=== PATIENT | male | born 1960 | race Caucasian/White ===

== ENCOUNTER 2023-09-01 17:13 | Inpatient (IN) | payer MEDICARE, OTHER, SELFPAY ==
--- NOTE | ~2023-09-01 | XR_ITS ---
EXAM: XR abdomen/kub 1V DATE: 09/01/2023 21:40 HISTORY: possible kidney stone . COMPARISON: None available. FINDINGS: Streaky and subsegmental bibasilar opacities and the suggestion of right pleural fluid. Di lated air-filled transverse colon. Otherwise there is a paucity of bowel gas. Cholecystectomy clips. 14 mm calcification with smaller adjacent calcifications projecting over the left renal pelvis. Small cluster of calcifications measuring up to 7 mm over the left lower pole. Punctate right midpole calc ifications. Degenerative changes in the spine and bilateral hips. Pelvic phleboliths. IMPRESSION: Bibasilar atelectasis/consolidation in the lungs, possible small right pleural effusion. Air-filled dilated transverse colon, may represent ileus, obstruction, or artifact from magnification . Likely bilateral nephrolithiasis. Possible 14 mm left renal pelvis stone. Consider CT of the abdome n and pelvis for further evaluation. Reviewed, dictated and finalized at location K. IMPRESSION: Bibasilar atelectasis/consolidation in the lungs, possible small ri ght pleural effusion. Air-filled dilated transverse colon, may represent ileus, obstruction, or artifact from magnification. Likely bilateral nephrolithiasis. Possible 14 mm left renal pelvis stone. Consider CT of the abdomen and pelvis for further evaluation.
--- NOTE | ~2023-09-01 | XR_ITS ---
XR retrograde pyelo w/stent BI DATE: 09/02/2023 10:45 INDICATION: Left stent placement TECHNIQUE: 44.9 seconds fluoroscopy time 48.17 mGy 3 spot C-arm images COMPARISON: 05/02/2024 CT abdomen pelvis FINDINGS: Right renal collecting system appears unremarkable. There is mild left hydronephrosis with blunted calyces. Left internal urinary stent is placed with proximal pigtail in an upper pole calyx of the left kidney . IMPRESSION: Left internal urinary stent placement Reviewed, dictated and finalized at Location A. Reviewed, dictated and finalized at location A.
--- NOTE | ~2023-09-01 | CT_ITS ---
EXAMINATION: CT abdomen pelvis wo con DATE: 09/01/2023 23:32 INDICATION: Abdominal pain and distention TECHNIQUE: Computed tomography (CT) of the abdomen and pelvis was performed without intravenous contr ast. Automated exposure control and iterative reconstruction technique were employed. Exam dose: 182 0.20 mGy-cm total exam DLP. COMPARISON: 09/01/2023 KUB FINDINGS: There are multiple left perihilar and subcarinal calcified nodes and calcified left lower l obe pulmonary granuloma in addition to calcified hepatic and hepatic granulomas, consistent with old granulomatous disease. Small pleural effusions. There is bilateral lower lobe mild dependent atelectasis. There is minimal i nfiltrate in the lingula and lower lobes. No pericardial effusion. Coronary artery calcifications. Status post cholecystectomy. No bile duct or pancreatic duct dilatation. No hepatic, pancreatic, splenic, adrenal or renal space-occupying mass lesion is evident on this limi lakia noncontrast examination with suboptimal soft tissue detail apparently due to body habitus. There are 2 approximately 3-4 mm nonobstructing right renal calculi. There are multiple contiguous calculi of the lower pole of the left kidney measuring up to 11 x 14 mm overall dimension. 9.6 x 14 mm calculus of the left ureteropelvic junction with attenuation of 500 Hounsfield units. Mild left hydronephrosis. The urinary bladder is unremarkable. Prostate enlargement and calcification. There is atherosclerotic calcification of the abdominal aorta. No abdominal aortic aneurysm. No intra peritoneal or retroperitoneal mass lesion or adenopathy or ascites. No bowel obstruction, bowel wall thickening, pneumatosis or intraperitoneal free air. IMPRESSION: 9.6 x 14 mm left ureteral pelvic junction calculus with mild left hydroureteronephrosis Bilateral nephrolithiasis Status post cholecystectomy Small pleural effusions, minimal infiltrate in the lingula and lower lobes, bilateral lower lobe mild dependent atelectasis Reviewed, dictated and finalized at Location A. Reviewed, dictated and finalized at location A. IMPRESSION: 9.6 x 14 mm left ureteral pelvic junction calculus with mild left hydroureteronephrosis Bilateral nephrolithiasis Status post cholecystectomy Small pleural effusions, minimal infiltrate in the lingula and lower lobes, cecelia ateral lower lobe mild dependent atelectasis
--- NOTE | ~2023-09-01 | XR_ITS ---
XR chest 1V portable DATE: 09/01/2023 22:52 INDICATION: Cough TECHNIQUE: Portable AP chest on September 01, 2023 at 2248 hours COMPARISON: None FINDINGS: There is pulmonary vascular congestion and redistribution. There are Vasyl B lines. There is prominence of the minor fissure. There are diffuse interstitial infiltrates. Heart size appears within normal range. No pleural effusion or pneumothorax is evident. Degenerative spurring of the thoracic spine. IMPRESSION: Pulmonary vascular congestion, pulmonary edema Reviewed, dictated and finalized at location A.
--- NOTE | 2023-09-01 17:16 | PM.IMHP ---
H&P: HPI History of Present Illness Date/Time: 09/01/23 17:15 Chief Complaint: Acute kidney injury, ureteral stone, urinary tract infection. Narrative: This is a very pleasant 63-year-old male with hypertension, hyperlipidemia, type 2 diabetes mellitus, and gastroesophageal reflux disease who is being directly admitted to the medical floor from an outside facility for further evaluation and treatment of acute kidney injury, a partially obstructing ureteral stone, and suspected urinary tract infection. 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 He was reportedly febrile on arrival to their facility however I was unable to find that documented. Labs were significant for WBC count of 17.1, hemoglobin 14.4, platelet 204, sodium 136, potassium 3.9, BUN 19, creatinine 1.30, glucose 175, lactic acid 2.5. CT of the abdomen and pelvis showed a 13 mm partially obstructing stone in the left ureteropelvic junction with moderate left perinephric fat stranding in addition to bilateral nonobstructing nephrolithiasis (overnight virtual radiologist read mentioned heterogeneity within the fundus of the stomach for which a gastric mass or foreign body cannot be excluded though this was not mentioned on the over read). He was started on IV fluids, received a dose of Zosyn, and was admitted to the floor where his antibiotics were changed to ceftriaxone. Due to a miscommunication, there was no urologist to see him yesterday or on-call today and transfer was initiated to [facility]. Creatinine was elevated 2.0 today. With further questioning the patient mentions some dribbling when trying to urinate but he denies concerns for urine retention. He also complains of constipation and reports not having a bowel movement since August 26 which is very unusual for him as he typically goes once a day. He was given a Dulcolax suppository and Fleet enema at the outside facility with no results as of yet. Review of Systems Review of Systems: Twelve systems were reviewed. No cold or flu symptoms though he has developed a dry cough over the last 24 hours. He denies dysphagia and concerns for aspiration. Weight has been stable. He has not noticed any blood in the stool. No prior history of kidney stones. No history of congestive heart failure or cardiac disease. Denies orthopnea and edema. He believes his chronic medical conditions are well controlled on home medications. Except as documented, all other systems were reviewed and are negative. [facility] Past Medical History Medical History (Updated 09/01/23 @ 22:35 by Katerin Forde PA-C) Gastroesophageal reflux disease Hyperlipidemia Hypertension Obstructive sleep apnea Type 2 diabetes mellitus Surgical History Surgical History (Updated 09/01/23 @ 22:29 by Katerin Forde PA-C) History of appendectomy History of cholecystectomy History of right knee joint replacement Family History Family History (Updated 09/01/23 @ 22:29 by Katerin Forde PA-C) Other Cancer Heart disease Hypertension Social History Social History (Updated 09/01/23 @ 22:33 by Katerin Forde PA-C) Social History: Surrogate medical decision maker: Mahnaz Pardo, spouse. Code status: Full code. Smoking status: Never smoker Second hand tobacco smoke exposure: No Alcohol intake: never Substance use: never Do You Feel Safe in your Home?: Yes Lack of Transportation: No Lack of Food: Never True Current Housing: Decline to Answer Concerned About Future Housing: Decline to Answer Difficulty Paying Gas/Electric Bills: Decline to Answer Difficulty Paying for Meds: Decline to Answer Currently Unemployed: Decline to Answer Education: Decline to Answer Difficulty w/ Childcare or Family Care: Decline to Answer Dorcas
--- NOTE | 2023-09-01 17:52 | P.CONUR_ITS ---
Assessment and Plan Assessment and plan (1) Ureteral stone: Code(s): N20.1 - Calculus of ureter Status: Acute Assessment and Plan: 13mm left ureteral stone will perform cysto with left ureteral stent placement tomorrow in anticipation of ESWL NPO after midnight (2) Urinary tract infection: Code(s): N39.0 - Urinary tract infection, site not specified Status: Acute Assessment and Plan: await urine Cx from [place] cont Empiric abx (3) Acute kidney injury: Code(s): N17.9 - Acute kidney failure, unspecified Status: Acute Urology Consult Note HPI Date Seen: 09/01/23 Requesting Physician: Ernie Alexander MD Primary Care Provider: UNKNOWN,DOCTOR Consult Narrative Narrative: Eduar Pardo is a 63 year old male with hypertension, hyperlipidemia, type 2 diabetes mellitus, and gastroesophageal reflux disease who is being directly admitted to the medical floor from an outside facility for further evaluation and treatment of acute kidney injury, a partially obstructing ureteral stone, and urinary tract infection. He was admitted to [facility] through their ED yesterday in the licensed tax consultant hours. CT scan reveals 13mm obstructing left ureteral stone. Pt has mild leukocystosis, mils PRINCESS, and p yuria on admission which has improved with IV hydration and IV abx. Pt has been transferred for placement of left ureteral stent in anticipation of ESWL when infection clears. Review of Systems Constitutional: Constitutional: Reports no additional constitutional complaints Gastrointestinal: Gastrointestinal: Reports constipation Genitourinary: Genitourinary: Reports flank pain Psychiatric: Psychiatric: Reports no additional psychiatric complaints [facility] Past Medical History Medical History (Updated 09/01/23 @ 17:25 by Katerin Forde PA-C) Gastroesophageal reflux disease Hyperlipidemia Hypertension Type 2 diabetes mellitus Meds Home Medications and Allergies Allergies Allergy/AdvReac Type Severity Reaction Status Date / Time cephalexin [From Keflex] Allergy Hives Verified 09/01/23 18:03 Exam Const: General: uncomfortable, obese and overweight Eyes: General: appearance normal, both eyes and all related structures Chest: Chest palpation & inspection: normal inspection of the chest : General: Yes CVA tenderness Skin: General skin exam: normal color Psych: Appearance: grossly normal Mental Status: mental status grossly normal Results Labs 09/01/23 17:35
--- NOTE | 2023-09-01 17:53 | ADMGEN ---
This patient, Eduar Pardo, was admitted to Medical Room 343-01. Patient/family oriented to hospital policies and general routines including ID bracelet, bed and alarms, visiting hours, pain management, procedures, bathroom and other care routines, personal items, smoking policy, room service/diet, and visiting hours. Information on how to activate the Rapid Response Team has been discussed. Patient/Family are encouraged to report perceived risks to care and to ask questions if they do not understand what they are told or what they should do.
[2023-09-01 17:54] LABS: Anion Gap 6 mmol/L (4-12); Blood Urea Nitrogen 27 mg/dL (9-20); Carbon Dioxide 25 mmol/L (22-30); Chloride 104 mmol/L (98-107); Estimated Glomerular Filt Rate 47; Glucose 148 mg/dL (65-110); Potassium 4.3 mmol/L (3.4-5.0); Sodium 135 mmol/L (137-145)
[2023-09-01 18:19] VITALS: BP 121/60; PULSE 87; RESP 19; TEMP 36.8; O2SAT 95
[2023-09-01 18:49] VITALS: PULSE 87; RESP 19; O2SAT 95
[2023-09-01] MEDS: ACETAMINOPHEN 325 MG TABLET 650 MG PO (20:03)
[2023-09-01] MEDS: SODIUM CHLORIDE 0.9% IV 1,000 ML 100 ML IV CONT (21:25)
[2023-09-01 21:26] VITALS: BP 139/70; PULSE 95; RESP 20; TEMP 37.1; O2SAT 97
[2023-09-01 21:27] VITALS: BMI 55.3
[2023-09-01] MEDS: HYDROmorphone HCL INJ (*CRX) 1 MG/ML SYR IV PUSH (21:28)
[2023-09-01 21:37] LABS: Glucose Point of Care 173 mg/dl (65-105)
[2023-09-01 22:33] VITALS: PULSE 93; O2SAT 96
[2023-09-02] VITALS (10 sets, daily range): BP systolic 112–159; BP diastolic 57–84; PULSE 79–93; RESP 15–21; TEMP 36.1–37.2; O2SAT 93–100
[2023-09-02 06:14] LABS: Hematocrit 36.2 % (42.0-52.0); Immature Platelet Fraction Pct 7.8 % (0.9-11.2); Mean Corpuscular HGB Conc 33.1 g/dl (32-36); Mean Corpuscular Volume 99.5 fl (80-100); Mean Platelet Volume 11.1 fl (7.4-10.4); Platelet Count Result 137 k/mm3 (150-375); Red Blood Count 3.64 M/mm3 (4.6-6.20); Red Cell Distribution Width 13.2 % (11.5-14.5)
[2023-09-02 06:24] LABS: Anion Gap 4 mmol/L (4-12); Blood Urea Nitrogen 23 mg/dL (9-20); Calcium 8.8 mg/dL (8.4-10.2); Carbon Dioxide 25 mmol/L (22-30); Chloride 103 mmol/L (98-107); Estimated CRCL calculation 67 ml/min; Estimated Glomerular Filt Rate 41; Glucose 154 mg/dL (65-110); Magnesium 2.1 mg/dL (1.6-2.3); Potassium 4.4 mmol/L (3.4-5.0); Sodium 132 mmol/L (137-145)
[2023-09-02 06:32] LABS: NT Pro B Type Natriuretic Pept 1200 pg/mL (19.9-100)
--- NOTE | 2023-09-02 09:35 | PC.NURSE ---
Patient off of unit to Surgery
--- NOTE | 2023-09-02 09:57 | WPDANESEPPF ---
Anes - Initial Pre Proc Eval Procedure: Operation Date: 09/02/23 10:00 Proposed Procedures p Cysto, RPG, Stone Ext, Stent Placement(Left) - Bert Nieves MD Date/Time: 09/02/23 09:57 Surgeon: Ernie Alexander MD Pre Op Diagnosis: Acute Kidney Injury/Ureteral Stone Patient Data Age: 63 Gender: M Height: 1.83 m Weight: 185 kg Last Vital Signs Temp 98.9 F 09/02/23 04:12 Pulse 93 09/02/23 04:12 Resp 18 09/02/23 04:12 BP 159/74 H 09/02/23 04:12 Pulse Ox 95 09/02/23 04:12 O2 Del Method CPAP 09/02/23 03:07 Allergies Allergy/AdvReac Type Severity Reaction Status Date / Time cephalexin [From Keflex] Allergy Hives Verified 09/01/23 18:03 Home Medications Medication Instructions Recorded Confirmed Type Adult One Daily Multivitamin 1 tab-cap PO DAILY 09/01/23 09/01/23 History Celebrex 200 mg PO DAILY 09/01/23 09/01/23 History citalopram 10 mg PO DAILY 09/01/23 09/01/23 History lisinopril 20 1 tablet PO DAILY 09/01/23 09/01/23 History mg-hydrochlorothiazide 25 mg tablet lutein 20 mg PO DAILY 09/01/23 09/01/23 History magnesium 500 mg PO DAILY 09/01/23 09/01/23 History metformin 1,000 mg tablet 500 mg PO BID 09/01/23 09/01/23 History omeprazole 20 mg capsule,delayed 20 mg PO DAILY 09/01/23 09/01/23 History release rosuvastatin 10 mg tablet 10 mg PO DAILY 09/01/23 09/01/23 History semaglutide 1 mg/dose (4 mg/3 mL) 1 mg subcut WEEKLY 09/01/23 09/01/23 History subcutaneous pen injector (Ozempic) Laboratory Tests 09/01/23 09/01/23 09/02/23 17:35 21:29 05:53 WBC 10.0 K/mm3 (4.5-10.0) RBC 3.64 L M/mm3 (4.6-6.20) Hgb 12.0 L g/dL (14.0-18.0) Hct 36.2 L % (42.0-52.0) MCV 99.5 fl (80-100) MCH 33.0 pg (26-34) MCHC 33.1 g/dl (32-36) RDW 13.2 % (11.5-14.5) Plt Count 137 L k/mm3 (150-375) MPV 11.1 H fl (7.4-10.4) % Immature Plt Fraction 7.8 % (0.9-11.2) Sodium 135 L mmol/L 132 L mmol/L (137-145) (137-145) Potassium 4.3 mmol/L 4.4 mmol/L (3.4-5.0) (3.4-5.0) Chloride 104 mmol/L 103 mmol/L (98-107) (98-107) Carbon Dioxide 25 mmol/L 25 mmol/L (22-30) (22-30) Anion Gap 6 mmol/L 4 mmol/L (4-12) (4-12) BUN 27 H mg/dL 23 H mg/dL (9-20) (9-20) Creatinine 1.50 H mg/dL 1.70 H mg/dL (0.7-1.3) (0.7-1.3) Estim Creat Clear Calc Not Reportable 67 ml/min Estimated GFR 47 L 41 L (59 - ) (59 - ) Glucose 148 H mg/dL 154 H mg/dL (65-110) (65-110) POC Capillary Glucose 173 H mg/dl (65-105) Calcium 9.0 mg/dL 8.8 mg/dL (8.4-10.2) (8.4-10.2) Magnesium 2.1 mg/dL (1.6-2.3) NT-Pro-B Natriuret Pep 1200 H pg/mL (19.9-100) Patient hx anesthesia problems: none Family hx anesthesia problems: none Results Review: All pre-operative results and documents have been reviewed as part of the pre-operative evaluation. [facility] Past Medical History Medical History Gastroesophageal reflux disease Hyperlipidemia Hypertension Obstructive sleep apnea Type 2 diabetes mellitus Surgical History Surgical History History of appendectomy History of cholecystectomy History of right knee joint replacement Family History Family History Other Cancer Heart disease Hypertension Social History Social History Social History: Surrogate medical decision maker: Mahnaz Pardo, spouse. Code status: Full code. Smoking status: Never smoker Second hand tobacco smoke exposure: No Alcohol intake: never Substance use: never Do You Feel Safe in your Home?: Yes Lack of Transportation: No
[2023-09-02] MEDS: LIDOCAINE HCL 2% GEL UROJET 10 ML PKG MUCOUS MEM (10:27)
--- NOTE | 2023-09-02 10:43 | PM.OP ---
Procedure Note - Brief Procedure Note - Brief Date of procedure: 09/02/23 Acute Kidney Injury/Ureteral Stone Procedure performed: Cystoscopy with bilateral retrograde pyelography, left ureteral stent placment Surgeon: Bert Nieves MD Anesthesia: GETAngelo Description of procedure: Pt was taken back to the OR and placed under general anesthesia. Pt was positioned in dorsal lithotomy on the cysto table. Pt's genitalia wa prepped and draped in sterile fashion. A 22f cystoscope was placed. The urethra, prostate, and bladder were unremarkable. Using a 5f angiographic cath was placed into the left uo and a retrograde pyelogram was performed. The left ureter was normal up to the left UPJ where a 1cm filling defect c/w a stone was noted with mild hydronephrosis. A wire was passed up the cath into the left renal pelvis passed the stone. Over the wire a 6f variable lengthed stent was placed with a nice curl in the renal pelvis and bladder. Next the 5f angiographic cath was placed into the right uo and a retrograde pyelogram was perfomed. The right ureter and renal pelvis was normal. The bladder was drained and the scope removed. 10cc of lidocaine jelly was instilled into the urethra. Pt tolerated with well and taken to PACU in stable condition.
[2023-09-02] MEDS: LACTATED RINGERS 1,000 ML 30 ML IV CONT (10:54)
[2023-09-02 11:03] LABS: Glucose Point of Care 132 mg/dl (65-105)
[2023-09-02] MEDS: ceFAZolin 1 GM/NS 50 ML 1 GM/50 ML BAG IVPB ×2 (12:36→20:30)
--- NOTE | 2023-09-02 13:28 | P.PNIM_ITS ---
Progress Note: A&P Assessment and Plan (1) Ureteral stone: Code(s): N20.1 - Calculus of ureter Status: Acute Assessment and Plan: * CT showed 9.6 x 14 mm left ureteral pelvic junction calculus with mild left hydroureteronephrosis. Bilateral nephrolithiasis * urology consulted - Cystoscopy with bilateral retrograde pyelography, left ureteral stent placement done today (2) Acute kidney injury: Code(s): N17.9 - Acute kidney failure, unspecified Status: Acute Assessment and Plan: * Creatinine 1.7 this a.m. * EGFR 41 * medications will be renally dose and nephrotoxic agents will be avoided * lisinopril and hydrochlorothiazide are on hold (3) Urinary tract infection: Code(s): N39.0 - Urinary tract infection, site not specified Status: Acute Assessment and Plan: * ceftriaxone pending urine culture which was obtained at the [facility] (4) Hypertension: Code(s): I10 - Essential (primary) hypertension Status: Chronic Assessment and Plan: * Currently holding lisinopril * Continue to monitor * Resume when appropriate (5) Type 2 diabetes mellitus: Code(s): E11.9 - Type 2 diabetes mellitus without complications Status: Chronic Assessment and Plan: * Accu-Checks * Sliding scale insulin * Hypoglycemia protocol (6) Hyperlipidemia: Code(s): E78.5 - Hyperlipidemia, unspecified Status: Chronic Assessment and Plan: * Holding Crestor due to PRINCESS (7) Gastroesophageal reflux disease: Code(s): K21.9 - Gastro-esophageal reflux disease without esophagitis Status: Chronic Assessment and Plan: * Continue pantoprazole (8) Obstructive sleep apnea: Code(s): G47.33 - Obstructive sleep apnea (adult) (pediatric) Status: Chronic Assessment and Plan: * CPAP ordered (9) Acute dyspnea: Code(s): R06.00 - Dyspnea, unspecified Status: Acute Assessment and Plan: * patient reporting new onset SOB with exertion * CXR showed Vasyl B lines and pulmonary edema * BNP 1200 * will start Lasix with close monitoring of kidney function * ECHO ordered * consider cardiology consult pending results Subjective Date/time seen: 09/02/23 13:28 Interval history: Patient seen this morning prior to procedure, sitting up in chair in no acute distress. His pain is controlled at the time. He denies chest pain or SOB. He reports a small BM this morning, but mostly passing of gas. Urology to take him for cystoscopy and stent placement later in the am. Review of Systems Review of Systems: All systems reviewed & are unremarkable except as noted in HPI and below Exam Narrative: General: Obese male sitting in chair, no acute distress. HEENT: PERRLA, EOMI. Oral mucosa moist. Neck: Supple. Respiratory: Lung sounds clear to auscultation. Cardiovascular: RRR with S1-S2. Gastrointestinal: Abdomen is obese and distended with hypoactive bowel sounds. Non-tender to palpation. Skin: Warm and dry. Face is flushed. Extremities: No cyanosis, clubbing, or significant edema. Radial and pedal pulses intact. Neurological: Alert and oriented x3. Cranial nerves 2-12 are grossly intact. No focal deficits. Psychiatric: Pleasant and cooperative with normal mood and affect. Objective Data Vital Signs Vital Signs: Vital Signs - 24 hr 09/01/23 18:19 09/01/23
--- NOTE | 2023-09-02 13:28 | PM.IMPN ---
Progress Note: A&P Assessment and Plan (1) Ureteral stone: Code(s): N20.1 - Calculus of ureter Status: Acute Assessment and Plan: CT showed 9.6 x 14 mm left ureteral pelvic junction calculus with mild left hydroureteronephrosis. Bilateral nephrolithiasis urology consulted - Cystoscopy with bilateral retrograde pyelography, left ureteral stent placement done today (2) Acute kidney injury: Code(s): N17.9 - Acute kidney failure, unspecified Status: Acute Assessment and Plan: Creatinine 1.7 this a.m. EGFR 41 medications will be renally dose and nephrotoxic agents will be avoided lisinopril and hydrochlorothiazide are on hold (3) Urinary tract infection: Code(s): N39.0 - Urinary tract infection, site not specified Status: Acute Assessment and Plan: ceftriaxone pending urine culture which was obtained at the [facility] (4) Hypertension: Code(s): I10 - Essential (primary) hypertension Status: Chronic Assessment and Plan: Currently holding lisinopril Continue to monitor Resume when appropriate (5) Type 2 diabetes mellitus: Code(s): E11.9 - Type 2 diabetes mellitus without complications Status: Chronic Assessment and Plan: Accu-Checks Sliding scale insulin Hypoglycemia protocol (6) Hyperlipidemia: Code(s): E78.5 - Hyperlipidemia, unspecified Status: Chronic Assessment and Plan: Holding Crestor due to PRINCESS (7) Gastroesophageal reflux disease: Code(s): K21.9 - Gastro-esophageal reflux disease without esophagitis Status: Chronic Assessment and Plan: Continue pantoprazole (8) Obstructive sleep apnea: Code(s): G47.33 - Obstructive sleep apnea (adult) (pediatric) Status: Chronic Assessment and Plan: CPAP ordered (9) Acute dyspnea: Code(s): R06.00 - Dyspnea, unspecified Status: Acute Assessment and Plan: patient reporting new onset SOB with exertion CXR showed Vasyl B lines and pulmonary edema BNP 1200 will start Lasix with close monitoring of kidney function ECHO ordered consider cardiology consult pending results Subjective Date/time seen: 09/02/23 13:28 Interval history: Patient seen this morning prior to procedure, sitting up in chair in no acute distress. His pain is controlled at the time. He denies chest pain or SOB. He reports a small BM this morning, but mostly passing of gas. Urology to take him for cystoscopy and stent placement later in the am. Review of Systems Review of Systems: All systems reviewed & are unremarkable except as noted in HPI and below Exam Narrative: General: Obese male sitting in chair, no acute distress. HEENT: PERRLA, EOMI. Oral mucosa moist. Neck: Supple. Respiratory: Lung sounds clear to auscultation. Cardiovascular: RRR with S1-S2. Gastrointestinal: Abdomen is obese and distended with hypoactive bowel sounds. Non-tender to palpation. Skin: Warm and dry. Face is flushed. Extremities: No cyanosis, clubbing, or significant edema. Radial and pedal pulses intact. Neurological: Alert and oriented x3. Cranial nerves 2-12 are grossly intact. No focal deficits. Psychiatric: Pleasant and cooperative with normal mood and affect. Objective Data Vital Signs Vital Signs: Vital Signs - 24 hr 09/01/23 18:19 09/01/23 18:49 09/01/23 21:26 Temperature 98.3 F 98.7 F Pulse Rate 87 87 95 Respiratory Rate 19 19 20 Blood Pressure 121/60 139/70 Pulse Oximetry 95 95 97 Oxygen Delivery Room Air Oxygen Flow Rate 09/01/23 22:33 09/01/23 20:00 09/02/23 03:07 Temperature Pulse Rate 93 Respiratory Rate Blood Pressure Pulse Oximetry 96 Oxygen Delivery CPAP Room Air CPAP Oxygen Flow Rate 09/02/23 04:12 09/02/23 09:35 09/02/23 10:54 Temperature 98.9 F 97.1 F L Pulse Rate 93 91 Respiratory Rate 18 16 Blood Pressure 159/74 H
[2023-09-02] MEDS: ACETAMINOPHEN 325 MG TABLET 650 MG PO (13:53)
[2023-09-02] MEDS: FUROSEMIDE INJ 40 MG/4 ML VIAL IV PUSH (16:31)
[2023-09-02] MEDS: DOCUSATE SODIUM 100 MG CAPSULE PO (16:31)
--- NOTE | 2023-09-03 | ECHO_ITS ---
Patient Info Name: Eduar Pardo Age: 63 years : 1960 Gender: Male Ht: 72 in Wt: 407 lbs BSA: 3.17 m2 HR: 81 bpm BP: 137 / 74 mmHg Heart Rhythm: Sinus Rhythm Technical Quality: Poor Exam Date: 09/03/2023 10:55 AM Exam Location: Echo Lab Patient Status: Inpatient Admit Date: 09/02/2023 Staff Ordering Physician: Sho Mota APRN Electrician Apprentice: Jace Rosas RDCS Attending Provider: Steven Alexander MD Exam Type: CA echo doppler color flow Study Info Indications J81.0 - Acute pulmonary edema Complete two-dimensional, color flow and Doppler transthoracic echocardiogram is performed with contrast to opacify the left ventricle and to improve the deliniation of the left ventricle endocardial borders. Contrast/Agitated Saline Contrast/Ag. Saline: Definity Amount: 2.00 ml IV Access Condition: patent with no signs of infiltration Reason for Poor Study: patient body habitus Summary 1. Technically difficult and challenging echocardiogram even with contrast infusion. 2. Normal appearing left ventricular size and systolic function. 3. Grade 1 diastolic noncompliance. 4. Left atrial enlarged. 5. No valvular dysfunction identified. 6. Poor quality imaging presumably related to obesity. Left Ventricle Left ventricular chamber dimension is normal. Left ventricular systolic function is normal, estimated at 55-60%. The left ventricular diastolic function is grade I diastolic dysfunction. Right Ventricle Right ventricular chamber dimension is normal. Left Atria Left atrial chamber dimension is mildly enlarged. Right Atria Right atrial chamber dimension is not well visualized. Aortic Valve The aortic valve is trileaflet. There is mild aortic valve sclerosis. Pulmonic Valve The pulmonic valve is not well visualized. Mitral Valve The mitral valve has normal leaflets. Tricuspid Valve The tricuspid valve leaflets are not well visualized. Pericardium/Pleural The pericardium appears not well visualized. Aorta The aortic root size at the sinus of Valsalva is normal. Left Ventricular Outflow Tract Name Value Normal LVOT 2D LVOT Diameter 2.1 cm LVOT Doppler LVOT Peak Gradient 5 mmHg LVOT Mean Gradient 3 mmHg LVOT VTI 21 cm LVOT VTI/AV VTI Ratio 0.8 LVOT Stroke Volume 74 ml LVOT CO 5.8 l/min LVOT CI 1.8 l/min/m2 Pulmonic Valve Name Value Normal RVOT Doppler RVOT Peak Gradient 3 mmHg PV Doppler PV Peak Gradient 3 mmHg Mitral Valve Name Value Normal ------
[2023-09-03 00:39] VITALS: BP 121/57; PULSE 76; RESP 18; TEMP 36.5; O2SAT 94
[2023-09-03 04:30] VITALS: BP 137/74; PULSE 78; RESP 18; TEMP 36.3; O2SAT 98
[2023-09-03 06:12] LABS: Basophils Percent Auto 0.5 % (0.2-1.2); Eosinophils Absolute Auto 0.2 K/mm3 (0-0.3); Eosinophils Percent Auto 1.9 % (0-4.4); Hematocrit 34.5 % (42.0-52.0); Hemoglobin 11.3 g/dL (14.0-18.0); Immature Granulocyte Absolute 0.03 K/mm3 (0.00-0.031); Immature Granulocyte Percent A 0.4 % (0-0.5); Lymphocytes Absolute Auto 1.23 K/mm3 (0.9-3.2); Lymphocytes Percent Auto 15.7 % (18.3-44.2); Mean Corpuscular HGB Conc 32.8 g/dl (32-36); Mean Corpuscular Hemoglobin 32.5 pg (26-34); Mean Corpuscular Volume 99.1 fl (80-100); Mean Platelet Volume 11.2 fl (7.4-10.4); Monocytes Absolute Auto 1.1 K/mm3 (0.1-0.6); Monocytes Percent Auto 13.6 % (2.6-8.5); Neutrophils Absolute Auto 5.3 K/mm3 (1.3-6.7); Neutrophils Percent Auto 67.9 % (45.5-73.1); Platelet Count Result 163 k/mm3 (150-375); Red Blood Count 3.48 M/mm3 (4.6-6.20); Red Cell Distribution Width 13.1 % (11.5-14.5); White Blood Count 7.9 K/mm3 (4.5-10.0)
--- NOTE | 2023-09-03 07:31 | WPDUROPN2 ---
Progress Note: A&P Assessment and Plan (1) Ureteral stone: Code(s): N20.1 - Calculus of ureter Status: Acute (2) Urinary tract infection: Code(s): N39.0 - Urinary tract infection, site not specified Status: Acute Assessment and Plan: Home with stent anytime from our standpoint I'll arrange left ureteroscopy with laser ablation as outpatient. Subjective Subjective Date/Time Seen: 09/03/23 07:31 Interval history: Tolerating stent Review of Systems Cardiovascular: Cardiovascular: Denies chest pain, Denies lightheadedness, Denies palpitations and Denies dyspnea Respiratory: Respiratory: Denies dyspnea Gastrointestinal: Gastrointestinal: Denies diarrhea, Denies nausea and Denies vomiting Genitourinary: Genitourinary: Denies hematuria and Denies dysuria Endocrine: Endocrine: Denies palpitations Exam Const: General: no acute distress Resp: Effort & Inspection: normal respiratory effort GI: Inspection: non-distended GI Palp: No abdominal tenderness and No Guarding due to palpation present (GI) Auscultation: normal bowel sounds Objective Data Vital Signs Vital Signs: Vital Signs - 24 hr 09/02/23 09:35 09/02/23 10:54 09/02/23 11:05 Temperature 97.1 F L Pulse Rate 91 86 Respiratory Rate 16 20 Blood Pressure 133/84 135/78 Pulse Oximetry 100 100 Oxygen Delivery Room Air Simple Face Mask Simple Face Mask Oxygen Flow Rate 8 8 09/02/23 11:20 09/02/23 11:35 09/02/23 11:50 Temperature 97.0 F L Pulse Rate 85 84 83 Respiratory Rate 20 20 15 Blood Pressure 134/76 138/79 129/75 Pulse Oximetry 100 94 96 Oxygen Delivery Room Air Room Air Room Air Oxygen Flow Rate 09/02/23 12:21 09/02/23 13:14 09/02/23 18:13 Temperature 97.5 F L 98.5 F 97.8 F Pulse Rate 86 84 84 Respiratory Rate 21 H 20 20 Blood Pressure 141/77 H 112/57 L 121/62 Pulse Oximetry 96 93 97 Oxygen Delivery Oxygen Flow Rate 09/02/23 19:59 09/03/23 00:39 09/02/23 20:00 Temperature 98.1 F 97.7 F Pulse Rate 79 76 Respiratory Rate 18 18 Blood Pressure 126/70 121/57 L Pulse Oximetry 95 94 Oxygen Delivery Room Air Oxygen Flow Rate 09/03/23 04:30 Temperature 97.4 F L Pulse Rate 78 Respiratory Rate 18 Blood Pressure 137/74 Pulse Oximetry 98 Oxygen Delivery Oxygen Flow Rate Intake/Output Intake/Output: Intake & Output 08/31/23 09/01/23 09/02/23 09/03/23 23:59 23:59 23:59 23:59 Intake Total 50 2630 250 Balance 50 2630 250 Meds/Results Medications: Active Medications Generic Name Dose Route Start Last Admin Trade Name Freq PRN Reason Stop Dose Admin Acetaminophen 650 mg 09/01/23 17:13 09/02/23 13:53 Acetaminophen 325 Mg Tablet PO 650 mg Q4H PRN Administration Mild Pain (1-3) or Fever Hydrocodone Bitart/Acetaminophen 1 tab 09/02/23 10:54 Hydrocodone/Acetaminophen (*Crx) 5-325 Mg Tablet PO Q4H PRN Pain Rated 4-6 Citalopram Hydrobromide 10 mg 09/02/23 09:00 Citalopram Hydrobromide 10 Mg Tablet PO QAM [facility] Docusate Sodium 100 mg 09/02/23 17:00 09/02/23 16:31 Docusate Sodium 100 Mg Capsule PO 100 mg BID JOHN Administration Furosemide 40 mg 09/03/23 09:00 Furosemide Inj 40 Mg/4 Ml Vial IV PUSH DAILY [facility] Ceftriaxone Sodium 1 gm in 50 mls @ 100 mls/hr 09/02/23 21:00 09/02/23 20:30 Rocephin 1 Gm/Ns 50 Ml IVPB 100 mls/hr DAILY@2100 JOHN Administration Magnesium Oxide 400 mg 09/02/23 09:00 Magnesium Oxide 400 Mg Tablet PO DAILY JOHN Morphine Sulfate 2 mg 09/02/23 10:54 Morphine Sulfate (*Crx) 2 Mg/Ml Inj IV PUSH Q2H PRN Pain Rated 7-10 Naloxone HCl 0.1 mg 09/02/23 10:54 Naloxone Hcl 0.4 Mg/Ml Vial IV PUSH Q2M PRN Opiate Reversal Ondansetron HCl 4 mg 09/02/23 10:54 Ondansetron Inj 4 Mg/2 Ml Vial IV PUSH Q12H PRN Nausea And Vomiting Pantoprazole Sodium 40 mg 09/02/23 09:00 09/02/23 09:40 Pantoprazole 40 Mg Tab
[2023-09-03 08:18] LABS: Anion Gap 4 mmol/L (4-12); Blood Urea Nitrogen 16 mg/dL (9-20); Carbon Dioxide 29 mmol/L (22-30); Chloride 103 mmol/L (98-107); Estimated CRCL calculation 108 ml/min; Estimated Glomerular Filt Rate > 60; Glucose 132 mg/dL (65-110); Potassium 3.8 mmol/L (3.4-5.0); Sodium 136 mmol/L (137-145)
[2023-09-03 08:39] VITALS: BP 159/73; PULSE 73; RESP 18; TEMP 36; O2SAT 95
[2023-09-03] MEDS: PANTOPRAZOLE 40 MG TABLET PO (08:49)
[2023-09-03] MEDS: polyethylene glycoL 3350 17 GM POWD.PACK PO (08:49)
[2023-09-03] MEDS: DOCUSATE SODIUM 100 MG CAPSULE PO ×2 (08:49→16:57)
[2023-09-03] MEDS: FUROSEMIDE INJ 40 MG/4 ML VIAL IV PUSH (08:49)
--- NOTE | 2023-09-03 09:45 | WPDANESPN ---
Anes - Prog Note Post-Op Date/Time: 09/03/23 09:45 Cardiovascular status: normal Respiratory status: normal Airway patency: baseline Mental status: baseline Post-Op hydration status: normal Vital Signs: Last Vital Signs Temp 36.0 C L 09/03/23 08:39 Pulse 73 09/03/23 08:39 Resp 18 09/03/23 08:39 BP 159/73 H 09/03/23 08:39 Pulse Ox 95 09/03/23 08:39 O2 Del Method Room Air 09/02/23 20:00 O2 Flow Rate 8 09/02/23 11:05 Pain Score (VAS): 06/16 I/O: Intake & Output 09/02/23 09/03/23 09/03/23 23:59 07:59 15:59 Intake Total 990 250 240 Balance 990 250 240 Laboratory Tests 09/03/23 05:47 09/03/23 05:47 09/02/23 09/03/23 11:00 05:47 WBC 7.9 RBC 3.48 L Hgb 11.3 L Hct 34.5 L MCV 99.1 MCH 32.5 MCHC 32.8 RDW 13.1 Plt Count 163 MPV 11.2 H Immature Gran % (Auto) 0.4 Neut % (Auto) 67.9 Lymph % (Auto) 15.7 L [place] % (Auto) 13.6 H Eos % (Auto) 1.9 Baso % (Auto) 0.5 Lymph # (Auto) 1.23 [place] # (Auto) 1.1 H Eos # (Auto) 0.2 Baso # (Auto) 0.0 Abs Immat Gran (auto) 0.03 Absolute Neuts (auto) 5.3 Absolute Nucleated RBC 0.000 Nucleated RBC % 0.0 Sodium 136 L Potassium 3.8 Chloride 103 Carbon Dioxide 29 Anion Gap 4 BUN 16 Creatinine 1.00 Estim Creat Clear Calc 108 Estimated GFR > 60 Glucose 132 H POC Capillary Glucose 132 H Calcium 9.0 Post-procedural complaints: none Patient Feedback: Patient satisfied with anesthetic care. Other Findings: patient reports he received excellent anesthesia care.
[2023-09-03 12:58] LABS: Appearance Urine Clear (Clear); Bacteria Urine None Seen /hpf; Bilirubin Urine Negative (Negative); Blood Urine 2+ (Negative); Color Urine Yellow (Yellow); Glucose Urine UA Negative (Negative); Ketones Urine Negative (Negative); Leukocyte Esterase Ur 3+ LEU/UL (Negative); Nitrate Urine Negative (Negative); Non Pathogenic Casts 0-2; Protein Urine 1+ mg/dL (Negative); RBC Urine 51-100 /hpf (0-2); Squamous Epithelial Cell Urine None Seen /hpf (Few); Urobilinogen Urine 0.2 mg/dL (<2.0); WBC Urine 21-50 /hpf (0-3); pH Urine 7.5 (5.0-9.0)
[2023-09-03 13:10] LABS: Add Urine Microscopic? YES
[2023-09-03] MEDS: PERFLUTREN LIPID MICROSPHERES 1.5 ML VIAL DILUTED TO 10 ML TOTAL VOLUME IV PUSH (13:27)
--- NOTE | 2023-09-03 13:29 | IVDEFINITY ---
Prior to administration of IV Definity the patient was educated on the risks and benefits of the imaging enhancing agent including potential adverse side effects. The patient verbalized understanding. Allergies were verified. No exclusion criteria were identified and at least one of the following inclusion criteria were met: 1) physician request, 2) patient technically difficult to image (per the [place] [employer]ocardi[employer] guidelines of two or more segments not discernable within the apical view), or 3) questionable left ventricular function. ?
[2023-09-03] MEDS: MAGNESIUM CITRATE 300 ML BTL PO (15:01)
--- NOTE | 2023-09-03 15:12 | PM.DS ---
DS: Admitting Diagnosis Discharge Date 09/03/23 Admitting Diagnosis Acute kidney injury, ureteral stone, urinary tract infection. DS: Discharge Diagnosis Discharge Diagnosis (1) Ureteral stone: Code(s): N20.1 - Calculus of ureter Status: Acute Assessment and Plan: CT showed 9.6 x 14 mm left ureteral pelvic junction calculus with mild left hydroureteronephrosis. Bilateral nephrolithiasis urology consulted - Cystoscopy with bilateral retrograde pyelography, left ureteral stent placement on 09/02/23 urology to follow up outpatient for stent removal (2) Acute kidney injury: Code(s): N17.9 - Acute kidney failure, unspecified Status: Resolved Assessment and Plan: Creatinine 1.0 this a.m. EGFR >60 (3) Urinary tract infection: Code(s): N39.0 - Urinary tract infection, site not specified Status: Acute Assessment and Plan: urine culture from [facility] sample was not culturable per report repeat UA done here today did not show signs of infection, okay to d/c without further antibiotics at this time negative for nitrates, bacterial growth (4) Hypertension: Code(s): I10 - Essential (primary) hypertension Status: Chronic Assessment and Plan: Resume lisinopril (5) Type 2 diabetes mellitus: Code(s): E11.9 - Type 2 diabetes mellitus without complications Status: Chronic (6) Hyperlipidemia: Code(s): E78.5 - Hyperlipidemia, unspecified Status: Chronic Assessment and Plan: resume Crestor (7) Gastroesophageal reflux disease: Code(s): K21.9 - Gastro-esophageal reflux disease without esophagitis Status: Chronic Assessment and Plan: Continue pantoprazole (8) Obstructive sleep apnea: Code(s): G47.33 - Obstructive sleep apnea (adult) (pediatric) Status: Chronic Assessment and Plan: CPAP ordered (9) Acute dyspnea: Code(s): R06.00 - Dyspnea, unspecified Status: Acute Assessment and Plan: patient reporting new onset SOB with exertion CXR showed Vasyl B lines and pulmonary edema BNP 1200 s/p 1 dose Lasix ECHO ordered consider cardiology follow up outpatient pending results DS: Summary Hospital Course Hospital Course: Patient is 63-year-old male with PMH of hypertension, hyperlipidemia, type 2 diabetes mellitus, and GERD admitted from [facility] further evaluation and treatment of acute kidney injury, a partially obstructing ureteral stone, and suspected urinary tract infection. Labs were significant for WBC count of 17.1, hemoglobin 14.4, platelet 204, sodium 136, potassium 3.9, BUN 19, creatinine 1.30, glucose 175, lactic acid 2.5. CT of the abdomen and pelvis showed a 13 mm partially obstructing stone in the left ureteropelvic junction with moderate left perinephric fat stranding in addition to bilateral nonobstructing nephrolithiasis (overnight virtual radiologist read mentioned heterogeneity within the fundus of the stomach for which a gastric mass or foreign body cannot be excluded though this was not mentioned on the over read). Patient was concerned about this finding, but could have been stool as the patient is also acutely constipated and had not had a BM in several days. Repeat CT imaging here found no similar findings. Urology performed a cysto with stent placed on 09/01. Patient kidney function now WNL and he is cleared for d/c. Repeat UA done here today did not show signs of infection so will not d/c on AB therapy. ECHO done given incidental CT findings as well as previous SOB. He may follow up outpatient pending results if needed. Status at Discharge Functional status at discharge: independent ambulation Overall status at discharge: patient is back to baseline Time Spent with Patient Time attestation: Total time spent providing and/or coordinating discharge services: Exam Narrative: General: Obese florence
[2023-09-03 15:13] VITALS: BP 125/65; PULSE 72; RESP 16; TEMP 36.7; O2SAT 95
--- NOTE | 2023-10-10 11:35 | WPDHPUPDATE1 ---
History and Physical Update Update Date/Time: 10/10/23 11:35 History and Physical has been reviewed, including an updated exam of the patient. There are NO changes in the patient's condition. Risks, benefits, and alternatives have been discussed and questions answered. Patient agrees to proceed with procedure. This update applies to procedure done on 09/02/2023.
--- NOTE | 2023-10-10 11:37 | P.OP_ITS ---
Procedure Note - Detailed Date of Procedure 10/10/23 Pre-op Diagnosis Acute Kidney Injury/Left Ureteral Stone Post-op Diagnosis Same Procedure Performed Cystoscopy, left RPG, left ureteral stent placement Surgeon Bert Nieves MD Anesthesia General Description of Procedure Pt was taken back to the OR and placed under general anesthesia. Pt was positioned in dorsal lithotomy on the cysto table. Pt's genitalia wa prepped and draped in sterile fashion. A 22f cystoscope was placed. The urethra, prostate, and bladder were unremarkable. Using a 5f angiographic cath was placed into the left uo and a retrograde pyelogram was performed. The left ureter was normal up to the left UPJ where a 1cm filling defect c/w a stone was noted with mild hydronephrosis. A wire was passed up the cath into the left renal pelvis passed the stone. Over the wire a 6f variable lengthe stent was placed with a nice curl in the renal pelvis and bladder. Next the 5f angiographic cath was placed into the right uo and a retrograde pyelogram was perfomed. The right ureter and renal pelvis was normal. The bladder was drai angela and the scope removed. 10cc of lidocaine jelly was instilled into the urethra. Pt tolerated with well and taken to PACU in stable condition.
== END 2023-09-03 17:45 | disposition home or self-care (01) | DRG 660 ==
PROVIDERS: Physician Assistant; Urology; Admitting Provider Internal Medicine; Visit Provider Nurse Practitioner
PROC: 0T778DZ Dilation of Left Ureter with Intraluminal Device, Via Natural or Artificial Opening Endoscopic (ICD-10-PCS; CPT 52352; principal; 2023-09-02 10:00)
DX: N20.1 Calculus of ureter (principal); N17.9 Acute kidney failure, unspecified; N39.0 Urinary tract infection, site not specified; I10 Essential (primary) hypertension; E11.9 Type 2 diabetes mellitus without complications; E78.5 Hyperlipidemia, unspecified; K21.9 Gastro-esophageal reflux disease without esophagitis; Z96.651 Presence of right artificial knee joint; G47.33 Obstructive sleep apnea (adult) (pediatric); R06.00 Dyspnea, unspecified; K59.00 Constipation, unspecified
CPT/HCPCS: 36415; 71045; 74018; 74176; 74420; 80048; 81001; 82948; 83735; 83880; 85025; 85027; 85055; 93306; 96361; 96365; 96375; A9270; C1758; C2617; G0378; G0379; J0330; J0690; J0696; J1170; J1940; J2405; J2704; J3010; J7030; J7120; Q9957; Q9966

== ENCOUNTER 2023-09-11 10:31 | Outpatient (CLI) | payer MEDICARE, OTHER, SELFPAY ==
--- NOTE | 2023-09-11 10:59 | ECG_ITS ---
SEE SCANNED COPY FOR CONFIRMED REPORT. MTDD
== END 2023-09-11 10:32 | disposition home or self-care (01) ==
LOC: ANHSURGERY 10:38
PROVIDERS: PCP Family Medicine; Visit Provider Urology
DX: Z01.818 Encounter for other preprocedural examination (principal); I10 Essential (primary) hypertension
CPT/HCPCS: 93005

== ENCOUNTER 2023-09-13 00:36 | Day surgery (SDC) | payer MEDICARE, OTHER, SELFPAY ==
[2023-09-06 14:57] VITALS: BMI 50.8
--- NOTE | 2023-09-06 15:31 | PC.NURSE ---
Report to the Outpatient Waiting Room, entrance under the green pavilion located off [facility], at time __6:15AM on date ___09/13/23____. Planned Procedure Time: __8:15AM . Time changes happen often and if your time is changed the preop area will call you the afternoon before. - You and your visitor will be asked to self-screen and do not enter if you have any COVID symptoms. - A mask is optional within the hospital at this time. Patients may have clear liquids (water, carbonated beverages, clear teas, apple juice) until 3 hours prior to surgery with a maximum of 20 ounces. - No food from midnight until time of surgery. Take the following medications with a SIP of water the morning of surgery: CITALOPRAM DO NOT STOP ANY OF YOUR OTHER PRESCRIPTION MEDICATIONS PRIOR TO SURGERY ?EXCEPT THE FOLLOWING Medications to discontinue per physician HOLD CELEBREX & ALL VITAMINS/SUPPLEMENTS 7 DAYS PRE-OP PER DR GOMEZ Date to take last dose____09/05/23 Please no make-up, nail hungarian, hairspray, perfume, deodorant, or body powder the day of surgery. No jewelry (including any body piercings) or valuables the day of surgery, leave them at home. Please take a shower or bath the night before, or the morning of, surgery with an antibacterial soap. Wear comfortable, loose fitting clothing. - Jewelry must be removed prior to entering the operating room. Rings and piercings that are not removed may be cut off. - The hospital will not accept responsibility for valuables. - Please leave all valuables, including medications, at home the day of surgery. If you are going home after surgery, a licensed cdl b driver must drive you home. - NO public transportation without another adult if you receive anesthesia. - We recommend that an adult stay with you for 24 hours following discharge. - We also recommend that you do not drive, make important decision, drink alcoholic beverages, or take any drugs that were not prescribed by your health care provider for at least 24 hours after your discharge time. Follow any additional instructions given to you from your surgeon. If you or anyone in your household have experienced Covid symptoms in the past week, please notify your surgeon or the nurse liaison at the phone number below for possible testing. Telephone instructions given to ___PATIENT & WIFE and asked if any additional questions and then verbalized understanding. Patient advised to call surgeon office or pre surgery nurse liaison [phone] if any additional questions.
--- NOTE | 2023-09-07 07:14 | PM.HPGS ---
History of Present Illness History of Present Illness Consent: Risks, benefits, and alternatives have been discussed and questions answered. Patient agrees to proceed with procedure. Chief complaint: Lg Left Renal Stone Narrative: Eduar Pardo is a 63 year old male recently admitted with painful obstructing large left proximal ureteral stone. Dr. Bert Nieves placed a left ureteral stent for this 9 x 14 mm stone. After discussion of options we have opted for management with cystoscopy, left ureteroscopy with laser lithotripsy and stone extraction. Patient's body habitus likely precludes effective management with ESWL. He is aware risk of this including, but limited to, need for additional procedures, hematuria, stent irritation Review of Systems Cardiovascular: Cardiovascular: Denies chest pain, Denies lightheadedness, Denies palpitations and Denies dyspnea Respiratory: Respiratory: Denies dyspnea Gastrointestinal: Gastrointestinal: Denies diarrhea, Denies nausea and Denies vomiting Genitourinary: Genitourinary: Denies hematuria and Denies dysuria Endocrine: Endocrine: Denies palpitations [facility] Past Medical History Medical History (Updated 09/07/23 @ 07:15 by Riky Costa MD) Gastroesophageal reflux disease Hyperlipidemia Hypertension Obstructive sleep apnea Type 2 diabetes mellitus Surgical History Surgical History History of appendectomy History of cholecystectomy History of right knee joint replacement Family History Family History Other Cancer Heart disease Hypertension Social History Social History Social History: Surrogate medical decision maker: Mahnaz Pardo, spouse. Code status: Full code. Smoking status: Never smoker Second hand tobacco smoke exposure: No Alcohol intake: never Substance use: never Do You Feel Safe in your Home?: Yes Lack of Transportation: No Lack of Food: Never True Current Housing: Decline to Answer Concerned About Future Housing: Decline to Answer Difficulty Paying Gas/Electric Bills: Decline to Answer Difficulty Paying for Meds: Decline to Answer Currently Unemployed: Decline to Answer Education: Decline to Answer Difficulty w/ Childcare or Family Care: Decline to Answer Living arrangements: with family Additional living arrangements comments: Occupation/Education: occupation Additional occupation/education comments: [employer]. Spiritual care concerns: No Meds Home Medications and Allergies Home Medications Medication Instructions Recorded Confirmed Type lisinopril 20 1 tablet PO QAM 09/01/23 09/06/23 History mg-hydrochlorothiazide 25 mg tablet metformin 1,000 mg tablet 500 mg PO BID 09/01/23 09/06/23 History omeprazole 20 mg capsule,delayed 20 mg PO DAILY 09/01/23 09/06/23 History release rosuvastatin 10 mg tablet 10 mg PO DAILY 09/01/23 09/06/23 History semaglutide 1 mg/dose (4 mg/3 mL) 1 mg subcut WEEKLY 09/01/23 09/06/23 History subcutaneous pen injector (Ozempic) celecoxib 200 mg capsule (Celebrex) 200 mg PO DAILY 09/06/23 09/06/23 History citalopram 20 mg tablet 10 mg PO QAM 09/06/23 09/06/23 History magnesium oxide 400 mg PO DAILY 09/06/23 09/06/23 History multivitamin 1 tablet PO DAILY 09/06/23 09/06/23 History sulfamethoxazole 800 1 tablet PO BID 09/06/23 09/06/23 History mg-trimethoprim 160 mg tablet vit C-vit [id number] capsule 1 cap PO DAILY 09/06/23 09/06/23 History Allergies Allergy/AdvReac Type Severity Reaction Status Date / Time cephalexin [From Keflex] Allergy Hives Verified 09/06/23 14:49 Exam Const: General: no acute distress Resp: Effort & Inspection: normal respiratory effort GI: Inspection: non-distended GI Palp: No abdominal tenderness and No Guarding due to palpation pr
[2023-09-13] VITALS (7 sets, daily range): BP systolic 141–179; BP diastolic 59–100; PULSE 81–93; RESP 12–16; TEMP 36.3–36.7; O2SAT 97–100
--- NOTE | ~2023-09-13 | XR_ITS ---
EXAMINATION: XR retrograde pyelo w/stent LT DATE: 09/13/2023 08:16 INDICATION: Left ureteral stone. TECHNIQUE: 37 intraoperative fluoroscopic views of the abdomen and pelvis were obtained. I was not pr esent. Fluoroscopy exposure time was 44 seconds. COMPARISON: CT abdomen and pelvis 09/01/2023 FINDINGS: There are two stones in the left kidney measuring up to 13 mm that were removed. The final images demonstrate a left internal ureteral stent in expected position. IMPRESSION: 1. Left kidney stones extracted. 2. Left internal ureteral stent in expected position. Reviewed, dictated and finalized at location A.
--- NOTE | 2023-09-13 06:16 | WPDHPUPDATE1 ---
History and Physical Update Update Date/Time: 09/13/23 06:16 History and Physical has been reviewed, including an updated exam of the patient. There are NO changes in the patient's condition. Risks, benefits, and alternatives have been discussed and questions answered. Patient agrees to proceed with procedure.
--- NOTE | 2023-09-13 06:35 | WPDANESEPPF ---
Anes - Initial Pre Proc Eval Procedure: Operation Date: 09/13/23 07:30 Proposed Procedures p Cystoscopy, Left Ureteroscopy with Holmium Laser Lithotripsy, Left Stone Extraction, Possible Left Retrograde Pyelography, Left Stent Placement - Riky Costa MD Date/Time: 09/13/23 06:35 Surgeon: Riky Costa MD Pre Op Diagnosis: Lg Left Renal Stone Patient Data Age: 63 Gender: M Height: 1.83 m Weight: 170 kg Allergies Allergy/AdvReac Type Severity Reaction Status Date / Time cephalexin [From Keflex] Allergy Hives Verified 09/06/23 14:49 Home Medications Medication Instructions Recorded Confirmed Type lisinopril 20 1 tablet PO QAM 09/01/23 09/06/23 History mg-hydrochlorothiazide 25 mg tablet metformin 1,000 mg tablet 500 mg PO BID 09/01/23 09/06/23 History omeprazole 20 mg capsule,delayed 20 mg PO DAILY 09/01/23 09/06/23 History release rosuvastatin 10 mg tablet 10 mg PO DAILY 09/01/23 09/06/23 History semaglutide 1 mg/dose (4 mg/3 mL) 1 mg subcut WEEKLY 09/01/23 09/06/23 History subcutaneous pen injector (Ozempic) celecoxib 200 mg capsule (Celebrex) 200 mg PO DAILY 09/06/23 09/06/23 History citalopram 20 mg tablet 10 mg PO QAM 09/06/23 09/06/23 History magnesium oxide 400 mg PO DAILY 09/06/23 09/06/23 History multivitamin 1 tablet PO DAILY 09/06/23 09/06/23 History sulfamethoxazole 800 1 tablet PO BID 09/06/23 09/06/23 History mg-trimethoprim 160 mg tablet vit C-vit [id number] capsule 1 cap PO DAILY 09/06/23 09/06/23 History Patient hx anesthesia problems: none Family hx anesthesia problems: none Results Review: All pre-operative results and documents have been reviewed as part of the pre-operative evaluation. [facility] Past Medical History Medical History Gastroesophageal reflux disease Hyperlipidemia Hypertension Obstructive sleep apnea Type 2 diabetes mellitus Surgical History Surgical History History of appendectomy History of cholecystectomy History of right knee joint replacement Family History Family History Other Cancer Heart disease Hypertension Social History Social History Social History: Surrogate medical decision maker: Mahnaz Pardo, spouse. Code status: Full code. Smoking status: Never smoker Second hand tobacco smoke exposure: No Alcohol intake: never Substance use: never Do You Feel Safe in your Home?: Yes Lack of Transportation: No Lack of Food: Never True Current Housing: Decline to Answer Concerned About Future Housing: Decline to Answer Difficulty Paying Gas/Electric Bills: Decline to Answer Difficulty Paying for Meds: Decline to Answer Currently Unemployed: Decline to Answer Education: Decline to Answer Difficulty w/ Childcare or Family Care: Decline to Answer Living arrangements: with family Additional living arrangements comments: Occupation/Education: occupation Additional occupation/education comments: [employer]. Spiritual care concerns: No Anes - Eval Final PreProcedure Day of Procedure 09/13/23 06:35 Patient weight: morbidly obese Heart: regular rate and rhythm Lungs: clear to auscultation Airway: Mallampati scale class III Neurological: alert and oriented Last oral intake: >/= 8 hours ASA classification: III Emergent: no Anesthetic plan: proceed Anesthesia type and monitoring: general LMA and standard monitoring Results Review: All pre-operative results and documents have been reviewed as part of the pre-operative evaluation. Informed Consent: The patient's anesthetic plan and its attendant risks and benefits were discussed with the patient/family/POA. Questions were solicited and answers provided to the satisfaction of the patient/family/POA.
[2023-09-13 06:49] LABS: Glucose Point of Care 128 mg/dl (65-105)
[2023-09-13] MEDS: LACTATED RINGERS 1,000 ML 30 ML IV CONT (07:00)
[2023-09-13] MEDS: levoFLOXacin 500 MG/D5W 100 ML 500 MG/100 ML BAG 100 MG IVPB (07:27)
[2023-09-13] MEDS: LIDOCAINE HCL 2% GEL UROJET 10 ML PKG MUCOUS MEM (07:52)
--- NOTE | 2023-09-13 08:11 | W.PM.PROC2 ---
Procedure Note - Detailed Date of Procedure 09/13/23 Pre-op Diagnosis Lg Left Renal Stones Post-op Diagnosis Same Procedure Performed Cystoscopy, left ureteral stent removal, left retrograde pyelogram, left ureteroscopy with laser lithotripsy and stone extraction, left ureteral stent replacement Surgeon Riky Costa MD Anesthesia General Description of Procedure patient is brought to the operative suite was prepped and draped in routine sterile fashion while in dorsal lithotomy position after the uneventful induction of a general LMA anesthetic. Cystoscopy 1st undertaken with a 21 F rigid cystoscope. He has moderate lateral lobe hyperplasia of the prostate. Tip of the indwelling stent is grasped and brought to the external urethral meatus. A 0.035 in glidewire was advanced in the left renal pelvis and the distal ureter was dilated with an 8 F 10 F dilator. The safety wires placed followed by a 11 F/ 13 F ureteral access sheath. Ureteroscopy undertaken with a 7.5 F flexible ureteral scope. Retrograde pyelogram was obtained to ensure inspection of all calices. He has a large stone in the renal pelvis and what turns out to be 3 or 4 contiguous moderate size stone in the left lower pole. The lower calyceal stones are 1st fractured with a 200 micron Yunior laser fiber. This is a soft stone in fragmentation is very effective in completely. All fragments were less than 3 mm at the termination. Couple fragments are removed with a stone basket for analysis. The large stone and left renal pelvises likewise soft and fractured quite nicely. 4.8 F variable length stent is replaced at the termination. The patient tolerated the procedure well was taken recovery good condition. Complications No immediate complications Condition Stable Disposition PACU
[2023-09-13 08:21] LABS: Glucose Point of Care 128 mg/dl (65-105)
--- NOTE | 2023-09-13 09:59 | SUR.PHASEII ---
Patient stable. IV removed. Patient requesting to stay a bit longer d/t urinary urgency and having an hour drive home. Instructed patient and his to notify this RN when they felt ready for discharge.
== END 2023-09-13 10:24 | disposition home or self-care (01) ==
PROVIDERS: PCP Family Medicine; Visit Provider Urology
PROC: (CPT 52352; principal; 2023-09-13 07:30)
DX: N20.0 Calculus of kidney (principal); N40.0 Benign prostatic hyperplasia without lower urinary tract symptoms; I10 Essential (primary) hypertension; E78.5 Hyperlipidemia, unspecified; K21.9 Gastro-esophageal reflux disease without esophagitis; G47.33 Obstructive sleep apnea (adult) (pediatric); E11.9 Type 2 diabetes mellitus without complications; E66.01 Morbid (severe) obesity due to excess calories; Z68.43 Body mass index [BMI] 50.0-59.9, adult; Z79.84 Long term (current) use of oral hypoglycemic drugs; Z79.85 Long-term (current) use of injectable non-insulin antidiabetic drugs; Z79.1 Long term (current) use of non-steroidal anti-inflammatories (NSAID); Z98.890 Other specified postprocedural states; Z90.49 Acquired absence of other specified parts of digestive tract; Z80.9 Family history of malignant neoplasm, unspecified; Z82.49 Family history of ischemic heart disease and other diseases of the circulatory system
CPT/HCPCS: 52356; 74420; 82365; 82948; 88300; C1769; C1894; C2617; J1956; J2250; J3010; J7120; Q9966

== ENCOUNTER 2023-09-27 11:17 | Outpatient (CLI) | payer MEDICARE, OTHER, SELFPAY ==
--- NOTE | ~2023-09-27 | XR_ITS ---
Supine and upright views of the abdomen Clinical history: Left ureteral stone COMPARISON: 09/01/2023 Findings: Bowel gas pattern is nonspecific. No evidence for obstruction or free air. Left ureteral st ent in place. Probable calcified pelvic phleboliths present. Questionable small stone in the proximal to mid left ureter. Probable small additional bilateral renal stones. Osseous structures are intact. Impression: Left ureteral stent in place, with questionable small stone the proximal to mid left ureter. Possible small additional bilateral renal stones. Reviewed, dictated and finalized at location M. Impression: Left ureteral stent in place, with questionable small stone the proximal to mid left ureter. Possible small additional bilateral renal stones.
== END 2023-09-27 11:18 | disposition home or self-care (01) ==
PROVIDERS: PCP Family Medicine; Visit Provider Urology
DX: N20.1 Calculus of ureter (principal)
CPT/HCPCS: 74018

== ENCOUNTER 2024-08-07 11:31 | Outpatient (CLI) | payer MEDICARE, SELFPAY ==
--- NOTE | ~2024-08-07 | XR_ITS ---
XR abdomen/kub 1V 08/07/2024 12:03 Indication: History of kidney stones Procedure: KUB Comparison: 09/27/2023 Findings: There are multiple right renal stones. There is right internal ureteral stent in expected p osition. There are pelvic phleboliths. Bowel gas pattern nonobstructive. There are cholecystectomy cl ips. Impression: 1: Right nephrolithiasis. Right internal ureteral stent in expected position. Reviewed, dictated and finalized at location A. Impression: 1: Right nephrolithiasis. Right internal ureteral stent in expected position.
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
--- OUTSIDE RECORDS SUMMARY | 2024-08-07 12:22 | XMS_ITS | Referral Summary ---
Author Organization [facility] Address [address] [place] [address] Care Team Providers Care Land Surveyor Name Role Phone Elving-Alecia White MD Primary Care Provider Allergies Active Allergy Reactions Criticality Noted Date Comments Cephalexin Rash Medium Medications celecoxib (CeleBREX) 200 mg capsule 02/10/2021 Active citalopram (CeleXA) 10 mg tablet Take 1 tablet (10 mg total) by mouth daily Active metFORMIN (GLUCOPHAGE) 1,000 mg tablet 02/10/2021 Act gianni lisinopril-hydr oCHLOROthiazide (ZESTORETIC) 20-25 mg per tablet 02/10/2021 Active rosuvastatin (CRESTOR) 10 mg tablet 12/21/2016 Active omeprazole (PriLOSEC) 20 mg capsule 02/10/2021 Active multivitamin capsule Take 1 capsule by mouth daily Active LUTEIN ORAL Take by mouth Active ZEAXANTHIN, BULK, MISC Active magnesium oxide (MAG-OX) 400 mg (241.3 mg elemental magnesium) tabletIndicatio ns:hypomagnesem ia Take 1 tablet (400 mg total) by mouth daily Active Ozempic 1 mg/dose (4 mg/3 mL) pen injector injection INJECT 1MG ONCE A WEEK UNDER SKIN Active Active Problems Problem Noted Date Diagnosed Date Nevus of iris of right eye 02/23/2021 Social History Tobacco Use Types Packs/Day Years Used Date Smoking Tobacco: Never Smokeless Tobacco: Never Sex and Gender Information Value Date Recorded Sex Assigned at Not on file Legal Sex Male 9:32 AM JAILOR Gender Identity Not on file Sexual Orientation Not on file Last Filed Vital Signs Vital Sign Reading Time Taken Comments Blood Pressure 108/80 07/19/2012 11:58 AM CDT Pulse 92 07/19/2012 11:58 AM CDT Temperature - - Respiratory Rate - - Oxygen Saturation - - Inhaled Oxygen Concentration - - Weight 167.8 kg (370 lb) 06/17/2012 3:30 PM JAILOR Height 182.9 cm (6') 07/19/2012 11:58 AM CDT Body Mass Index 50.18 06/17/2012 3:30 PM JAILOR Plan of Treatment Not on file Insurance [facility] [id number] MEDICARE [facility] [id number] Care Teams Land Surveyor Relationship Specialty Start Date End Date Alecia Leslie MD [address] [place] [id number] PCP - General Family Medicine 02/23/21
--- OUTSIDE RECORDS SUMMARY | 2024-08-07 12:22 | XMS_ITS ---
Care Plan - [facility] Created on: August 07, 2024 KHLOE COREA Liliam : 1960 Sex: Male Author Organization [facility] Address [address] [place] [address] Phone Care Team Providers Care Regional Property Manager Name Role Phone ROLO AQUINO MD Primary Care Provider [phone]
--- OUTSIDE RECORDS SUMMARY | 2024-08-07 12:22 | XMS_ITS | Clinical Summary ---
Author Organization [facility] Address [address] [place] [address] Phone Care Team Providers Care Technical Services Specialist Name Role Phone ROLO AQUINO MD Primary Care Provider [phone] Reason for Visit and Chief Complaint CHART UPDATE Problems Includes: Problems addressed during this encounter and other active Problems All Visits Onset Date Resolved Date Provider Condition S tatus Nephrolithiasis 10/18/2023 ROLO Greenwood Active Last Documented On 4 11:01PM ; [facility] Joint Pain in the Left Knee 09/02/2021 SAL Omer Active Last Documented On 2 8:40AM ; [facility] Osteoarthritis Localized Primary Knee Left 09/02/2021 SAL Omer Active Last Documented On 2 8:40AM ; [facility] Diabetes Mellitus Type 2 - U ncomplicated, Controlled 08/14/2017 ROLO AQUINO MD Active Last Documented On 1 10:11PM ; [facility] Hyperlipidemia 01/07/2016 ROLO AQUINO MD Active Last Documented On 6 9:41AM ; [facility] Anxiety Disorder Nos 06/17/2015 ROLO MCGRAW MD Active Last Documented On 6 10:07AM ; [facility] Hyperglycemia 12/07/2014 ROLO AQUINO MD Active Last Documented On 5 9:44AM ; [facility] 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 ROLO CROWE MD Active Last Documented On 0 2:28PM ; [facility] Note: 11-14 Arthritis 12/01/2013 ROLO AQUINO MD Act gianni Last Documented On 2 10:15AM ; [facility] Gerd 12/01/2013 ROLO AQUINO MD Act gianni Last Documented On 0 2:28PM ; [facility] Essential Hypertension Benign 12/01/2013 ROLO AQUINO MD Active Last Documented On 12/01/2013 2:04PM ; [facility] Note: -------GOES BY FERNANDA Plan of Treatment Pending Tests Order Diagnosis Results Due Ordering P rovider Lab A1C HGB (GLYCO HEMOGLOBIN) 04/15/24 ROLO AQUINO MD Last Documented On 4 11:06PM ; [facility] Lab LIPID PANEL 04/15/24 ROLO CROWE MD Last Documented On 4 11:06PM ; [facility] Lab CMP 04/15/24 ROLO PARISH MD Last Documented On 4 11:06PM ; [facility] Assessments Includes: Assessments from this encounter No Assessments Recorded Medical Equipment - Implanted Devices Includes: Current Devices No Medical Equipment Recorded Medications Includes: Medications discussed during this encounter and other current Medications Current Medications (continue as prescribed) Citalopram Hydrobromide 20 M G Oral Tablet 10/10/2023 Provider: ROLO Greenwood Diagnosis: Dysthymic disord er TAKE 1 TABLET BY MOUTH EVERY DAY Last Documented On 4 10:21AM By ROLO AQUINO MD ; [facility] Rosuvastatin Calcium 10 MG Oral Tablet 10/10/2023 Provider: ROLO Greenwood Diagnosis: Hyperlipidemia, unspecified TAKE 1 TABLET BY MOUTH EVERY DAY Last Documented On 4 10:21AM By ROLO AQUINO MD ; [facility] Ozempic (1 MG/DOSE) 4 MG/3ML Subcutaneous Solution Pen-injector 10/10/2023 Provider: ROLO AQUINO MD Diagnosis: Type 2 diabetes mellitus without complications 1mg once a week SC Last Documented On 4 10:21AM By ROLO AQUINO MD ; [facility] Lisinopril-hydroCHLOROthiazi de 20-25 MG Oral Tablet 10/10/2023 Provider: ROLO Greenwood Diagnosis: TAKE 1 TABLET BY MOUTH EVERY DAY Last Documented On 4 10:21AM By ROLO AQUINO MD ; [facility] Diclofenac Sodium 1% External Gel 10/10/2023 Provide r: ROLO AQUINO MD Diagnosis: Pain in left kne e apply 4 grams to left knee qid prn pain Last Documented On 4 10:21AM By ROLO AQUINO MD ; [facility] Omeprazole 20 MG Oral Capsul e Delayed Release 02/26/2023 Provider: ROLO Greenwood Diagnosis: TAKE 1 CAPSULE BY MOUTH EVERY DAY Last Documented On 3 8:55AM By ROLO AQUINO MD ; [facility] guaiFENesin-Codeine 100-10 M G/5ML Oral Solution 02/23/2023 Provider: ROLO Greenwood Diagnosis: Cough, unspecifi ed Take 1 to 2 teaspoons every 4 hours prn cough Last Documented On 3 11:02AM By ROLO AQUINO MD ; [facility] metFORMIN HCl 1000 MG Oral Tablet 10/25/2022 Provider: ROLO Greenwood Diagnosis: Type 2 diabetes mellitus without complications TAKE 1 TABLET BY MOUTH TWICE A DAY Last Documented On 10/25/2022 5:32PM By Diane BRANTLEY ; [facility] Celecoxib 200 MG Oral Capsule 08/25/2022 Provider: ROLO Greenwood Diagnosis: Bilateral primar y osteoarthritis of knee TAKE 1 CAPSULE BY MOUTH EUNICE Y MAY TAKE SECOND CAPSULE DAILY NEEDED Last Documented On 3 8:59AM By ROLO AQUINO MD ; [facility] Eye Vitamins Oral Capsule 08/14/2017 Provider: Diagnosis: Last Documented On 08/14/2017 8:17AM By IVONE BRANTLEY ; [facility] Magnesium Oxide 500 MG Tablet 05/11/2015 Provide r: Diagnosis: Last Documented On 05/11/2015 11:21AM By MIL BRANTLEY ; [facility] Multivitamins OR CAPS 12/01/2013 Provider: Diagnosis: Last Documented On 4 1:46PM By MAICO BRANTLEY ; [facility] Medications Administered Includes: Administered Medications from this encounter No Administered Medications Recorded Results Includes: Results discussed during this encounter No Results Recorded For Specified Dates History of Present Illness Includes: History of Present Illness from this encounter No History of Present Illness Recorded Social History No Social History Recorded - Smoking Status Unknown Medical History Includes: Medical History addressed during this encounter No Medical History Recorded Family History Includes: Family History addressed during this encounter No Family History Recorded Review of Systems Includes: Review of Systems from this encounter No Review of Systems Recorded Mental Status Includes: Mental Status from this encounter No Mental Status Recorded Functional Status Includes: Functional Status from this encounter No Functional Status Recorded Physical Exam Includes: Physical Exam from this encounter No Physical Exam Recorded Immunizations Includes: Immunizations addressed during this encounter Vaccine Dose # Date Site Reaction(s) Status Source Influenza (Quadrivalent)36 mo.& older PF 0.5ml (SD) 5 03/02/2023 Left Deltoid Complete (Reported) Patient Last Documented On 4 2:48PM ; [facility] PCV 20 1 2023 Right Deltoid Complete (Repor lakia) Patient Last Documented On 4 2:48PM ; [facility] Allergies Includes: Active Allergies Substance Type Reaction Onset Date Resolved Date Statu s Keflex Allergy Skin Rashes / Er uption of skin, Hives / Urticaria 12/01/2013 Active Last Documented On 4 9:46AM ; [facility] Encounters Encounter Provider Location Date Check-In Time Check-Out Time Diagnosis CHART UPDATE ROLO AQUINO MD 01/01/2024 2:47PM 11:59PM Insurance Includes: Active Insurance Policies Plan Name Member ID Group # Subscriber Relationship Effect gianni Dates 1 - [employer] [id number] KHLOE COREA Self Clinical Notes Includes: Clinical Notes from this encounter No Clinical Notes Recorded
--- OUTSIDE RECORDS SUMMARY | 2024-08-07 12:22 | XMS_ITS ---
Author Organization [facility] Address [address] [place] [address] Phone Care Team Providers Care Post Doctoral Fellow Name Role Phone ROLO AQUINO MD Primary Care Provider [phone] Reason for Referral Date Encounter Description Provider Reason for Referral 08/14/18 6 MONTH CHECK ROLO AQUINO MD Reque st Consultation By Specialist 08/14/17 6 MONTH CHECK ROLO AQUINO MD Reque st Consultation By Specialist 06/29/14 6 MONTH CHECK ROLO AQUINO MD Reque st Consultation By Specialist Problems Includes: Active, inactive, and resolved Problems All Visits Onset Date Resolved Date Provider Condition S tatus Nephrolithiasis 10/18/2023 ROLO Greenwood Active Last Documented On 4 11:01PM ; [facility] Joint Pain in the Left Knee 09/02/2021 SAL Omer Active Last Documented On 2 8:40AM ; [facility] Osteoarthritis Localized Primary Knee Left 09/02/2021 SAL Omer Active Last Documented On 2 8:40AM ; [facility] Diabetes Mellitus Type 2 - U ncomplicated, Controlled 08/14/2017 ROLO AQUINO MD Active Last Documented On 1 10:11PM ; [facility] Hyperlipidemia 01/07/2016 ROLO AQUINO MD Active Last Documented On 6 9:41AM ; [facility] Anxiety Disorder Nos 06/17/2015 ROLO MCGRAW MD Active Last Documented On 6 10:07AM ; [facility] Hyperglycemia 12/07/2014 ROLO AQUINO MD Active Last Documented On 5 9:44AM ; [facility] 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 ROLO CROWE MD Active Last Documented On 0 2:28PM ; [facility] Note: 11-14 Arthritis 12/01/2013 ROLO AQUINO MD Act gianni Last Documented On 2 10:15AM ; [facility] Gerd 12/01/2013 ROLO AQUINO MD Act gianni Last Documented On 0 2:28PM ; [facility] Essential Hypertension Benign 12/01/2013 ROLO AQUINO MD Active Last Documented On 12/01/2013 2:04PM ; [facility] Note: -------GOES BY FERNANDA Plan of Treatment Findings Encounter Date He was provided with a left knee steroid injection today. He tolerated the injection without difficulty. He would need to wait three months before repeat steroid injection in the left knee. Follow-up with me as needed FOLLOW UP with SAL Omer 08/13/2023 Last Documented On 4 10:04AM ; [facility] He was provided with the lef t knee steroid injection to date. He tolerated the injection without difficulty. He would be required to wait at least three months before repeat steroid injection. Follow-up with me as needed FOLLOW UP with SAL Omer 05/11/2023 Last Documented On 4 9:10AM ; [facility] I did provide him today with a left knee steroid injection. He tolerated that without difficulty. He would need to wait at least three months before repeat injection. Follow-up with me on as a basis FOLLOW UP with SAL Omer 02/08/2023 Last Documented On 3 9:13AM ; [facility] I provided him with a left k nee steroid injection today. He would need to wait at least three months before repeat injection. He can follow up with me on an as needed basis but he needs to continue to work on weight loss. Eventually he will need knee replacement, but he needs to get his BMI lower than what it currently is today FOLLOW UP with SAL Omer 11/08/2022 Last Documented On 3 2:10PM ; [facility] He was encouraged to continu e his weight loss to move toward the BMI of 40. He was given a left knee steroid injection today which he tolerated well. Follow up in 3 months for repeat steroid injection as needed FOLLOW UP with SAL Omer 08/07/2022 Last Documented On 3 9:24AM ; [facility] I once again discussed with Khloe the importance of staying active and working on a weight loss program. We have discussed in the past and did once again today different diet options. For now, he would like to proceed with a repeat cortical steroid injection to try and get some relief for the holidays. I will see him back in a little over three months to see how well he is doing with his weight loss journey as well as how well he did with the injection I have mentioned to him seeing a bariatric surgeon as well. This is something he is going to think about. He is diatbetic and understands that the cortisone can increase his sugar levels over the next few days FOLLOW UP with MICHELLE SCHNEIDER DO 03/27/2022 Last Documented On 2 9:40AM ; [facility] Ordered home exercises FOLLOW UP with MICHELLE DONATO DO 03/27/2022 Last Documented On 2 9:40AM ; [facility] I discussed once again with Khloe that until he decreases his BMI, I will not offer him any surgical intervention. The risks are too high at his currently BMI. My recommendation is for a repeat left knee cortical steroid injection. While he is receiving benefit from this injection I want him to work on execises and weight loss. He voices understanding. I will see him back in approximately three months to see how well he is doing FOLLOW UP with MICHELLE SCHNEIDER DO 12/19/2021 Last Documented On 2 12:35PM ; [facility] Ordered home exercises FOLLOW UP with MICHELLE DONATO DO 12/19/2021 Last Documented On 2 12:35PM ; [facility] Ordered follow-up for re-exa mination three months ORTHO ESTABLISHED PATIENT with MICHELLE SCHNEIDER DO 09/12/2021 Last Documented On 2 10:20AM ; [facility] Ordered home exercises ORTHO ESTABLISHED PATIENT with MICHELLE SCHNEIDER DO 09/12/2021 Last Documented On 2 10:20AM ; [facility] He is a diabetic with an A1c of 6.8. He has a BMI of 54. We discussed risks of infection, failure of the implant as well as the need for repeat admission due to his underlying risk factors. I have recommended that he get on a weight loss program in order to start moving his BMI closer to our suggested value of 40 of below. He states that this is the same BMI he had when he previously had his right knee replaced with Dr. Howell. He wants to move forward with this. Discussed with him that I cannot tell him that Dr. Schneider will in fact replace his knee at his current BMI. I think he needs to make some movement towards getting his BMI lower and start trending in the right direction. We talked about some of the postoperative protocols that we utilize for total knees. He states that he did not have to use anticoagulants after his right knee replacement and he did not use the compression stockings. I once again did discuss with him that this is our protocol and that this will be something to be expected in order to mitigate our risk for blood clots. 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 He wants to meet with Dr. Schneider to discuss the left knee replacement so we have arranged an appointment for him ORTHO ESTABLISHED PATIENT with SAL Omer 09/02/2021 Last Documented On 2 8:49AM ; [facility] Ordered Transition in care, clinical summary provided 6 MONTH CHECK with ROLO AQUINO MD 08/14/2018 Last Documented On 9 9:00AM ; [facility] pt agrees with the following plan of care; Continue to follow a low carb meal plan, 3 meals and bedtime snack Test BG one to two per week, record and bring to visit Walk 30 minutes as much as possible as the knees will allow Examine feet daily Follow up in 6 months. Clinical summary provide DIABETIC FOLLOW UP APPOINTMENT with ROLO AQUINO MD 03/05/2018 Last Documented On 8 12:41AM ; [facility] Ordered Clinical summary pro vided to patient . Plan discussed and patient/parent/caregiver states understanding PROBLEM VISIT with ALLI LASSITER PA-C 01/29/2018 Last Documented On 8 2:10PM ; [facility] Ordered follow-up visit as n eeded with an office visit. Try the cyclobenazprine at bedtime for muscles. Local heat to ribs, local ice to knee x 20min, few times a day. Knee brace. Get xray any time. Try the Duexis for pain. Call sooner if condition worsens or go to ER if condition/pain becomes severe PROBLEM VISIT with ALLI LASSITER PA-C 01/29/2018 Last Documented On 8 2:10PM ; [facility] Pt agrees with the following plan of care: Continue with the low carb meal plan, 3 meals and bedtime snack. Continue to test BG one time per day, vary times, reocord and bring to visit. Continue to stay active. No diabetes medication needed at this time. Examine feet daily. Follow up in 3 months. Clinical summary provided DIABETIC FOLLOW UP APPOINTMENT with ROLO AQUINO MD 11/06/2017 Last Documented On 8 10:17PM ; [facility] Ordered Clinical summary pro vided to patient . Plan discussed and patient/parent/caregiver states understanding PROBLEM VISIT with ALLI LASSITER PA-C 10/30/2017 Last Documented On 8 3:44PM ; [facility] pt agrees with the following plan of care: Follow a low carb platemethod meal plan, 3 meals and bedtime snack Pt to test BG one time per day, alternate breakfast and bedtime Pt to get on stationary bike 3 times per day, Pt to record food intake. Examine feet daily. Follow up in one month Clinical summary provided INITIAL APPOINTMENT FOR DIABETIC PATIENT with ROLO AQUINO MD 10/03/2017 Last Documented On 8 2:16PM ; [facility] Ordered Transition in care, clinical summary provided 6 MONTH CHECK with ROLO AQUINO MD 08/14/2017 Last Documented On 8 9:11AM ; [facility] Ordered follow-up visit in 1 month --can keep appointment with Dr. Frank for 6 month check PROBLEM VISIT with BONITA JONES [facility]- DEVELOPER SUPPORT ENGINEER- 05/25/2015 Last Documented On 6 12:24PM ; [facility] Ordered return to the clinic if condition worsens or new symptoms arise PROBLEM VISIT with BONITA JONES PMHNP-BC DEVELOPER SUPPORT ENGINEER-BC 05/25/2015 Last Documented On 6 12:24PM ; [facility] Ordered patient will call fo r appointment as needed PROBLEM VISIT with BONITA JONES PMHNP-BC DEVELOPER SUPPORT ENGINEER-BC 05/11/2015 Last Documented On 6 12:19PM ; [facility] Ordered return to the clinic if condition worsens or new symptoms arise PROBLEM VISIT with BONITA JONES HNP-BC DEVELOPER SUPPORT ENGINEER-BC 05/11/2015 Last Documented On 6 12:19PM ; [facility] Ordered Transition in care, clinical summary provided 6 MONTH CHECK with ROLO AQUINO MD 06/29/2014 Last Documented On 5 9:34AM ; [facility] Ordered Clinical summary pro vided to patient . Plan discussed and patient/parent/caregiver states understanding PROBLEM VISIT with ALLI LASSITER PA-C 05/27/2014 Last Documented On 5 2:34PM ; [facility] Ordered follow-up visit as n eeded with an office visit. Urine all clear but will send for a culture. If cx neg and still having symptoms can start Vesicare. Keep stools loose--use stool softener. Retrain bladder--hold urine for a few hours and focus on completely emptying it. Call if symptoms worsen/persist beyond 1-2 weeks--can refer to urology if needed PROBLEM VISIT with ALLI LASSITER PA-C 05/27/2014 Last Documented On 5 2:34PM ; [facility] Ordered patient will call fo r appointment as needed PROBLEM VISIT with BONITA JONES HNP-BC DEVELOPER SUPPORT ENGINEER-BC 05/21/2014 Last Documented On 5 1:43PM ; [facility] Ordered return to the clinic if condition worsens or new symptoms arise PROBLEM VISIT with OBNITA JONES PMHNP-BC DEVELOPER SUPPORT ENGINEER-BC 05/21/2014 Last Documented On 5 1:43PM ; [facility] We discussed skin cancers an d specifically basal cell and it's treatment options. In this situation, freezing with nitrous oxide can be tried prior to doing a wedge resection. He was agreeable to this. PROCEDURE: With the patient supine, the appropriate sized tip was chosen and the lesion covered with K-Y jelly. The lesion was frozen twice and a good freeze obtained. The patient tolerated this well and we discussed the care of the incision and he will follow up with me in 2 weeks to re-check the incision CONSULTATION with JENN ADAM DO 03/24/2013 Last Documented On 3 9:19AM ; [facility] Pending Tests Order Diagnosis Results Due Ordering P rovider Lab A1C HGB (GLYCO HEMOGLOBIN) 04/15/24 ROLO AQUINO MD Last Documented On 4 11:06PM ; [facility] Lab LIPID PANEL 04/15/24 ROLO CROWE MD Last Documented On 4 11:06PM ; [facility] Lab CMP 04/15/24 ROLO PARISH MD Last Documented On 4 11:06PM ; [facility] Referrals To Diagnosis [facility] [address] [id number] - CARDIAC DYSRHYTHMIA NOS Note: see sleep study Last Documented On 4 4:20PM ; [facility] Dermatology ROUTINE MEDICAL EXAM Note: FARA CLEMENT ROUTIN E SKIN CHECKS Last Documented On 6 4:07PM ; [facility] Dermatology LUCY SCHILLING MD Dermatitis, uns pecified Last Documented On 8 12:39PM ; [facility] Orthopedic MARTINA HOWELL DO Pain in right knee Last Documented On 9 2:59PM ; [facility] Director Traffic And Planning CAROLINE MENDIETA MD [facility] for screening for malignant neoplasm of colon Note: Positive Cologuard Yaron t Last Documented On 0 10:52PM ; [facility] Urologist AGGIE RUSS MD Elevated pr ostate specific antigen [PSA] Note: Referral to Dr. Wilian Russ, Urologist in [place]. Last Documented On 2 5:20PM ; [facility] Orthopedic Pain in left kne e Note: Referral to Dr. Schneider - Orthopedic for left knee issues. Last Documented On 2 11:25AM ; [facility] Instructions to patient Intervention and counseling on cessation of tobacco use Last Documented On 4 9:46AM ; [facility] Intervention and counseling on cessation of tobacco use Last Documented On 4 8:59AM ; [facility] Intervention and counseling on cessation of tobacco use Last Documented On 3 9:03AM ; [facility] No reduced physical activity -release to full activities Last Documented On 2 9:14AM ; [facility] Intervention and counseling on cessation of tobacco use Last Documented On 2 8:49AM ; [facility] No reduced physical activity -release to full activities Last Documented On 2 12:26PM ; [facility] Intervention and counseling on cessation of tobacco use Last Documented On 2 9:54AM ; [facility] No reduced physical activity -release to full activities Last Documented On 2 10:18AM ; [facility] Lose weight Last Documented On 0 8:50PM ; [facility] Lose weight Last Documented On 9 8:36PM ; [facility] Maintain a healthy diet Last Documented On 8 8:21AM ; [facility] Maintain a healthy diet Last Documented On 8 8:24AM ; [facility] Maintain a healthy diet Last Documented On 8 8:37AM ; [facility] Lose weight Last Documented On 7 10:09AM ; [facility] Instructions for patient Last Documented On 6 10:59AM ; [facility] Instructions for patient Last Documented On 6 11:41AM ; [facility] Instructions for patient Last Documented On 5 1:28PM ; [facility] Education and Decision Aids were provided during visit for: Patient education about orth opedic activities Last Documented On 2 9:14AM ; [facility] Patient education about orth opedic activities Last Documented On 2 12:26PM ; [facility] Patient education about orth opedic activities Last Documented On 2 10:18AM ; [facility] Patient education about a pr oper diet Last Documented On 8 8:21AM ; [facility] Patient education about regu lar dental care Last Documented On 8 8:21AM ; [facility] Patient education about diab etes and discussed ABCs of diabetic therapy and goals Last Documented On 8 8:21AM ; [facility] Patient education about a ho me blood glucose monitor with instructions to bring monitor to each visit Last Documented On 8 8:21AM ; [facility] Dietary counseling pertainin g to diabetes mellitus Last Documented On 8 8:21AM ; [facility] Patient education about diab etic foot care Last Documented On 8 8:21AM ; [facility] The patient's goal is to yaron t the blood sugars and bring in the results to each visit Last Documented On 8 8:21AM ; [facility] Review of care plan, pt xochitl hicks very well, no change in plan Last Documented On 8 8:21AM ; [facility] Patient education about a pr oper diet Last Documented On 8 8:24AM ; [facility] Patient education about regu lar dental care Last Documented On 8 8:24AM ; [facility] Patient education about diab etes and discussed ABCs of diabetic therapy and goals Last Documented On 8 8:24AM ; [facility] Patient education about a ho me blood glucose monitor with instructions to bring monitor to each visit Last Documented On 8 8:24AM ; [facility] Dietary counseling pertainin g to diabetes mellitus Last Documented On 8 8:24AM ; [facility] Patient education about diab etic foot care Last Documented On 8 8:24AM ; [facility] The patient's goal is to yaron t the blood sugars and bring in the results to each visit Last Documented On 8 8:24AM ; [facility] Counseling/education [Use fo r free text] Last Documented On 8 8:24AM ; [facility] Patient education about a pr oper diet Last Documented On 8 8:37AM ; [facility] Patient education about regu lar dental care Last Documented On 8 8:37AM ; [facility] Patient education about diab etes and discussed ABCs of diabetic therapy and goals Last Documented On 8 8:37AM ; [facility] Patient education about a ho me blood glucose monitor with instructions to bring monitor to each visit Last Documented On 8 8:37AM ; [facility] Dietary counseling pertainin g to diabetes mellitus Last Documented On 8 8:37AM ; [facility] Patient education about diab etic foot care Last Documented On 8 8:37AM ; [facility] The patient's goal is to yaron t the blood sugars and bring in the results to each visit Last Documented On 8 8:37AM ; [facility] Overview of T2DM disease pro cess and the outline of overall care. Pt states he is the heaviest he has ever been. He was advised to have knees replace a few years ago, but opted out, now he states he is too heavy to have this done Last Documented On 8 9:13AM ; [facility] Assessments Includes: Assessments for all patient encounters Findings Encounter Date Anxiety disorder NOS CHECK UP with ROLO CROWE MD 10/10/2023 Last Documented On 4 11:06PM ; [facility] Benign essential hypertension CHECK UP with NEFTALI AQUINO MD 10/10/2023 Last Documented On 4 11:06PM ; [facility] Hyperglycemia CHECK UP with ROLO AQUINO MD 10/10/2023 Last Documented On 4 11:06PM ; [facility] Hyperlipidemia CHECK UP with ROLO AQUINO MD 10/10/2023 Last Documented On 4 11:06PM ; [facility] Localized primary osteoarthr itis of left knee CHECK UP with ROLO AQUINO MD 10/10/2023 Last Documented On 4 11:06PM ; [facility] Nephrolithiasis CHECK UP with ROLO AQUINO MD 10/10/2023 Last Documented On 4 11:06PM ; [facility] Nonorganic sleep apnea CHECK UP with ROLO ARCE MD 10/10/2023 Last Documented On 4 11:06PM ; [facility] Type 2 diabetes mellitus - uncomplicated, controlled CHECK UP with ROLO AQUINO MD 10/10/2023 Last Documented On 4 11:06PM ; [facility] Localized primary osteoarthr itis of left knee FOLLOW UP with SAL Omer 08/13/2023 Last Documented On 4 10:04AM ; [facility] Localized primary osteoarthr itis of left knee FOLLOW UP with SAL Omer 05/11/2023 Last Documented On 4 9:10AM ; [facility] Anxiety disorder NOS CHECK UP with ROLO CROWE MD 02/26/2023 Last Documented On 3 8:48AM ; [facility] Benign essential hypertension CHECK UP with NEFTALI AQUINO MD 02/26/2023 Last Documented On 3 8:48AM ; [facility] Hyperlipidemia CHECK UP with ROLO AQUINO MD 02/26/2023 Last Documented On 3 8:48AM ; [facility] Nonorganic sleep apnea CHECK UP with ROLO ARCE MD 02/26/2023 Last Documented On 3 8:48AM ; [facility] Type 2 diabetes mellitus - uncomplicated, controlled CHECK UP with ROLO AQUINO MD 02/26/2023 Last Documented On 3 8:48AM ; [facility] Allergic rhinitis SICK VISIT with ROLO PARISH MD 02/23/2023 Last Documented On 3 12:04PM ; [facility] Bronchitis SICK VISIT with ROLO VASQUEZ MD 02/23/2023 Last Documented On 3 12:04PM ; [facility] Localized primary osteoarthr itis of left knee FOLLOW UP with SAL Omer 02/08/2023 Last Documented On 3 9:13AM ; [facility] Localized primary osteoarthr itis of left knee FOLLOW UP with SAL Omer 11/08/2022 Last Documented On 3 2:10PM ; [facility] Benign essential hypertension CHECK UP with NEFTALI AQUINO MD 08/25/2022 Last Documented On 3 9:22AM ; [facility] GERD CHECK UP with ROLO AQUINO MD 08/25/2022 Last Documented On 3 9:22AM ; [facility] Hyperglycemia CHECK UP with ROLO AQUINO MD 08/25/2022 Last Documented On 3 9:22AM ; [facility] Hyperlipidemia CHECK UP with ROLO AQUINO MD 08/25/2022 Last Documented On 3 9:22AM ; [facility] Localized primary osteoarthr itis of left knee CHECK UP with ROLO AQUINO MD 08/25/2022 Last Documented On 3 9:22AM ; [facility] Type 2 diabetes mellitus - uncomplicated, controlled CHECK UP with ROLO AQUINO MD 08/25/2022 Last Documented On 3 9:22AM ; [facility] Localized primary osteoarthr itis of left knee FOLLOW UP with SAL Omer 08/07/2022 Last Documented On 3 9:24AM ; [facility] Benign essential hypertension CHECK UP with NEFTALI AQUINO MD 05/03/2022 Last Documented On 2 11:28PM ; [facility] GERD CHECK UP with ROLO AQUINO MD 05/03/2022 Last Documented On 2 11:28PM ; [facility] Hyperlipidemia CHECK UP with ROLO AQUINO MD 05/03/2022 Last Documented On 2 11:28PM ; [facility] Type 2 diabetes mellitus - uncomplicated, controlled CHECK UP with ROLO AQUINO MD 05/03/2022 Last Documented On 2 11:28PM ; [facility] Osteoarthritis of knee -left FOLLOW UP with MITCH SCHNEIDER DO 03/27/2022 Last Documented On 2 9:40AM ; [facility] Osteoarthritis of left knee FOLLOW UP with MICHELLE SCHNEIDER DO 03/27/2022 Last Documented On 2 9:40AM ; [facility] Benign essential hypertension CHECK UP with NEFTALI AQUINO MD 02/27/2022 Last Documented On 2 10:15PM ; [facility] Hyperlipidemia CHECK UP with ROLO AQUINO MD 02/27/2022 Last Documented On 2 10:15PM ; [facility] Localized primary osteoarthr itis of left knee CHECK UP with ROLO AQUINO MD 02/27/2022 Last Documented On 2 10:15PM ; [facility] Obesity CHECK UP with ROLO AQUINO MD 02/27/2022 Last Documented On 2 10:15PM ; [facility] Osteoarthritis of knee -left FOLLOW UP with MITCH SCHNEIDER DO 12/19/2021 Last Documented On 2 12:35PM ; [facility] Osteoarthritis of left knee FOLLOW UP with MICHELLE SCHNEIDER DO 12/19/2021 Last Documented On 2 12:35PM ; [facility] Osteoarthritis of knee -left ORTHO ESTAB LISHED PATIENT with MICHELLE SCHNEIDER DO 09/12/2021 Last Documented On 2 10:20AM ; [facility] Assessment of left knee joint pain ORTHO ESTABLISHED PATIENT with SAL Omer 09/02/2021 Last Documented On 2 8:49AM ; [facility] Localized primary osteoarthr itis of left knee ORTHO ESTABLISHED PATIENT with SAL Omer 09/02/2021 Last Documented On 2 8:49AM ; [facility] Osteoarthritis of knee -left ORTHO ESTAB LISHED PATIENT with SAL Omer 09/02/2021 Last Documented On 2 8:49AM ; [facility] Anxiety disorder NOS CHECK UP with ROLO CROWE MD 08/26/2021 Last Documented On 2 2:55PM ; [facility] Arthritis CHECK UP with ROLO AQUINO MD 08/26/2021 Last Documented On 2 2:55PM ; [facility] Benign essential hypertension CHECK UP with NEFTALI AQUINO MD 08/26/2021 Last Documented On 2 2:55PM ; [facility] Hyperlipidemia CHECK UP with ROLO AQUINO MD 08/26/2021 Last Documented On 2 2:55PM ; [facility] LEFT KNEE PAIN CHECK UP with ROLO AQUINO MD 08/26/2021 Last Documented On 2 2:55PM ; [facility] Morbid obesity CHECK UP with ROLO AQUINO MD 08/26/2021 Last Documented On 2 2:55PM ; [facility] Obesity CHECK UP with ROLO AQUINO MD 08/26/2021 Last Documented On 2 2:55PM ; [facility] Type 2 diabetes mellitus - uncomplicated, controlled CHECK UP with ROLO AQUINO MD 08/26/2021 Last Documented On 2 2:55PM ; [facility] Backache PROBLEM VISIT with ROLO CROWE MD 08/03/2021 Last Documented On 2 12:16PM ; [facility] LEFT KNEE PAIN PROBLEM VISIT with ROLO CROWE MD 08/03/2021 Last Documented On 2 12:16PM ; [facility] Right buttock pain PROBLEM VISIT with ROLO TREJO MD 08/03/2021 Last Documented On 2 12:16PM ; [facility] Strain of the right buttock PROBLEM VISIT with Negra AQUINO MD 08/03/2021 Last Documented On 2 12:16PM ; [facility] Anxiety disorder NOS CHECK UP with ROLO CROWE MD 02/25/2021 Last Documented On 1 11:36PM ; [facility] Arthritis CHECK UP with ROLO AQUINO MD 02/25/2021 Last Documented On 1 11:36PM ; [facility] Benign essential hypertension CHECK UP with NEFTALI AQUINO MD 02/25/2021 Last Documented On 1 11:36PM ; [facility] Hyperlipidemia CHECK UP with ROLO AQUINO MD 02/25/2021 Last Documented On 1 11:36PM ; [facility] Nonorganic sleep apnea CHECK UP with ROLO ARCE MD 02/25/2021 Last Documented On 1 11:36PM ; [facility] Type 2 diabetes mellitus - uncomplicated, controlled CHECK UP with ROLO AQUINO MD 02/25/2021 Last Documented On 1 11:36PM ; [facility] Calcaneal spur PROBLEM VISIT with ROLO CROWE MD 12/14/2020 Last Documented On 1 11:52AM ; [facility] Pain in foot PROBLEM VISIT with ROLO CROWE MD 12/14/2020 Last Documented On 1 11:52AM ; [facility] Pain in foot and toes PROBLEM VISIT with ROLO AQUINO MD 12/14/2020 Last Documented On 11:52AM ; [facility] Pain in right foot PROBLEM VISIT with ROLO TREJO MD 12/14/2020 Last Documented On 1 11:52AM ; [facility] Anxiety disorder NOS CHECK UP with ROLO CROWE MD 11/09/2020 Last Documented On 1 10:15PM ; [facility] Benign essential hypertension CHECK UP with NEFTALI AQUINO MD 11/09/2020 Last Documented On 1 10:15PM ; [facility] Hyperlipidemia CHECK UP with ROLO AQUINO MD 11/09/2020 Last Documented On 1 10:15PM ; [facility] Type 2 diabetes mellitus - uncomplicated, controlled CHECK UP with ROLO AQUINO MD 11/09/2020 Last Documented On 1 10:15PM ; [facility] [R97.20 - Elevated prostate specific antigen [PSA]] prostate-specific antigen in serum was elevated CHECK UP with ROLO AQUINO MD 08/10/2020 Last Documented On 1 8:18PM ; [facility] Benign essential hypertension CHECK UP with NEFTALI AQUINO MD 08/10/2020 Last Documented On 1 8:18PM ; [facility] GERD CHECK UP with ROLO AQUINO MD 08/10/2020 Last Documented On 1 8:18PM ; [facility] Hyperlipidemia CHECK UP with ROLO AQUINO MD 08/10/2020 Last Documented On 1 8:18PM ; [facility] Type 2 diabetes mellitus - uncomplicated, controlled CHECK UP with ROLO AQUINO MD 08/10/2020 Last Documented On 1 8:18PM ; [facility] Anxiety disorder NOS 6 MONTH CHECK with ROLO VILLALTA MD 10/27/2019 Last Documented On 0 8:52PM ; [facility] Benign essential hypertension 6 MONTH CHECK with ROLO AQUINO MD 10/27/2019 Last Documented On 0 8:52PM ; [facility] GERD 6 MONTH CHECK with ROLO CROWE MD 10/27/2019 Last Documented On 0 8:52PM ; [facility] Hyperlipidemia 6 MONTH CHECK with ROLO CROWE MD 10/27/2019 Last Documented On 0 8:52PM ; [facility] Nonorganic sleep apnea 6 MONTH CHECK with ROLO AQUINO MD 10/27/2019 Last Documented On 0 8:52PM ; [facility] Seborrheic keratosis 6 MONTH CHECK with ROLO VILLALTA MD 10/27/2019 Last Documented On 0 8:52PM ; [facility] Type 2 diabetes mellitus - uncomplicated, controlled 6 MONTH CHECK with ROLO AQUINO MD 10/27/2019 Last Documented On 0 8:52PM ; [facility] Benign essential hypertension 6 MONTH CHECK with ROLO AQUINO MD 02/13/2019 Last Documented On 9 9:23AM ; [facility] Hyperglycemia 6 MONTH CHECK with ROLO CROWE MD 02/13/2019 Last Documented On 9 9:23AM ; [facility] Hyperlipidemia 6 MONTH CHECK with ROLO CROWE MD 02/13/2019 Last Documented On 9 9:23AM ; [facility] Benign essential hypertension PREOP EXAM with ERNESTO AQUINO MD 11/18/2018 Last Documented On 9 8:39PM ; [facility] Osteoarthritis of both knees PREOP EXAM with MARCELLUS AQUINO MD 11/18/2018 Last Documented On 9 8:39PM ; [facility] Type 2 diabetes mellitus - uncomplicated, controlled PREOP EXAM with ROLO AQUINO MD 11/18/2018 Last Documented On 9 8:39PM ; [facility] Arthralgia of the right knee/patella/tibia/fibula 6 MONTH CHECK with ROLO AQUINO MD 08/14/2018 Last Documented On 9 9:00AM ; [facility] Benign essential hypertension 6 MONTH CHECK with ROLO AQUINO MD 08/14/2018 Last Documented On 9 9:00AM ; [facility] Hyperlipidemia 6 MONTH CHECK with ROLO CROWE MD 08/14/2018 Last Documented On 9 9:00AM ; [facility] Type 2 diabetes mellitus - uncomplicated, controlled 6 MONTH CHECK with ROLO AQUINO MD 08/14/2018 Last Documented On 9 9:00AM ; [facility] Hyperlipidemia DIABETIC FOLLOW UP APPOINTMENT w lily AQUINO MD 03/05/2018 Last Documented On 8 12:41AM ; [facility] Type 2 diabetes mellitus DIABETIC FOLLOW UP APPOINTMENT with ROLO AQUINO MD 03/05/2018 Last Documented On 8 12:41AM ; [facility] Type 2 diabetes mellitus - uncomplicated, controlled DIABETIC FOLLOW UP APPOINTMENT with ROLO AQUINO MD 03/05/2018 Last Documented On 8 12:41AM ; [facility] Benign essential hypertension 6 MONTH CHECK with ROLO AQUINO MD 02/12/2018 Last Documented On 8 9:06AM ; [facility] Hyperlipidemia 6 MONTH CHECK with ROLO CROWE MD 02/12/2018 Last Documented On 8 9:06AM ; [facility] Type 2 diabetes mellitus - uncomplicated, controlled 6 MONTH CHECK with ROLO AQUINO MD 02/12/2018 Last Documented On 8 9:06AM ; [facility] Closed fracture of the left patella PROB MYLES VISIT with ALLI LASSITER PA-C 01/29/2018 Last Documented On 8 2:10PM ; [facility] Muscle spasm PROBLEM VISIT with ALLI YORK PA-C 01/29/2018 Last Documented On 8 2:10PM ; [facility] Sprained left knee PROBLEM VISIT with ALLI KOHELER PA-C 01/29/2018 Last Documented On 8 2:10PM ; [facility] Benign essential hypertension DIABETIC F OLLOW UP APPOINTMENT with ROLO AQUINO MD 11/06/2017 Last Documented On 8 10:17PM ; [facility] Hyperlipidemia DIABETIC FOLLOW UP APPOINTMENT w lily AQUINO MD 11/06/2017 Last Documented On 8 10:17PM ; [facility] Type 2 diabetes mellitus - uncomplicated, controlled DIABETIC FOLLOW UP APPOINTMENT with ROLO AQUINO MD 11/06/2017 Last Documented On 8 10:17PM ; [facility] Arthralgia of the left knee/patella/tibia/fibula PROBLEM VISIT with ALLI LASSITER PA-C 10/30/2017 Last Documented On 8 3:44PM ; [facility] Bursitis of knee PROBLEM VISIT with ALLI VASQUEZ PA-C 10/30/2017 Last Documented On 8 3:44PM ; [facility] Type 2 diabetes mellitus INITIAL APPOINT MENT FOR DIABETIC PATIENT with ROLO AQUINO MD 10/03/2017 Last Documented On 8 2:16PM ; [facility] Type 2 diabetes mellitus - uncomplicated, controlled INITIAL APPOINTMENT FOR DIABETIC PATIENT with ROLO AQUINO MD 10/03/2017 Last Documented On 8 2:16PM ; [facility] Benign essential hypertension 6 MONTH CHECK with ROLO AQUINO MD 08/14/2017 Last Documented On 8 9:11AM ; [facility] Hyperglycemia 6 MONTH CHECK with ROLO CROWE MD 08/14/2017 Last Documented On 8 9:11AM ; [facility] Hyperlipidemia 6 MONTH CHECK with ROLO CROWE MD 08/14/2017 Last Documented On 8 9:11AM ; [facility] Type 2 diabetes mellitus - uncomplicated, controlled 6 MONTH CHECK with ROLO AQUINO MD 08/14/2017 Last Documented On 8 9:11AM ; [facility] Anxiety disorder NOS 6 MONTH CHECK with ROLO VILLALTA MD 02/14/2017 Last Documented On 7 9:00AM ; [facility] Benign essential hypertension 6 MONTH CHECK with ROLO AQUINO MD 02/14/2017 Last Documented On 7 9:00AM ; [facility] Hyperglycemia 6 MONTH CHECK with ROLO CROWE MD 02/14/2017 Last Documented On 7 9:00AM ; [facility] Hyperlipidemia 6 MONTH CHECK with ROLO CROWE MD 02/14/2017 Last Documented On 7 9:00AM ; [facility] Benign essential hypertension 3 MONTH CHECK with ROLO AQUINO MD 10/10/2016 Last Documented On 7 9:40AM ; [facility] Hyperglycemia 3 MONTH CHECK with ROLO CROWE MD 10/10/2016 Last Documented On 7 9:40AM ; [facility] Hyperlipidemia 3 MONTH CHECK with ROLO CROWE MD 10/10/2016 Last Documented On 7 9:40AM ; [facility] Strain of the right buttock gluteus yomaira PROBLEM VISIT with ROLO AQUINO MD 08/22/2016 Last Documented On 7 5:59PM ; [facility] Benign essential hypertension 6 MONTH CHECK with ROLO AQUINO MD 07/12/2016 Last Documented On 7 11:55PM ; [facility] Hyperglycemia 6 MONTH CHECK with ROLO CROWE MD 07/12/2016 Last Documented On 7 11:55PM ; [facility] Hyperlipidemia 6 MONTH CHECK with ROLO CROWE MD 07/12/2016 Last Documented On 7 11:55PM ; [facility] Anxiety disorder NOS 4 MONTH CHECK UP with REGI AQUINO MD 01/07/2016 Last Documented On 6 9:52AM ; [facility] Benign essential hypertension 4 MONTH CHECK UP w lily AQUINO MD 01/07/2016 Last Documented On 6 9:52AM ; [facility] Hyperlipidemia 4 MONTH CHECK UP with ROLO TREJO MD 01/07/2016 Last Documented On 6 9:52AM ; [facility] Anxiety disorder NOS 1 MONTH CHECK with ROLO VILLALTA MD 08/20/2015 Last Documented On 6 10:17AM ; [facility] Benign essential hypertension 1 MONTH CHECK with ROLO AQUINO MD 08/20/2015 Last Documented On 6 10:17AM ; [facility] Anxiety disorder NOS 4 MONTH CHECK UP with REGI AQUINO MD 07/13/2015 Last Documented On 6 5:52PM ; [facility] Anxiety disorder NOS 6 MONTH CHECK with ROLO VILLALTA MD 06/17/2015 Last Documented On 6 1:13PM ; [facility] Generalized anxiety disorder PROBLEM VISIT with MANUELITO MALONYE [facility] 05/29/2015 Last Documented On 6 1:51PM ; [facility] Depression with anxiety PROBLEM VISIT wi BONITA [facility]ONES [facility] 05/25/2015 Last Documented On 6 12:24PM ; [facility] Acute sinusitis PROBLEM VISIT with BONITA [facility] 05/11/2015 Last Documented On 6 12:19PM ; [facility] Benign essential hypertension 1 MONTH CHECK with ROLO AQUINO MD 03/16/2015 Last Documented On 5 2:39PM ; [facility] Benign essential hypertension PROBLEM VISIT with ROLO AQUINO MD 02/16/2015 Last Documented On 5 2:01PM ; [facility] Arthritis 6 MONTH CHECK with ROLO CROWE MD 12/07/2014 Last Documented On 5 10:03AM ; [facility] Benign essential hypertension 6 MONTH CHECK with ROLO AQUINO MD 12/07/2014 Last Documented On 5 10:03AM ; [facility] Hyperglycemia 6 MONTH CHECK with ROLO CROWE MD 12/07/2014 Last Documented On 5 10:03AM ; [facility] Nonorganic sleep apnea 6 MONTH CHECK with ROLO AQUINO MD 12/07/2014 Last Documented On 5 10:03AM ; [facility] Arthritis 6 MONTH CHECK with ROLO CROWE MD 06/29/2014 Last Documented On 5 9:34AM ; [facility] Benign essential hypertension 6 MONTH CHECK with ROLO AQUINO MD 06/29/2014 Last Documented On 5 9:34AM ; [facility] Normal routine history and physical 6 MO NTH CHECK with ROLO AQUINO MD 06/29/2014 Last Documented On 5 9:34AM ; [facility] Sleep apnea 6 MONTH CHECK with ROLO CROWE MD 06/29/2014 Last Documented On 5 9:34AM ; [facility] URINARY FREQUENCY PROBLEM VISIT with ALLI BENZ PA-C 05/27/2014 Last Documented On 5 2:34PM ; [facility] Lumbago PROBLEM VISIT with BONITA LAWRENEC PMHNP-BC DEVELOPER SUPPORT ENGINEER-BC 05/21/2014 Last Documented On 5 1:43PM ; [facility] Benign essential hypertension NEW PATIENT VISIT with ROLO AQUINO MD 12/01/2013 Last Documented On 9 5:20PM ; [facility] Colon screening NEW PATIENT VISIT with ROLO IRIZARRY MD 12/01/2013 Last Documented On 9 5:20PM ; [facility] Fatigue NEW PATIENT VISIT with ROLO IRIZARRY MD 12/01/2013 Last Documented On 9 5:20PM ; [facility] Open wound NEW PATIENT VISIT with ROLO IRIZARRY MD 12/01/2013 Last Documented On 9 5:20PM ; [facility] Basal cell cancer of the hel ix of the ear lobe CONSULTATION with JENN ADAM DO 03/24/2013 Last Documented On 3 9:19AM ; [facility] Instructions Includes: Instructions for all patient encounters Instructions to patient Intervention and counseling on cessation of tobacco use Last Documented On 4 9:46AM ; [facility] Intervention and counseling on cessation of tobacco use Last Documented On 4 8:59AM ; [facility] Intervention and counseling on cessation of tobacco use Last Documented On 3 9:03AM ; [facility] No reduced physical activity -release to full activities Last Documented On 2 9:14AM ; [facility] Intervention and counseling on cessation of tobacco use Last Documented On 2 8:49AM ; [facility] No reduced physical activity -release to full activities Last Documented On 2 12:26PM ; [facility] Intervention and counseling on cessation of tobacco use Last Documented On 2 9:54AM ; [facility] No reduced physical activity -release to full activities Last Documented On 2 10:18AM ; [facility] Lose weight Last Documented On 0 8:50PM ; [facility] Lose weight Last Documented On 9 8:36PM ; [facility] Maintain a healthy diet Last Documented On 8 8:21AM ; [facility] Maintain a healthy diet Last Documented On 8 8:24AM ; [facility] Maintain a healthy diet Last Documented On 8 8:37AM ; [facility] Lose weight Last Documented On 7 10:09AM ; [facility] Instructions for patient Last Documented On 6 10:59AM ; [facility] Instructions for patient Last Documented On 6 11:41AM ; [facility] Instructions for patient Last Documented On 5 1:28PM ; [facility] Education and Decision Aids were provided during visit for: Patient education about orth opedic activities Last Documented On 2 9:14AM ; [facility] Patient education about orth opedic activities Last Documented On 2 12:26PM ; [facility] Patient education about orth opedic activities Last Documented On 2 10:18AM ; [facility] Patient education about a pr oper diet Last Documented On 8 8:21AM ; [facility] Patient education about regu lar dental care Last Documented On 8 8:21AM ; [facility] Patient education about diab etes and discussed ABCs of diabetic therapy and goals Last Documented On 8 8:21AM ; [facility] Patient education about a ho me blood glucose monitor with instructions to bring monitor to each visit Last Documented On 8 8:21AM ; [facility] Dietary counseling pertainin g to diabetes mellitus Last Documented On 8 8:21AM ; [facility] Patient education about diab etic foot care Last Documented On 8 8:21AM ; [facility] The patient's goal is to yaron t the blood sugars and bring in the results to each visit Last Documented On 8 8:21AM ; [facility] Review of care plan, pt xochitl hicks very well, no change in plan Last Documented On 8 8:21AM ; [facility] Patient education about a pr oper diet Last Documented On 8 8:24AM ; [facility] Patient education about regu lar dental care Last Documented On 8 8:24AM ; [facility] Patient education about diab etes and discussed ABCs of diabetic therapy and goals Last Documented On 8 8:24AM ; [facility] Patient education about a ho me blood glucose monitor with instructions to bring monitor to each visit Last Documented On 8 8:24AM ; [facility] Dietary counseling pertainin g to diabetes mellitus Last Documented On 8 8:24AM ; [facility] Patient education about diab etic foot care Last Documented On 8 8:24AM ; [facility] The patient's goal is to yaron t the blood sugars and bring in the results to each visit Last Documented On 8 8:24AM ; [facility] Counseling/education [Use fo r free text] Last Documented On 8 8:24AM ; [facility] Patient education about a pr oper diet Last Documented On 8 8:37AM ; [facility] Patient education about regu lar dental care Last Documented On 8 8:37AM ; [facility] Patient education about diab etes and discussed ABCs of diabetic therapy and goals Last Documented On 8 8:37AM ; [facility] Patient education about a ho [place] blood glucose monitor with instructions to bring monitor to each visit Last Documented On 8 8:37AM ; [facility] Dietary counseling pertainin g to diabetes mellitus Last Documented On 8 8:37AM ; [facility] Patient education about diab etic foot care Last Documented On 8 8:37AM ; [facility] The patient's goal is to yaron t the blood sugars and bring in the results to each visit Last Documented On 8 8:37AM ; [facility] Overview of T2DM disease pro cess and the outline of overall care. Pt states he is the heaviest he has ever been. He was advised to have knees replace a few years ago, but opted out, now he states he is too heavy to have this done Last Documented On 8 9:13AM ; [facility] Medical Equipment - Implanted Devices Includes: Current and historical Devices No Medical Equipment Recorded Medications Includes: Current and historical Medications Current Medications (continue as prescribed) Citalopram Hydrobromide 20 M G Oral Tablet 10/10/2023 Provider: ROLO Greenwood Diagnosis: Dysthymic disord er TAKE 1 TABLET BY MOUTH EVERY DAY Last Documented On 4 10:21AM By ROLO AQUINO MD ; [facility] Rosuvastatin Calcium 10 MG Oral Tablet 10/10/2023 Provider: ROLO Greenwood Diagnosis: Hyperlipidemia, unspecified TAKE 1 TABLET BY MOUTH EVERY DAY Last Documented On 4 10:21AM By ROLO AQUINO MD ; [facility] Ozempic (1 MG/DOSE) 4 MG/3ML Subcutaneous Solution Pen-injector 10/10/2023 Provider: ROLO AQUINO MD Diagnosis: Type 2 diabetes mellitus without complications 1mg once a week SC Last Documented On 4 10:21AM By ROLO AQUINO MD ; [facility] Lisinopril-hydroCHLOROthiazi de 20-25 MG Oral Tablet 10/10/2023 Provider: ROLO Greenwood Diagnosis: TAKE 1 TABLET BY MOUTH EVERY DAY Last Documented On 4 10:21AM By ROLO AQUINO MD ; [facility] Diclofenac Sodium 1% External Gel 10/10/2023 Provide r: ROLO AQUINO MD Diagnosis: Pain in left kne e apply 4 grams to left knee qid prn pain Last Documented On 4 10:21AM By ROLO AQUINO MD ; [facility] Omeprazole 20 MG Oral Capsul e Delayed Release 02/26/2023 Provider: ROLO Greenwood Diagnosis: TAKE 1 CAPSULE BY MOUTH EVERY DAY Last Documented On 3 8:55AM By ROLO AQUINO MD ; [facility] guaiFENesin-Codeine 100-10 M G/5ML Oral Solution 02/23/2023 Provider: ROLO Greenwood Diagnosis: Cough, unspecifi ed Take 1 to 2 teaspoons every 4 hours prn cough Last Documented On 3 11:02AM By ROLO AQUINO MD ; [facility] metFORMIN HCl 1000 MG Oral Tablet 10/25/2022 Provider: ROLO Greenwood Diagnosis: Type 2 diabetes mellitus without complications TAKE 1 TABLET BY MOUTH TWICE A DAY Last Documented On 10/25/2022 5:32PM By Diane BRANTLEY ; [facility] Celecoxib 200 MG Oral Capsule 08/25/2022 Provider: ROLO Greenwood Diagnosis: Bilateral primar y osteoarthritis of knee TAKE 1 CAPSULE BY MOUTH EUNICE Y MAY TAKE SECOND CAPSULE DAILY NEEDED Last Documented On 3 8:59AM By ROLO AQUINO MD ; [facility] Eye Vitamins Oral Capsule 08/14/2017 Provider: Diagnosis: Last Documented On 08/14/2017 8:17AM By IVONE BRANTLEY ; [facility] Magnesium Oxide 500 MG Tablet 05/11/2015 Provide r: Diagnosis: Last Documented On 05/11/2015 11:21AM By MIL BRANTLEY ; [facility] Multivitamins OR CAPS 12/01/2013 Provider: Diagnosis: Last Documented On 4 1:46PM By MAICO BRANTLEY ; [facility] Past Medications on file Ozempic (1 MG/DOSE) 4 MG/3ML Subcutaneous Solution Pen-injector 02/26/2023 - 10/10/2023 Provider: ROLO AQUINO MD Diagnosis: Type 2 diabetes mellitus without complications 1mg once a week SC Last Documented On 4 10:08AM By ROLO AQUINO MD ; [facility] Zithromax Z-Norman 250 MG Oral Tablet 02/23/2023 - 09/09/2023 Provider: ROLO AQUINO MD Diagnosis: Cough, unspecifi ed DIRECTED Last Documented On 10/10/2023 9:30AM By Diane BRANTLEY ; [facility] Ozempic (1 MG/DOSE) 4 MG/3ML Subcutaneous Solution Pen-injector 08/25/2022 - 02/26/2023 Provider: ROLO AQUINO MD Diagnosis: Type 2 diabetes mellitus without complications 1mg once a week SC Last Documented On 3 8:41AM By ROLO AQUINO MD ; [facility] Lisinopril-hydroCHLOROthiazi de 20-25 MG Oral Tablet 08/25/2022 - 10/10/2023 Provider: ROLO AQUINO MD Diagnosis: TAKE 1 TABLET BY MOUTH EVERY DAY Last Documented On 4 10:08AM By ROLO AQUINO MD ; [facility] Rosuvastatin Calcium 10 MG Oral Tablet 08/25/2022 - 10/10/2023 Provider: ROLO AQUINO MD Diagnosis: Hyperlipidemia, unspecified TAKE 1 TABLET BY MOUTH EVERY DAY Last Documented On 4 10:08AM By ROLO AQUINO MD ; [facility] metFORMIN HCl 1000 MG Oral Tablet 08/07/2022 - 023 Provider: Diagnosis: Last Documented On 11/08/2022 12:57PM By CORRIE RINCON LPN ; [facility] Omeprazole 20 MG Oral Capsul e Delayed Release 05/03/2022 - 02/26/2023 Provider: ROLO VASQUEZ MD Diagnosis: TAKE 1 CAPSULE BY MOUTH EVERY DAY Last Documented On 3 8:41AM By ROLO AQUINO MD ; [facility] Ozempic (1 MG/DOSE) 4 MG/3ML Subcutaneous Solution Pen-injector 05/03/2022 - 08/25/2022 Provider: ROLO AQUINO MD Diagnosis: Type 2 diabetes mellitus without complications 1mg once a week SC dose increase Last Documented On 3 8:52AM By ROLO AQUINO MD ; [facility] metFORMIN HCl 1000 MG Oral Tablet 2022 - 08/07/2022 Provider: ROLO AQUINO MD Diagnosis: Type 2 diabetes mellitus without complications TAKE 1 TABLET BY MOUTH TWICE A DAY Last Documented On 08/07/2022 9:05AM By CORRIE RINCON LPN ; [facility] Ozempic (0.25 or 0.5 MG/DOSE) 2 MG/1.5ML Subcutaneous Solution Pen-injector 02/27/2022 - 07/07/2022 Provider: ROLO AQUINO MD Diagnosis: Type 2 diabetes mellitus without complications as directed inject 0.5mg once a week SQ Last Documented On 08/25/2022 8:15AM By Diane BRANTLEY ; [facility] Lisinopril-hydroCHLOROthiazi de 20-25 MG Oral Tablet 02/20/2022 - 08/25/2022 Provider: ROLO AQUINO MD Diagnosis: TAKE 1 TABLET BY MOUTH EVERY DAY Last Documented On 3 8:52AM By ROLO AQUINO MD ; [facility] metFORMIN HCl 1000 MG Oral Tablet 10/25/2021 - 2022 Provider: ROLO AQUINO MD Diagnosis: Type 2 diabetes mellitus without complications TAKE 1 TABLET BY MOUTH TWICE A DAY Last Documented On 2022 5:51PM By Diane BRANTLEY ; [facility] Rosuvastatin Calcium 10 MG Oral Tablet 08/26/2021 - 08/25/2022 Provider: ROLO AQUINO MD Diagnosis: Sleep apnea, unspecified TAKE 1 TABLET BY MOUTH EVERY DAY Last Documented On 3 8:52AM By ROLO AQUINO MD ; [facility] Lisinopril-hydroCHLOROthiazi de 20-25 MG Oral Tablet 08/26/2021 - 02/20/2022 Provider: ROLO AQUINO MD Diagnosis: TAKE 1 TABLET BY MOUTH EVERY DAY Last Documented On 02/20/2022 3:53PM By Diane BRANTLEY ; [facility] Omeprazole 20 MG Oral Capsul e Delayed Release 08/01/2021 - 05/03/2022 Provider: ROLO VASQUEZ MD Diagnosis: TAKE 1 CAPSULE BY MOUTH EVERY DAY Last Documented On 2 9:35AM By ROLO AQUINO MD ; [facility] metFORMIN HCl 1000 MG Oral Tablet 05/03/2021 - 10/25/2021 Provider: ROLO AQUINO MD Diagnosis: Type 2 diabetes mellitus without complications 1 twice a day Last Documented On 10/25/2021 9:03AM By Diane Hand RMA ; [facility] Lisinopril-hydroCHLOROthiazi de 20-25 MG Oral Tablet 02/10/2021 - 08/26/2021 Provider: ROLO AQUINO MD Diagnosis: TAKE 1 TABLET BY MOUTH EVERY DAY Last Documented On 08/26/2021 9:39AM By Diane Hand RMA ; [facility] metFORMIN HCl 1000 MG Oral Tablet 11/09/2020 - 05/03/2021 Provider: ROLO AQUINO MD Diagnosis: Type 2 diabetes mellitus without complications 1 twice a day Last Documented On 05/03/2021 8:45AM By Diane [employer] RMA ; [facility] Rosuvastatin Calcium 10 MG Oral Tablet 09/02/2020 - 08/26/2021 Provider: ROLO AQUINO MD Diagnosis: Sleep apnea, unspecified TAKE 1 TABLET BY MOUTH EVERY DAY Last Documented On 08/26/2021 9:39AM By Diane Hand RMA ; [facility] Citalopram Hydrobromide 20 MG Oral Tablet 09/02/2020 - 10/10/2023 Provider: ROLO AQUINO MD Diagnosis: Dysthymic disord er TAKE 1 TABLET BY MOUTH EVERY DAY Last Documented On 4 10:08AM By ROLO AQUINO MD ; [facility] Celecoxib 200 MG Oral Capsule 09/02/2020 - 08/25/2022 Provider: ROLO AQUINO MD Diagnosis: Sleep apnea, unspecified TAKE 1 CAPSULE BY MOUTH EUNICE Y MAY TAKE SECOND CAPSULE DAILY NEEDED Last Documented On 3 8:52AM By ROLO AQUINO MD ; [facility] Lisinopril-hydroCHLOROthiazi de 20-25 MG Oral Tablet 09/02/2020 - 02/10/2021 Provider: ROLO AQUINO MD Diagnosis: TAKE 1 TABLET BY MOUTH EVERY DAY Last Documented On 02/10/2021 9:32AM By Diane Hand A ; [facility] metFORMIN HCl 1000 MG Oral Tablet 08/10/2020 - 11/09/2020 Provider: ROLO AQUINO MD Diagnosis: Type 2 diabetes mellitus without complications 1 twice a day Last Documented On 2:41PM By ROLO AQUINO MD ; [facility] Omeprazole 20 MG Oral Tablet Delayed Release 06/10/2020 - 08/01/2021 Provider: ROLO VASQUEZ MD Diagnosis: One tablet daily Last Documented On 08/01/2021 7:56AM By Diane [place] Angelo ; [facility] Lisinopril-hydroCHLOROthiazi de 20-25 MG Oral Tablet 03/18/2020 - 09/02/2020 Provider: ROLO AQUINO MD Diagnosis: TAKE 1 TABLET BY MOUTH EVERY DAY Last Documented On 09/02/2020 9:43AM By Diane Hand Angelo ; [facility] Omeprazole 20 MG Oral Tablet Delayed Release 01/20/2020 - 06/10/2020 Provider: ROLO VASQUEZ MD Diagnosis: One tablet daily Last Documented On 06/10/2020 8:54AM By Diane BRANTLEY ; [facility] Omeprazole 20 MG Oral Tablet Delayed Release 12/31/2019 - 10/27/2019 Provider: ROLO VASQUEZ MD Diagnosis: One tablet daily Last Documented On 01/20/2020 11:55AM By IVONE BRANTLEY ; [facility] Citalopram Hydrobromide 20 MG Oral Tablet 10/28/2019 - 09/02/2020 Provider: ROLO AQUINO MD Diagnosis: Dysthymic disord er ONE TABLET DAILY Last Documented On 09/02/2020 10:02AM By IVONE BRANTLEY ; [facility] Lisinopril-hydroCHLOROthiazi de 20-25 MG Oral Tablet 10/27/2019 - 03/18/2020 Provider: ROLO AQUINO MD Diagnosis: ONE TABLET DAILY Last Documented On 03/18/2020 4:32PM By Estrellita Jackson LPN ; [facility] CeleBREX 200 MG Oral Capsule 10/27/2019 - 09/02/2020 Provider: ROLO AQUINO MD Diagnosis: Sleep apnea, unspecified ONE TAB DAILY AND THEN A SEC OND TABLET A DAY NEEDED Last Documented On 09/02/2020 9:46AM By Diane BRANTLEY ; [facility] Crestor 10 MG Oral Tablet 10/27/2019 - 09/02/2020 Provider: ROLO AQUINO MD Diagnosis: Sleep apnea, unspecified TAKE ONE TABLET BY MOUTH EVERY DAY Last Documented On 09/02/2020 9:42AM By Diane BRANTLEY ; [facility] Lisinopril-hydroCHLOROthiazi de 20-25 MG Oral Tablet 02/13/2019 - 10/27/2019 Provider: ROLO AQUINO MD Diagnosis: ONE TABLET DAILY TO REPLACE QUINIPRIL Last Documented On 10/27/2019 2:12PM By IVONE BRANTLEY ; [facility] Citalopram Hydrobromide 20 MG Oral Tablet 02/13/2019 - 10/27/2019 Provider: ROLO AQUINO MD Diagnosis: Dysthymic disord er ONE TABLET DAILY Last Documented On 10/28/2019 4:38PM By IVONE BRANTLEY ; [facility] Omeprazole 20 MG Oral Tablet Delayed Release 02/13/2019 - 12/31/2019 Provider: ROLO VASQUEZ MD Diagnosis: One tablet daily Last Documented On 12/31/2019 4:24PM By Gladys BRANTLEY ; [facility] Lisinopril-hydroCHLOROthiazi de 20-25MG Oral Tablet 10/07/2018 - 02/13/2019 Provider: ROLO AQUINO MD Diagnosis: ONE TABLET DAILY TO REPLACE QUINIPRIL Last Documented On 02/13/2019 9:15AM By ROBIN BRANTLEY ; [facility] CeleBREX 200MG Oral Capsule, conventional 08/14/2018 - 10/27/2019 Provider: ROLO VASQUEZ MD Diagnosis: ONE TAB DAILY AND THEN A SEC OND TABLET A DAY NEEDED Last Documented On 2:59PM By ROLO AQUINO MD ; [facility] Crestor 10MG Oral Tablet 08/14/2018 - 10/27/2019 Provi tiffanie: ROLO AQUINO MD Diagnosis: TAKE ONE TABLET BY MOUTH EVERY DAY Last Documented On 0 2:59PM By ROLO AQUINO MD ; [facility] Lisinopril-Hydrochlorothiazi de 20-25MG Oral Tablet 02/12/2018 - 10/07/2018 Provider: ROLO AQUINO MD Diagnosis: ONE TABLET DAILY Last Documented On 9 11:44AM By ROLO AQUINO MD ; [facility] Citalopram Hydrobromide 20MG Oral Tablet 02/12/2018 - 02/13/2019 Provider: ROLO AQUINO MD Diagnosis: Dysthymic disord er ONE TABLET DAILY Last Documented On 02/13/2019 9:15AM By ROBIN BRANTLEY ; [facility] Omeprazole 20MG Oral Tablet Delayed Release 02/12/2018 - 02/13/2019 Provider: ROLO VASQUEZ MD Diagnosis: One tablet daily Last Documented On 02/13/2019 9:15AM By ROBIN BRANTLEY ; [facility] Duexis 800-26.6MG Oral Tablet 02/06/2018 - 08/14/2018 Provider: ALLI LASSITER PA-C Diagnosis: Sprain of other specified parts of left knee, init encntr One tablet twice a day Last Documented On 08/14/2018 8:18AM By IVONE BRANTLEY ; [facility] Duexis 800-26.6MG Oral Tablet 01/29/2018 - 02/06/2018 Provider: ALLI LASSITER PA-C Diagnosis: Sprain of other specified parts of left knee, init encntr One tablet twice a day Last Documented On 02/06/2018 9:05AM By ROBIN BRANTLEY ; [facility] Lisinopril-Hydrochlorothiazi de 20-25MG Oral Tablet 01/18/2018 - 02/12/2018 Provider: ROLO AQUINO MD Diagnosis: ONE TABLET DAILY TO REPLACE QUINIPRIL Last Documented On 02/12/2018 8:41AM By RADHA STILL CMA ; [facility] OneTouch Ultra Blue In Vitro Strip 11/06/2017 - 10/27/2019 Provider: NASH MELGAR APN Diagnosis: Type 2 diabetes mellitus without complications test blood glucose one time per day, vary times. Last Documented On 10/27/2019 2:13PM By IVONE BRANTLEY ; [facility] Medrol 4MG Oral Tablet Therapy Pack 10/30/2017 - 08/10/2020 Provider: ALLI LASSITER PA-C Diagnosis: Pain in left kne e as directed. Last Documented On 08/10/2020 2:43PM By Diane BRANTLEY ; [facility] Omeprazole 20MG Oral Tablet Delayed Release 10/30/2017 - 02/12/2018 Provider: ROLO VASQUEZ MD Diagnosis: One tablet daily Last Documented On 02/12/2018 8:41AM By RADHA STILL CMA ; [facility] OneTouch Ultra Blue In Vitro Strip 10/03/2017 - 10/27/2019 Provider: NASH MELGAR APN Diagnosis: Type 2 diabetes mellitus with hyperglycemia Test BG one time per day, al ternate morning and bedtime. Last Documented On 10/27/2019 2:14PM By IVONE BRANTLEY ; [facility] OneTouch Ultra 2 w/Device Kit (multiple component) 10/03/2017 - 10/27/2019 Provider: NASH MELGAR APN Diagnosis: Type 2 diabetes mellitus with hyperglycemia as directed Last Documented On 10/27/2019 2:13PM By VIONE BRANTLEY ; [facility] Omeprazole 20MG Oral Tablet Delayed Release 08/14/2017 - 10/30/2017 Provider: ROLO VASQUEZ MD Diagnosis: ONE TABLET DAILY Last Documented On 10/30/2017 2:09PM By ROBIN BRANTLEY ; [facility] Omeprazole 20MG Oral Tablet Delayed Release 08/14/2017 - 08/14/2017 Provider: ROLO VASQUEZ MD Diagnosis: One tablet daily Last Documented On 08/14/2017 3:20PM By RADHA STILL CMA ; [facility] CeleBREX 200MG Oral Capsule 08/14/2017 - 08/14/2018 Pr ovider: ROLO AQUINO MD Diagnosis: ONE TAB DAILY AND THEN A SEC OND TABLET A DAY NEEDED Last Documented On 08/14/2018 8:44AM By RADHA STILL CMA ; [facility] Crestor 10MG Oral Tablet 06/04/2017 - 08/14/2018 Provi tiffanie: ROLO AQUINO MD Diagnosis: TAKE ONE TABLET BY MOUTH EVERY DAY Last Documented On 08/14/2018 8:44AM By RADHA STILL CMA ; [facility] Citalopram Hydrobromide 20MG Oral Tablet 02/14/2017 - 02/12/2018 Provider: ROLO AQUINO MD Diagnosis: Dysthymic disord er ONE TABLET DAILY Last Documented On 02/12/2018 8:41AM By RADHA STILL CMA ; [facility] Lisinopril-Hydrochlorothiazi de 20-25MG Oral Tablet 02/14/2017 - 01/18/2018 Provider: ROLO AQUINO MD Diagnosis: ONE TABLET DAILY TO REPLACE QUINIPRIL Last Documented On 01/18/2018 4:00PM By IVONE BRANTLEY ; [facility] Crestor 10MG Oral Tablet 10/10/2016 - 06/04/2017 Provider: ROLO AQUINO MD Diagnosis: Hyperlipidemia, unspecified 1 daily Last Documented On 06/04/2017 2:42PM By RADHA STILL CMA ; [facility] Omeprazole 20MG Oral Tablet Delayed Release 10/10/2016 - 08/14/2017 Provider: ROLO VASQUEZ MD Diagnosis: One tablet daily Last Documented On 08/14/2017 8:42AM By RADHA STILL CMA ; [facility] CeleBREX 200MG Oral Capsule 10/10/2016 - 08/14/2017 Pr ovider: ROLO AQUINO MD Diagnosis: ONE TAB DAILY AND THEN A SEC OND TABLET A DAY NEEDED Last Documented On 08/14/2017 8:42AM By RADHA STILL CMA ; [facility] Lisinopril-Hydrochlorothiazi de 20-25MG Oral Tablet 10/04/2016 - 02/14/2017 Provider: ROLO AQUINO MD Diagnosis: ONE TABLET DAILY TO REPLACE QUINIPRIL Last Documented On 02/14/2017 8:40AM By RADHA STILL CMA ; [facility] Citalopram Hydrobromide 20MG Oral Tablet 10/04/2016 - 02/14/2017 Provider: ROLO AQUINO MD Diagnosis: Dysthymic disord er ONE TABLET DAILY Last Documented On 02/14/2017 8:40AM By RADHA STILL CMA ; [facility] Crestor 10MG Oral Tablet 07/12/2016 - 10/10/2016 Provider: ROLO AQUINO MD Diagnosis: Hyperlipidemia, unspecified 1 daily Last Documented On 7 9:36AM By ROLO AQUINO MD ; [facility] Citalopram Hydrobromide 20 MG Tablet 01/07/2016 - 10/04/2016 Provider: ROLO AQUINO MD Diagnosis: Dysthymic disord er One tablet daily Last Documented On 10/04/2016 2:41PM By RADHA STILL CMA ; [facility] Citalopram Hydrobromide 20 MG Tablet 08/20/2015 - 01/07/2016 Provider: ROLO AQUINO MD Diagnosis: Dysthymic disord er One tablet daily Last Documented On 6 9:42AM By ROLO AQUINO MD ; [facility] Lisinopril-Hydrochlorothiazi de 20-25 MG Tablet 07/13/2015 - 10/04/2016 Provider: ROLO AQUINO MD Diagnosis: One tablet daily Last Documented On 10/04/2016 2:42PM By RADHA STILL CMA ; [facility] CeleBREX 200 MG Capsule, conventional 07/13/2015 - 10/10/2016 Provider: ROLO VASQUEZ MD Diagnosis: ONE TAB DAILY AND THEN A SEC OND TABLET A DAY NEEDED Last Documented On 7 9:35AM By ROLO AQUINO MD ; [facility] Omeprazole 20 MG Tablet, enteric coated 07/13/2015 - 10/10/2016 Provider: ROLO VASQUEZ MD Diagnosis: One tablet daily Last Documented On 7 9:35AM By ROLO AQUINO MD ; [facility] Citalopram Hydrobromide 20 MG Tablet 07/13/2015 - 08/20/2015 Provider: ROLO AQUINO MD Diagnosis: Dysthymic disord er One tablet daily Last Documented On 6 10:15AM By ROLO AQUINO MD ; [facility] Citalopram Hydrobromide 20 MG Tablet 06/17/2015 - 07/13/2015 Provider: ROLO AQUINO MD Diagnosis: Dysthymic disord er One tablet daily Last Documented On 6 1:48PM By ROLO AQUINO MD ; [facility] KlonoPIN 1 MG Tablet 05/29/2015 - 08/20/2015 Provider: MANUELITO Angelo [facility]- Diagnosis: Generalized anxi ety disorder twice daily as needed for anxiety Last Documented On 08/20/2015 10:06AM By Jenise BRANTLEY ; [facility] Citalopram Hydrobromide 20 MG Tablet 05/25/2015 - 06/17/2015 Provider: BONITA JONES [facility]- DEVELOPER SUPPORT ENGINEER- Diagnosis: Dysthymic disord er One tablet daily Last Documented On 6 10:08AM By ROLO AQUINO MD ; [facility] ZyrTEC Allergy 10 MG Tablet 05/25/2015 - 06/17/2015 Pr ovider: Diagnosis: Last Documented On 06/17/2015 9:27AM By IVONE BRANTLEY ; [facility] Lisinopril-Hydrochlorothiazi de 20-25 MG Tablet 05/11/2015 - 07/13/2015 Provider: BONITA JONES [facility]- Diagnosis: One tablet daily Last Documented On 6 1:50PM By ROLO AQUINO MD ; [facility] Doxycycline Monohydrate 100 MG Capsule, conventional 05/11/2015 - 05/25/2015 Provider: BONITA JONES [facility]- Diagnosis: Acute sinusitis, unspecified 1 CAPSULE TWO TIMES A DAY Last Documented On 05/25/2015 10:54AM By MIL RAZA Angelo ; [facility] Nasonex 50 MCG/ACT Suspension 05/11/2015 - 02/14/2017 Provider: BONITA JONES [facility]- Diagnosis: Acute sinusitis, unspecified 2 sprays each nostril once daily Last Documented On 02/14/2017 8:10AM By Ninfa BRANTLEY ; [facility] Lisinopril-Hydrochlorothiazi de 20-25 MG Tablet 04/14/2015 - 05/11/2015 Provider: ROLO AQUINO MD Diagnosis: One tablet daily to replace quinipril Last Documented On 6 11:43AM By BONITA JONES [facility] ; [facility] Quinapril-Hydrochlorothiazid e 20-25 MG Tablet 04/13/2015 - 05/11/2015 Provider: ROLO AQUINO MD Diagnosis: Essential (primary) hypertension One tablet daily addition of hctz Last Documented On 05/11/2015 11:21AM By MIL BRANTLEY ; [facility] Quinapril-Hydrochlorothiazid e 20-25 MG Tablet 03/16/2015 - 04/13/2015 Provider: ROLO AQUINO MD Diagnosis: Essential (primary) hypertension One tablet daily addition of hctz Last Documented On 04/13/2015 11:27AM By Jenise BRANTLEY ; [facility] AmLODIPine Besylate 5 MG Tablet 03/09/2015 - 03/16/2015 Provider: ROLO AQUINO MD Diagnosis: Essential (prima ry) hypertension One tablet daily Last Documented On 03/16/2015 2:17PM By IVONE BRANTLEY ; [facility] AmLODIPine Besylate 10 MG Tablet 03/09/2015 - 05/11/2015 Provider: ROLO VASQUEZ MD Diagnosis: One tablet daily DOSE INCREASE Last Documented On 05/11/2015 11:19AM By MIL BRANTLEY ; [facility] AmLODIPine Besylate 5 MG Tablet 02/16/2015 - 03/09/2015 Provider: ROLO AQUINO MD Diagnosis: Essential (prima ry) hypertension One tablet daily Last Documented On 5 11:10AM By ALLI LASSITER PA-C ; [facility] Quinapril HCl 20 MG Tablet 01/13/2015 - 05/11/2015 Pro vider: ROLO AQUINO MD Diagnosis: One tablet twice a day Last Documented On 05/11/2015 11:22AM By MIL BRANTLEY ; [facility] Quinapril HCl 20 MG Tablet 07/27/2014 - 01/13/2015 Pro vider: ROLO AQUINO MD Diagnosis: One tablet daily Last Documented On 5 9:46PM By ROLO AQUINO MD ; [facility] Omeprazole 20 MG OR TBEC 06/29/2014 - 07/13/2015 Provi tiffanie: ROLO AQUINO MD Diagnosis: Last Documented On 6 1:49PM By ROLO AQUINO MD ; [facility] Quinapril HCl 20 MG OR TABS 06/29/2014 - 07/27/2014 Pr ovider: ROLO AQUINO MD Diagnosis: Last Documented On 07/27/2014 3:33PM By Jenise BRANTLEY ; [facility] CeleBREX 200 MG OR CAPS 06/29/2014 - 07/13/2015 Provid er: ROLO AQUINO MD Diagnosis: ONE TAB DAILY AND THEN A SEC OND TABLET A DAY NEEDED Last Documented On 07/13/2015 1:49PM By Jenise BRANTLEY ; [facility] VESIcare 5 MG OR TABS 05/27/2014 - 05/11/2015 Provider : ALLI LASSITER PA-C Diagnosis: URINARY FREQUENC Y Last Documented On 05/11/2015 11:21AM By MIL BRANTLEY ; [facility] Parafon Forte DSC 500 MG OR TABS 05/21/2014 - 05/11/2015 Provider: [facility] DEVELOPER SUPPORT ENGINEER-BC Diagnosis: Lumbago 1/2 to 1 tab every 8 hours a s needed for muscle spasms Last Documented On 05/11/2015 11:20AM By MIL BRANTLEY ; [facility] Medrol 4 MG OR TABS 05/21/2014 - 05/11/2015 Provider: BONITA JONES [facility]-BC DEVELOPER SUPPORT ENGINEER-BC Diagnosis: Lumbago Take 6 tabs day 1, 5 tabs da y 2, 4 tabs day 3, 3 tabs day 4, 2 tabs day 5, 1 tab day 6 Last Documented On 05/11/2015 11:21AM By MIL BRANTLEY ; [facility] Omeprazole 20 MG OR TBEC 03/24/2013 - 06/29/2014 Provi tiffanie: [facility] CAPUTO Diagnosis: Last Documented On 5 9:24AM By ROLO AQUINO MD ; [facility] CeleBREX 200 MG OR CAPS 03/24/2013 - 06/29/2014 Provid er: LIN[facility]N CAPUTO Diagnosis: Last Documented On 5 9:20AM By ROLO AQUINO MD ; [facility] Quinapril HCl 20 MG OR TABS 03/24/2013 - 06/29/2014 Pr ovider: [facility] CAPUTO Diagnosis: Last Documented On 5 9:24AM By ROLO AQUINO MD ; [facility] Medications Administered Includes: Administered Medications in patient's chart No Administered Medications Recorded Vital Signs Includes: Vital Signs from 08/08/2023 through 08/07/2024 Vital Name 10/10/2023 09:26A 08/13/2023 09: 47A Blood Pressure Sitting R 116/76 BP Cuff Size Regular Pulse Rate-Sitting (bpm) 76 Respiration Rate (breaths/min) 19 Height (in) 71.5 71.5 Weight (lb) 373 Body Mass Index 51.3 Body Surface Area 2.8 Oxygen Saturation (%) 96 Last Documented: On 10/10/2023 9:31AM ; [facility] On 08/13/2023 9:46AM ; [facility] Results Includes: Results from 08/08/2023 through 08/07/2024 A1C HGB (GLYCO HEMOGLOBIN) [facility] Laboratory Ordered by ROLO Ricketts MD on 10/03/2023 [address] [place], [address] Collected: 10/03/2023 Report ed: 10/03/2023 11:27 tel: Last Documented On 4 9:50AM ; [facility] Reviewed by ROLO VASQUEZ MD on 10/07/2023; All test results are final unless otherwise noted. Review Note Provider Name Date Will Discuss results with Patient next visit. ERNESTO AQUINO MD 10/07/2023 A1C HGB (GLYCO HEMOGLOBIN) See Note None Last Documented On 4 11:41AM ; [facility] Note: Glycohemoglobin (HEMOGLOBIN A1C)Re sponsible Observer: (HRG) Hgb A1c 5.8 %_A1c (4.0 - 6.0) None Last Documented On 4 11:41AM ; [facility] Note: Responsible Observer: (HRG) MBG 120 mg/dL (65 - 99) H (High) Last Documented On 4 11:41AM ; [facility] Note: *MBG (mean blood glucose) is a leti culated estimate of the mean blood glucose itis also refered to as estimated Average Glucose (eAG).*Responsible Observer: (HRG) LIPID PANEL [facility] La boratory Ordered by ROLO Ricketts MD on 10/03/2023 [address] [facility], [place], [address] Collected: 10/03/2023 Report ed: 10/03/2023 11:27 tel: Last Documented On 4 9:50AM ; [facility] Reviewed by ROLO VASQUEZ MD on 10/07/2023; All test results are final unless otherwise noted. Review Note Provider Name Date Will Discuss results with Patient next visit. ERNESTO AQUINO MD 10/07/2023 CHOL/HDLC 3.6 (0.0 - 4.8) None Last Documented On 4 11:41AM ; [facility] Note: Responsible Observer: (HRG) CHOLESTEROL 144 mg/dL (0 - 200) None Last Documented On 4 11:41AM ; [facility] Note: Responsible Observer: (HRG) HDL 40 mg/dL (29 - 67) None Last Documented On 4 11:41AM ; [facility] Note: Responsible Observer: (HRG) LDL 69 mg/dL (0 - 130) None Last Documented On 4 11:41AM ; [facility] Note: Coronary Artery Risk Panel Refere nce Values Based on the recommendations of the Heart, Lung and Blood [place] (in mg/dL) Risk Levels = High Borderline Desirable Cholesterol >240 200 - 240 <200 LDL >160 130 - 159 <130 Cholesterol/HDL Ratio Male <= 4.88 Female <= 4.23Responsible Observer: (HRG) LIPID PANEL See Note None Last Documented On 4 11:41AM ; [facility] Note: LIPID PANELResponsible Observer: ( HRG) TRIGLYCERIDE 175 mg/dL (1 - 150) H (High) Last Documented On 4 11:41AM ; [facility] Note: Responsible Observer: (HRG) CMP [facility] [place] Ordered by ROLO Ricketts MD on 10/03/2023 [address] [facility], [place], [address] Collected: 10/03/2023 Report ed: 10/03/2023 11:27 tel: Last Documented On 4 9:50AM ; [facility] Reviewed by ROLO VASQUEZ MD on 10/07/2023; All test results are final unless otherwise noted. Review Note Provider Name Date Will Discuss results with Patient next visit. CR DAVID AQUINO MD 10/07/2023 A/G RATIO 1.1 (1.1 - 2.2) None Last Documented On 4 11:41AM ; [facility] Note: eGFR INTERPRETATION AGE AVG GFR 2 0-29 116 ml/min/1.73 m2 30-39 107 ml/min/1.73 m2 40-49 99 ml/min/1.73 m2 50-59 93 ml/min/1.73 m2 60-69 85 ml/min/1.73 m2 70+ 75 ml/min/1.73 m2 Chronic Kidney Disease-Less than 60 ml/min Kidney Failure-Less than 15 ml/min eGFR not calculated on patients <18 due to calculation differences. Please see the website below for the pediatric GFR calculator. https://www.kidney.org/professionals/kdoqi/gfr_calculatorped Responsible Observer: (HRG) AGE 63 YEARS None Last Documented On 4 11:41AM ; [facility] Note: Responsible Observer: (HRG) ALBUMIN 3.7 g/dL (3.4 - 4.8) None Last Documented On 4 11:41AM ; [facility] Note: Responsible Observer: (HRG) ALK PHOS 44 IU/L (40 - 150) None Last Documented On 4 11:41AM ; [facility] Note: Responsible Observer: (HRG) ALT (SGPT) 27 IU/L (0 - 55) None Last Documented On 4 11:41AM ; [facility] Note: Responsible Observer: (HRG) ANION GAP 17.2 mmol/L (8.0 - 16.0) H (High) Last Documented On 4 11:41AM ; [facility] Note: Responsible Observer: (HRG) AST (SGOT) 24 IU/L (5 - 34) None Last Documented On 4 11:41AM ; [facility] Note: Responsible Observer: (HRG) BILIRUBIN TOT 0.5 mg/dL (0.2 - 1.0) None Last Documented On 4 11:41AM ; [facility] Note: Responsible Observer: (HRG) BUN 16 mg/dL (9 - 20) None Last Documented On 4 11:41AM ; [facility] Note: Responsible Observer: (HRG) CALCIUM 9.3 mg/dL (8.9 - 10.0) None Last Documented On 4 11:41AM ; [facility] Note: Responsible Observer: (HRG) CHLORIDE 104 mmol/L (98 - 107) None Last Documented On 4 11:41AM ; [facility] Note: Responsible Observer: (HRG) CMP See Note None Last Documented On 4 11:41AM ; [facility] Note: COMPREHENSIVE METABOLIC PANELRespo nsible Observer: (HRG) CREATININE 0.8 mg/dL (0.8 - 1.5) None Last Documented On 4 11:41AM ; [facility] Note: Responsible Observer: (HRG) eGFR 98 mL/min None Last Documented On 4 11:41AM ; [facility] Note: Responsible Observer: (HRG) GLOBULIN 3.3 g/dl (2.0 - 4.2) None Last Documented On 4 11:41AM ; [facility] Note: Responsible Observer: (HRG) GLUCOSE 156 mg/dL (70 - 105) H (High) Last Documented On 4 11:41AM ; [facility] Note: Responsible Observer: (HRG) POTASSIUM 4.2 mmol/L (3.6 - 5.0) None Last Documented On 4 11:41AM ; [facility] Note: Responsible Observer: (HRG) SODIUM 139 mmol/L (137 - 145) None Last Documented On 4 11:41AM ; [facility] Note: Responsible Observer: (HRG) TCO2 22.0 mmol/L (22.0 - 30.0) None Last Documented On 4 11:41AM ; [facility] Note: Responsible Observer: (HRG) TOTAL PROTEIN 7.0 g/dL (6.4 - 8.3) None Last Documented On 4 11:41AM ; [facility] Note: Responsible Observer: (HRG) PSA SCREEN [facility] [place] Ordered by ROLO Ricketts MD on 10/03/2023 [address] [place], [address] Collected: 10/03/2023 Report ed: 10/03/2023 11:34 tel: Last Documented On 4 9:50AM ; [facility] Reviewed by ROLO VASQUEZ MD on 10/07/2023; All test results are final unless otherwise noted. Review Note Provider Name Date Will Discuss results with Patient next visit. ERNESTO AQUINO MD 10/07/2023 PSA 3.9 ng/ml (0.0 - 4.0) None Last Documented On 10/03/2023 11:41AM ; [facility] Note: PSA NORMAL RANGE: < / = 4.0 ng/mLResponsible Observer: (MLB) Reported Physicians [facility] [place] Ordered by ROLO Ricketts MD on 10/03/2023 [address] [place], [address] Collected: 10/03/2023 Report ed: 10/03/2023 11:34 tel: Last Documented On 4 9:50AM ; [facility] Reviewed by ROLO VASQUEZ MD on 10/07/2023; All test results are final unless otherwise noted. Review Note Provider Name Date Will Discuss results with Patient next visit. ERNESTO AQUINO MD 10/07/2023 Reported Physicians See Note None Last Documented On 10/03/2023 11:41AM ; [facility] Note: Reported Physicians:Ordering: Napoleon Frankttending: REGI FRANKYConsulting: ROLO FRANK CBC WITH DIFF [facility] [place] Ordered by ROLO Ricketts MD on 08/31/2023 [address] [facility], [place], [address] Collected: 09/01/2023 Report ed: 09/01/2023 06:01 tel: Last Documented On 4 11:16PM ; [facility] Reviewed by ROLO VASQUEZ MD on 10/07/2023; All test results are final unless otherwise noted. ALC 0.8 None Last Documented On 4 8:41PM ; [facility] Note: Responsible Observer: (NELI) ANC 10.2 None Last Documented On 4 8:41PM ; [facility] Note: Responsible Observer: (NELI) BASO# 0.07 th/uL (0.00 - 0.20) None Last Documented On 4 8:41PM ; [facility] Note: Responsible Observer: (NELI) BASO% 0.6 % (0.0 - 2.0) None Last Documented On 4 8:41PM ; [facility] Note: Responsible Observer: (NELI) CBC WITH DIFF See Note None Last Documented On 4 8:41PM ; [facility] Note: CBC (COMPLETE BLOOD COUNT)Responsi ble Observer: (NELI) DIFF (Y/N) NO None Last Documented On 4 8:41PM ; [facility] Note: Responsible Observer: (NELI) EOS# 0.07 th/uL (0.00 - 0.45) None Last Documented On 4 8:41PM ; [facility] Note: Responsible Observer: (NELI) EOS% 0.6 % (0.0 - 9.0) None Last Documented On 4 8:41PM ; [facility] Note: Responsible Observer: (NELI) HCT 34.6 % (40.0 - 54.0) L (Low) Last Documented On 4 8:41PM ; [facility] Note: Responsible Observer: (NELI) HGB 11.7 g/dL (13.5 - 17.5) L (Low) Last Documented On 4 8:41PM ; [facility] Note: Responsible Observer: (NELI) IG# 0.05 th/ul (0.00 - 0.10) None Last Documented On 4 8:41PM ; [facility] Note: Responsible Observer: (NELI) IG% 0.4 % (0.0 - 0.5) None Last Documented On 4 8:41PM ; [facility] Note: Responsible Observer: (NELI) LYMPH# 0.78 th/uL (1.00 - 4.80) L (Low) Last Documented On 4 8:41PM ; [facility] Note: Responsible Observer: (NELI) LYMPH% 6.4 % (14.0 - 45.0) L (Low) Last Documented On 4 8:41PM ; [facility] Note: Responsible Observer: (NELI) MCH 32.7 pg (25.0 - 35.0) None Last Documented On 4 8:41PM ; [facility] Note: Responsible Observer: (NELI) MCHC 33.8 g/dL (31.0 - 36.0) None Last Documented On 4 8:41PM ; [facility] Note: Responsible Observer: (NELI) MCV 96.6 fl (80.0 - 100) None Last Documented On 4 8:41PM ; [facility] Note: Responsible Observer: (NELI) MONO# 0.96 th/uL (0.00 - 0.80) H (High) Last Documented On 4 8:41PM ; [facility] Note: Responsible Observer: (NELI) MONO% 7.9 % (1.0 - 10.0) None Last Documented On 4 8:41PM ; [facility] Note: Responsible Observer: (NELI) MPV 10.6 fl (6.0 - 11.0) None Last Documented On 4 8:41PM ; [facility] Note: Responsible Observer: (NELI) NEUT# 10.21 th/uL None Last Documented On 4 8:41PM ; [facility] Note: Responsible Observer: (NELI) NEUT% 84.1 % (45.0 - 76.0) H (High) Last Documented On 4 8:41PM ; [facility] Note: Responsible Observer: (NELI) NRBC% 0.0 % (0.0 - 0.0) None Last Documented On 4 8:41PM ; [facility] Note: Responsible Observer: (NELI) PLT 145 th/uL (150 - 400) L (Low) Last Documented On 4 8:41PM ; [facility] Note: Responsible Observer: (NELI) RBC 3.58 mil/uL (4.50 - 5.90) L (Low) Last Documented On 4 8:41PM ; [facility] Note: Responsible Observer: (NELI) RDW 13.2 % (11.0 - 16.0) None Last Documented On 4 8:41PM ; [facility] Note: Responsible Observer: (NELI) WBC 12.1 th/uL (4.5 - 11.0) H (High) Last Documented On 4 8:41PM ; [facility] Note: Responsible Observer: (NELI) [facility] [place] Ordered by ROLO Ricketts MD on 08/31/[address] [place] [address], [phone] Collected: 09/01/2023 Report ed: 09/01/2023 06:08 tel: Last Documented On 4 11:16PM ; [facility] Reviewed by ROLO VASQUEZ MD on 10/07/2023; All test results are final unless otherwise noted. AGE 63 YEARS None Last Documented On 4 8:41PM ; [facility] Note: Responsible Observer: (NELI) ANION GAP 15.1 mmol/L (8.0 - 16.0) None Last Documented On 4 8:41PM ; [facility] Note: eGFR INTERPRETATION AGE AVG GFR 2 0-29 116 ml/min/1.73 m2 30-39 107 ml/min/1.73 m2 40-49 99 ml/min/1.73 m2 50-59 93 ml/min/1.73 m2 60-69 85 ml/min/1.73 m2 70+ 75 ml/min/1.73 m2 Chronic Kidney Disease-Less than 60 ml/min Kidney Failure-Less than 15 ml/min eGFR not calculated on patients <18 due to calculation differences. Please see the website below for the pediatric GFR calculator. https://www.kidney.org/professionals/kdoqi/gfr_calculatorped Responsible Observer: (NELI) BMP See Note None Last Documented On 4 8:41PM ; [facility] Note: BASIC METABOLIC PANELResponsible O bserver: (NELI) BUN 29 mg/dL (9 - 20) H (High) Last Documented On 4 8:41PM ; [facility] Note: Responsible Observer: (NELI) CALCIUM 8.2 mg/dL (8.9 - 10.0) L (Low) Last Documented On 4 8:41PM ; [facility] Note: Responsible Observer: (NELI) CHLORIDE 101 mmol/L (98 - 107) None Last Documented On 4 8:41PM ; [facility] Note: Responsible Observer: (NELI) CREATININE 2.0 mg/dL (0.8 - 1.5) H (High) Last Documented On 4 8:41PM ; [facility] Note: Responsible Observer: (NELI) eGFR. 36 mL/min None Last Documented On 4 8:41PM ; [facility] Note: Responsible Observer: (NELI) GLUCOSE 169 mg/dL (70 - 105) H (High) Last Documented On 4 8:41PM ; [facility] Note: Responsible Observer: (NELI) POTASSIUM 4.1 mmol/L (3.6 - 5.0) None Last Documented On 4 8:41PM ; [facility] Note: Responsible Observer: (NELI) SODIUM 135 mmol/L (137 - 145) L (Low) Last Documented On 4 8:41PM ; [facility] Note: Responsible Observer: (NELI) TCO2 23.0 mmol/L (22.0 - 30.0) None Last Documented On 4 8:41PM ; [facility] Note:

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
--- OUTSIDE RECORDS SUMMARY | 2024-08-07 12:22 | XMS_ITS | Clinical Summary ---
Author Organization [facility] Address [address] [place] [address] Care Team Providers Care Resolution Expert Name Role Phone Elving-Alecia White MD Primary [...] Nevus of iris of right eye 02/23/2021 Surgical History Surgery Date Site/Laterality Comments OTHER SURGICAL HISTORY 05/07/1994 - 05/06/1995 hemorrhoidectomy & fissure surgery OTHER SURGICAL HISTORY Eye surgery 1977 OTHER SURGICAL HISTORY Hemorrhoid surgery 1991 OTHER SURGICAL HISTORY Gallbladder surgery 2011 EYE SURGERY 05/07/1977 - 05/06/1978 Right right orbit fracture Medical History Medical History Date Comments Arthritis Arthritis Gastroesophageal reflux disease GERD Hypertension Hypertension Diabetes mellitus (HCC) Family History Medical History Relation Name Comments Arthritis Mother Arthritis; Cancer Mother Cancer; Cancer Other 1 Grandfather Cancer; Diabetes Other 1 Grandfather Diabetes mellit us; Hypertension Other 2 Family H/O Hypertension; Macular degeneration Paternal Grandmother Relation Name Status Comments Mother Alive Other 1 Grandfather Alive Other 2 Family H/O Alive Other 3 Grandfather Alive Paternal Grandmother Social History Tobacco Use Types Packs/Day Years Used Date Smoking Tobacco: Never Smokeless Tobacco: Never Sex and Gender Information Value Date Recorded Sex Assigned at Not on file Legal Sex Male 9:32 AM ALUMINIZER Gender Identity Not on file Sexual Orientation Not on file Obstetrics History Last Filed Vital Signs Vital Sign Reading Time Taken Comments Blood Pressure 108/80 07/19/2012 11:58 AM CDT Pulse 92 07/19/2012 11:58 AM CDT Temperature - - Respiratory Rate - - Oxygen Saturation - - Inhaled Oxygen Concentration - - Weight 167.8 kg (370 lb) 06/17/2012 3:30 PM ALUMINIZER Height 182.9 cm (6') 07/19/2012 11:58 AM CDT Body Mass Index 50.18 06/17/2012 3:30 PM ALUMINIZER Plan of Treatment Health Maintenance Due Date Last Done Comments Colon Cancer Screening-Colonoscopy 1958 Depression Screening 1958 Fall Risk Assessment 1958 Hepatitis C Screening 1958 Prostate Cancer Screening-PSA 1958 Hepatitis B Screening 1976 Pneumococcal vaccine 65+ (1 of 1 - PCV) 2008 Well Visit 65+ 2023 DTaP/Tdap/Td Vaccine (2 - Td or Tdap) 12/02/2023 12/01/2013 Covid-19 Vaccine (5 - 2023-2 5 season) 2024 01/24/2022, 02/11/2021, 06/29/2020, Additional history exists Influenza Vaccine (Season Ended) 2025 01/24/2022, 01/24/2022, 02/11/2021, Additional history exists Zoster Vaccine Completed 11/05/2018, 08/06/2018 Insurance [facility] [id number] MEDICARE [facility] [id number] Member Subscriber [facility] / [facility] Name:Eduar Pardo Member ID:[id number] Relation to Subscriber:Self Name:Eduar Pardo Subscriber ID:[id number] Payer ID:[id number] Type:[employer] HMO/PPO Address: [address] [place] [address] Care Teams Resolution Expert Relationship Specialty Start Date End Date Alecia Leslie MD [address] [place] [address] PCP - General Family Medicine 02/23/21
--- OUTSIDE RECORDS SUMMARY | 2024-08-07 12:22 | XMS_ITS | Continuity of Care Document ---
Author Organization [facility] Address [address] [place] [address] [address] [place] [address] Phone Care Team Providers Care Rehabilitation Physician Name Role Phone Mario Khan MD, MD Unavailable Unavailab le Allergies, Adverse Reactions, Alerts Substance Reaction Status Criticality No Known allergies Medications Medication Instructions Dosage Effective Dates (start - stop) Status Comments Celebrex 200 mg capsule take 1 capsule by oral route 2 times every day as needed 200 MG - Active omeprazole 20 mg capsule,delayed release take 1 capsule by oral route every day before a meal 20 MG - Active quinapril 20 mg tablet take 1 tablet by oral route every day 20 MG - Active GENTAMICIN SULFATE (unknown strength) instill 1 drop by ophthalmic route every 4 hours into affected eye(s) Not Available - Active Procedures Procedure Date Office/outpatient Visit, [facility] Remove Foreign Body From Eye Advance Directives [...] Providers Copied on Encounter Office/outpa tient Visit, [facility], [address], [place], [place], [id number], [place] tel:[phone] SEC Khadijah Irizarry irritation (chief complaint) [facility] CON[facility]ETION[facility] ERS OF EYELID NEC [address], [address], [place], [address], [place]. tel:[phone] Family History Family Member Type Diagnosis Age At Onset Problem (finding) Family history of degenerative disorder of macula Mother Problem (finding) glaucoma Payers Payer name Insurance type Covered alliance party ID Jeffery espinoza(s) [employer] CI [id number] Social History Type Description Quantity Date Captured Comments Alcohol Use Details No Caffeine Use Details Tobacco Use Status No Information Smoking Status Never smoker Non-Smoking Tobacco Use Details : No Details Available : No Details Available Sex Male Chief Complaint And Reason For Visit From encounter dated '09/18/2013 09:15'. irritation (chief complaint) Reason For Referral Reason For Referral No Information History Of Present Illness Encounter Date Complaint History Of Prese nt Illness No Information Functional Status Date Functional Assessmen t No Information Instructions Date Instruction Additional Infor jenniferion - RTC as needed Related to See [...]
--- OUTSIDE RECORDS SUMMARY | 2024-08-07 12:22 | XMS_ITS | Clinical Summary ---
Author Organization [facility] Address [address] [facility], [place] [address] Phone Care Team Providers Care Specialized Language Instructor Name Role Phone Wood Griffith MD Unavailable Alecia Cornell MD Primary Care Provider [phone] Natali Leyva APRN, PHLEBOTOMY SUPERVISOR Unavailable Allergies Active Allergy Reactions Criticality Noted Date Comments Cephalexin Hives 07/12/2016 Medications citalopram (CELEXA) 20 MG Tablet 6 Active rosuvastatin (CRESTOR) 10 MG Tablet 7 Active metFORMIN (GLUCOPHAGE) 1000 MG Tablet 500 mg. bid 1 Active Magnesium Oxide 500 MG Tablet [facility] Magnesium Oxide 500 MG Oral Tablet QTY: 0 tablet Days: 0 Refills: 0 Written: 05/11/15 Patient Instructions: 6 Active Multiple Vitamin (Multivitamins ) Capsule Multivitamins Oral Capsule QTY: 0 capsule Days: 0 Refills: 0 Written: 12/01/13 Patient Instructions: 4 Active Multiple Vitamins-Bradner als (Eye Vitamins) Capsule Eye Vitamins Oral Capsule QTY: 0 capsule Days: 0 Refills: 0 Written: 08/14/17 Patient Instructions: 8 Active Omeprazole Magnesium 20 MG Tablet Delayed Response Omeprazole 20 MG Oral Tablet Delayed Release QTY: 90 capsule Days: 90 Refills: 3 Written: 01/20/20 Patient Instructions: One tablet daily 0 Active lisinopril-hyd roCHLOROthiazi de (PRINZIDE, ZESTORETIC) 20-25 MG Tablet 1 Active celecoxib (CeleBREX) 200 MG Capsule CeleBREX 200 MG Oral Capsule QTY: 180 Days: 90 Refills: 3 Written: 10/27/19 Patient Instructions: ONE TAB DAILY AND THEN A SECOND TABLET A DAY NEEDED 0 Active omeprazole (PriLOSEC) 20 MG CAPSULE DELAYED RELEASE TAKE 1 CAPSULE BY MOUTH EVERY DAY 1 Active Semaglutide,0. 25 or 0.5MG/DOS, (Ozempic, 0.25 or 0.5 MG/DOSE,) 2 MG/1.5ML Solution Pen-injector by Subcutaneous route. Active meclizine (ANTIVERT) 12.5 MG Tablet Take 1 Tablet by mouth every 8 hours as needed for Dizziness. 15 Tablet 1 3 Active Active Problems Problem Noted Date Diagnosed Date WARREN (obstructive sleep apnea) 07/12/2016 SOB (shortness of breath) 07/12/2016 Morbid obesity due to excess calories 07/12/2016 Essential (primary) hypertension 07/12/2016 Gastroesophageal reflux disease without esophagi tis 07/12/2016 Immunizations Immunization Administration Dates Next Due Covid-19, Mrna, Lnp-s, Pf, 3 0 Mcg/0.3 Ml Dose (appssavvy) 06/29/2020,06/08/2020 Influenza Vaccine greater than 3 yrs 02/06/2018 Influenza Vaccine, Quadrivalent, PF 02/13/2017,1 ,02/12/2015 Influenza, Recombinant, Quadrivalent,injectable, Pf 02/13/2020,02/12/2018 Influenza, Seasonal, Injectable, Undefined 02/06 Influenza, recombinant, trivalent, PF 02/04/2019 Zoster Vaccine Recombinant 11/05/2018,08/06/2018 Social History Tobacco Use Types Packs/Day Years Used Date Smoking Tobacco: Never Smokeless Tobacco: Never Tobacco Cessation:Counseling Given: Not Answered Alcohol Use Standard Drinks/Week Comments No 0 (1 standard drink = 0.6 oz pur e alcohol) Sexually Active Control Partners Comments Not Currently Sex and Gender Information Value Date Recorded Sex Assigned at Not on file Legal Sex Male 11:17 PM CDT Gender Identity Not on file Sexual Orientation Not on file Last Filed Vital Signs Vital Sign Reading Time Taken Comments Blood Pressure 138/72 09/26/2023 9:01 AM CDT Pulse 84 09/26/2023 9:01 AM CDT Temperature 36.9 C (98.5 F) 09/26/2023 9:01 AM CDT Respiratory Rate 16 09/26/2023 9:01 AM CDT Oxygen Saturation 96% 09/26/2023 9:01 AM CDT Inhaled Oxygen Concentration - - Weight 168.3 kg (371 lb) 09/26/2023 9:01 AM CDT Height 182.9 cm (6') 09/26/2023 9:01 AM CDT Body Mass Index 50.32 09/26/2023 9:01 AM CDT Plan of Treatment Upcoming Encounters Date Type Department Care Team (Late st Contact Info) Description 09/24/2024 9:00 AM CDT Office Visit [facility] - [address] [facility] [address] [place] [address] Natali Leyva, LOCOMOTIVE OILER, PHLEBOTOMY SUPERVISOR [address] [facility] [address] [place] [address] Health Maintenance Due Date Last Done Comments Hepatitis C Virus (HCV) Screening 1960 TdaP Immunization 1960 Colonoscopy 2003 Colorectal Cancer Screening 2003 Cologuard 2008 Immunochemical Fecal Occult Blood 2008 Influenza Immunization (#1) 01/06/202402/05, 01/24/2022, 02/11/2021, Additional history exists SARS-COV-2 Immunization ( season) 2024 03/02/2023, 01/24/2022, 09/06/2021, Additional history exists Zoster Immunization Completed 11/05/2018, 9 PSA Discussion Completed 09/06/2020 Pneumococcal Immunization (50+ years) Completed 2023 Pneumococcal Immunization Combined Discontinued 2023 Respiratory Syncytial Virus (RSV) Immunization (Adult) Completed 2023 Hepatitis B Immunization Aged Out No longer eligible based on patient's age to complete this topic Meningococcal Immunization (ACWY) Aged Out No longer eligible based on patient's age to complete this topic Rotavirus Immunization Aged Out No lo nger eligible based on patient's age to complete this topic Procedures Procedure Name Priority Date/Time Associated Diagnosis Comments PSA FREE & TOTAL Routine 09/06/2020 10:0 4 AM CDT Elevated PSA from Last 3 Months or Most Recently Relevant to Health Maintenance Results * PSA FREE & TOTAL (09/06/2020 10:04 AM CDT) Prostatic Specific Antigen, Free 2.10 ng/mL [address] 09/06/2020 10:56 PM CDT [facility] PSA, TOTAL (PROSTATIC SPECIFIC ANTIGEN) 3.36 <4.00 ng/mL [address] 09/06/2020 10:56 PM CDT [facility] PSA, % FREE 62.5 % [address] 09/06/2020 10:56 PM CDT [facility] Comment: PSA NG/ML FREE PSA % EST PROB CANCER % 2.6- 4.0 0-27 24 4.1-10.0 0-10 56 11-15 28 16-20 20 21-25 16 >25 8 THESE ESTIMATES VARY WITH AGE, ETHNICITY, FAMILY HISTORY AND JONO RESULTS. THE DIAGNOSTIC USEFULNESS OF % FREE PSA HAS NOT BEEN ESTABLISHED IN PATIENTS WITH TOTAL PSA BELOW 2.6 NG/ML. IN MEN WITH A PSA LEVEL ABOVE 10 NG/ML, PROSTATE CANCER RISK IS DETERMINED BY TOTAL PSA ALONE. Blood Venipuncture / Unknown 09/06/2020 10:04 AM CDT 09/06/2020 10:22 AM CDT us Roscoe Gudino MD CHEMISTRY ORDERABLES Final Result [facility] [address] [place] [address], [place] from Last 3 Months or Most Recently Relevant to Health Maintenance Insurance [facility] OAP MEDICARE Member Subscriber Plan / Payer (Ef fective 2023-Present) Name:Eduar Pardo Member ID:[id number] Relation to Subscriber:Self Name:Eduar Pardo Subscriber ID:[id number] Payer ID:[id number] Group ID:Not on file Type:Not on file Address: [facility] [address] [facility] [email or web address] [facility] [place] [address] Care Teams Specialized Language Instructor Relationship Specialty Start Date End Date Alecia Cornell MD [address] [place] [address] PCP - General 07/06/16 Wood Griffith MD [address] [facility] [address] [place] [address] Consulting Physician Pulmonary Disease 07/06/16 Natali Leyva APRN, PHLEBOTOMY SUPERVISOR #[address] [facility] [address] [place] [address] Nurse Practitioner Advanced Practice Nurse 03/29/22
== END 2024-08-07 11:32 | disposition home or self-care (01) ==
PROVIDERS: PCP Family Medicine; Visit Provider Urology
DX: N20.0 Calculus of kidney (principal)
CPT/HCPCS: 74018

== ENCOUNTER 2024-08-12 17:42 | Outpatient (CLI) | payer MEDICARE, SELFPAY ==
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
--- OUTSIDE RECORDS SUMMARY | 2024-08-12 17:46 | XMS_ITS ---
Care Plan - [facility] Created on: August 12, 2024 KHLOE COREA Liliam : 1960 Sex: Male Author Organization [facility] Address [address] [place] [address] Phone Care Team Providers Care Chief Port Director Name Role Phone ROLO AQUINO MD Primary Care Provider [phone]
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
--- OUTSIDE RECORDS SUMMARY | 2024-08-12 17:46 | XMS_ITS ---
Author Organization [facility] Address [address] [place] [address] Phone Care Team Providers Care Industrial Analyst Name Role Phone ROLO AQUINO MD Primary Care Provider [phone] Reason for Referral Date Encounter Description Provider [...] Active Last Documented On 4 11:01PM ; [facility] Joint Pain in the Left Knee 09/02/2021 SAL Omer Active Last Documented On 2 8:40AM ; [facility] Osteoarthritis Localized Primary Knee Left 09/02/2021 SAL Omer Active Last Documented On 2 8:40AM ; [facility] Diabetes Mellitus Type 2 - U ncomplicated, Controlled 08/14/2017 ROLO AQUINO MD Active Last Documented On 1 10:11PM ; [facility] Hyperlipidemia 01/07/2016 ROLO AQUINO MD Active Last Documented On 6 9:41AM ; [facility] Anxiety Disorder Nos 06/17/2015 ROLO MCGRAW MD Active Last Documented On 6 10:07AM ; [facility] Hyperglycemia 12/07/2014 ROLO AQUINO MD Active Last Documented On 5 9:44AM ; [facility] 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 ROLO CROWE MD Active Last Documented On 0 2:28PM ; [facility] Note: 11-14 Arthritis 12/01/2013 ROLO AQUINO MD Act gianni Last Documented On 2 10:15AM ; [facility] Gerd 12/01/2013 ROLO AQUINO MD Act gianni Last Documented On 0 2:28PM ; [facility] Essential Hypertension Benign 12/01/2013 ROLO AQUINO [...] 08/13/2023 Last Documented On 4 10:04AM ; [facility] He was provided with the lef t knee steroid injection to date. He tolerated the injection without difficulty. He would be required to wait at least three months before repeat steroid injection. Follow-up with me as needed FOLLOW UP with SAL Omer 05/11/2023 Last Documented On 4 9:10AM ; [facility] I did provide him today with a left knee steroid injection. He tolerated that without difficulty. He would need to wait at least three months before repeat injection. Follow-up with me on as a basis FOLLOW UP with SAL Omer 02/08/2023 Last Documented On 3 9:13AM ; [facility] I provided him with a left [...] 11/08/2022 Last Documented On 3 2:10PM ; [facility] He was encouraged to continu e his weight loss to move toward the BMI of 40. He was given a left knee steroid injection today which he tolerated well. Follow up in 3 months for repeat steroid injection as needed FOLLOW UP with SAL Omer 08/07/2022 Last Documented On 3 9:24AM ; [facility] I once again discussed [...] 03/27/2022 Last Documented On 2 9:40AM ; [facility] Ordered home exercises FOLLOW UP with MICHELLE DONATO DO 03/27/2022 Last Documented On 2 9:40AM ; [facility] I discussed once again with Khloe [...] 12/19/2021 Last Documented On 2 12:35PM ; [facility] Ordered home exercises FOLLOW UP with MICHELLE DNOATO DO 12/19/2021 Last Documented On 2 12:35PM ; [facility] Ordered follow-up for re-exa mination three months ORTHO ESTABLISHED PATIENT with MICHELLE SCHNEIDER DO 09/12/2021 Last Documented On 2 10:20AM ; [facility] Ordered home exercises ORTHO ESTABLISHED PATIENT with MICHELLE SCHNEIDER DO 09/12/2021 Last Documented On 2 10:20AM ; [facility] He is a diabetic [...] for him ORTHO ESTABLISHED PATIENT with SAL mOer 09/02/2021 Last Documented On 2 8:49AM ; [facility] Ordered Transition in care, clinical summary provided 6 MONTH CHECK with ROLO AQUINO MD 08/14/2018 Last Documented On 9 9:00AM ; [facility] pt agrees with the [...] 03/05/2018 Last Documented On 8 12:41AM ; [facility] Ordered Clinical summary pro vided to patient . Plan discussed and patient/parent/caregiver states understanding PROBLEM VISIT with ALLI LASSITER PA-C 01/29/2018 Last Documented On 8 2:10PM ; [facility] Ordered follow-up visit as [...] 01/29/2018 Last Documented On 8 2:10PM ; [facility] Pt agrees with the [...] 11/06/2017 Last Documented On 8 10:17PM ; [facility] Ordered Clinical summary pro vided to patient . Plan discussed and patient/parent/caregiver states understanding PROBLEM VISIT with ALLI LASSITER PA-C 10/30/2017 Last Documented On 8 3:44PM ; [facility] pt agrees with the following plan of [...] 10/03/2017 Last Documented On 8 2:16PM ; [facility] Ordered Transition in care, clinical summary provided 6 MONTH CHECK with ROLO AQUINO MD 08/14/2017 Last Documented On 8 9:11AM ; [facility] Ordered follow-up visit in 1 month --can keep appointment with Dr. Frank for 6 month check PROBLEM VISIT with BONITA JONES [facility]- MOTOR VEHICLE EXAMINER- 05/25/2015 Last Documented On 6 12:24PM ; [facility] Ordered return to the clinic if condition worsens or new symptoms arise PROBLEM VISIT with BONITA JONES PMHNP-BC MOTOR VEHICLE EXAMINER-BC 05/25/2015 Last Documented On 6 12:24PM ; [facility] Ordered patient will call fo r appointment as needed PROBLEM VISIT with BONITA JONES PMHNP-BC MOTOR VEHICLE EXAMINER-BC 05/11/2015 Last Documented On 6 12:19PM ; [facility] Ordered return to the clinic if condition worsens or new symptoms arise PROBLEM VISIT with BONITA JONES HNP-BC MOTOR VEHICLE EXAMINER-BC 05/11/2015 Last Documented On 6 12:19PM ; [facility] Ordered Transition in care, clinical summary provided 6 MONTH CHECK with ROLO AQUINO MD 06/29/2014 Last Documented On 5 9:34AM ; [facility] Ordered Clinical summary pro vided to patient . Plan discussed and patient/parent/caregiver states understanding PROBLEM VISIT with ALLI LASSITER PA-C 05/27/2014 Last Documented On 5 2:34PM ; [facility] Ordered follow-up visit as [...] 05/27/2014 Last Documented On 5 2:34PM ; [facility] Ordered patient will call fo r appointment as needed PROBLEM VISIT with BONITA JONES HNP-BC MOTOR VEHICLE EXAMINER-BC 05/21/2014 Last Documented On 5 1:43PM ; [facility] Ordered return to the clinic if condition worsens or new symptoms arise PROBLEM VISIT with BONITA JONES PMHNP-BC MOTOR VEHICLE EXAMINER-BC 05/21/2014 Last Documented On 5 1:43PM ; [facility] We discussed skin cancers [...] 03/24/2013 Last Documented On 3 9:19AM ; [facility] Pending Tests Order Diagnosis Results Due Ordering P rovider Lab A1C HGB (GLYCO HEMOGLOBIN) 04/15/24 ROLO AQUINO MD Last Documented On 4 11:06PM ; [facility] Lab LIPID PANEL 04/15/24 ROLO CROWE MD Last Documented On 4 11:06PM ; [facility] Lab CMP 04/15/24 ROLO PARISH MD Last Documented On 4 11:06PM ; [facility] Referrals To Diagnosis Engineer Remote [employer] [facility] [address] [id number] - CARDIAC DYSRHYTHMIA NOS Note: see sleep study Last Documented On 4 4:20PM ; [facility] Dermatology ROUTINE MEDICAL EXAM Note: FARA CLEMENT ROUTIN E SKIN CHECKS Last Documented On 6 4:07PM ; [facility] Dermatology LUCY SCHILLING MD Dermatitis, uns pecified Last Documented On 8 12:39PM ; [facility] Orthopedic MARTINA HOWELL DO Pain in right knee Last Documented On 9 2:59PM ; [facility] Library Media Specialist CAROLINE MENDIETA MD [facility] for screening for malignant neoplasm of colon Note: Positive Cologuard Yaron t Last Documented On 0 10:52PM ; [facility] Urologist AGGIE RUSS MD Elevated pr ostate specific antigen [PSA] Note: Referral to Dr. Wilian Russ, Urologist in [place]. Last Documented On 2 5:20PM ; [facility] Orthopedic Pain in left kne e Note: Referral to Dr. Schneider - Orthopedic for left knee issues. Last Documented On 2 11:25AM ; [facility] Instructions to patient Intervention and counseling on cessation of tobacco use Last Documented On 4 9:46AM ; [facility] Intervention and counseling on cessation of tobacco use Last Documented On 4 8:59AM ; [facility] Intervention and counseling on cessation of tobacco use Last Documented On 3 9:03AM ; [facility] No reduced physical activity -release to full activities Last Documented On 2 9:14AM ; [facility] Intervention and counseling on cessation of tobacco use Last Documented On 2 8:49AM ; [facility] No reduced physical activity -release to full activities Last Documented On 2 12:26PM ; [facility] Intervention and counseling on cessation of tobacco use Last Documented On 2 9:54AM ; [facility] No reduced physical activity -release to full activities Last Documented On 2 10:18AM ; [facility] Lose weight Last Documented On 0 8:50PM ; [facility] Lose weight Last Documented On 9 8:36PM ; [facility] Maintain a healthy diet Last Documented On 8 8:21AM ; [facility] Maintain a healthy diet Last Documented On 8 8:24AM ; [facility] Maintain a healthy diet Last Documented On 8 8:37AM ; [facility] Lose weight Last Documented On 7 10:09AM ; [facility] Instructions for patient Last Documented On 6 10:59AM ; [facility] Instructions for patient Last Documented On 6 11:41AM ; [facility] Instructions for patient Last Documented On 5 1:28PM ; [facility] Education and Decision Aids were provided during visit for: Patient education about orth opedic activities Last Documented On 2 9:14AM ; [facility] Patient education about orth opedic activities Last Documented On 2 12:26PM ; [facility] Patient education about orth opedic activities Last Documented On 2 10:18AM ; [facility] Patient education about a pr oper diet Last Documented On 8 8:21AM ; [facility] Patient education about regu lar dental care Last Documented On 8 8:21AM ; [facility] Patient education about diab etes and discussed ABCs of diabetic therapy and goals Last Documented On 8 8:21AM ; [facility] Patient education about a ho me blood glucose monitor with instructions to bring monitor to each visit Last Documented On 8 8:21AM ; [facility] Dietary counseling pertainin g to diabetes mellitus Last Documented On 8 8:21AM ; [facility] Patient education about diab etic foot care Last Documented On 8 8:21AM ; [facility] The patient's goal is to yaron t the blood sugars and bring in the results to each visit Last Documented On 8 8:21AM ; [facility] Review of care plan, pt xochitl hicks very well, no change in plan Last Documented On 8 8:21AM ; [facility] Patient education about a pr oper diet Last Documented On 8 8:24AM ; [facility] Patient education about regu lar dental care Last Documented On 8 8:24AM ; [facility] Patient education about diab etes and discussed ABCs of diabetic therapy and goals Last Documented On 8 8:24AM ; [facility] Patient education about a ho me blood glucose monitor with instructions to bring monitor to each visit Last Documented On 8 8:24AM ; [facility] Dietary counseling pertainin g to diabetes mellitus Last Documented On 8 8:24AM ; [facility] Patient education about diab etic foot care Last Documented On 8 8:24AM ; [facility] The patient's goal is to yaron t the blood sugars and bring in the results to each visit Last Documented On 8 8:24AM ; [facility] Counseling/education [Use fo r free text] Last Documented On 8 8:24AM ; [facility] Patient education about a pr oper diet Last Documented On 8 8:37AM ; [facility] Patient education about regu lar dental care Last Documented On 8 8:37AM ; [facility] Patient education about diab etes and discussed ABCs of diabetic therapy and goals Last Documented On 8 8:37AM ; [facility] Patient education about a ho me blood glucose monitor with instructions to bring monitor to each visit Last Documented On 8 8:37AM ; [facility] Dietary counseling pertainin g to diabetes mellitus Last Documented On 8 8:37AM ; [facility] Patient education about diab etic foot care Last Documented On 8 8:37AM ; [facility] The patient's goal is to yaron t the blood sugars and bring in the results to each visit Last Documented On 8 8:37AM ; [facility] Overview of T2DM disease pro cess and the outline of overall care. Pt states he is the heaviest he has ever been. He was advised to have knees replace a few years ago, but opted out, now he states he is too heavy to have this done Last Documented On 8 9:13AM ; [facility] Assessments Includes: Assessments for all patient encounters Findings Encounter Date Anxiety disorder NOS CHECK UP with ROLO CROWE MD 10/10/2023 Last Documented On 4 11:06PM ; [facility] Benign essential hypertension CHECK UP with NEFTALI AQUINO MD 10/10/2023 Last Documented On 4 11:06PM ; [facility] Hyperglycemia CHECK UP with ROLO AQUINO MD 10/10/2023 Last Documented On 4 11:06PM ; [facility] Hyperlipidemia CHECK UP with ROLO AQUINO MD 10/10/2023 Last Documented On 4 11:06PM ; [facility] Localized primary osteoarthr itis of left knee CHECK UP with ROLO AQUINO MD 10/10/2023 Last Documented On 4 11:06PM ; [facility] Nephrolithiasis CHECK UP with ROLO AQUINO MD 10/10/2023 Last Documented On 4 11:06PM ; [facility] Nonorganic sleep apnea CHECK UP with ROLO ARCE MD 10/10/2023 Last Documented On 4 11:06PM ; [facility] Type 2 diabetes mellitus - uncomplicated, controlled CHECK UP with ROLO AQUINO MD 10/10/2023 Last Documented On 4 11:06PM ; [facility] Localized primary osteoarthr itis of left knee FOLLOW UP with SAL Omer 08/13/2023 Last Documented On 4 10:04AM ; [facility] Localized primary osteoarthr itis of left knee FOLLOW UP with SAL Omer 05/11/2023 Last Documented On 4 9:10AM ; [facility] Anxiety disorder NOS CHECK UP with ROLO CROWE MD 02/26/2023 Last Documented On 3 8:48AM ; [facility] Benign essential hypertension CHECK UP with NEFTALI AQUINO MD 02/26/2023 Last Documented On 3 8:48AM ; [facility] Hyperlipidemia CHECK UP with ROLO AQUINO MD 02/26/2023 Last Documented On 3 8:48AM ; [facility] Nonorganic sleep apnea CHECK UP with ROLO ARCE MD 02/26/2023 Last Documented On 3 8:48AM ; [facility] Type 2 diabetes mellitus - uncomplicated, controlled CHECK UP with ROLO AQUINO MD 02/26/2023 Last Documented On 3 8:48AM ; [facility] Allergic rhinitis SICK VISIT with ROLO PARISH MD 02/23/2023 Last Documented On 3 12:04PM ; [facility] Bronchitis SICK VISIT with ROLO VASQUEZ MD 02/23/2023 Last Documented On 3 12:04PM ; [facility] Localized primary osteoarthr itis of left knee FOLLOW UP with SAL Omer 02/08/2023 Last Documented On 3 9:13AM ; [facility] Localized primary osteoarthr itis of left knee FOLLOW UP with SAL Omer 11/08/2022 Last Documented On 3 2:10PM ; [facility] Benign essential hypertension CHECK UP with NEFTALI AQUINO MD 08/25/2022 Last Documented On 3 9:22AM ; [facility] GERD CHECK UP with ROLO AQUINO MD 08/25/2022 Last Documented On 3 9:22AM ; [facility] Hyperglycemia CHECK UP with ROLO AQUINO MD 08/25/2022 Last Documented On 3 9:22AM ; [facility] Hyperlipidemia CHECK UP with ROLO AQUINO MD 08/25/2022 Last Documented On 3 9:22AM ; [facility] Localized primary osteoarthr itis of left knee CHECK UP with ROLO AQUINO MD 08/25/2022 Last Documented On 3 9:22AM ; [facility] Type 2 diabetes mellitus - uncomplicated, controlled CHECK UP with ROLO AQUINO MD 08/25/2022 Last Documented On 3 9:22AM ; [facility] Localized primary osteoarthr itis of left knee FOLLOW UP with SAL Omer 08/07/2022 Last Documented On 3 9:24AM ; [facility] Benign essential hypertension CHECK UP with NEFTALI AQUINO MD 05/03/2022 Last Documented On 2 11:28PM ; [facility] GERD CHECK UP with ROLO AQUINO MD 05/03/2022 Last Documented On 2 11:28PM ; [facility] Hyperlipidemia CHECK UP with ROLO AQUINO MD 05/03/2022 Last Documented On 2 11:28PM ; [facility] Type 2 diabetes mellitus - uncomplicated, controlled CHECK UP with ROLO AQUINO MD 05/03/2022 Last Documented On 2 11:28PM ; [facility] Osteoarthritis of knee -left FOLLOW UP with MITCH SCHNEIDER DO 03/27/2022 Last Documented On 2 9:40AM ; [facility] Osteoarthritis of left knee FOLLOW UP with MICHELLE SCHNEIDER DO 03/27/2022 Last Documented On 2 9:40AM ; [facility] Benign essential hypertension CHECK UP with NEFTALI AQUINO MD 02/27/2022 Last Documented On 2 10:15PM ; [facility] Hyperlipidemia CHECK UP with ROLO AQUINO MD 02/27/2022 Last Documented On 2 10:15PM ; [facility] Localized primary osteoarthr itis of left knee CHECK UP with ROLO AQUINO MD 02/27/2022 Last Documented On 2 10:15PM ; [facility] Obesity CHECK UP with ROLO AQUINO MD 02/27/2022 Last Documented On 2 10:15PM ; [facility] Osteoarthritis of knee -left FOLLOW UP with MITCH SCHNEIDER DO 12/19/2021 Last Documented On 2 12:35PM ; [facility] Osteoarthritis of left knee FOLLOW UP with MICHELLE SCHNEIDER DO 12/19/2021 Last Documented On 2 12:35PM ; [facility] Osteoarthritis of knee -left ORTHO ESTAB LISHED PATIENT with MICHELLE SCHNEIDER DO 09/12/2021 Last Documented On 2 10:20AM ; [facility] Assessment of left knee joint pain ORTHO ESTABLISHED PATIENT with SAL Omer 09/02/2021 Last Documented On 2 8:49AM ; [facility] Localized primary osteoarthr itis of left knee ORTHO ESTABLISHED PATIENT with SAL Omer 09/02/2021 Last Documented On 2 8:49AM ; [facility] Osteoarthritis of knee -left ORTHO ESTAB LISHED PATIENT with SAL Omer 09/02/2021 Last Documented On 2 8:49AM ; [facility] Anxiety disorder NOS CHECK UP with ROLO CROWE MD 08/26/2021 Last Documented On 2 2:55PM ; [facility] Arthritis CHECK UP with ROLO AQUINO MD 08/26/2021 Last Documented On 2 2:55PM ; [facility] Benign essential hypertension CHECK UP with NEFTALI AQUINO MD 08/26/2021 Last Documented On 2 2:55PM ; [facility] Hyperlipidemia CHECK UP with ROLO AQUINO MD 08/26/2021 Last Documented On 2 2:55PM ; [facility] LEFT KNEE PAIN CHECK UP with ROLO AQUINO MD 08/26/2021 Last Documented On 2 2:55PM ; [facility] Morbid obesity CHECK UP with ROLO AQUINO MD 08/26/2021 Last Documented On 2 2:55PM ; [facility] Obesity CHECK UP with ROLO AQUINO MD 08/26/2021 Last Documented On 2 2:55PM ; [facility] Type 2 diabetes mellitus - uncomplicated, controlled CHECK UP with ROLO AQUINO MD 08/26/2021 Last Documented On 2 2:55PM ; [facility] Backache PROBLEM VISIT with ROLO CROWE MD 08/03/2021 Last Documented On 2 12:16PM ; [facility] LEFT KNEE PAIN PROBLEM VISIT with ROLO CROWE MD 08/03/2021 Last Documented On 2 12:16PM ; [facility] Right buttock pain PROBLEM VISIT with ROLO TREJO MD 08/03/2021 Last Documented On 2 12:16PM ; [facility] Strain of the right buttock PROBLEM VISIT with Negra AQUINO MD 08/03/2021 Last Documented On 2 12:16PM ; [facility] Anxiety disorder NOS CHECK UP with ROLO CROWE MD 02/25/2021 Last Documented On 1 11:36PM ; [facility] Arthritis CHECK UP with ROLO AQUINO MD 02/25/2021 Last Documented On 1 11:36PM ; [facility] Benign essential hypertension CHECK UP with NEFTALI AQUINO MD 02/25/2021 Last Documented On 1 11:36PM ; [facility] Hyperlipidemia CHECK UP with ROLO AQUINO MD 02/25/2021 Last Documented On 1 11:36PM ; [facility] Nonorganic sleep apnea CHECK UP with ROLO ARCE MD 02/25/2021 Last Documented On 1 11:36PM ; [facility] Type 2 diabetes mellitus - uncomplicated, controlled CHECK UP with ROLO AQUINO MD 02/25/2021 Last Documented On 1 11:36PM ; [facility] Calcaneal spur PROBLEM VISIT with ROLO CROWE MD 12/14/2020 Last Documented On 1 11:52AM ; [facility] Pain in foot PROBLEM VISIT with ROLO CROWE MD 12/14/2020 Last Documented On 1 11:52AM ; [facility] Pain in foot and toes PROBLEM VISIT with ROLO AQUINO MD 12/14/2020 Last Documented On 11:52AM ; [facility] Pain in right foot PROBLEM VISIT with ROLO TREJO MD 12/14/2020 Last Documented On 1 11:52AM ; [facility] Anxiety disorder NOS CHECK UP with ROLO CROWE MD 11/09/2020 Last Documented On 1 10:15PM ; [facility] Benign essential hypertension CHECK UP with NEFTALI AQUINO MD 11/09/2020 Last Documented On 1 10:15PM ; [facility] Hyperlipidemia CHECK UP with ROLO AQUINO MD 11/09/2020 Last Documented On 1 10:15PM ; [facility] Type 2 diabetes mellitus - uncomplicated, controlled CHECK UP with ROLO AQUINO MD 11/09/2020 Last Documented On 1 10:15PM ; [facility] [R97.20 - Elevated prostate specific antigen [PSA]] prostate-specific antigen in serum was elevated CHECK UP with ROLO AQUINO MD 08/10/2020 Last Documented On 1 8:18PM ; [facility] Benign essential hypertension CHECK UP with NEFTALI AQUINO MD 08/10/2020 Last Documented On 1 8:18PM ; [facility] GERD CHECK UP with ROLO AQUINO MD 08/10/2020 Last Documented On 1 8:18PM ; [facility] Hyperlipidemia CHECK UP with ROLO AQUINO MD 08/10/2020 Last Documented On 1 8:18PM ; [facility] Type 2 diabetes mellitus - uncomplicated, controlled CHECK UP with ROLO AQUINO MD 08/10/2020 Last Documented On 1 8:18PM ; [facility] Anxiety disorder NOS 6 MONTH CHECK with ROLO VILLALTA MD 10/27/2019 Last Documented On 0 8:52PM ; [facility] Benign essential hypertension 6 MONTH CHECK with ROLO AQUINO MD 10/27/2019 Last Documented On 0 8:52PM ; [facility] GERD 6 MONTH CHECK with ROLO CROWE MD 10/27/2019 Last Documented On 0 8:52PM ; [facility] Hyperlipidemia 6 MONTH CHECK with ROLO CROWE MD 10/27/2019 Last Documented On 0 8:52PM ; [facility] Nonorganic sleep apnea 6 MONTH CHECK with ROLO AQUINO MD 10/27/2019 Last Documented On 0 8:52PM ; [facility] Seborrheic keratosis 6 MONTH CHECK with ROLO VILLALTA MD 10/27/2019 Last Documented On 0 8:52PM ; [facility] Type 2 diabetes mellitus - uncomplicated, controlled 6 MONTH CHECK with ROLO AQUINO MD 10/27/2019 Last Documented On 0 8:52PM ; [facility] Benign essential hypertension 6 MONTH CHECK with ROLO AQUINO MD 02/13/2019 Last Documented On 9 9:23AM ; [facility] Hyperglycemia 6 MONTH CHECK with ROLO CROWE MD 02/13/2019 Last Documented On 9 9:23AM ; [facility] Hyperlipidemia 6 MONTH CHECK with ROLO CROWE MD 02/13/2019 Last Documented On 9 9:23AM ; [facility] Benign essential hypertension PREOP EXAM with ERNESTO AQUINO MD 11/18/2018 Last Documented On 9 8:39PM ; [facility] Osteoarthritis of both knees PREOP EXAM with MARCELLUS AQUINO MD 11/18/2018 Last Documented On 9 8:39PM ; [facility] Type 2 diabetes mellitus - uncomplicated, controlled PREOP EXAM with ROLO AQUINO MD 11/18/2018 Last Documented On 9 8:39PM ; [facility] Arthralgia of the right knee/patella/tibia/fibula 6 MONTH CHECK with ROLO AQUINO MD 08/14/2018 Last Documented On 9 9:00AM ; [facility] Benign essential hypertension 6 MONTH CHECK with ROLO AQUINO MD 08/14/2018 Last Documented On 9 9:00AM ; [facility] Hyperlipidemia 6 MONTH CHECK with ROLO CROWE MD 08/14/2018 Last Documented On 9 9:00AM ; [facility] Type 2 diabetes mellitus - uncomplicated, controlled 6 MONTH CHECK with ROLO AQUINO MD 08/14/2018 Last Documented On 9 9:00AM ; [facility] Hyperlipidemia DIABETIC FOLLOW UP APPOINTMENT w lily AQUINO MD 03/05/2018 Last Documented On 8 12:41AM ; [facility] Type 2 diabetes mellitus DIABETIC FOLLOW UP APPOINTMENT with ROLO AQUINO MD 03/05/2018 Last Documented On 8 12:41AM ; [facility] Type 2 diabetes mellitus - uncomplicated, controlled DIABETIC FOLLOW UP APPOINTMENT with ROLO AQUINO MD 03/05/2018 Last Documented On 8 12:41AM ; [facility] Benign essential hypertension 6 MONTH CHECK with ROLO AQUINO MD 02/12/2018 Last Documented On 8 9:06AM ; [facility] Hyperlipidemia 6 MONTH CHECK with ROLO CROWE MD 02/12/2018 Last Documented On 8 9:06AM ; [facility] Type 2 diabetes mellitus - uncomplicated, controlled 6 MONTH CHECK with ROLO AQUINO MD 02/12/2018 Last Documented On 8 9:06AM ; [facility] Closed fracture of the left patella PROB MYLES VISIT with ALLI LASSITER PA-C 01/29/2018 Last Documented On 8 2:10PM ; [facility] Muscle spasm PROBLEM VISIT with ALLI YORK PA-C 01/29/2018 Last Documented On 8 2:10PM ; [facility] Sprained left knee PROBLEM VISIT with ALLI KOEHLER PA-C 01/29/2018 Last Documented On 8 2:10PM ; [facility] Benign essential hypertension DIABETIC F OLLOW UP APPOINTMENT with ROLO AQUINO MD 11/06/2017 Last Documented On 8 10:17PM ; [facility] Hyperlipidemia DIABETIC FOLLOW UP APPOINTMENT w lily AQUINO MD 11/06/2017 Last Documented On 8 10:17PM ; [facility] Type 2 diabetes mellitus - uncomplicated, controlled DIABETIC FOLLOW UP APPOINTMENT with ROLO AQUINO MD 11/06/2017 Last Documented On 8 10:17PM ; [facility] Arthralgia of the left knee/patella/tibia/fibula PROBLEM VISIT with ALLI LASSITER PA-C 10/30/2017 Last Documented On 8 3:44PM ; [facility] Bursitis of knee PROBLEM VISIT with ALLI VASQUEZ PA-C 10/30/2017 Last Documented On 8 3:44PM ; [facility] Type 2 diabetes mellitus INITIAL APPOINT MENT FOR DIABETIC PATIENT with ROLO AQUINO MD 10/03/2017 Last Documented On 8 2:16PM ; [facility] Type 2 diabetes mellitus - uncomplicated, controlled INITIAL APPOINTMENT FOR DIABETIC PATIENT with ROLO AQUINO MD 10/03/2017 Last Documented On 8 2:16PM ; [facility] Benign essential hypertension 6 MONTH CHECK with ROLO AQUINO MD 08/14/2017 Last Documented On 8 9:11AM ; [facility] Hyperglycemia 6 MONTH CHECK with ROLO CROWE MD 08/14/2017 Last Documented On 8 9:11AM ; [facility] Hyperlipidemia 6 MONTH CHECK with ROLO CROWE MD 08/14/2017 Last Documented On 8 9:11AM ; [facility] Type 2 diabetes mellitus - uncomplicated, controlled 6 MONTH CHECK with ROLO AQUINO MD 08/14/2017 Last Documented On 8 9:11AM ; [facility] Anxiety disorder NOS 6 MONTH CHECK with ROLO VILLALTA MD 02/14/2017 Last Documented On 7 9:00AM ; [facility] Benign essential hypertension 6 MONTH CHECK with ROLO AQUINO MD 02/14/2017 Last Documented On 7 9:00AM ; [facility] Hyperglycemia 6 MONTH CHECK with ROLO CROWE MD 02/14/2017 Last Documented On 7 9:00AM ; [facility] Hyperlipidemia 6 MONTH CHECK with ROLO CROWE MD 02/14/2017 Last Documented On 7 9:00AM ; [facility] Benign essential hypertension 3 MONTH CHECK with ROLO AQUINO MD 10/10/2016 Last Documented On 7 9:40AM ; [facility] Hyperglycemia 3 MONTH CHECK with ROLO CROWE MD 10/10/2016 Last Documented On 7 9:40AM ; [facility] Hyperlipidemia 3 MONTH CHECK with ROLO CROWE MD 10/10/2016 Last Documented On 7 9:40AM ; [facility] Strain of the right buttock gluteus yomaira PROBLEM VISIT with ROLO AQUINO MD 08/22/2016 Last Documented On 7 5:59PM ; [facility] Benign essential hypertension 6 MONTH CHECK with ROLO AQUINO MD 07/12/2016 Last Documented On 7 11:55PM ; [facility] Hyperglycemia 6 MONTH CHECK with ROLO CROWE MD 07/12/2016 Last Documented On 7 11:55PM ; [facility] Hyperlipidemia 6 MONTH CHECK with ROLO CROWE MD 07/12/2016 Last Documented On 7 11:55PM ; [facility] Anxiety disorder NOS 4 MONTH CHECK UP with REGI AQUINO MD 01/07/2016 Last Documented On 6 9:52AM ; [facility] Benign essential hypertension 4 MONTH CHECK UP w lily AQUINO MD 01/07/2016 Last Documented On 6 9:52AM ; [facility] Hyperlipidemia 4 MONTH CHECK UP with ORLO TREJO MD 01/07/2016 Last Documented On 6 9:52AM ; [facility] Anxiety disorder NOS 1 MONTH CHECK with ROLO VILLALTA MD 08/20/2015 Last Documented On 6 10:17AM ; [facility] Benign essential hypertension 1 MONTH CHECK with ROLO AQUINO MD 08/20/2015 Last Documented On 6 10:17AM ; [facility] Anxiety disorder NOS 4 MONTH CHECK UP with REGI AQUINO MD 07/13/2015 Last Documented On 6 5:52PM ; [facility] Anxiety disorder NOS 6 MONTH CHECK with ROLO VILLALTA MD 06/17/2015 Last Documented On 6 1:13PM ; [facility] Generalized anxiety disorder PROBLEM VISIT with MANUELITO MALONEY [facility] 05/29/2015 Last Documented On 6 1:51PM ; [facility] Depression with anxiety PROBLEM VISIT wi [facility] 05/25/2015 Last Documented On 6 12:24PM ; [facility] Acute sinusitis PROBLEM VISIT with BONITA [facility] 05/11/2015 Last Documented On 6 12:19PM ; [facility] Benign essential hypertension 1 MONTH CHECK with ROLO AQUINO MD 03/16/2015 Last Documented On 5 2:39PM ; [facility] Benign essential hypertension PROBLEM VISIT with ROLO AQUINO MD 02/16/2015 Last Documented On 5 2:01PM ; [facility] Arthritis 6 MONTH CHECK with ROLO CROWE MD 12/07/2014 Last Documented On 5 10:03AM ; [facility] Benign essential hypertension 6 MONTH CHECK with ROLO AQUINO MD 12/07/2014 Last Documented On 5 10:03AM ; [facility] Hyperglycemia 6 MONTH CHECK with ROLO CROWE MD 12/07/2014 Last Documented On 5 10:03AM ; [facility] Nonorganic sleep apnea 6 MONTH CHECK with ROLO AQUINO MD 12/07/2014 Last Documented On 5 10:03AM ; [facility] Arthritis 6 MONTH CHECK with ROLO CROWE MD 06/29/2014 Last Documented On 5 9:34AM ; [facility] Benign essential hypertension 6 MONTH CHECK with ROLO AQUINO MD 06/29/2014 Last Documented On 5 9:34AM ; [facility] Normal routine history and physical 6 MO NTH CHECK with ROLO AQUINO MD 06/29/2014 Last Documented On 5 9:34AM ; [facility] Sleep apnea 6 MONTH CHECK with ROLO CROWE MD 06/29/2014 Last Documented On 5 9:34AM ; [facility] URINARY FREQUENCY PROBLEM VISIT with ALLI BENZ PA-C 05/27/2014 Last Documented On 5 2:34PM ; [facility] Lumbago PROBLEM VISIT with BONITA LAWRENCE PMHNP-[facility] [employer]-[facility] 05/21/2014 Last Documented On 5 1:43PM ; [facility] Benign essential hypertension NEW PATIENT VISIT with ROLO AQUINO MD 12/01/2013 Last Documented On 9 5:20PM ; [facility] Colon screening NEW PATIENT VISIT with ROLO IRIAZRRY MD 12/01/2013 Last Documented On 9 5:20PM ; [facility] Fatigue NEW PATIENT VISIT with ROLO IRIZARRY MD 12/01/2013 Last Documented On 9 5:20PM ; [facility] Open wound NEW PATIENT VISIT with ROLO IRIZARRY MD 12/01/2013 Last Documented On 9 5:20PM ; [facility] Basal cell cancer of the hel ix of the ear lobe CONSULTATION with JENN ADAM DO 03/24/2013 Last Documented On 3 9:19AM ; [facility] Instructions Includes: Instructions for all patient encounters Instructions to patient Intervention and counseling on cessation of tobacco use Last Documented On 4 9:46AM ; [facility] Intervention and counseling on cessation of tobacco use Last Documented On 4 8:59AM ; [facility] Intervention and counseling on cessation of tobacco use Last Documented On 3 9:03AM ; [facility] No reduced physical activity -release to full activities Last Documented On 2 9:14AM ; [facility] Intervention and counseling on cessation of tobacco use Last Documented On 2 8:49AM ; [facility] No reduced physical activity -release to full activities Last Documented On 2 12:26PM ; [facility] Intervention and counseling on cessation of tobacco use Last Documented On 2 9:54AM ; [facility] No reduced physical activity -release to full activities Last Documented On 2 10:18AM ; [facility] Lose weight Last Documented On 0 8:50PM ; [facility] Lose weight Last Documented On 9 8:36PM ; [facility] Maintain a healthy diet Last Documented On 8 8:21AM ; [facility] Maintain a healthy diet Last Documented On 8 8:24AM ; [facility] Maintain a healthy diet Last Documented On 8 8:37AM ; [facility] Lose weight Last Documented On 7 10:09AM ; [facility] Instructions for patient Last Documented On 6 10:59AM ; [facility] Instructions for patient Last Documented On 6 11:41AM ; [facility] Instructions for patient Last Documented On 5 1:28PM ; [facility] Education and Decision Aids were provided during visit for: Patient education about orth opedic activities Last Documented On 2 9:14AM ; [facility] Patient education about orth opedic activities Last Documented On 2 12:26PM ; [facility] Patient education about orth opedic activities Last Documented On 2 10:18AM ; [facility] Patient education about a pr oper diet Last Documented On 8 8:21AM ; [facility] Patient education about regu lar dental care Last Documented On 8 8:21AM ; [facility] Patient education about diab etes and discussed ABCs of diabetic therapy and goals Last Documented On 8 8:21AM ; [facility] Patient education about a ho me blood glucose monitor with instructions to bring monitor to each visit Last Documented On 8 8:21AM ; [facility] Dietary counseling pertainin g to diabetes mellitus Last Documented On 8 8:21AM ; [facility] Patient education about diab etic foot care Last Documented On 8 8:21AM ; [facility] The patient's goal is to yaron t the blood sugars and bring in the results to each visit Last Documented On 8 8:21AM ; [facility] Review of care plan, pt xochitl hicks very well, no change in plan Last Documented On 8 8:21AM ; [facility] Patient education about a pr oper diet Last Documented On 8 8:24AM ; [facility] Patient education about regu lar dental care Last Documented On 8 8:24AM ; [facility] Patient education about diab etes and discussed ABCs of diabetic therapy and goals Last Documented On 8 8:24AM ; [facility] Patient education about a ho me blood glucose monitor with instructions to bring monitor to each visit Last Documented On 8 8:24AM ; [facility] Dietary counseling pertainin g to diabetes mellitus Last Documented On 8 8:24AM ; [facility] Patient education about diab etic foot care Last Documented On 8 8:24AM ; [facility] The patient's goal is to yaron t the blood sugars and bring in the results to each visit Last Documented On 8 8:24AM ; [facility] Counseling/education [Use fo r free text] Last Documented On 8 8:24AM ; [facility] Patient education about a pr oper diet Last Documented On 8 8:37AM ; [facility] Patient education about regu lar dental care Last Documented On 8 8:37AM ; [facility] Patient education about diab etes and discussed ABCs of diabetic therapy and goals Last Documented On 8 8:37AM ; [facility] Patient education about a ho id blood glucose monitor with instructions to bring monitor to each visit Last Documented On 8 8:37AM ; [facility] Dietary counseling pertainin g to diabetes mellitus Last Documented On 8 8:37AM ; [facility] Patient education about diab etic foot care Last Documented On 8 8:37AM ; [facility] The patient's goal is to yaron t the blood sugars and bring in the results to each visit Last Documented On 8 8:37AM ; [facility] Overview of T2DM disease pro cess and the outline of overall care. Pt states he is the heaviest he has ever been. He was advised to have knees replace a few years ago, but opted out, now he states he is too heavy to have this done Last Documented On 8 9:13AM ; [facility] Medical Equipment - Implanted Devices Includes: Current and historical Devices No Medical Equipment Recorded Medications Includes: Current and historical Medications Current Medications (continue as prescribed) Citalopram Hydrobromide 20 M G Oral Tablet 10/10/2023 Provider: ROLO Greenwood Diagnosis: Dysthymic disord er TAKE 1 TABLET BY MOUTH EVERY DAY Last Documented On 4 10:21AM By ROLO AQUINO MD ; [facility] Rosuvastatin Calcium 10 MG Oral Tablet 10/10/2023 Provider: ROLO Greenwood Diagnosis: Hyperlipidemia, unspecified TAKE 1 TABLET BY MOUTH EVERY DAY Last Documented On 4 10:21AM By ROLO AQUINO MD ; [facility] Ozempic (1 MG/DOSE) 4 MG/3ML Subcutaneous Solution Pen-injector 10/10/2023 Provider: ROLO AQUINO MD Diagnosis: Type 2 diabetes mellitus without complications 1mg once a week SC Last Documented On 4 10:21AM By ROLO AQUINO MD ; [facility] Lisinopril-hydroCHLOROthiazi de 20-25 MG Oral Tablet 10/10/2023 Provider: ROLO Greenwood Diagnosis: TAKE 1 TABLET BY MOUTH EVERY DAY Last Documented On 4 10:21AM By ROLO AQUINO MD ; [facility] Diclofenac Sodium 1% External Gel 10/10/2023 Provide r: ROLO AQUINO MD Diagnosis: Pain in left kne e apply 4 grams to left knee qid prn pain Last Documented On 4 10:21AM By ROLO AQUINO MD ; [facility] Omeprazole 20 MG Oral Capsul e Delayed Release 02/26/2023 Provider: ROLO Greenwood Diagnosis: TAKE 1 CAPSULE BY MOUTH EVERY DAY Last Documented On 3 8:55AM By ROLO AQUINO MD ; [facility] guaiFENesin-Codeine 100-10 M G/5ML Oral Solution 02/23/2023 Provider: ROLO Greenwood Diagnosis: Cough, unspecifi ed Take 1 to 2 teaspoons every 4 hours prn cough Last Documented On 3 11:02AM By ROLO AQUINO MD ; [facility] metFORMIN HCl 1000 MG Oral Tablet 10/25/2022 Provider: ROLO Greenwood Diagnosis: Type 2 diabetes mellitus without complications TAKE 1 TABLET BY MOUTH TWICE A DAY Last Documented On 10/25/2022 5:32PM By Diaen BRANTLEY ; [facility] Celecoxib 200 MG Oral Capsule 08/25/2022 Provider: ROLO Greenwood Diagnosis: Bilateral primar y osteoarthritis of knee TAKE 1 CAPSULE BY MOUTH EUNICE Y MAY TAKE SECOND CAPSULE DAILY NEEDED Last Documented On 3 8:59AM By ROLO AQUINO MD ; [facility] Eye Vitamins Oral Capsule 08/14/2017 Provider: Diagnosis: Last Documented On 08/14/2017 8:17AM By IVONE BRANTLEY ; [facility] Magnesium Oxide 500 MG Tablet 05/11/2015 Provide r: Diagnosis: Last Documented On 05/11/2015 11:21AM By MIL BRANTLEY ; [facility] Multivitamins OR CAPS 12/01/2013 Provider: Diagnosis: Last Documented On 4 1:46PM By MAICO BRANTLEY ; [facility] Past Medications on file Ozempic (1 MG/DOSE) 4 MG/3ML Subcutaneous Solution Pen-injector 02/26/2023 - 10/10/2023 Provider: ROLO AQUINO MD Diagnosis: Type 2 diabetes mellitus without complications 1mg once a week SC Last Documented On 4 10:08AM By ROLO AQUINO MD ; [facility] Zithromax Z-Norman 250 MG Oral Tablet 02/23/2023 - 09/09/2023 Provider: ROLO AQUINO MD Diagnosis: Cough, unspecifi ed DIRECTED Last Documented On 10/10/2023 9:30AM By Diane BRANTLEY ; [facility] Ozempic (1 MG/DOSE) 4 MG/3ML Subcutaneous Solution Pen-injector 08/25/2022 - 02/26/2023 Provider: ROLO AQUINO MD Diagnosis: Type 2 diabetes mellitus without complications 1mg once a week SC Last Documented On 3 8:41AM By ROLO AQUINO MD ; [facility] Lisinopril-hydroCHLOROthiazi de 20-25 MG Oral Tablet 08/25/2022 - 10/10/2023 Provider: ROLO AQUINO MD Diagnosis: TAKE 1 TABLET BY MOUTH EVERY DAY Last Documented On 4 10:08AM By ROLO AQUINO MD ; [facility] Rosuvastatin Calcium 10 MG Oral Tablet 08/25/2022 - 10/10/2023 Provider: ROLO AQUINO MD Diagnosis: Hyperlipidemia, unspecified TAKE 1 TABLET BY MOUTH EVERY DAY Last Documented On 4 10:08AM By ROLO AQUINO MD ; [facility] metFORMIN HCl 1000 MG Oral Tablet 08/07/2022 - 023 Provider: Diagnosis: Last Documented On 11/08/2022 12:57PM By CORRIE RINCON LPN ; [facility] Omeprazole 20 MG Oral Capsul e Delayed Release 05/03/2022 - 02/26/2023 Provider: ROLO VASQUEZ MD Diagnosis: TAKE 1 CAPSULE BY MOUTH EVERY DAY Last Documented On 3 8:41AM By ROLO AQUINO MD ; [facility] Ozempic (1 MG/DOSE) 4 MG/3ML Subcutaneous Solution Pen-injector 05/03/2022 - 08/25/2022 Provider: ROLO AQUINO MD Diagnosis: Type 2 diabetes mellitus without complications 1mg once a week SC dose increase Last Documented On 3 8:52AM By ROLO AQUINO MD ; [facility] metFORMIN HCl 1000 MG Oral Tablet 2022 - 08/07/2022 Provider: ROLO AQUINO MD Diagnosis: Type 2 diabetes mellitus without complications TAKE 1 TABLET BY MOUTH TWICE A DAY Last Documented On 08/07/2022 9:05AM By CORRIE RINCON LPN ; [facility] Ozempic (0.25 or 0.5 MG/DOSE) 2 MG/1.5ML Subcutaneous Solution Pen-injector 02/27/2022 - 07/07/2022 Provider: ROLO AQUINO MD Diagnosis: Type 2 diabetes mellitus without complications as directed inject 0.5mg once a week SQ Last Documented On 08/25/2022 8:15AM By Diane BRANTLEY ; [facility] Lisinopril-hydroCHLOROthiazi de 20-25 MG Oral Tablet 02/20/2022 - 08/25/2022 Provider: ROLO AQUINO MD Diagnosis: TAKE 1 TABLET BY MOUTH EVERY DAY Last Documented On 3 8:52AM By ROLO AQUINO MD ; [facility] metFORMIN HCl 1000 MG Oral Tablet 10/25/2021 - 2022 Provider: ROLO AQUINO MD Diagnosis: Type 2 diabetes mellitus without complications TAKE 1 TABLET BY MOUTH TWICE A DAY Last Documented On 2022 5:51PM By Diane BRANTLEY ; [facility] Rosuvastatin Calcium 10 MG Oral Tablet 08/26/2021 - 08/25/2022 Provider: ROLO AQUINO MD Diagnosis: Sleep apnea, unspecified TAKE 1 TABLET BY MOUTH EVERY DAY Last Documented On 3 8:52AM By ROLO AQUINO MD ; [facility] Lisinopril-hydroCHLOROthiazi de 20-25 MG Oral Tablet 08/26/2021 - 02/20/2022 Provider: ROLO AQUINO MD Diagnosis: TAKE 1 TABLET BY MOUTH EVERY DAY Last Documented On 02/20/2022 3:53PM By Diane BRANTLEY ; [facility] Omeprazole 20 MG Oral Capsul e Delayed Release 08/01/2021 - 05/03/2022 Provider: ROLO VASQUEZ MD Diagnosis: TAKE 1 CAPSULE BY MOUTH EVERY DAY Last Documented On 2 9:35AM By ROLO AQUINO MD ; [facility] metFORMIN HCl 1000 MG Oral Tablet 05/03/2021 - 10/25/2021 Provider: ROLO AQUINO MD Diagnosis: Type 2 diabetes mellitus without complications 1 twice a day Last Documented On 10/25/2021 9:03AM By Diane Hand RMA ; [facility] Lisinopril-hydroCHLOROthiazi de 20-25 MG Oral Tablet 02/10/2021 - 08/26/2021 Provider: ROLO AQUINO MD Diagnosis: TAKE 1 TABLET BY MOUTH EVERY DAY Last Documented On 08/26/2021 9:39AM By Diane Hand RMA ; [facility] metFORMIN HCl 1000 MG Oral Tablet 11/09/2020 - 05/03/2021 Provider: ROLO AQUINO MD Diagnosis: Type 2 diabetes mellitus without complications 1 twice a day Last Documented On 05/03/2021 8:45AM By Diane Favor RMA ; [facility] Rosuvastatin Calcium 10 MG Oral Tablet 09/02/2020 - 08/26/2021 Provider: ROLO AQUINO MD Diagnosis: Sleep apnea, unspecified TAKE 1 TABLET BY MOUTH EVERY DAY Last Documented On 08/26/2021 9:39AM By Diane Hand RMA ; [facility] Citalopram Hydrobromide 20 MG Oral Tablet 09/02/2020 - 10/10/2023 Provider: ROLO AQUINO MD Diagnosis: Dysthymic disord er TAKE 1 TABLET BY MOUTH EVERY DAY Last Documented On 4 10:08AM By ROLO AQUINO MD ; [facility] Celecoxib 200 MG Oral Capsule 09/02/2020 - 08/25/2022 Provider: ROLO AQUINO MD Diagnosis: Sleep apnea, unspecified TAKE 1 CAPSULE BY MOUTH EUNICE Y MAY TAKE SECOND CAPSULE DAILY NEEDED Last Documented On 3 8:52AM By ROLO AQUINO MD ; [facility] Lisinopril-hydroCHLOROthiazi de 20-25 MG Oral Tablet 09/02/2020 - 02/10/2021 Provider: ROLO AQUINO MD Diagnosis: TAKE 1 TABLET BY MOUTH EVERY DAY Last Documented On 02/10/2021 9:32AM By Diane Hand A ; [facility] metFORMIN HCl 1000 MG Oral Tablet 08/10/2020 - 11/09/2020 Provider: ROLO AQUNIO MD Diagnosis: Type 2 diabetes mellitus without complications 1 twice a day Last Documented On 2:41PM By ROLO AQUINO MD ; [facility] Omeprazole 20 MG Oral Tablet Delayed Release 06/10/2020 - 08/01/2021 Provider: ROLO VASQUEZ MD Diagnosis: One tablet daily Last Documented On 08/01/2021 7:56AM By Diane West Angelo ; [facility] Lisinopril-hydroCHLOROthiazi de 20-25 MG Oral Tablet 03/18/2020 - 09/02/2020 Provider: ROLO AQUINO MD Diagnosis: TAKE 1 TABLET BY MOUTH EVERY DAY Last Documented On 09/02/2020 9:43AM By Diane Hand Angelo ; [facility] Omeprazole 20 MG Oral Tablet Delayed Release 01/20/2020 - 06/10/2020 Provider: ROLO VASQUEZ MD Diagnosis: One tablet daily Last Documented On 06/10/2020 8:54AM By Diane BRANTLEY ; [facility] Omeprazole 20 MG Oral Tablet Delayed Release 12/31/2019 - 10/27/2019 Provider: ROLO VASQUEZ MD Diagnosis: One tablet daily Last Documented On 01/20/2020 11:55AM By IVONE BRANTLEY ; [facility] Citalopram Hydrobromide 20 MG Oral Tablet 10/28/2019 - 09/02/2020 Provider: ROLO AQUINO MD Diagnosis: Dysthymic disord er ONE TABLET DAILY Last Documented On 09/02/2020 10:02AM By IVONE BRANTLEY ; [facility] Lisinopril-hydroCHLOROthiazi de 20-25 MG Oral Tablet 10/27/2019 - 03/18/2020 Provider: ROLO AQUINO MD Diagnosis: ONE TABLET DAILY Last Documented On 03/18/2020 4:32PM By Estrellita Jackson LPN ; [facility] CeleBREX 200 MG Oral Capsule 10/27/2019 - 09/02/2020 Provider: ROLO AQUINO MD Diagnosis: Sleep apnea, unspecified ONE TAB DAILY AND THEN A SEC OND TABLET A DAY NEEDED Last Documented On 09/02/2020 9:46AM By Diane BRANTLEY ; [facility] Crestor 10 MG Oral Tablet 10/27/2019 - 09/02/2020 Provider: ROLO AQUINO MD Diagnosis: Sleep apnea, unspecified TAKE ONE TABLET BY MOUTH EVERY DAY Last Documented On 09/02/2020 9:42AM By Diane BRANTLEY ; [facility] Lisinopril-hydroCHLOROthiazi de 20-25 MG Oral Tablet 02/13/2019 - 10/27/2019 Provider: ROLO AQUINO MD Diagnosis: ONE TABLET DAILY TO REPLACE QUINIPRIL Last Documented On 10/27/2019 2:12PM By IVONE BRANTLEY ; [facility] Citalopram Hydrobromide 20 MG Oral Tablet 02/13/2019 - 10/27/2019 Provider: ROLO AQUINO MD Diagnosis: Dysthymic disord er ONE TABLET DAILY Last Documented On 10/28/2019 4:38PM By IVONE BRANTLEY ; [facility] Omeprazole 20 MG Oral Tablet Delayed Release 02/13/2019 - 12/31/2019 Provider: ROLO VASQUEZ MD Diagnosis: One tablet daily Last Documented On 12/31/2019 4:24PM By Gladys BRANTLEY ; [facility] Lisinopril-hydroCHLOROthiazi de 20-25MG Oral Tablet 10/07/2018 - 02/13/2019 Provider: ROLO AQUINO MD Diagnosis: ONE TABLET DAILY TO REPLACE QUINIPRIL Last Documented On 02/13/2019 9:15AM By ROBIN BRANTLEY ; [facility] CeleBREX 200MG Oral Capsule, conventional 08/14/2018 - 10/27/2019 Provider: ROLO VASQUEZ MD Diagnosis: ONE TAB DAILY AND THEN A SEC OND TABLET A DAY NEEDED Last Documented On 2:59PM By ROLO AQUINO MD ; [facility] Crestor 10MG Oral Tablet 08/14/2018 - 10/27/2019 Provi tiffanie: ROLO AQUINO MD Diagnosis: TAKE ONE TABLET BY MOUTH EVERY DAY Last Documented On 0 2:59PM By ROLO AQUINO MD ; [facility] Lisinopril-Hydrochlorothiazi de 20-25MG Oral Tablet 02/12/2018 - 10/07/2018 Provider: ROLO AQUINO MD Diagnosis: ONE TABLET DAILY Last Documented On 9 11:44AM By ROLO AQUINO MD ; [facility] Citalopram Hydrobromide 20MG Oral Tablet 02/12/2018 - 02/13/2019 Provider: ROLO AQUINO MD Diagnosis: Dysthymic disord er ONE TABLET DAILY Last Documented On 02/13/2019 9:15AM By ROBIN BRANTLEY ; [facility] Omeprazole 20MG Oral Tablet Delayed Release 02/12/2018 - 02/13/2019 Provider: ROLO VASQUEZ MD Diagnosis: One tablet daily Last Documented On 02/13/2019 9:15AM By ROBIN BRANTLEY ; [facility] Duexis 800-26.6MG Oral Tablet 02/06/2018 - 08/14/2018 Provider: ALLI LASSITER PA-C Diagnosis: Sprain of other specified parts of left knee, init encntr One tablet twice a day Last Documented On 08/14/2018 8:18AM By IVONE BRANTLEY ; [facility] Duexis 800-26.6MG Oral Tablet 01/29/2018 - 02/06/2018 Provider: ALLI LASSITER PA-C Diagnosis: Sprain of other specified parts of left knee, init encntr One tablet twice a day Last Documented On 02/06/2018 9:05AM By ROBIN BRANTLEY ; [facility] Lisinopril-Hydrochlorothiazi de 20-25MG Oral Tablet 01/18/2018 - 02/12/2018 Provider: ROLO AQUINO MD Diagnosis: ONE TABLET DAILY TO REPLACE QUINIPRIL Last Documented On 02/12/2018 8:41AM By RADHA STILL CMA ; [facility] OneTouch Ultra Blue In Vitro Strip 11/06/2017 - 10/27/2019 Provider: NASH MELGAR APN Diagnosis: Type 2 diabetes mellitus without complications test blood glucose one time per day, vary times. Last Documented On 10/27/2019 2:13PM By IVONE BRANTLEY ; [facility] Medrol 4MG Oral Tablet Therapy Pack 10/30/2017 - 08/10/2020 Provider: ALLI LASSITER PA-C Diagnosis: Pain in left kne e as directed. Last Documented On 08/10/2020 2:43PM By Diane BRANTLEY ; [facility] Omeprazole 20MG Oral Tablet Delayed Release 10/30/2017 - 02/12/2018 Provider: ROLO VASQUEZ MD Diagnosis: One tablet daily Last Documented On 02/12/2018 8:41AM By RADHA STILL CMA ; [facility] OneTouch Ultra Blue In Vitro Strip 10/03/2017 - 10/27/2019 Provider: NASH MELGAR APN Diagnosis: Type 2 diabetes mellitus with hyperglycemia Test BG one time per day, al ternate morning and bedtime. Last Documented On 10/27/2019 2:14PM By IVONE BRANTLEY ; [facility] OneTouch Ultra 2 w/Device Kit (multiple component) 10/03/2017 - 10/27/2019 Provider: NASH MELGAR APN Diagnosis: Type 2 diabetes mellitus with hyperglycemia as directed Last Documented On 10/27/2019 2:13PM By IVONE BRANTLEY ; [facility] Omeprazole 20MG Oral Tablet Delayed Release 08/14/2017 - 10/30/2017 Provider: ROLO VASQUEZ MD Diagnosis: ONE TABLET DAILY Last Documented On 10/30/2017 2:09PM By ROBIN BRANTLEY ; [facility] Omeprazole 20MG Oral Tablet Delayed Release 08/14/2017 - 08/14/2017 Provider: ROLO VASQUEZ MD Diagnosis: One tablet daily Last Documented On 08/14/2017 3:20PM By RADHA STILL CMA ; [facility] CeleBREX 200MG Oral Capsule 08/14/2017 - [...] 08/14/2018 8:44AM By RADHA STILL CMA ; [facility] Citalopram Hydrobromide 20MG Oral Tablet 02/14/2017 - 02/12/2018 Provider: ROLO AQUINO MD Diagnosis: Dysthymic disord er ONE TABLET DAILY Last Documented On 02/12/2018 8:41AM By RADHA STILL CMA ; [facility] Lisinopril-Hydrochlorothiazi de 20-25MG Oral Tablet 02/14/2017 - 01/18/2018 Provider: ROLO AQUINO MD Diagnosis: ONE TABLET DAILY TO REPLACE QUINIPRIL Last Documented On 01/18/2018 4:00PM By IVONE BRANTLEY ; [facility] Crestor 10MG Oral Tablet 10/10/2016 - 06/04/2017 Provider: ROLO AQUINO MD Diagnosis: Hyperlipidemia, unspecified 1 daily Last Documented On 06/04/2017 2:42PM By RADHA STILL CMA ; [facility] Omeprazole 20MG Oral Tablet Delayed Release 10/10/2016 - 08/14/2017 Provider: ROLO VASQUEZ MD Diagnosis: One tablet daily Last Documented On 08/14/2017 8:42AM By RADHA STILL CMA ; [facility] CeleBREX 200MG Oral Capsule 10/10/2016 - 08/14/2017 Pr ovider: ROLO AQUINO MD Diagnosis: ONE TAB DAILY AND THEN A SEC OND TABLET A DAY NEEDED Last Documented On 08/14/2017 8:42AM By RADHA STILL CMA ; [facility] Lisinopril-Hydrochlorothiazi de 20-25MG Oral Tablet 10/04/2016 - 02/14/2017 Provider: ROLO AQUINO MD Diagnosis: ONE TABLET DAILY TO REPLACE QUINIPRIL Last Documented On 02/14/2017 8:40AM By RADHA STILL CMA ; [facility] Citalopram Hydrobromide 20MG Oral Tablet 10/04/2016 - 02/14/2017 Provider: ROLO AQUINO MD Diagnosis: Dysthymic disord er ONE TABLET DAILY Last Documented On 02/14/2017 8:40AM By RADHA STILL CMA ; [facility] Crestor 10MG Oral Tablet 07/12/2016 - 10/10/2016 Provider: ROLO AQUINO MD Diagnosis: Hyperlipidemia, unspecified 1 daily Last Documented On 7 9:36AM By ROLO AQUINO MD ; [facility] Citalopram Hydrobromide 20 MG Tablet 01/07/2016 - 10/04/2016 Provider: ROLO AQUINO MD Diagnosis: Dysthymic disord er One tablet daily Last Documented On 10/04/2016 2:41PM By RADHA STILL CMA ; [facility] Citalopram Hydrobromide 20 MG Tablet 08/20/2015 - 01/07/2016 Provider: ROLO AQUINO MD Diagnosis: Dysthymic disord er One tablet daily Last Documented On 6 9:42AM By ROLO AQUINO MD ; [facility] Lisinopril-Hydrochlorothiazi de 20-25 MG Tablet 07/13/2015 - 10/04/2016 Provider: ROLO AQUINO MD Diagnosis: One tablet daily Last Documented On 10/04/2016 2:42PM By RADHA STILL CMA ; [facility] CeleBREX 200 MG Capsule, conventional 07/13/2015 - 10/10/2016 Provider: ROLO VASQUEZ MD Diagnosis: ONE TAB DAILY AND THEN A SEC OND TABLET A DAY NEEDED Last Documented On 7 9:35AM By ROLO AQUINO MD ; [facility] Omeprazole 20 MG Tablet, enteric coated 07/13/2015 - 10/10/2016 Provider: ROLO VASQUEZ MD Diagnosis: One tablet daily Last Documented On 7 9:35AM By ROLO AQUINO MD ; [facility] Citalopram Hydrobromide 20 MG Tablet 07/13/2015 - 08/20/2015 Provider: ROLO AQUINO MD Diagnosis: Dysthymic disord er One tablet daily Last Documented On 6 10:15AM By ROLO AQUINO MD ; [facility] Citalopram Hydrobromide 20 MG Tablet 06/17/2015 - 07/13/2015 Provider: ROLO AQUINO MD Diagnosis: Dysthymic disord er One tablet daily Last Documented On 6 1:48PM By ROLO AQUINO MD ; [facility] KlonoPIN 1 MG Tablet 05/29/2015 - 08/20/2015 Provider: MANUELITO Angelo [facility]- Diagnosis: Generalized anxi ety disorder twice daily as needed for anxiety Last Documented On 08/20/2015 10:06AM By Jenise BRANTLEY ; [facility] Citalopram Hydrobromide 20 MG Tablet 05/25/2015 - 06/17/2015 Provider: BONITA JONES [facility]- [employer]AM[employer]ER- Diagnosis: Dysthymic disord er One tablet daily Last Documented On 6 10:08AM By ROLO AQUINO MD ; [facility] ZyrTEC Allergy 10 MG Tablet 05/25/2015 - 06/17/2015 Pr ovider: Diagnosis: Last Documented On 06/17/2015 9:27AM By IVONE BRANTLEY ; [facility] Lisinopril-Hydrochlorothiazi de 20-25 MG Tablet 05/11/2015 - 07/13/2015 Provider: BONITA JONES [facility]- Diagnosis: One tablet daily Last Documented On 6 1:50PM By ROLO AQUINO MD ; [facility] Doxycycline Monohydrate 100 MG Capsule, conventional 05/11/2015 - 05/25/2015 Provider: BONITA JONES [facility]- Diagnosis: Acute sinusitis, unspecified 1 CAPSULE TWO TIMES A DAY Last Documented On 05/25/2015 10:54AM By MIL RAZA Angelo ; [facility] Nasonex 50 MCG/ACT Suspension 05/11/2015 - 02/14/2017 Provider: BONITA JONES [facility]- Diagnosis: Acute sinusitis, unspecified 2 sprays each nostril once daily Last Documented On 02/14/2017 8:10AM By Ninfa BRANTLEY ; [facility] Lisinopril-Hydrochlorothiazi de 20-25 MG Tablet 04/14/2015 - 05/11/2015 Provider: ROLO AQUINO MD Diagnosis: One tablet daily to replace quinipril Last Documented On 6 11:43AM By BONITA JONES [facility] ; [facility] Quinapril-Hydrochlorothiazid e 20-25 MG Tablet 04/13/2015 - 05/11/2015 Provider: ROLO AQUINO MD Diagnosis: Essential (primary) hypertension One tablet daily addition of hctz Last Documented On 05/11/2015 11:21AM By MIL BRANTLEY ; [facility] Quinapril-Hydrochlorothiazid e 20-25 MG Tablet 03/16/2015 - 04/13/2015 Provider: ROLO AQUINO MD Diagnosis: Essential (primary) hypertension One tablet daily addition of hctz Last Documented On 04/13/2015 11:27AM By Jenise BRANTLEY ; [facility] AmLODIPine Besylate 5 MG Tablet 03/09/2015 - 03/16/2015 Provider: ROLO AQUINO MD Diagnosis: Essential (prima ry) hypertension One tablet daily Last Documented On 03/16/2015 2:17PM By IVONE BRANTLEY ; [facility] AmLODIPine Besylate 10 MG Tablet 03/09/2015 - 05/11/2015 Provider: ROLO VASQUEZ MD Diagnosis: One tablet daily DOSE INCREASE Last Documented On 05/11/2015 11:19AM By MIL BRANTLEY ; [facility] AmLODIPine Besylate 5 MG Tablet 02/16/2015 - 03/09/2015 Provider: ROLO AQUINO MD Diagnosis: Essential (prima ry) hypertension One tablet daily Last Documented On 5 11:10AM By ALLI LASSITER PA-C ; [facility] Quinapril HCl 20 MG Tablet 01/13/2015 - 05/11/2015 Pro vider: ROLO AQUINO MD Diagnosis: One tablet twice a day Last Documented On 05/11/2015 11:22AM By MIL BRANTLEY ; [facility] Quinapril HCl 20 MG Tablet 07/27/2014 - 01/13/2015 Pro vider: ROLO AQUINO MD Diagnosis: One tablet daily Last Documented On 5 9:46PM By ROLO AQUINO MD ; [facility] Omeprazole 20 MG OR TBEC 06/29/2014 - 07/13/2015 Provi tiffanie: ROLO AQUINO MD Diagnosis: Last Documented On 6 1:49PM By ROLO AQUINO MD ; [facility] Quinapril HCl 20 MG OR TABS 06/29/2014 - 07/27/2014 Pr ovider: ROLO AQUINO MD Diagnosis: Last Documented On 07/27/2014 3:33PM By Jenise BRANTLEY ; [facility] CeleBREX 200 MG OR CAPS 06/29/2014 - 07/13/2015 Provid er: ROLO AQUINO MD Diagnosis: ONE TAB DAILY AND THEN A SEC OND TABLET A DAY NEEDED Last Documented On 07/13/2015 1:49PM By Jenise BRANTLEY ; [facility] VESIcare 5 MG OR TABS 05/27/2014 - 05/11/2015 Provider : ALLI LASSITER PA-C Diagnosis: URINARY FREQUENC Y Last Documented On 05/11/2015 11:21AM By MIL BRANTLEY ; [facility] Parafon Forte DSC 500 MG OR TABS 05/21/2014 - 05/11/2015 [facility]AM[employer]ER-BC Diagnosis: Lumbago 1/2 to 1 tab every 8 hours a s needed for muscle spasms Last Documented On 05/11/2015 11:20AM By MIL BRANTLEY ; [facility] Medrol 4 MG OR TABS 05/21/2014 - 05/11/2015 Provider: BONITA JONES [facility]-BC [employer]AM[employer]ER-BC Diagnosis: Lumbago Take 6 tabs day 1, 5 tabs da y 2, 4 tabs day 3, 3 tabs day 4, 2 tabs day 5, 1 tab day 6 Last Documented On 05/11/2015 11:21AM By MIL BRANTLEY ; [facility] Omeprazole 20 MG OR TBEC 03/24/2013 - 06/29/2014 Provi tiffanie: [facility] CAP[facility]O Diagnosis: Last Documented On 5 9:24AM By ROLO AQUINO MD ; [facility] CeleBREX 200 MG OR CAPS 03/24/2013 - 06/29/2014 Provid er: LINCOLN CAPUTO Diagnosis: Last Documented On 5 9:20AM By ROLO AQUINO MD ; [facility] Quinapril HCl 20 MG OR TABS 03/24/2013 - 06/29/2014 Pr ovider: [facility] CAPUTO Diagnosis: Last Documented On 5 9:24AM By ROLO AQUINO MD ; [facility] Medications Administered Includes: Administered Medications in patient's chart No Administered Medications Recorded Vital Signs Includes: Vital Signs from 08/13/2023 through 08/12/2024 Vital Name 10/10/2023 09:26A 08/13/2023 09: 47A Blood Pressure Sitting R 116/76 BP Cuff Size Regular Pulse Rate-Sitting (bpm) 76 Respiration Rate (breaths/min) 19 Height (in) 71.5 71.5 Weight (lb) 373 Body Mass Index 51.3 Body Surface Area 2.8 Oxygen Saturation (%) 96 Last Documented: On 10/10/2023 9:31AM ; [facility] On 08/13/2023 9:46AM ; [facility] Results Includes: Results from 08/13/2023 through 08/12/2024 A1C HGB (GLYCO HEMOGLOBIN) [facility] Laboratory Ordered by ROLO Ricketts MD on 10/03/2023 [address] [place], [address] Collected: 10/03/2023 Report ed: 10/03/2023 11:27 tel: Last Documented On 4 9:50AM ; [facility] Reviewed by ROLO VASQUEZ MD on 10/07/2023; All test results are final unless otherwise noted. Review Note Provider Name Date Will Discuss results with Patient next visit. ERNESTO AQUINO MD 10/07/2023 A1C HGB (GLYCO HEMOGLOBIN) See Note None Last Documented On 4 11:41AM ; [facility] Note: Glycohemoglobin (HEMOGLOBIN A1C)Re sponsible Observer: (HRG) Hgb A1c 5.8 %_A1c (4.0 - 6.0) None Last Documented On 4 11:41AM ; [facility] Note: Responsible Observer: (HRG) MBG 120 mg/dL (65 - 99) H (High) Last Documented On 4 11:41AM ; [facility] Note: *MBG (mean blood glucose) is a leti culated estimate of the mean blood glucose itis also refered to as estimated Average Glucose (eAG).*Responsible Observer: (HRG) LIPID PANEL [facility] La boratory Ordered by ROLO Ricketts MD on 10/03/2023 [address] [facility], [place], [address] Collected: 10/03/2023 Report ed: 10/03/2023 11:27 tel: Last Documented On 4 9:50AM ; [facility] Reviewed by ROLO VASQUEZ MD on 10/07/2023; All test results are final unless otherwise noted. Review Note Provider Name Date Will Discuss results with Patient next visit. ERNESTO AQUINO MD 10/07/2023 CHOL/HDLC 3.6 (0.0 - 4.8) None Last Documented On 4 11:41AM ; [facility] Note: Responsible Observer: (HRG) CHOLESTEROL 144 mg/dL (0 - 200) None Last Documented On 4 11:41AM ; [facility] Note: Responsible Observer: (HRG) HDL 40 mg/dL (29 - 67) None Last Documented On 4 11:41AM ; [facility] Note: Responsible Observer: (HRG) LDL 69 mg/dL (0 - 130) None Last Documented On 4 11:41AM ; [facility] Note: Coronary Artery Risk Panel Refere nce Values Based on the recommendations of the Heart, Lung and Blood [place] (in mg/dL) Risk Levels = High Borderline Desirable Cholesterol >240 200 - 240 <200 LDL >160 130 - 159 <130 Cholesterol/HDL Ratio Male <= 4.88 Female <= 4.23Responsible Observer: (HRG) LIPID PANEL See Note None Last Documented On 4 11:41AM ; [facility] Note: LIPID PANELResponsible Observer: ( HRG) TRIGLYCERIDE 175 mg/dL (1 - 150) H (High) Last Documented On 4 11:41AM ; [facility] Note: Responsible Observer: (HRG) CMP [facility] La boratory Ordered by ROLO Ricketts MD on 10/03/2023 [address] [facility] [place], [address] Collected: 10/03/2023 Report ed: 10/03/2023 11:27 tel: Last Documented On 4 9:50AM ; [facility] Reviewed by ROLO VASQUEZ MD on 10/07/2023; All test results are final unless otherwise noted. Review Note Provider Name Date Will Discuss results with Patient next visit. CR DAVID AQUINO MD 10/07/2023 A/G RATIO 1.1 (1.1 - 2.2) None Last Documented On 4 11:41AM ; [facility] Note: eGFR INTERPRETATION AGE AVG GFR [...] None Last Documented On 4 11:41AM ; [facility] Note: Responsible Observer: (HRG) ALBUMIN 3.7 g/dL (3.4 - 4.8) None Last Documented On 4 11:41AM ; [facility] Note: Responsible Observer: (HRG) ALK PHOS 44 IU/L (40 - 150) None Last Documented On 4 11:41AM ; [facility] Note: Responsible Observer: (HRG) ALT (SGPT) 27 IU/L (0 - 55) None Last Documented On 4 11:41AM ; [facility] Note: Responsible Observer: (HRG) ANION GAP 17.2 mmol/L (8.0 - 16.0) H (High) Last Documented On 4 11:41AM ; [facility] Note: Responsible Observer: (HRG) AST (SGOT) 24 IU/L (5 - 34) None Last Documented On 4 11:41AM ; [facility] Note: Responsible Observer: (HRG) BILIRUBIN TOT 0.5 mg/dL (0.2 - 1.0) None Last Documented On 4 11:41AM ; [facility] Note: Responsible Observer: (HRG) BUN 16 mg/dL (9 - 20) None Last Documented On 4 11:41AM ; [facility] Note: Responsible Observer: (HRG) CALCIUM 9.3 mg/dL (8.9 - 10.0) None Last Documented On 4 11:41AM ; [facility] Note: Responsible Observer: (HRG) CHLORIDE 104 mmol/L (98 - 107) None Last Documented On 4 11:41AM ; [facility] Note: Responsible Observer: (HRG) CMP See Note None Last Documented On 4 11:41AM ; [facility] Note: COMPREHENSIVE METABOLIC PANELRespo nsible Observer: (HRG) CREATININE 0.8 mg/dL (0.8 - 1.5) None Last Documented On 4 11:41AM ; [facility] HOSPITAL Note: Responsible Observer: (HRG) eGFR 98 mL/min None Last Documented On 4 11:41AM ; [facility] Note: Responsible Observer: (HRG) GLOBULIN 3.3 g/dl (2.0 - 4.2) None Last Documented On 4 11:41AM ; [facility] Note: Responsible Observer: (HRG) GLUCOSE 156 mg/dL (70 - 105) H (High) Last Documented On 4 11:41AM ; [facility] Note: Responsible Observer: (HRG) POTASSIUM 4.2 mmol/L (3.6 - 5.0) None Last Documented On 4 11:41AM ; [facility] Note: Responsible Observer: (HRG) SODIUM 139 mmol/L (137 - 145) None Last Documented On 4 11:41AM ; [facility] Note: Responsible Observer: (HRG) TCO2 22.0 mmol/L (22.0 - 30.0) None Last Documented On 4 11:41AM ; [facility] Note: Responsible Observer: (HRG) TOTAL PROTEIN 7.0 g/dL (6.4 - 8.3) None Last Documented On 4 11:41AM ; [facility] Note: Responsible Observer: (HRG) PSA SCREEN [facility] [place] Ordered by ROLO Ricketts MD on 10/03/2023 [address] [place], [address] Collected: 10/03/2023 Report ed: 10/03/2023 11:34 tel: Last Documented On 4 9:50AM ; [facility] Reviewed by ROLO VASQUEZ MD on 10/07/2023; All test results are final unless otherwise noted. Review Note Provider Name Date Will Discuss results with Patient next visit. ERNESTO AQUINO MD 10/07/2023 PSA 3.9 ng/ml (0.0 - 4.0) None Last Documented On 10/03/2023 11:41AM ; [facility] Note: PSA NORMAL RANGE: < / = 4.0 ng/mLResponsible Observer: (MLB) Reported Physicians [facility] [place] Ordered by ROLO Ricketts MD on 10/03/2023 [address] [place], [address] Collected: 10/03/2023 Report ed: 10/03/2023 11:34 tel: Last Documented On 4 9:50AM ; [facility] Reviewed by ROLO VASQUEZ MD on 10/07/2023; All test results are final unless otherwise noted. Review Note Provider Name Date Will Discuss results with Patient next visit. ERNESTO QAUINO MD 10/07/2023 Reported Physicians See Note None Last Documented On 10/03/2023 11:41AM ; [facility] Note: Reported Physicians:Ordering: Napoleon Frankttending: REGI FRANKYConsulting: ROLO FRANK CBC WITH DIFF [facility] [place] Ordered by ROLO Ricketts MD on 08/31/2023 [address] [facility], [place], [address] Collected: 09/01/2023 Report ed: 09/01/2023 06:01 tel: Last Documented On 4 11:16PM ; [facility] Reviewed by ROLO VASQUEZ MD on 10/07/2023; All test results are final unless otherwise noted. ALC 0.8 None Last Documented On 4 8:41PM ; [facility] Note: Responsible Observer: (NELI) ANC 10.2 None Last Documented On 4 8:41PM ; [facility] Note: Responsible Observer: (NELI) BASO# 0.07 th/uL (0.00 - 0.20) None Last Documented On 4 8:41PM ; [facility] Note: Responsible Observer: (NELI) BASO% 0.6 % (0.0 - 2.0) None Last Documented On 4 8:41PM ; [facility] Note: Responsible Observer: (NELI) CBC WITH DIFF See Note None Last Documented On 4 8:41PM ; [facility] Note: CBC (COMPLETE BLOOD COUNT)Responsi ble Observer: (NELI) DIFF (Y/N) NO None Last Documented On 4 8:41PM ; [facility] Note: Responsible Observer: (NELI) EOS# 0.07 th/uL (0.00 - 0.45) None Last Documented On 4 8:41PM ; [facility] Note: Responsible Observer: (NELI) EOS% 0.6 % (0.0 - 9.0) None Last Documented On 4 8:41PM ; [facility] Note: Responsible Observer: (NELI) HCT 34.6 % (40.0 - 54.0) L (Low) Last Documented On 4 8:41PM ; [facility] Note: Responsible Observer: (NELI) HGB 11.7 g/dL (13.5 - 17.5) L (Low) Last Documented On 4 8:41PM ; [facility] Note: Responsible Observer: (NELI) IG# 0.05 th/ul (0.00 - 0.10) None Last Documented On 4 8:41PM ; [facility] Note: Responsible Observer: (NELI) IG% 0.4 % (0.0 - 0.5) None Last Documented On 4 8:41PM ; [facility] Note: Responsible Observer: (NELI) LYMPH# 0.78 th/uL (1.00 - 4.80) L (Low) Last Documented On 4 8:41PM ; [facility] Note: Responsible Observer: (NELI) LYMPH% 6.4 % (14.0 - 45.0) L (Low) Last Documented On 4 8:41PM ; [facility] Note: Responsible Observer: (NELI) MCH 32.7 pg (25.0 - 35.0) None Last Documented On 4 8:41PM ; [facility] Note: Responsible Observer: (NELI) MCHC 33.8 g/dL (31.0 - 36.0) None Last Documented On 4 8:41PM ; [facility] Note: Responsible Observer: (NELI) MCV 96.6 fl (80.0 - 100) None Last Documented On 4 8:41PM ; [facility] Note: Responsible Observer: (NELI) MONO# 0.96 th/uL (0.00 - 0.80) H (High) Last Documented On 4 8:41PM ; [facility] Note: Responsible Observer: (NELI) MONO% 7.9 % (1.0 - 10.0) None Last Documented On 4 8:41PM ; [facility] Note: Responsible Observer: (NELI) MPV 10.6 fl (6.0 - 11.0) None Last Documented On 4 8:41PM ; [facility] Note: Responsible Observer: (NELI) NEUT# 10.21 th/uL None Last Documented On 4 8:41PM ; [facility] Note: Responsible Observer: (NELI) NEUT% 84.1 % (45.0 - 76.0) H (High) Last Documented On 4 8:41PM ; [facility] Note: Responsible Observer: (NELI) NRBC% 0.0 % (0.0 - 0.0) None Last Documented On 4 8:41PM ; [facility] Note: Responsible Observer: (NELI) PLT 145 th/uL (150 - 400) L (Low) Last Documented On 4 8:41PM ; [facility] Note: Responsible Observer: (NELI) RBC 3.58 mil/uL (4.50 - 5.90) L (Low) Last Documented On 4 8:41PM ; [facility] Note: Responsible Observer: (NELI) RDW 13.2 % (11.0 - 16.0) None Last Documented On 4 8:41PM ; [facility] Note: Responsible Observer: (NELI) WBC 12.1 th/uL (4.5 - 11.0) H (High) Last Documented On 4 8:41PM ; [facility] Note: Responsible Observer: (NELI) [facility] [place] [facility] Ordered by ROLO Ricketts MD on 08/31/[address] [place] [address], [address] Collected: 09/01/2023 Report ed: 09/01/2023 06:08 tel: Last Documented On 4 11:16PM ; [facility] Reviewed by ROLO VASQUEZ MD on 10/07/2023; All test results are final unless otherwise noted. AGE 63 YEARS None Last Documented On 4 8:41PM ; [facility] Note: Responsible Observer: (NELI) ANION GAP 15.1 mmol/L (8.0 - 16.0) None Last Documented On 4 8:41PM ; [facility] Note: eGFR INTERPRETATION AGE AVG GFR [...] None Last Documented On 4 8:41PM ; [facility] Note: BASIC METABOLIC PANELResponsible O bserver: (NELI) BUN 29 mg/dL (9 - 20) H (High) Last Documented On 4 8:41PM ; [facility] Note: Responsible Observer: (NELI) CALCIUM 8.2 mg/dL (8.9 - 10.0) L (Low) Last Documented On 4 8:41PM ; [facility] Note: Responsible Observer: (NELI) CHLORIDE 101 mmol/L (98 - 107) None Last Documented On 4 8:41PM ; [facility] Note: Responsible Observer: (NELI) CREATININE 2.0 mg/dL (0.8 - 1.5) H (High) Last Documented On 4 8:41PM ; [facility] Note: Responsible Observer: (NELI) eGFR. 36 mL/min None Last Documented On 4 8:41PM ; [facility] Note: Responsible Observer: (NELI) GLUCOSE 169 mg/dL (70 - 105) H (High) Last Documented On 4 8:41PM ; [facility] Note: Responsible Observer: (NELI) POTASSIUM 4.1 mmol/L (3.6 - 5.0) None Last Documented On 4 8:41PM ; [facility] Note: Responsible Observer: (NELI) SODIUM 135 mmol/L (137 - 145) L (Low) Last Documented On 4 8:41PM ; [facility] Note: Responsible Observer: (NELI) TCO2 23.0 mmol/L (22.0 - 30.0) None Last Documented On 4 8:41PM ; [facility] Note: Responsible Observer: (NELI) URIC ACID [facility] [place] Ordered by ROLO Ricketts MD on 08/31/2023 [address] [facility], [place], [address] Collected: 09/01/2023 Report ed: 09/01/2023 06:35 tel:[phone] Last Documented On 4 11:16PM ; [facility] Reviewed by ROLO VASQUEZ MD on 10/07/2023; All test results are final unless otherwise noted. URIC ACID 5.2 mg/dL (3.5 - 7.2) None Last Documented On 10/02/2023 8:41PM ; [facility] Note: Responsible Observer: (NELI) LACTIC ACID [facility] [place] Ordered by ROLO Ricketts MD on 08/31/2023 [address] [facility], [place], [address] Collected: 08/31/2023 Report ed: 08/31/2023 14:16 tel:[phone] Last Documented On 4 11:16PM ; [facility] Reviewed by ROLO VASQUEZ MD on 10/07/2023; All test results are final unless otherwise noted. LACTIC ACID 2.2 mmol/L (0.5 - 2.2) None Last Documented On 10/02/2023 8:41PM ; [facility] Note: Responsible Observer: (TER) URINALYSIS/REFLEX C&S [facility] Laboratory Ordered by ROLO AQUINO MD on 08/06 [address] [facility], [place], [address] Collected: 08/31/2023 Report ed: 08/31/2023 02:51 tel:[phone] Last Documented On 4 11:16PM ; [facility] Reviewed by ROLO VASQUEZ MD on 10/07/2023; All test results are final unless otherwise noted. BACTERIA Few (NORMAL: NONE) None Last Documented On 4 8:41PM ; [facility] Note: Responsible Observer: (SED) BILIRUBIN NEGATIVE (Normal: Negative) None Last Documented On 4 8:41PM ; [facility] Note: Responsible Observer: (SED) BLOOD TRACE-IN (Normal: Negative) A (Abnormal) Last Documented On 4 8:41PM ; [facility] Note: Responsible Observer: (SED) CASTS None seen (NORMAL: NONE) None Last Documented On 4 8:41PM ; [facility] Note: Responsible Observer: (SED) CLARITY CLEAR (Normal: Clear) None Last Documented On 4 8:41PM ; [facility] Note: Responsible Observer: (SED) COLOR ORANGE (Normal: Straw - carmen) None Last Documented On 4 8:41PM ; [facility] Note: Responsible Observer: (SED) CRYSTALS None seen (NORMAL: 0 - 3 /hpf) None Last Documented On 4 8:41PM ; [facility] Note: Responsible Observer: (SED) CULTURE TO FOLLOW None Last Documented On 4 8:41PM ; [facility] Note: MICROSCOPIC EXAMINATION IF NOT IND ICATED WILL NOT BE PERFORMEDResponsible Observer: (SED) EPI CELLS 0-5 (NORMAL: NONE) None Last Documented On 4 8:41PM ; [facility] Note: Responsible Observer: (SED) GLUCOSE NEGATIVE (Normal: Negative) None Last Documented On 4 8:41PM ; [facility] Note: Responsible Observer: (SED) KETONE TRACE (Normal: Negative) None Last Documented On 4 8:41PM ; [facility] Note: Responsible Observer: (SED) LEUKOCYTE. NEGATIVE (Normal: Negative) None Last Documented On 4 8:41PM ; [facility] Note: Responsible Observer: (SED) MICROSCOPIC? SEE BELOW None Last Documented On 4 8:41PM ; [facility] Note: MICROSCOPICResponsible Observer: ( SED) MUCOUS 1+ None Last Documented On 4 8:41PM ; [facility] Note: Responsible Observer: (SED) NITRITE. POSITIVE (Normal: Negative) A (Abnormal) Last Documented On 4 8:41PM ; [facility] Note: Responsible Observer: (SED) pH 5.5 (Normal: 5.0 - 9.0) None Last Documented On 4 8:41PM ; [facility] Note: Responsible Observer: (SED) PROTEIN NEGATIVE (Normal: Negative) None Last Documented On 4 8:41PM ; [facility] Note: Responsible Observer: (SED) RBC 3-5 (NORMAL: 0 - 3 /hpf) None Last Documented On 4 8:41PM ; [facility] Note: Responsible Observer: (SED) SP GRAVITY >=1.030 (Normal: 1.005-1.030) None Last Documented On 4 8:41PM ; [facility] Note: Responsible Observer: (SED) TRICHOMONAS None Seen None Last Documented On 4 8:41PM ; [facility] Note: Responsible Observer: (SED) UA SPECIMEN [facility] (CLEAN VOI None Last Documented On 4 8:41PM ; [facility] Note: { Comment: Results may be compromi sed due to urine colorResponsible Observer: (SED) UROBILINOGEN 0.2 (Normal: Negative) None Last Documented On 4 8:41PM ; [facility] Note: Responsible Observer: (SED) WBC 3-5 (NORMAL: 0 - 5 /hpf) None Last Documented On 4 8:41PM ; [facility] Note: Responsible Observer: (SED) YEAST None Seen None Last Documented On 4 8:41PM ; [facility] Note: Responsible Observer: (SED) URINALYSIS/REFLEX C See Note None Last Documented On 4 8:41PM ; [facility] Note: URINALYSIS/REFLEX C&SResponsible O bserver: (SED) .CULTURE URINE CLEAN VOID SPECIMEN [facility] Ordered by ROLO Ricketts MD on 08/31/[address] [place] [address], [place], [address] Collected: 08/31/2023 Report ed: 09/02/2023 07:49 tel: Last Documented On 4 11:16PM ; [facility] Reviewed by ROLO VASQUEZ MD on 10/07/2023; [...] . 09/02/23.0749.JW .COMPLETENOResponsible Observer: (JW) CULTURE BLOOD [facility] [place] Ordered by ROLO Ricketts MD on 08/31/2023 [address] , [place], [address] Collected: 08/31/2023 Report ed: 09/05/2023 06:35 tel: Last Documented On 11:16PM ; [facility] Reviewed by ROLO VASQUEZ MD on 10/07/2023; All test results are final unless otherwise noted. CULTURE BLOOD See Note None Last Documented On 10/02/2023 8:41PM ; [facility] Note: _BLOOD CULTURE_ INFECT. CONT REPORT NO None Last Documented On 10/02/2023 8:41PM ; [facility] Note: _NO_GrOWTH_AT_5_DAYS. 09/05/23.0635.MLB. ------ 09/05/23.0635.MLB. 09/05/23.36.MLB.COMPLETENOResponsible Observer: (MLB) CMP [facility] Ordered by ROLO Ricketts MD on 08/31/2023 [address] [facility], [place], [address] Collected: 08/31/2023 Report ed: 08/31/2023 01:44 tel: Last Documented On 4 11:16PM ; [facility] Reviewed by ROLO VASQUEZ MD on 10/07/2023; All test results are final unless otherwise noted. A/G RATIO 1.2 (1.1 - 2.2) None Last Documented On 4 8:41PM ; [facility] Note: eGFR INTERPRETATION AGE AVG GFR [...] None Last Documented On 4 8:41PM ; [facility] Note: Responsible Observer: (SED) ALBUMIN 4.1 g/dL (3.4 - 4.8) None Last Documented On 4 8:41PM ; [facility] Note: Responsible Observer: (SED) ALK PHOS 42 IU/L (40 - 150) None Last Documented On 4 8:41PM ; [facility] Note: Responsible Observer: (SED) ALT (SGPT) 33 IU/L (0 - 55) None Last Documented On 4 8:41PM ; [facility] Note: Responsible Observer: (SED) ANION GAP 17.9 mmol/L (8.0 - 16.0) H (High) Last Documented On 4 8:41PM ; [facility] Note: Responsible Observer: (SED) AST (SGOT) 30 IU/L (5 - 34) None Last Documented On 4 8:41PM ; [facility] Note: Responsible Observer: (SED) BILIRUBIN TOT 1.0 mg/dL (0.2 - 1.0) None Last Documented On 4 8:41PM ; [facility] Note: Responsible Observer: (SED) BUN 19 mg/dL (9 - 20) None Last Documented On 4 8:41PM ; [facility] Note: Responsible Observer: (SED) CALCIUM 9.6 mg/dL (8.9 - 10.0) None Last Documented On 4 8:41PM ; [facility] Note: Responsible Observer: (SED) CHLORIDE 100 mmol/L (98 - 107) None Last Documented On 4 8:41PM ; [facility] Note: Responsible Observer: (SED) CMP See Note None Last Documented On 4 8:41PM ; [facility] Note: COMPREHENSIVE METABOLIC PANELRespo nsible Observer: (SED) CREATININE 1.3 mg/dL (0.8 - 1.5) None Last Documented On 4 8:41PM ; [facility] Note: Responsible Observer: (SED) eGFR. 61 mL/min None Last Documented On 4 8:41PM ; [facility] Note:

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
--- OUTSIDE RECORDS SUMMARY | 2024-08-12 17:47 | XMS_ITS | Referral Summary ---
Author Organization [facility] Address [address] [place] [address] Care Team Providers Care Consulting Networking Engineer Name Role Phone Elving-Alecia White MD Primary [...] on file Legal Sex Male 9:32 AM CUSTOMS MANAGER Gender Identity Not on file Sexual Orientation Not on file Last Filed Vital Signs Vital Sign Reading Time Taken Comments Blood Pressure 108/80 07/19/2012 11:58 AM CDT Pulse 92 07/19/2012 11:58 AM CDT Temperature - - Respiratory Rate - - Oxygen Saturation - - Inhaled Oxygen Concentration - - Weight 167.8 kg (370 lb) 06/17/2012 3:30 PM CUSTOMS MANAGER Height 182.9 cm (6') 07/19/2012 11:58 AM CDT Body Mass Index 50.18 06/17/2012 3:30 PM CUSTOMS MANAGER Plan of Treatment Not on file Insurance [employer] MEDICARE [facility] [id number] Care Teams Consulting Networking Engineer Relationship Specialty Start Date End Date Alecia Leslie MD [address] [place] [id number] PCP - General Family Medicine 02/23/21
--- OUTSIDE RECORDS SUMMARY | 2024-08-12 17:47 | XMS_ITS | Clinical Summary ---
Author Organization [facility] Address [address] [place] [address] Care Team Providers Care Social Work Instructor Name Role Phone Elving-Alecia White MD Primary [...] on file Legal Sex Male 9:32 AM GEOTECHNICAL DEPARTMENT MANAGER Gender Identity Not on file Sexual Orientation Not on file Obstetrics History Last Filed Vital Signs Vital Sign Reading Time Taken Comments Blood Pressure 108/80 07/19/2012 11:58 AM CDT Pulse 92 07/19/2012 11:58 AM CDT Temperature - - Respiratory Rate - - Oxygen Saturation - - Inhaled Oxygen Concentration - - Weight 167.8 kg (370 lb) 06/17/2012 3:30 PM GEOTECHNICAL DEPARTMENT MANAGER Height 182.9 cm (6') 07/19/2012 11:58 AM CDT Body Mass Index 50.18 06/17/2012 3:30 PM GEOTECHNICAL DEPARTMENT MANAGER Plan of Treatment Health Maintenance Due Date [...] exists Zoster Vaccine Completed 11/05/2018, 08/06/2018 Insurance [employer] MEDICARE [facility] [id number] Care Teams Social Work Instructor Relationship Specialty Start Date End Date Alecia Leslie MD [address] [place] [id number] PCP - General Family Medicine 02/23/21
--- OUTSIDE RECORDS SUMMARY | 2024-08-12 17:47 | XMS_ITS | Clinical Summary ---
Author Organization [facility] Address [address] [facility] [place] [address] Phone Care Team Providers Care Oil Truck Driver Name Role Phone Wood Griffith MD Unavailable Alecia Cornell MD Primary Care Provider [phone] Natali Leyva APRN, OFFSET LITHOGRAPHIC PRESS SETTER Unavailable Allergies Active Allergy Reactions Criticality Noted [...] Written: 12/01/13 Patient Instructions: 4 Active Multiple Vitamins-Baird als (Eye Vitamins) Capsule Eye Vitamins Oral [...] Lnp-s, Pf, 3 0 Mcg/0.3 Ml Dose (MRI Interventions) 06/29/2020,06/08/2020 Influenza Vaccine greater than 3 yrs [...] Visit [facility] [address] [facility] [address] [place] [address] Natali Leyva, HR SPECIALIST, OFFSET LITHOGRAPHIC PRESS SETTER [address] [facility] [address] [place] [address] Health Maintenance Due Date Last Done Comments [...] CDT) Prostatic Specific Antigen, Free 2.10 ng/mL [address] 09/06/2020 10:56 PM CDT [facility] PSA, TOTAL (PROSTATIC SPECIFIC ANTIGEN) 3.36 <4.00 ng/mL [address] 09/06/2020 10:56 PM CDT [facility] PSA, % FREE 62.5 % [address] 09/06/2020 10:56 PM CDT [facility] Comment: PSA NG/ML FREE PSA % EST [...] Roscoe Gudino MD CHEMISTRY ORDERABLES Final Result [facility] [address] [place] [address], [place] from Last 3 Months or Most Recently Relevant to Health Maintenance Insurance [facility] OAP MEDICARE Care Teams Oil Truck Driver Relationship Specialty Start Date End Date Alecia Cornell MD [address] [place] [address] PCP - General 07/06/16 Wood Griffith MD [address] [facility] [address] [place] [id number] Consulting Physician Pulmonary Disease 07/06/16 Natali Leyva APRN, OFFSET LITHOGRAPHIC PRESS SETTER #[address] [facility] [address] [place] [address] Nurse Practitioner Advanced Practice Nurse 03/29/22
--- OUTSIDE RECORDS SUMMARY | 2024-08-12 17:47 | XMS_ITS | Clinical Summary ---
Author Organization [facility] Address [address] [place] [address] Phone Care Team Providers Care Elevator Serviceman Name Role Phone ROLO AQUINO MD Primary Care Provider [phone] Reason for Visit and Chief Complaint CHART UPDATE Problems Includes: Problems addressed during this encounter and other active Problems All Visits Onset Date Resolved Date Provider Condition S tatus Nephrolithiasis 10/18/2023 ROLO Greenwood Active Last Documented On 4 11:01PM ; [facility] Joint Pain in the Left Knee 09/02/2021 SAL Omer Active Last Documented On 2 8:40AM ; [facility] Osteoarthritis Localized Primary Knee Left 09/02/2021 SAL Omer Active Last Documented On 2 8:40AM ; [facility] Diabetes Mellitus Type 2 - U ncomplicated, Controlled 08/14/2017 ROLO AQUINO MD Active Last Documented On 1 10:11PM ; [facility] Hyperlipidemia 01/07/2016 ROLO AQUINO MD Active Last Documented On 6 9:41AM ; [facility] Anxiety Disorder Nos 06/17/2015 ROLO MCGRAW MD Active Last Documented On 6 10:07AM ; [facility] Hyperglycemia 12/07/2014 ROLO AQUINO MD Active Last Documented On 5 9:44AM ; [facility] 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 ROLO CROWE MD Active Last Documented On 0 2:28PM ; [facility] Note: 11-14 Arthritis 12/01/2013 ROLO AQUINO MD Act gianni Last Documented On 2 10:15AM ; [facility] Gerd 12/01/2013 ROLO AQUINO MD Act gianni Last Documented On 0 2:28PM ; [facility] Essential Hypertension Benign 12/01/2013 ROLO AQUINO MD Active Last Documented On 12/01/2013 2:04PM ; [facility] Note: -------GOES BY FERNANDA Plan of Treatment Pending Tests Order Diagnosis Results Due Ordering P rovider Lab A1C HGB (GLYCO HEMOGLOBIN) 04/15/24 ROLO AQUINO MD Last Documented On 4 11:06PM ; [facility] Lab LIPID PANEL 04/15/24 ROLO CROWE MD Last Documented On 4 11:06PM ; [facility] Lab CMP 04/15/24 ROLO PARISH MD Last Documented On 4 11:06PM ; [facility] Assessments Includes: Assessments from [...] 4 10:21AM By ROLO AQUINO MD ; [facility] Rosuvastatin Calcium 10 MG Oral Tablet 10/10/2023 Provider: ROLO Greenwood Diagnosis: Hyperlipidemia, unspecified TAKE 1 TABLET BY MOUTH EVERY DAY Last Documented On 4 10:21AM By ROLO AQUINO MD ; [facility] Ozempic (1 MG/DOSE) 4 MG/3ML Subcutaneous Solution Pen-injector 10/10/2023 Provider: ROLO AQUINO MD Diagnosis: Type 2 diabetes mellitus without complications 1mg once a week [place] Last Documented On 4 10:21AM By ROLO AQUINO MD ; [facility] Lisinopril-hydroCHLOROthiazi de 20-25 MG Oral Tablet 10/10/2023 Provider: ROLO Greenwood Diagnosis: TAKE 1 TABLET BY MOUTH EVERY DAY Last Documented On 4 10:21AM By ROLO AQUINO MD ; [facility] Diclofenac Sodium 1% External Gel 10/10/2023 Provide r: ROLO AQUINO MD Diagnosis: Pain in left kne e apply 4 grams to left knee qid prn pain Last Documented On 4 10:21AM By ROLO AQUINO MD ; [facility] Omeprazole 20 MG Oral Capsul e Delayed Release 02/26/2023 Provider: ROLO Greenwood Diagnosis: TAKE 1 CAPSULE BY MOUTH EVERY DAY Last Documented On 3 8:55AM By ROLO AQUINO MD ; [facility] guaiFENesin-Codeine 100-10 M G/5ML Oral Solution 02/23/2023 Provider: ROLO Greenwood Diagnosis: Cough, unspecifi ed Take 1 to 2 teaspoons every 4 hours prn cough Last Documented On 3 11:02AM By ROLO AQUINO MD ; [facility] metFORMIN HCl 1000 MG Oral Tablet 10/25/2022 Provider: ROLO Greenwood Diagnosis: Type 2 diabetes mellitus without complications TAKE 1 TABLET BY MOUTH TWICE A DAY Last Documented On 10/25/2022 5:32PM By Diane BRANTLEY ; [facility] Celecoxib 200 MG Oral Capsule 08/25/2022 Provider: ROLO Greenwood Diagnosis: Bilateral primar y osteoarthritis of knee TAKE 1 CAPSULE BY MOUTH EUNICE Y MAY TAKE SECOND CAPSULE DAILY NEEDED Last Documented On 3 8:59AM By ROLO AQUINO MD ; [facility] Eye Vitamins Oral Capsule 08/14/2017 Provider: Diagnosis: Last Documented On 08/14/2017 8:17AM By IVONE BRANTLEY ; [facility] Magnesium Oxide 500 MG Tablet 05/11/2015 Provide r: Diagnosis: Last Documented On 05/11/2015 11:21AM By MIL BRANTLEY ; [facility] Multivitamins OR CAPS 12/01/2013 Provider: Diagnosis: Last Documented On 4 1:46PM By MAICO BRANTLEY ; [facility] Medications Administered Includes: Administered Medications [...] Patient Last Documented On 4 2:48PM ; [facility] PCV 20 1 2023 Right Deltoid Complete (Repor lakia) Patient Last Documented On 4 2:48PM ; [facility] Allergies Includes: Active Allergies Substance Type Reaction Onset Date Resolved Date Statu s Keflex Allergy Skin Rashes / Er uption of skin, Hives / Urticaria 12/01/2013 Active Last Documented On 4 9:46AM ; [facility] Encounters Encounter Provider Location Date Check-In Time Check-Out Time Diagnosis CHART UPDATE ROLO AQUINO MD 01/01/2024 2:47PM 11:59PM Insurance Includes: Active Insurance Policies Plan Name Member ID Group # Subscriber Relationship Effect gianni Dates 1 - [employer] [id number] KHLOE COREA Self Clinical Notes Includes: Clinical Notes from this encounter No Clinical Notes Recorded
--- OUTSIDE RECORDS SUMMARY | 2024-08-12 17:47 | XMS_ITS | Continuity of Care Document ---
Author Organization [facility] Address [address] [place] [address] [address] [place] [address] Phone Care Team Providers Care Pace Analyst Name Role Phone Mario Khan MD, MD [...] - Active Procedures Procedure Date Office/outpatient Visit, [facility] Remove Foreign Body From Eye Advance [...] Providers Copied on Encounter Office/outpa tient Visit, [facility], [address] [place], [place], [id number], [place] tel:[phone] SEC Khadijah Irizarry irritation (chief complaint) [facility] [address], [address], [place], [address], [place]. tel:[phone] Family History Family Member Type Diagnosis Age At Onset Problem (finding) Family history of degenerative disorder of macula Mother Problem (finding) glaucoma Payers Payer name Insurance type Covered republican ID Jeffery espinoza(s) [employer] CI [id number] Social History Type Description Quantity Date Captured [...]
[2024-08-12 19:28] LABS: Anion Gap 12 mmol/L (4-12); Blood Urea Nitrogen 18 mg/dL (9-20); Calcium 9.7 mg/dL (8.4-10.2); Carbon Dioxide 28 mmol/L (22-30); Chloride 98 mmol/L (98-107); Estimated Glomerular Filt Rate > 60; Glucose 108 mg/dL (65-110); Potassium 4.2 mmol/L (3.4-5.0); Sodium 138 mmol/L (137-145)
== END 2024-08-12 17:43 | disposition home or self-care (01) ==
PROVIDERS: PCP Family Medicine; Visit Provider Anesthesiology
DX: Z79.899 Other long term (current) drug therapy (principal); E11.9 Type 2 diabetes mellitus without complications
CPT/HCPCS: 36415; 80048

== ENCOUNTER 2024-08-14 01:32 | Day surgery (SDC) | payer MEDICARE, SELFPAY ==
[2024-08-12 13:04] VITALS: BMI 50.8
--- NOTE | 2024-08-12 13:12 | PC.NURSE ---
Report to the Outpatient Waiting Room, entrance under the green pavilion located off [facility], at time ___0715am____ on date __08/14/24 . Planned Procedure Time: __0915am .? Time changes happen often and if your time is changed the preop area will call you the afternoon before. - You and your visitor will be asked to self-screen and do not enter if you have any COVID symptoms. Please call surgeon if you need to reschedule. - A mask is optional within the hospital at this time. Patients may have clear liquids (water, carbonated beverages, clear teas, apple juice) until 3 hours prior to surgery with a maximum of 20 ounces. - No food from midnight until time of surgery and no smoking, or chewing tobacco (or any form of nicotine). No chewing gum, candy or mints. (0615am) Take only the following medications with a SIP of water on the morning of surgery: ___Citalopram DO NOT STOP ANY OF YOUR OTHER PRESCRIPTION MEDICATIONS PRIOR TO SURGERY EXCEPT THE FOLLOWING Hold all vitamins and supplements for 3 days per anesthesiologist. Date of last dose is 08/10/24 Medications to discontinue per physician ___None Date to take last dose___None Please no make-up, nail togolese, hairspray, perfume, deodorant, or body powder the day of surgery.? No jewelry (including any body piercings) or valuables the day of surgery, leave them at home.? Please take a shower or bath the night before, or the morning of, surgery with an antibacterial soap.? Wear comfortable, loose fitting clothing.? - Jewelry must be removed prior to entering the operating room.? Rings and piercings that are not removed may be cut off. - The hospital will not accept responsibility for valuables.? - Please leave all valuables, including medications, at home the day of surgery. If you are going home after surgery, a licensed route delivery driver must drive you home.? - NO public transportation without another adult if you receive anesthesia. - We recommend that an adult stay with you for 24 hours following discharge. - We also recommend that you do not drive, make important decision, drink alcoholic beverages, or take any drugs that were not prescribed by your health care provider for at least 24 hours after your discharge time. Follow any additional instructions given to you from your surgeon. Telephone instructions given to ___Patient and asked if any additional questions and then verbalized understanding. Patient advised to call surgeon office or pre surgery nurse liaison [phone] if any additional questions.
--- NOTE | ~2024-08-14 | XR_ITS ---
EXAMINATION: XR retrograde pyelo w/stent RT DATE: 08/14/2024 10:10 INDICATION: Right internal ureteral stent placement TECHNIQUE: Fluoroscopic images from a right internal ureteral stent placement are submitted for cici reza 39 seconds of fluoroscopy time. 24 fluoroscopic images. FINDINGS: There is a right double-J internal ureteral stent projecting in expected position, with proximal Covelo loop at the level of the renal pelvis and distal loop in the pelvis within the bladder lumen. IMPRESSION: 1. Right internal ureteral stent placement. Please refer to real-time procedural findings for avila castillo. Reviewed, dictated and finalized at location A. IMPRESSION: 1. Right internal ureteral stent placement. Please refer to real-time procedu ral findings for details.
--- OUTSIDE RECORDS SUMMARY | 2024-08-14 01:36 | XMS_ITS ---
Care Plan - [facility] Created on: August 14, 2024 HARJEET COREAGEORGIE Ricketts : 1960 Sex: Male Author Organization [facility] Address [address] [place] [address] Phone Care Team Providers Care Black Top Raker Name Role Phone ROLO AQUINO MD Primary Care Provider [phone]
--- OUTSIDE RECORDS SUMMARY | 2024-08-14 01:36 | XMS_ITS ---
Author Organization [facility] Address [address] [place] [address] Phone Care Team Providers Care Family Consumer Scientist Name Role Phone ROLO AQUINO MD Primary Care Provider [phone] Reason for Referral Date Encounter Description Provider [...] Active Last Documented On 4 11:01PM ; [facility] Joint Pain in the Left Knee 09/02/2021 SAL Omer Active Last Documented On 2 8:40AM ; [facility] Osteoarthritis Localized Primary Knee Left 09/02/2021 SAL Omer Active Last Documented On 2 8:40AM ; [facility] Diabetes Mellitus Type 2 - U ncomplicated, Controlled 08/14/2017 ROLO AQUINO MD Active Last Documented On 1 10:11PM ; [facility] Hyperlipidemia 01/07/2016 ROLO AQUINO MD Active Last Documented On 6 9:41AM ; [facility] Anxiety Disorder Nos 06/17/2015 ROLO MCGRAW MD Active Last Documented On 6 10:07AM ; [facility] Hyperglycemia 12/07/2014 ROLO AQUINO MD Active Last Documented On 5 9:44AM ; [facility] 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 ROLO CROWE MD Active Last Documented On 0 2:28PM ; [facility] Note: 11-14 Arthritis 12/01/2013 ROLO AQUINO MD Act gianni Last Documented On 2 10:15AM ; [facility] Gerd 12/01/2013 ROLO AQUINO MD Act gianni Last Documented On 0 2:28PM ; [facility] Essential Hypertension Benign 12/01/2013 ROLO AQUINO MD Active Last Documented On 12/01/2013 2:04PM ; [facility] Note: -------GOES BY FERNANDA Plan of Treatment Findings Encounter Date He was provided with a left knee steroid injection today. He tolerated the injection without difficulty. He would need to wait three months before repeat steroid injection in the left knee. Follow-up with me as needed FOLLOW UP with SAL Omer 08/13/2023 Last Documented On 4 10:04AM ; [facility] He was provided with the lef t knee steroid injection to date. He tolerated the injection without difficulty. He would be required to wait at least three months before repeat steroid injection. Follow-up with me as needed FOLLOW UP with SAL Omer 05/11/2023 Last Documented On 4 9:10AM ; [facility] I did provide him today with a left knee steroid injection. He tolerated that without difficulty. He would need to wait at least three months before repeat injection. Follow-up with me on as a basis FOLLOW UP with SAL Omer 02/08/2023 Last Documented On 3 9:13AM ; [facility] I provided him with a left [...] 11/08/2022 Last Documented On 3 2:10PM ; [facility] He was encouraged to continu e his weight loss to move toward the BMI of 40. He was given a left knee steroid injection today which he tolerated well. Follow up in 3 months for repeat steroid injection as needed FOLLOW UP with SAL Omer 08/07/2022 Last Documented On 3 9:24AM ; [facility] I once again discussed [...] 03/27/2022 Last Documented On 2 9:40AM ; [facility] Ordered home exercises FOLLOW UP with MICHELLE DONATO DO 03/27/2022 Last Documented On 2 9:40AM ; [facility] I discussed once again with Khloe [...] 12/19/2021 Last Documented On 2 12:35PM ; [facility] Ordered home exercises FOLLOW UP with MICHELLE DONATO DO 12/19/2021 Last Documented On 2 12:35PM ; [facility] Ordered follow-up for re-exa mination three months ORTHO ESTABLISHED PATIENT with MICHELLE SCHNEIDER DO 09/12/2021 Last Documented On 2 10:20AM ; [facility] Ordered home exercises ORTHO ESTABLISHED PATIENT with MICHELLE SCHNEIDER DO 09/12/2021 Last Documented On 2 10:20AM ; [facility] He is a diabetic [...] 09/02/2021 Last Documented On 2 8:49AM ; [facility] Ordered Transition in care, clinical summary provided 6 MONTH CHECK with ROLO AQUINO MD 08/14/2018 Last Documented On 9 9:00AM ; [facility] pt agrees with the [...] 03/05/2018 Last Documented On 8 12:41AM ; [facility] Ordered Clinical summary pro vided to patient . Plan discussed and patient/parent/caregiver states understanding PROBLEM VISIT with ALLI LASSITER PA-C 01/29/2018 Last Documented On 8 2:10PM ; [facility] Ordered follow-up visit as [...] 01/29/2018 Last Documented On 8 2:10PM ; [facility] Pt agrees with the [...] 11/06/2017 Last Documented On 8 10:17PM ; [facility] Ordered Clinical summary pro vided to patient . Plan discussed and patient/parent/caregiver states understanding PROBLEM VISIT with ALLI LASSITER PA-C 10/30/2017 Last Documented On 8 3:44PM ; [facility] pt agrees with the following plan of [...] provided INITIAL APPOINTMENT FOR DIABETIC PATIENT with ROOL AQUINO MD 10/03/2017 Last Documented On 8 2:16PM ; [facility] Ordered Transition in care, clinical summary provided 6 MONTH CHECK with ROLO AQUINO MD 08/14/2017 Last Documented On 8 9:11AM ; [facility] Ordered follow-up visit in 1 month --can keep appointment with Dr. Frank for 6 month check PROBLEM VISIT with BONITA JONES [facility]- [facility] ENGINEER- 05/25/2015 Last Documented On 6 12:24PM ; [facility] Ordered return to the clinic if condition worsens or new symptoms arise PROBLEM VISIT with BONITA JONES PMHNP-BC [place] ENGINEER-BC 05/25/2015 Last Documented On 6 12:24PM ; [facility] Ordered patient will call fo r appointment as needed PROBLEM VISIT with BONITA JONES PMHNP-BC [place] ENGINEER-BC 05/11/2015 Last Documented On 6 12:19PM ; [facility] Ordered return to the clinic if condition worsens or new symptoms arise PROBLEM VISIT with BONITA JONES HNP-BC [place] ENGINEER-BC 05/11/2015 Last Documented On 6 12:19PM ; [facility] Ordered Transition in care, clinical summary provided 6 MONTH CHECK with ROLO AQUINO MD 06/29/2014 Last Documented On 5 9:34AM ; [facility] Ordered Clinical summary pro vided to patient . Plan discussed and patient/parent/caregiver states understanding PROBLEM VISIT with ALLI LASSITER PA-C 05/27/2014 Last Documented On 5 2:34PM ; [facility] Ordered follow-up visit as [...] 05/27/2014 Last Documented On 5 2:34PM ; [facility] Ordered patient will call fo r appointment as needed PROBLEM VISIT with BONITA JONES HNP-BC [employer] ENGINEER-BC 05/21/2014 Last Documented On 5 1:43PM ; [facility] Ordered return to the clinic if condition worsens or new symptoms arise PROBLEM VISIT with BONITA JONES PMHNP-BC [employer]ASSIS ENGINEER-BC 05/21/2014 Last Documented On 5 1:43PM ; [facility] We discussed skin cancers [...] 03/24/2013 Last Documented On 3 9:19AM ; [facility] Pending Tests Order Diagnosis Results Due Ordering P rovider Lab A1C HGB (GLYCO HEMOGLOBIN) 04/15/24 ROLO AQUINO MD Last Documented On 4 11:06PM ; [facility] Lab LIPID PANEL 04/15/24 ROLO CROWE MD Last Documented On 4 11:06PM ; [facility] Lab CMP 04/15/24 ROLO PARISH MD Last Documented On 4 11:06PM ; [facility] Referrals To Diagnosis Toe Closing Machine Tender [facility] [address] [id number] - CARDIAC DYSRHYTHMIA NOS Note: see sleep study Last Documented On 4 4:20PM ; [facility] Dermatology ROUTINE MEDICAL EXAM Note: FARA CLEMENT ROUTIN E SKIN CHECKS Last Documented On 6 4:07PM ; [facility] Dermatology LUCY SCHILLING MD Dermatitis, uns pecified Last Documented On 8 12:39PM ; [facility] Orthopedic MARTINA HOWELL DO Pain in right knee Last Documented On 9 2:59PM ; [facility] Hydraulic Jack Adjuster CAROLINE MENDIETA MD [facility] for screening for malignant neoplasm of colon Note: Positive Cologuard Yaron t Last Documented On 0 10:52PM ; [facility] Urologist AGGIE RUSS MD Elevated pr ostate specific antigen [PSA] Note: Referral to Dr. Wiilan Russ, Urologist in [place]. Last Documented On 2 5:20PM ; [facility] Orthopedic Pain in left kne e Note: Referral to Dr. Schneider - Orthopedic for left knee issues. Last Documented On 2 11:25AM ; [facility] Instructions to patient Intervention and counseling on cessation of tobacco use Last Documented On 4 9:46AM ; [facility] Intervention and counseling on cessation of tobacco use Last Documented On 4 8:59AM ; [facility] Intervention and counseling on cessation of tobacco use Last Documented On 3 9:03AM ; [facility] No reduced physical activity -release to full activities Last Documented On 2 9:14AM ; [facility] Intervention and counseling on cessation of tobacco use Last Documented On 2 8:49AM ; [facility] No reduced physical activity -release to full activities Last Documented On 2 12:26PM ; [facility] Intervention and counseling on cessation of tobacco use Last Documented On 2 9:54AM ; [facility] No reduced physical activity -release to full activities Last Documented On 2 10:18AM ; [facility] Lose weight Last Documented On 0 8:50PM ; [facility] Lose weight Last Documented On 9 8:36PM ; [facility] Maintain a healthy diet Last Documented On 8 8:21AM ; [facility] Maintain a healthy diet Last Documented On 8 8:24AM ; [facility] Maintain a healthy diet Last Documented On 8 8:37AM ; [facility] Lose weight Last Documented On 7 10:09AM ; [facility] Instructions for patient Last Documented On 6 10:59AM ; [facility] Instructions for patient Last Documented On 6 11:41AM ; [facility] Instructions for patient Last Documented On 5 1:28PM ; [facility] Education and Decision Aids were provided during visit for: Patient education about orth opedic activities Last Documented On 2 9:14AM ; [facility] Patient education about orth opedic activities Last Documented On 2 12:26PM ; [facility] Patient education about orth opedic activities Last Documented On 2 10:18AM ; [facility] Patient education about a pr oper diet Last Documented On 8 8:21AM ; [facility] Patient education about regu lar dental care Last Documented On 8 8:21AM ; [facility] Patient education about diab etes and discussed ABCs of diabetic therapy and goals Last Documented On 8 8:21AM ; [facility] Patient education about a ho me blood glucose monitor with instructions to bring monitor to each visit Last Documented On 8 8:21AM ; [facility] Dietary counseling pertainin g to diabetes mellitus Last Documented On 8 8:21AM ; [facility] Patient education about diab etic foot care Last Documented On 8 8:21AM ; [facility] The patient's goal is to yaron t the blood sugars and bring in the results to each visit Last Documented On 8 8:21AM ; [facility] Review of care plan, pt xochitl hicks very well, no change in plan Last Documented On 8 8:21AM ; [facility] Patient education about a pr oper diet Last Documented On 8 8:24AM ; [facility] Patient education about regu lar dental care Last Documented On 8 8:24AM ; [facility] Patient education about diab etes and discussed ABCs of diabetic therapy and goals Last Documented On 8 8:24AM ; [facility] Patient education about a ho me blood glucose monitor with instructions to bring monitor to each visit Last Documented On 8 8:24AM ; [facility] Dietary counseling pertainin g to diabetes mellitus Last Documented On 8 8:24AM ; [facility] Patient education about diab etic foot care Last Documented On 8 8:24AM ; [facility] The patient's goal is to yaron t the blood sugars and bring in the results to each visit Last Documented On 8 8:24AM ; [facility] Counseling/education [Use fo r free text] Last Documented On 8 8:24AM ; [facility] Patient education about a pr oper diet Last Documented On 8 8:37AM ; [facility] Patient education about regu lar dental care Last Documented On 8 8:37AM ; [facility] Patient education about diab etes and discussed ABCs of diabetic therapy and goals Last Documented On 8 8:37AM ; [facility] Patient education about a ho me blood glucose monitor with instructions to bring monitor to each visit Last Documented On 8 8:37AM ; [facility] Dietary counseling pertainin g to diabetes mellitus Last Documented On 8 8:37AM ; [facility] Patient education about diab etic foot care Last Documented On 8 8:37AM ; [facility] The patient's goal is to yaron t the blood sugars and bring in the results to each visit Last Documented On 8 8:37AM ; [facility] Overview of T2DM disease pro cess and the outline of overall care. Pt states he is the heaviest he has ever been. He was advised to have knees replace a few years ago, but opted out, now he states he is too heavy to have this done Last Documented On 8 9:13AM ; [facility] Assessments Includes: Assessments for all patient encounters Findings Encounter Date Anxiety disorder NOS CHECK UP with ROLO CROWE MD 10/10/2023 Last Documented On 4 11:06PM ; [facility] Benign essential hypertension CHECK UP with NEFTALI AQUINO MD 10/10/2023 Last Documented On 4 11:06PM ; [facility] Hyperglycemia CHECK UP with ROLO AQUINO MD 10/10/2023 Last Documented On 4 11:06PM ; [facility] Hyperlipidemia CHECK UP with ROLO AQUINO MD 10/10/2023 Last Documented On 4 11:06PM ; [facility] Localized primary osteoarthr itis of left knee CHECK UP with ROLO AQUINO MD 10/10/2023 Last Documented On 4 11:06PM ; [facility] Nephrolithiasis CHECK UP with ROLO AQUINO MD 10/10/2023 Last Documented On 4 11:06PM ; [facility] Nonorganic sleep apnea CHECK UP with ROLO ARCE MD 10/10/2023 Last Documented On 4 11:06PM ; [facility] Type 2 diabetes mellitus - uncomplicated, controlled CHECK UP with ROLO AQUINO MD 10/10/2023 Last Documented On 4 11:06PM ; [facility] Localized primary osteoarthr itis of left knee FOLLOW UP with SAL Omer 08/13/2023 Last Documented On 4 10:04AM ; [facility] Localized primary osteoarthr itis of left knee FOLLOW UP with SAL Omer 05/11/2023 Last Documented On 4 9:10AM ; [facility] Anxiety disorder NOS CHECK UP with ROLO CROWE MD 02/26/2023 Last Documented On 3 8:48AM ; [facility] Benign essential hypertension CHECK UP with NEFTALI AQUINO MD 02/26/2023 Last Documented On 3 8:48AM ; [facility] Hyperlipidemia CHECK UP with ROLO AQUINO MD 02/26/2023 Last Documented On 3 8:48AM ; [facility] Nonorganic sleep apnea CHECK UP with ROLO ARCE MD 02/26/2023 Last Documented On 3 8:48AM ; [facility] Type 2 diabetes mellitus - uncomplicated, controlled CHECK UP with ROLO AQUINO MD 02/26/2023 Last Documented On 3 8:48AM ; [facility] Allergic rhinitis SICK VISIT with ROLO PARISH MD 02/23/2023 Last Documented On 3 12:04PM ; [facility] Bronchitis SICK VISIT with ROLO VASQUEZ MD 02/23/2023 Last Documented On 3 12:04PM ; [facility] Localized primary osteoarthr itis of left knee FOLLOW UP with SAL Omer 02/08/2023 Last Documented On 3 9:13AM ; [facility] Localized primary osteoarthr itis of left knee FOLLOW UP with SAL Omer 11/08/2022 Last Documented On 3 2:10PM ; [facility] Benign essential hypertension CHECK UP with NEFTALI AQUINO MD 08/25/2022 Last Documented On 3 9:22AM ; [facility] GERD CHECK UP with ROLO AQUINO MD 08/25/2022 Last Documented On 3 9:22AM ; [facility] Hyperglycemia CHECK UP with ROLO AQUINO MD 08/25/2022 Last Documented On 3 9:22AM ; [facility] Hyperlipidemia CHECK UP with ROLO AQUINO MD 08/25/2022 Last Documented On 3 9:22AM ; [facility] Localized primary osteoarthr itis of left knee CHECK UP with ROLO AQUINO MD 08/25/2022 Last Documented On 3 9:22AM ; [facility] Type 2 diabetes mellitus - uncomplicated, controlled CHECK UP with ROLO AQUINO MD 08/25/2022 Last Documented On 3 9:22AM ; [facility] Localized primary osteoarthr itis of left knee FOLLOW UP with SAL Omer 08/07/2022 Last Documented On 3 9:24AM ; [facility] Benign essential hypertension CHECK UP with NEFTALI AQUINO MD 05/03/2022 Last Documented On 2 11:28PM ; [facility] GERD CHECK UP with ROLO AQUINO MD 05/03/2022 Last Documented On 2 11:28PM ; [facility] Hyperlipidemia CHECK UP with ROLO AQUINO MD 05/03/2022 Last Documented On 2 11:28PM ; [facility] Type 2 diabetes mellitus - uncomplicated, controlled CHECK UP with ROLO AQUINO MD 05/03/2022 Last Documented On 2 11:28PM ; [facility] Osteoarthritis of knee -left FOLLOW UP with MITCH SCHNEIDER DO 03/27/2022 Last Documented On 2 9:40AM ; [facility] Osteoarthritis of left knee FOLLOW UP with MICHELLE SCHNEIDER DO 03/27/2022 Last Documented On 2 9:40AM ; [facility] Benign essential hypertension CHECK UP with NEFTALI AQUINO MD 02/27/2022 Last Documented On 2 10:15PM ; [facility] Hyperlipidemia CHECK UP with ROLO AQUINO MD 02/27/2022 Last Documented On 2 10:15PM ; [facility] Localized primary osteoarthr itis of left knee CHECK UP with ROLO AQUINO MD 02/27/2022 Last Documented On 2 10:15PM ; [facility] Obesity CHECK UP with ROLO AQUINO MD 02/27/2022 Last Documented On 2 10:15PM ; [facility] Osteoarthritis of knee -left FOLLOW UP with MITCH SCHNEIDER DO 12/19/2021 Last Documented On 2 12:35PM ; [facility] Osteoarthritis of left knee FOLLOW UP with MICHELLE SCHNEIDER DO 12/19/2021 Last Documented On 2 12:35PM ; [facility] Osteoarthritis of knee -left ORTHO ESTAB LISHED PATIENT with MICHELLE SCHNEIDER DO 09/12/2021 Last Documented On 2 10:20AM ; [facility] Assessment of left knee joint pain ORTHO ESTABLISHED PATIENT with SAL Omer 09/02/2021 Last Documented On 2 8:49AM ; [facility] Localized primary osteoarthr itis of left knee ORTHO ESTABLISHED PATIENT with SAL Omer 09/02/2021 Last Documented On 2 8:49AM ; [facility] Osteoarthritis of knee -left ORTHO ESTAB LISHED PATIENT with SAL Omer 09/02/2021 Last Documented On 2 8:49AM ; [facility] Anxiety disorder NOS CHECK UP with ROLO CROWE MD 08/26/2021 Last Documented On 2 2:55PM ; [facility] Arthritis CHECK UP with ROLO AQUINO MD 08/26/2021 Last Documented On 2 2:55PM ; [facility] Benign essential hypertension CHECK UP with NEFTALI AQUINO MD 08/26/2021 Last Documented On 2 2:55PM ; [facility] Hyperlipidemia CHECK UP with ROLO AQUINO MD 08/26/2021 Last Documented On 2 2:55PM ; [facility] LEFT KNEE PAIN CHECK UP with ROLO AQUINO MD 08/26/2021 Last Documented On 2 2:55PM ; [facility] Morbid obesity CHECK UP with ROLO AQUINO MD 08/26/2021 Last Documented On 2 2:55PM ; [facility] Obesity CHECK UP with ROLO AQUINO MD 08/26/2021 Last Documented On 2 2:55PM ; [facility] Type 2 diabetes mellitus - uncomplicated, controlled CHECK UP with ROLO AQUINO MD 08/26/2021 Last Documented On 2 2:55PM ; [facility] Backache PROBLEM VISIT with ROLO CROWE MD 08/03/2021 Last Documented On 2 12:16PM ; [facility] LEFT KNEE PAIN PROBLEM VISIT with ROLO CROWE MD 08/03/2021 Last Documented On 2 12:16PM ; [facility] Right buttock pain PROBLEM VISIT with ROLO TREJO MD 08/03/2021 Last Documented On 2 12:16PM ; [facility] Strain of the right buttock PROBLEM VISIT with Negra AQUINO MD 08/03/2021 Last Documented On 2 12:16PM ; [facility] Anxiety disorder NOS CHECK UP with ROLO CROWE MD 02/25/2021 Last Documented On 1 11:36PM ; [facility] Arthritis CHECK UP with ROLO AQUINO MD 02/25/2021 Last Documented On 1 11:36PM ; [facility] Benign essential hypertension CHECK UP with NEFTALI AQUINO MD 02/25/2021 Last Documented On 1 11:36PM ; [facility] Hyperlipidemia CHECK UP with ROLO AQUINO MD 02/25/2021 Last Documented On 1 11:36PM ; [facility] Nonorganic sleep apnea CHECK UP with ROLO ARCE MD 02/25/2021 Last Documented On 1 11:36PM ; [facility] Type 2 diabetes mellitus - uncomplicated, controlled CHECK UP with ROLO AQUINO MD 02/25/2021 Last Documented On 1 11:36PM ; [facility] Calcaneal spur PROBLEM VISIT with ROLO CROWE MD 12/14/2020 Last Documented On 1 11:52AM ; [facility] Pain in foot PROBLEM VISIT with ROLO CROWE MD 12/14/2020 Last Documented On 1 11:52AM ; [facility] Pain in foot and toes PROBLEM VISIT with ROLO AQUINO MD 12/14/2020 Last Documented On 11:52AM ; [facility] Pain in right foot PROBLEM VISIT with ROLO TREJO MD 12/14/2020 Last Documented On 1 11:52AM ; [facility] Anxiety disorder NOS CHECK UP with ROLO CROWE MD 11/09/2020 Last Documented On 1 10:15PM ; [facility] Benign essential hypertension CHECK UP with NEFTALI AQUINO MD 11/09/2020 Last Documented On 1 10:15PM ; [facility] Hyperlipidemia CHECK UP with ROLO AQUINO MD 11/09/2020 Last Documented On 1 10:15PM ; [facility] Type 2 diabetes mellitus - uncomplicated, controlled CHECK UP with ROLO AQUINO MD 11/09/2020 Last Documented On 1 10:15PM ; [facility] [R97.20 - Elevated prostate specific antigen [PSA]] prostate-specific antigen in serum was elevated CHECK UP with ROLO AQUINO MD 08/10/2020 Last Documented On 1 8:18PM ; [facility] Benign essential hypertension CHECK UP with NEFTALI AQUINO MD 08/10/2020 Last Documented On 1 8:18PM ; [facility] GERD CHECK UP with ROLO AQUINO MD 08/10/2020 Last Documented On 1 8:18PM ; [facility] Hyperlipidemia CHECK UP with ROLO AQUINO MD 08/10/2020 Last Documented On 1 8:18PM ; [facility] Type 2 diabetes mellitus - uncomplicated, controlled CHECK UP with ROLO AQUINO MD 08/10/2020 Last Documented On 1 8:18PM ; [facility] Anxiety disorder NOS 6 MONTH CHECK with ROLO VILLALTA MD 10/27/2019 Last Documented On 0 8:52PM ; [facility] Benign essential hypertension 6 MONTH CHECK with ROLO AQUINO MD 10/27/2019 Last Documented On 0 8:52PM ; [facility] GERD 6 MONTH CHECK with ROLO CROWE MD 10/27/2019 Last Documented On 0 8:52PM ; [facility] Hyperlipidemia 6 MONTH CHECK with ROLO CROWE MD 10/27/2019 Last Documented On 0 8:52PM ; [facility] Nonorganic sleep apnea 6 MONTH CHECK with ROLO AQUINO MD 10/27/2019 Last Documented On 0 8:52PM ; [facility] Seborrheic keratosis 6 MONTH CHECK with ROLO VILLALTA MD 10/27/2019 Last Documented On 0 8:52PM ; [facility] Type 2 diabetes mellitus - uncomplicated, controlled 6 MONTH CHECK with ROLO AQUINO MD 10/27/2019 Last Documented On 0 8:52PM ; [facility] Benign essential hypertension 6 MONTH CHECK with ROLO AQUINO MD 02/13/2019 Last Documented On 9 9:23AM ; [facility] Hyperglycemia 6 MONTH CHECK with ROLO CROWE MD 02/13/2019 Last Documented On 9 9:23AM ; [facility] Hyperlipidemia 6 MONTH CHECK with ROLO CROWE MD 02/13/2019 Last Documented On 9 9:23AM ; [facility] Benign essential hypertension PREOP EXAM with ERNESTO AQUINO MD 11/18/2018 Last Documented On 9 8:39PM ; [facility] Osteoarthritis of both knees PREOP EXAM with MARCELLUS AQUINO MD 11/18/2018 Last Documented On 9 8:39PM ; [facility] Type 2 diabetes mellitus - uncomplicated, controlled PREOP EXAM with ROLO AQUINO MD 11/18/2018 Last Documented On 9 8:39PM ; [facility] Arthralgia of the right knee/patella/tibia/fibula 6 MONTH CHECK with ROLO AQUINO MD 08/14/2018 Last Documented On 9 9:00AM ; [facility] Benign essential hypertension 6 MONTH CHECK with ROLO AQUINO MD 08/14/2018 Last Documented On 9 9:00AM ; [facility] Hyperlipidemia 6 MONTH CHECK with ROLO CROWE MD 08/14/2018 Last Documented On 9 9:00AM ; [facility] Type 2 diabetes mellitus - uncomplicated, controlled 6 MONTH CHECK with ROLO AQUINO MD 08/14/2018 Last Documented On 9 9:00AM ; [facility] Hyperlipidemia DIABETIC FOLLOW UP APPOINTMENT w lily AQUINO MD 03/05/2018 Last Documented On 8 12:41AM ; [facility] Type 2 diabetes mellitus DIABETIC FOLLOW UP APPOINTMENT with ROLO AQUINO MD 03/05/2018 Last Documented On 8 12:41AM ; [facility] Type 2 diabetes mellitus - uncomplicated, controlled DIABETIC FOLLOW UP APPOINTMENT with ROLO AQUINO MD 03/05/2018 Last Documented On 8 12:41AM ; [facility] Benign essential hypertension 6 MONTH CHECK with ROLO AQUINO MD 02/12/2018 Last Documented On 8 9:06AM ; [facility] Hyperlipidemia 6 MONTH CHECK with ROLO CROWE MD 02/12/2018 Last Documented On 8 9:06AM ; [facility] Type 2 diabetes mellitus - uncomplicated, controlled 6 MONTH CHECK with ROLO AQUINO MD 02/12/2018 Last Documented On 8 9:06AM ; [facility] Closed fracture of the left patella PROB MYLES VISIT with ALLI LASSITER PA-C 01/29/2018 Last Documented On 8 2:10PM ; [facility] Muscle spasm PROBLEM VISIT with ALLI YORK PA-C 01/29/2018 Last Documented On 8 2:10PM ; [facility] Sprained left knee PROBLEM VISIT with ALLI KOEHLER PA-C 01/29/2018 Last Documented On 8 2:10PM ; [facility] Benign essential hypertension DIABETIC F OLLOW UP APPOINTMENT with ROLO AQUINO MD 11/06/2017 Last Documented On 8 10:17PM ; [facility] Hyperlipidemia DIABETIC FOLLOW UP APPOINTMENT w lily AQUINO MD 11/06/2017 Last Documented On 8 10:17PM ; [facility] Type 2 diabetes mellitus - uncomplicated, controlled DIABETIC FOLLOW UP APPOINTMENT with ROLO AQUINO MD 11/06/2017 Last Documented On 8 10:17PM ; [facility] Arthralgia of the left knee/patella/tibia/fibula PROBLEM VISIT with ALLI LASSITER PA-C 10/30/2017 Last Documented On 8 3:44PM ; [facility] Bursitis of knee PROBLEM VISIT with ALLI VASQUEZ PA-C 10/30/2017 Last Documented On 8 3:44PM ; [facility] Type 2 diabetes mellitus INITIAL APPOINT MENT FOR DIABETIC PATIENT with ROLO AQUINO MD 10/03/2017 Last Documented On 8 2:16PM ; [facility] Type 2 diabetes mellitus - uncomplicated, controlled INITIAL APPOINTMENT FOR DIABETIC PATIENT with ROLO AQUINO MD 10/03/2017 Last Documented On 8 2:16PM ; [facility] Benign essential hypertension 6 MONTH CHECK with ROLO AQUINO MD 08/14/2017 Last Documented On 8 9:11AM ; [facility] Hyperglycemia 6 MONTH CHECK with ROLO CROWE MD 08/14/2017 Last Documented On 8 9:11AM ; [facility] Hyperlipidemia 6 MONTH CHECK with ROLO CROWE MD 08/14/2017 Last Documented On 8 9:11AM ; [facility] Type 2 diabetes mellitus - uncomplicated, controlled 6 MONTH CHECK with ROLO AQUINO MD 08/14/2017 Last Documented On 8 9:11AM ; [facility] Anxiety disorder NOS 6 MONTH CHECK with ROLO VILLALTA MD 02/14/2017 Last Documented On 7 9:00AM ; [facility] Benign essential hypertension 6 MONTH CHECK with ROLO AQUINO MD 02/14/2017 Last Documented On 7 9:00AM ; [facility] Hyperglycemia 6 MONTH CHECK with ROLO CROWE MD 02/14/2017 Last Documented On 7 9:00AM ; [facility] Hyperlipidemia 6 MONTH CHECK with ROLO CROWE MD 02/14/2017 Last Documented On 7 9:00AM ; [facility] Benign essential hypertension 3 MONTH CHECK with ROLO AQUINO MD 10/10/2016 Last Documented On 7 9:40AM ; [facility] Hyperglycemia 3 MONTH CHECK with ROLO CROWE MD 10/10/2016 Last Documented On 7 9:40AM ; [facility] Hyperlipidemia 3 MONTH CHECK with ROLO CROWE MD 10/10/2016 Last Documented On 7 9:40AM ; [facility] Strain of the right buttock gluteus yomaira PROBLEM VISIT with ROLO AQUINO MD 08/22/2016 Last Documented On 7 5:59PM ; [facility] Benign essential hypertension 6 MONTH CHECK with ROLO AQUINO MD 07/12/2016 Last Documented On 7 11:55PM ; [facility] Hyperglycemia 6 MONTH CHECK with ROLO CROWE MD 07/12/2016 Last Documented On 7 11:55PM ; [facility] Hyperlipidemia 6 MONTH CHECK with ROLO CROWE MD 07/12/2016 Last Documented On 7 11:55PM ; [facility] Anxiety disorder NOS 4 MONTH CHECK UP with REGI AQUINO MD 01/07/2016 Last Documented On 6 9:52AM ; [facility] Benign essential hypertension 4 MONTH CHECK UP w lily AQUINO MD 01/07/2016 Last Documented On 6 9:52AM ; [facility] Hyperlipidemia 4 MONTH CHECK UP with ROLO TREJO MD 01/07/2016 Last Documented On 6 9:52AM ; [facility] Anxiety disorder NOS 1 MONTH CHECK with ROLO VILLALTA MD 08/20/2015 Last Documented On 6 10:17AM ; [facility] Benign essential hypertension 1 MONTH CHECK with ROLO AQUINO MD 08/20/2015 Last Documented On 6 10:17AM ; [facility] Anxiety disorder NOS 4 MONTH CHECK UP with REGI AQUINO MD 07/13/2015 Last Documented On 6 5:52PM ; [facility] Anxiety disorder NOS 6 MONTH CHECK with ROLO VILLALTA MD 06/17/2015 Last Documented On 6 1:13PM ; [facility] Generalized anxiety disorder PROBLEM VISIT with MANUELITO MALONEY [facility] 05/29/2015 Last Documented On 6 1:51PM ; [facility] Depression with anxiety PROBLEM VISIT wi [facility] 05/25/2015 Last Documented On 6 12:24PM ; [facility] Acute sinusitis PROBLEM VISIT with [facility] 05/11/2015 Last Documented On 6 12:19PM ; [facility] Benign essential hypertension 1 MONTH CHECK with ROLO AQUINO MD 03/16/2015 Last Documented On 5 2:39PM ; [facility] Benign essential hypertension PROBLEM VISIT with ROLO AQUINO MD 02/16/2015 Last Documented On 5 2:01PM ; [facility] Arthritis 6 MONTH CHECK with ROLO CROWE MD 12/07/2014 Last Documented On 5 10:03AM ; [facility] Benign essential hypertension 6 MONTH CHECK with ROLO AQUINO MD 12/07/2014 Last Documented On 5 10:03AM ; [facility] Hyperglycemia 6 MONTH CHECK with ROLO CROWE MD 12/07/2014 Last Documented On 5 10:03AM ; [facility] Nonorganic sleep apnea 6 MONTH CHECK with ROLO AQUINO MD 12/07/2014 Last Documented On 5 10:03AM ; [facility] Arthritis 6 MONTH CHECK with ROLO CROWE MD 06/29/2014 Last Documented On 5 9:34AM ; [facility] Benign essential hypertension 6 [...] Lumbago PROBLEM VISIT with BON[facility] 05/21/2014 Last Documented On 5 1:43PM ; [facility] Benign essential hypertension NEW PATIENT VISIT with ROLO AQUINO MD 12/01/2013 Last Documented On 9 5:20PM ; [facility] Colon screening NEW PATIENT VISIT with ROLO IRIZARRY MD 12/01/2013 Last Documented On 9 5:20PM ; [facility] Fatigue NEW PATIENT VISIT with ROLO IRIZARRY MD 12/01/2013 Last Documented On 9 5:20PM ; [facility] Open wound NEW PATIENT VISIT with ROLO IRIZARRY MD 12/01/2013 Last Documented On 9 5:20PM ; [facility] Basal cell cancer of the hel ix of the ear lobe CONSULTATION with JENN ADAM DO 03/24/2013 Last Documented On 3 9:19AM ; [facility] Instructions Includes: Instructions for all patient encounters Instructions to patient Intervention and counseling on cessation of tobacco use Last Documented On 4 9:46AM ; [facility] Intervention and counseling on cessation of tobacco use Last Documented On 4 8:59AM ; [facility] Intervention and counseling on cessation of tobacco use Last Documented On 3 9:03AM ; [facility] No reduced physical activity -release to full activities Last Documented On 2 9:14AM ; [facility] Intervention and counseling on cessation of tobacco use Last Documented On 2 8:49AM ; [facility] No reduced physical activity -release to full activities Last Documented On 2 12:26PM ; [facility] Intervention and counseling on cessation of tobacco use Last Documented On 2 9:54AM ; [facility] No reduced physical activity -release to full activities Last Documented On 2 10:18AM ; [facility] Lose weight Last Documented On 0 8:50PM ; [facility] Lose weight Last Documented On 9 8:36PM ; [facility] Maintain a healthy diet Last Documented On 8 8:21AM ; [facility] Maintain a healthy diet Last Documented On 8 8:24AM ; [facility] Maintain a healthy diet Last Documented On 8 8:37AM ; [facility] Lose weight Last Documented On 7 10:09AM ; [facility] Instructions for patient Last Documented On 6 10:59AM ; [facility] Instructions for patient Last Documented On 6 11:41AM ; [facility] Instructions for patient Last Documented On 5 1:28PM ; [facility] Education and Decision Aids were provided during visit for: Patient education about orth opedic activities Last Documented On 2 9:14AM ; [facility] Patient education about orth opedic activities Last Documented On 2 12:26PM ; [facility] Patient education about orth opedic activities Last Documented On 2 10:18AM ; [facility] Patient education about a pr oper diet Last Documented On 8 8:21AM ; [facility] Patient education about regu lar dental care Last Documented On 8 8:21AM ; [facility] Patient education about diab etes and discussed ABCs of diabetic therapy and goals Last Documented On 8 8:21AM ; [facility] Patient education about a ho me blood glucose monitor with instructions to bring monitor to each visit Last Documented On 8 8:21AM ; [facility] Dietary counseling pertainin g to diabetes mellitus Last Documented On 8 8:21AM ; [facility] Patient education about diab etic foot care Last Documented On 8 8:21AM ; [facility] The patient's goal is to yaron t the blood sugars and bring in the results to each visit Last Documented On 8 8:21AM ; [facility] Review of care plan, pt xochitl hicks very well, no change in plan Last Documented On 8 8:21AM ; [facility] Patient education about a pr oper diet Last Documented On 8 8:24AM ; [facility] Patient education about regu lar dental care Last Documented On 8 8:24AM ; [facility] Patient education about diab etes and discussed ABCs of diabetic therapy and goals Last Documented On 8 8:24AM ; [facility] Patient education about a ho me blood glucose monitor with instructions to bring monitor to each visit Last Documented On 8 8:24AM ; [facility] Dietary counseling pertainin g to diabetes mellitus Last Documented On 8 8:24AM ; [facility] Patient education about diab etic foot care Last Documented On 8 8:24AM ; [facility] The patient's goal is to yaron t the blood sugars and bring in the results to each visit Last Documented On 8 8:24AM ; [facility] Counseling/education [Use fo r free text] Last Documented On 8 8:24AM ; [facility] Patient education about a pr oper diet Last Documented On 8 8:37AM ; [facility] Patient education about regu lar dental care Last Documented On 8 8:37AM ; [facility] Patient education about diab etes and discussed ABCs of diabetic therapy and goals Last Documented On 8 8:37AM ; [facility] Patient education about a ho nc blood glucose monitor with instructions to bring monitor to each visit Last Documented On 8 8:37AM ; [facility] Dietary counseling pertainin g to diabetes mellitus Last Documented On 8 8:37AM ; [facility] Patient education about diab etic foot care Last Documented On 8 8:37AM ; [facility] The patient's goal is to yaron t the blood sugars and bring in the results to each visit Last Documented On 8 8:37AM ; [facility] Overview of T2DM disease pro cess and the outline of overall care. Pt states he is the heaviest he has ever been. He was advised to have knees replace a few years ago, but opted out, now he states he is too heavy to have this done Last Documented On 8 9:13AM ; [facility] Medical Equipment - Implanted Devices Includes: Current and historical Devices No Medical Equipment Recorded Medications Includes: Current and historical Medications Current Medications (continue as prescribed) Citalopram Hydrobromide 20 M G Oral Tablet 10/10/2023 Provider: ROLO Greenwood Diagnosis: Dysthymic disord er TAKE 1 TABLET BY MOUTH EVERY DAY Last Documented On 4 10:21AM By ROLO AQUINO MD ; [facility] Rosuvastatin Calcium 10 MG Oral [...] 10:21AM By ROLO AQUINO MD ; [facility] Diclofenac Sodium 1% External Gel 10/10/2023 Provide r: ROLO AQUINO MD Diagnosis: Pain in left kne e apply 4 grams to left knee qid prn pain Last Documented On 4 10:21AM By ROLO AQUINO MD ; [facility] Omeprazole 20 MG Oral Capsul e Delayed Release 02/26/2023 Provider: ROLO Greenwood Diagnosis: TAKE 1 CAPSULE BY MOUTH EVERY DAY Last Documented On 3 8:55AM By ROLO AQUINO MD ; [facility] guaiFENesin-Codeine 100-10 M G/5ML Oral Solution 02/23/2023 Provider: ROLO Greenwood Diagnosis: Cough, unspecifi ed Take 1 to 2 teaspoons every 4 hours prn cough Last Documented On 3 11:02AM By ROLO AQUINO MD ; [facility] metFORMIN HCl 1000 MG Oral Tablet 10/25/2022 Provider: ROLO Greenwood Diagnosis: Type 2 diabetes mellitus without complications TAKE 1 TABLET BY MOUTH TWICE A DAY Last Documented On 10/25/2022 5:32PM By Diane BRANTLEY ; [facility] Celecoxib 200 MG Oral Capsule 08/25/2022 Provider: ROLO Greenwood Diagnosis: Bilateral primar y osteoarthritis of knee TAKE 1 CAPSULE BY MOUTH EUNICE Y MAY TAKE SECOND CAPSULE DAILY NEEDED Last Documented On 3 8:59AM By ROLO AQUINO MD ; [facility] Eye Vitamins Oral Capsule 08/14/2017 Provider: Diagnosis: Last Documented On 08/14/2017 8:17AM By IVONE BRANTLEY ; [facility] Magnesium Oxide 500 MG Tablet 05/11/2015 Provide r: Diagnosis: Last Documented On 05/11/2015 11:21AM By MIL BRANTLEY ; [facility] Multivitamins OR CAPS 12/01/2013 Provider: Diagnosis: Last Documented On 4 1:46PM By MAICO BRANTLEY ; [facility] Past Medications on file Ozempic (1 MG/DOSE) 4 MG/3ML Subcutaneous Solution Pen-injector 02/26/2023 - 10/10/2023 Provider: ROLO AQUINO MD Diagnosis: Type 2 diabetes mellitus without complications 1mg once a week SC Last Documented On 4 10:08AM By ROLO AQUINO MD ; [facility] Zithromax Z-Norman 250 MG Oral Tablet 02/23/2023 - 09/09/2023 Provider: ROLO AQUINO MD Diagnosis: Cough, unspecifi ed DIRECTED Last Documented On 10/10/2023 9:30AM By Diane BRANTLEY ; [facility] Ozempic (1 MG/DOSE) 4 MG/3ML Subcutaneous Solution Pen-injector 08/25/2022 - 02/26/2023 Provider: ROLO AQUINO MD Diagnosis: Type 2 diabetes mellitus without complications 1mg once a week SC Last Documented On 3 8:41AM By ROLO AQUINO MD ; [facility] Lisinopril-hydroCHLOROthiazi de 20-25 MG Oral Tablet 08/25/2022 - 10/10/2023 Provider: ROLO AQUINO MD Diagnosis: TAKE 1 TABLET BY MOUTH EVERY DAY Last Documented On 4 10:08AM By ROLO AQUINO MD ; [facility] Rosuvastatin Calcium 10 MG Oral Tablet 08/25/2022 - 10/10/2023 Provider: ROLO AQUINO MD Diagnosis: Hyperlipidemia, unspecified TAKE 1 TABLET BY MOUTH EVERY DAY Last Documented On 4 10:08AM By ROLO AQUINO MD ; [facility] metFORMIN HCl 1000 MG Oral Tablet 08/07/2022 - 023 Provider: Diagnosis: Last Documented On 11/08/2022 12:57PM By CORRIE RINCON LPN ; [facility] Omeprazole 20 MG Oral Capsul e Delayed Release 05/03/2022 - 02/26/2023 Provider: ROLO VASQUEZ MD Diagnosis: TAKE 1 CAPSULE BY MOUTH EVERY DAY Last Documented On 3 8:41AM By ROLO AQUINO MD ; [facility] Ozempic (1 MG/DOSE) 4 MG/3ML Subcutaneous Solution Pen-injector 05/03/2022 - 08/25/2022 Provider: ROLO AQUINO MD Diagnosis: Type 2 diabetes mellitus without complications 1mg once a week SC dose increase Last Documented On 3 8:52AM By ROLO AQUINO MD ; [facility] metFORMIN HCl 1000 MG Oral Tablet 2022 - 08/07/2022 Provider: ROLO AQUINO MD Diagnosis: Type 2 diabetes mellitus without complications TAKE 1 TABLET BY MOUTH TWICE A DAY Last Documented On 08/07/2022 9:05AM By CORRIE RINCON LPN ; [facility] Ozempic (0.25 or 0.5 MG/DOSE) 2 MG/1.5ML Subcutaneous Solution Pen-injector 02/27/2022 - 07/07/2022 Provider: ROLO AQUINO MD Diagnosis: Type 2 diabetes mellitus without complications as directed inject 0.5mg once a week SQ Last Documented On 08/25/2022 8:15AM By Diane BRANTLEY ; [facility] Lisinopril-hydroCHLOROthiazi de 20-25 MG Oral Tablet 02/20/2022 - 08/25/2022 Provider: ROLO AQUINO MD Diagnosis: TAKE 1 TABLET BY MOUTH EVERY DAY Last Documented On 3 8:52AM By ROLO AQUINO MD ; [facility] metFORMIN HCl 1000 MG Oral Tablet 10/25/2021 - 2022 Provider: ROLO AQUINO MD Diagnosis: Type 2 diabetes mellitus without complications TAKE 1 TABLET BY MOUTH TWICE A DAY Last Documented On 2022 5:51PM By Diane BRANTLEY ; [facility] Rosuvastatin Calcium 10 MG Oral Tablet 08/26/2021 - 08/25/2022 Provider: ROLO AQUINO MD Diagnosis: Sleep apnea, unspecified TAKE 1 TABLET BY MOUTH EVERY DAY Last Documented On 3 8:52AM By ROLO AQUINO MD ; [facility] Lisinopril-hydroCHLOROthiazi de 20-25 MG Oral Tablet 08/26/2021 - 02/20/2022 Provider: ROLO AQUINO MD Diagnosis: TAKE 1 TABLET BY MOUTH EVERY DAY Last Documented On 02/20/2022 3:53PM By Diane BRANTLEY ; [facility] Omeprazole 20 MG Oral Capsul e Delayed Release 08/01/2021 - 05/03/2022 Provider: ROLO VASQUEZ MD Diagnosis: TAKE 1 CAPSULE BY MOUTH EVERY DAY Last Documented On 2 9:35AM By ROLO AQUINO MD ; [facility] metFORMIN HCl 1000 MG Oral Tablet 05/03/2021 - 10/25/2021 Provider: ROLO AQUINO MD Diagnosis: Type 2 diabetes mellitus without complications 1 twice a day Last Documented On 10/25/2021 9:03AM By Diane Hand RMA ; [facility] Lisinopril-hydroCHLOROthiazi de 20-25 MG Oral Tablet 02/10/2021 - 08/26/2021 Provider: ROLO AQUINO MD Diagnosis: TAKE 1 TABLET BY MOUTH EVERY DAY Last Documented On 08/26/2021 9:39AM By Diane Hand RMA ; [facility] metFORMIN HCl 1000 MG Oral Tablet 11/09/2020 - 05/03/2021 Provider: ROLO AQUINO MD Diagnosis: Type 2 diabetes mellitus without complications 1 twice a day Last Documented On 05/03/2021 8:45AM By Diane [employer] RMA ; [facility] Rosuvastatin Calcium 10 MG Oral Tablet 09/02/2020 - 08/26/2021 Provider: ROLO AQUINO MD Diagnosis: Sleep apnea, unspecified TAKE 1 TABLET BY MOUTH EVERY DAY Last Documented On 08/26/2021 9:39AM By Diane Hand RMA ; [facility] Citalopram Hydrobromide 20 MG Oral Tablet 09/02/2020 - 10/10/2023 Provider: ROLO AQUINO MD Diagnosis: Dysthymic disord er TAKE 1 TABLET BY MOUTH EVERY DAY Last Documented On 4 10:08AM By ROLO AQUINO MD ; [facility] Celecoxib 200 MG Oral Capsule 09/02/2020 - 08/25/2022 Provider: ROLO AQUINO MD Diagnosis: Sleep apnea, unspecified TAKE 1 CAPSULE BY MOUTH EUNICE Y MAY TAKE SECOND CAPSULE DAILY NEEDED Last Documented On 3 8:52AM By ROLO AQUINO MD ; [facility] Lisinopril-hydroCHLOROthiazi de 20-25 MG Oral Tablet 09/02/2020 - 02/10/2021 Provider: ROLO AQUINO MD Diagnosis: TAKE 1 TABLET BY MOUTH EVERY DAY Last Documented On 02/10/2021 9:32AM By Diane Hand A ; [facility] metFORMIN HCl 1000 MG Oral Tablet 08/10/2020 - 11/09/2020 Provider: ROLO AQUINO MD Diagnosis: Type 2 diabetes mellitus without complications 1 twice a day Last Documented On 2:41PM By ROLO AQUINO MD ; [facility] Omeprazole 20 MG Oral Tablet Delayed Release 06/10/2020 - 08/01/2021 Provider: ROLO VASQUEZ MD Diagnosis: One tablet daily Last Documented On 08/01/2021 7:56AM By Diane [place] ; [facility] Lisinopril-hydroCHLOROthiazi de 20-25 MG Oral Tablet 03/18/2020 - 09/02/2020 Provider: ROLO AQUINO MD Diagnosis: TAKE 1 TABLET BY MOUTH EVERY DAY Last Documented On 09/02/2020 9:43AM By Diane Hand [place] ; [facility] [facility] Omeprazole 20 MG Oral Tablet Delayed Release 01/20/2020 - 06/10/2020 Provider: ROLO VASQUEZ MD Diagnosis: One tablet daily Last Documented On 06/10/2020 8:54AM By Diane BRANTLEY ; [facility] Omeprazole 20 MG Oral Tablet Delayed Release 12/31/2019 - 10/27/2019 Provider: ROLO VASQUEZ MD Diagnosis: One tablet daily Last Documented On 01/20/2020 11:55AM By IVONE BRANTLEY ; [facility] Citalopram Hydrobromide 20 MG Oral Tablet 10/28/2019 - 09/02/2020 Provider: ROLO AQUINO MD Diagnosis: Dysthymic disord er ONE TABLET DAILY Last Documented On 09/02/2020 10:02AM By IVONE BRANTLEY ; [facility] Lisinopril-hydroCHLOROthiazi de 20-25 MG Oral Tablet 10/27/2019 - 03/18/2020 Provider: ROLO AQUINO MD Diagnosis: ONE TABLET DAILY Last Documented On 03/18/2020 4:32PM By Estrellita Jackson LPN ; [facility] CeleBREX 200 MG Oral Capsule 10/27/2019 - 09/02/2020 Provider: ROLO AQUINO MD Diagnosis: Sleep apnea, unspecified ONE TAB DAILY AND THEN A SEC OND TABLET A DAY NEEDED Last Documented On 09/02/2020 9:46AM By Diane BRANTLEY ; [facility] Crestor 10 MG Oral [...] On 10/27/2019 2:12PM By IVONE BRANTLEY ; [facility] Citalopram Hydrobromide 20 MG [...] On 12/31/2019 4:24PM By Gladys BRANTLEY ; [facility] Lisinopril-hydroCHLOROthiazi de 20-25MG Oral Tablet 10/07/2018 - 02/13/2019 Provider: ROLO AQUINO MD Diagnosis: ONE TABLET DAILY TO REPLACE QUINIPRIL Last Documented On 02/13/2019 9:15AM By ROBIN BRANTLEY ; [facility] CeleBREX 200MG Oral Capsule, conventional 08/14/2018 - 10/27/2019 Provider: ROLO VASQUEZ MD Diagnosis: ONE TAB DAILY AND THEN A SEC OND TABLET A DAY NEEDED Last Documented On 2:59PM By ROLO AQUINO MD ; [facility] Crestor 10MG Oral Tablet 08/14/2018 - 10/27/2019 Provi tiffanie: ROLO AQUINO MD Diagnosis: TAKE ONE TABLET BY MOUTH EVERY DAY Last Documented On 0 2:59PM By ROLO AQUINO MD ; [facility] Lisinopril-Hydrochlorothiazi de 20-25MG Oral Tablet 02/12/2018 - 10/07/2018 Provider: ROLO AQUINO MD Diagnosis: ONE TABLET DAILY Last Documented On 9 11:44AM By ROLO AQUINO MD ; [facility] Citalopram Hydrobromide 20MG Oral Tablet 02/12/2018 - 02/13/2019 Provider: ROLO AQUINO MD Diagnosis: Dysthymic disord er ONE TABLET DAILY Last Documented On 02/13/2019 9:15AM By ROBIN BRANTLEY ; [facility] Omeprazole 20MG Oral Tablet Delayed Release 02/12/2018 - 02/13/2019 Provider: ROLO VASQUEZ MD Diagnosis: One tablet daily Last Documented On 02/13/2019 9:15AM By ROBIN BRANTLEY ; [facility] Duexis 800-26.6MG Oral Tablet 02/06/2018 - 08/14/2018 Provider: ALLI LASSITER PA-C Diagnosis: Sprain of other specified parts of left knee, init encntr One tablet twice a day Last Documented On 08/14/2018 8:18AM By IVONE BRANTLEY ; [facility] Duexis 800-26.6MG Oral Tablet 01/29/2018 - 02/06/2018 Provider: ALLI LASSITER PA-C Diagnosis: Sprain of other specified parts of left knee, init encntr One tablet twice a day Last Documented On 02/06/2018 9:05AM By ROBIN BRANTLEY ; [facility] Lisinopril-Hydrochlorothiazi de 20-25MG Oral Tablet 01/18/2018 - 02/12/2018 Provider: ROLO AQUINO MD Diagnosis: ONE TABLET DAILY TO REPLACE QUINIPRIL Last Documented On 02/12/2018 8:41AM By RADHA STILL CMA ; [facility] OneTouch Ultra Blue In Vitro Strip 11/06/2017 [...] On 08/10/2020 2:43PM By Diane BRANTLEY ; [facility] Omeprazole 20MG Oral Tablet Delayed Release 10/30/2017 - 02/12/2018 Provider: ROLO VASQUEZ MD Diagnosis: One tablet daily Last Documented On 02/12/2018 8:41AM By RADHA STILL CMA ; [facility] OneTouch Ultra Blue In Vitro Strip 10/03/2017 - 10/27/2019 Provider: NASH MELGAR APN Diagnosis: Type 2 diabetes mellitus with hyperglycemia Test BG one time per day, al ternate morning and bedtime. Last Documented On 10/27/2019 2:14PM By IVONE BRANTLEY ; [facility] OneTouch Ultra 2 w/Device Kit (multiple component) 10/03/2017 - 10/27/2019 Provider: NASH MELGAR APN Diagnosis: Type 2 diabetes mellitus with hyperglycemia as directed Last Documented On 10/27/2019 2:13PM By IVONE BRANTLEY ; [facility] Omeprazole 20MG Oral Tablet Delayed Release 08/14/2017 - 10/30/2017 Provider: ROLO VASQUEZ MD Diagnosis: ONE TABLET DAILY Last Documented On 10/30/2017 2:09PM By ROBIN BRANTLEY ; [facility] Omeprazole 20MG Oral Tablet [...] 08/14/2018 8:44AM By RADHA STILL CMA ; [facility] Citalopram Hydrobromide 20MG Oral Tablet 02/14/2017 - 02/12/2018 Provider: ORLO AQUINO MD Diagnosis: Dysthymic disord er ONE TABLET DAILY Last Documented On 02/12/2018 8:41AM By RADHA STILL CMA ; [facility] Lisinopril-Hydrochlorothiazi de 20-25MG Oral Tablet 02/14/2017 - 01/18/2018 Provider: ROLO AQUINO MD Diagnosis: ONE TABLET DAILY TO REPLACE QUINIPRIL Last Documented On 01/18/2018 4:00PM By IVONE BRANTLEY ; [facility] Crestor 10MG Oral Tablet 10/10/2016 - 06/04/2017 Provider: ROLO AQUINO MD Diagnosis: Hyperlipidemia, unspecified 1 daily Last Documented On 06/04/2017 2:42PM By RADHA STILL CMA ; [facility] Omeprazole 20MG Oral Tablet Delayed Release 10/10/2016 - 08/14/2017 Provider: ROLO VASQUEZ MD Diagnosis: One tablet daily Last Documented On 08/14/2017 8:42AM By RADHA STILL CMA ; [facility] CeleBREX 200MG Oral Capsule 10/10/2016 - 08/14/2017 Pr ovider: ROLO AQUINO MD Diagnosis: ONE TAB DAILY AND THEN A SEC OND TABLET A DAY NEEDED Last Documented On 08/14/2017 8:42AM By RADHA STILL CMA ; [facility] Lisinopril-Hydrochlorothiazi de 20-25MG Oral Tablet 10/04/2016 - 02/14/2017 Provider: ROLO AQUINO MD Diagnosis: ONE TABLET DAILY TO REPLACE QUINIPRIL Last Documented On 02/14/2017 8:40AM By RADHA STILL CMA ; [facility] Citalopram Hydrobromide 20MG Oral Tablet 10/04/2016 - 02/14/2017 Provider: ROLO AQUINO MD Diagnosis: Dysthymic disord er ONE TABLET DAILY Last Documented On 02/14/2017 8:40AM By RADHA STILL CMA ; [facility] Crestor 10MG Oral Tablet 07/12/2016 - 10/10/2016 Provider: ROLO AQUINO MD Diagnosis: Hyperlipidemia, unspecified 1 daily Last Documented On 7 9:36AM By ROLO AQUINO MD ; [facility] Citalopram Hydrobromide 20 MG Tablet 01/07/2016 - 10/04/2016 Provider: ROLO AQUINO MD Diagnosis: Dysthymic disord er One tablet daily Last Documented On 10/04/2016 2:41PM By RADHA STILL CMA ; [facility] Citalopram Hydrobromide 20 MG Tablet 08/20/2015 - 01/07/2016 Provider: ROLO AQUINO MD Diagnosis: Dysthymic disord er One tablet daily Last Documented On 6 9:42AM By ROLO AQUINO MD ; [facility] Lisinopril-Hydrochlorothiazi de 20-25 MG Tablet 07/13/2015 - 10/04/2016 Provider: ROLO AQUINO MD Diagnosis: One tablet daily Last Documented On 10/04/2016 2:42PM By RADHA STILL CMA ; [facility] CeleBREX 200 MG Capsule, conventional 07/13/2015 - 10/10/2016 Provider: ROLO VASQUEZ MD Diagnosis: ONE TAB DAILY AND THEN A SEC OND TABLET A DAY NEEDED Last Documented On 7 9:35AM By ROLO AQUINO MD ; [facility] Omeprazole 20 MG Tablet, enteric coated 07/13/2015 - 10/10/2016 Provider: ROLO VASQUEZ MD Diagnosis: One tablet daily Last Documented On 7 9:35AM By ROLO AQUINO MD ; [facility] Citalopram Hydrobromide 20 MG Tablet 07/13/2015 - 08/20/2015 Provider: ROLO AQUINO MD Diagnosis: Dysthymic disord er One tablet daily Last Documented On 6 10:15AM By ROLO AQUINO MD ; [facility] Citalopram Hydrobromide 20 MG Tablet 06/17/2015 - 07/13/2015 Provider: ROLO AQUINO MD Diagnosis: Dysthymic disord er One tablet daily Last Documented On 6 1:48PM By ROLO AQUINO MD ; [facility] KlonoPIN 1 MG Tablet 05/29/2015 - 08/20/2015 Provider: MANUELITO Angelo [facility]- Diagnosis: Generalized anxi ety disorder twice daily as needed for anxiety Last Documented On 08/20/2015 10:06AM By Jenise BRANTLEY ; [facility] Citalopram Hydrobromide 20 MG Tablet 05/25/2015 - 06/17/2015 Provider: BONITA JONES [facility]- [employer]- Diagnosis: Dysthymic disord er One tablet daily Last Documented On 6 10:08AM By ROLO AQUINO MD ; [facility] ZyrTEC Allergy 10 MG Tablet 05/25/2015 - 06/17/2015 Pr ovider: Diagnosis: Last Documented On 06/17/2015 9:27AM By IVONE BRANTLEY ; [facility] Lisinopril-Hydrochlorothiazi de 20-25 MG Tablet 05/11/2015 - 07/13/2015 Provider: BONITA JONES [facility]- Diagnosis: One tablet daily Last Documented On 6 1:50PM By ROLO AQUINO MD ; [facility] Doxycycline Monohydrate 100 MG Capsule, conventional 05/11/2015 - 05/25/2015 Provider: BONITA JONES [facility]- Diagnosis: Acute sinusitis, unspecified 1 CAPSULE TWO TIMES A DAY Last Documented On 05/25/2015 10:54AM By MIL RAZA Angelo ; [facility] Nasonex 50 MCG/ACT Suspension 05/11/2015 - 02/14/2017 Provider: BONITA JONES [facility]- Diagnosis: Acute sinusitis, unspecified 2 sprays each nostril once daily Last Documented On 02/14/2017 8:10AM By Ninfa BRANTLEY ; [facility] Lisinopril-Hydrochlorothiazi de 20-25 MG Tablet 04/14/2015 - 05/11/2015 Provider: ROLO AQUINO MD Diagnosis: One tablet daily to replace quinipril Last Documented On 6 11:43AM By BONITA JONES [facility] ; [facility] Quinapril-Hydrochlorothiazid e 20-25 MG Tablet 04/13/2015 - 05/11/2015 Provider: ROLO AQUINO MD Diagnosis: Essential (primary) hypertension One tablet daily addition of hctz Last Documented On 05/11/2015 11:21AM By IML BRANTLEY ; [facility] Quinapril-Hydrochlorothiazid e 20-25 MG Tablet 03/16/2015 - 04/13/2015 Provider: ROLO AQUINO MD Diagnosis: Essential (primary) hypertension One tablet daily addition of hctz Last Documented On 04/13/2015 11:27AM By Jenise BRANTLEY ; [facility] AmLODIPine Besylate 5 MG [...] On 05/11/2015 11:19AM By MIL BRANTLEY ; [facility] AmLODIPine Besylate 5 MG Tablet 02/16/2015 - 03/09/2015 Provider: ROLO AQUINO MD Diagnosis: Essential (prima ry) hypertension One tablet daily Last Documented On 5 11:10AM By ALLI LASSITER PA-C ; [facility] Quinapril HCl 20 MG Tablet 01/13/2015 - 05/11/2015 Pro vider: ROLO AQUINO MD Diagnosis: One tablet twice a day Last Documented On 05/11/2015 11:22AM By MIL BRANTLEY ; [facility] Quinapril HCl 20 MG Tablet 07/27/2014 - 01/13/2015 Pro vider: ROLO AQUINO MD Diagnosis: One tablet daily Last Documented On 5 9:46PM By ROLO AQUINO MD ; [facility] Omeprazole 20 MG OR TBEC 06/29/2014 - 07/13/2015 Provi tiffanie: ROLO AQUINO MD Diagnosis: Last Documented On 6 1:49PM By ROLO AQUINO MD ; [facility] Quinapril HCl 20 MG OR TABS 06/29/2014 - 07/27/2014 Pr ovider: ROLO AQUINO MD Diagnosis: Last Documented On 07/27/2014 3:33PM By Jenise BRANTLEY ; [facility] CeleBREX 200 MG OR CAPS 06/29/2014 - 07/13/2015 Provid er: ROLO AQUINO MD Diagnosis: ONE TAB DAILY AND THEN A SEC OND TABLET A DAY NEEDED Last Documented On 07/13/2015 1:49PM By Jenise BRANTLEY ; [facility] VESIcare 5 MG OR TABS 05/27/2014 - 05/11/2015 Provider : ALLI LASSITER PA-C Diagnosis: URINARY FREQUENC Y Last Documented On 05/11/2015 11:21AM By MIL BRANTLEY ; [facility] Parafon Forte DSC 500 MG OR TABS 05/21/2014 - 05/11/2015 [facility] Diagnosis: Lumbago 1/2 to 1 tab every 8 hours a s needed for muscle spasms Last Documented On 05/11/2015 11:20AM By MIL BRANTLEY ; [facility] Medrol 4 MG OR TABS 05/21/2014 - 05/11/2015 Provider: BONITA JONES [facility] [employer]-BC Diagnosis: Lumbago Take 6 tabs day 1, 5 tabs da y 2, 4 tabs day 3, 3 tabs day 4, 2 tabs day 5, 1 tab day 6 Last Documented On 05/11/2015 11:21AM By MIL BRANTLEY ; [facility] Omeprazole 20 MG OR TBEC 03/24/2013 - 06/29/2014 Provi tiffanie: [facility] Diagnosis: Last Documented On 5 9:24AM By ROLO AQUINO MD ; [facility] CeleBREX 200 MG OR CAPS 03/24/2013 - 06/29/2014 Provid er: [facility] CAP[facility]O Diagnosis: Last Documented On 5 9:20AM By ROLO AQUINO MD ; [facility] Quinapril HCl 20 MG OR TABS 03/24/2013 - 06/29/2014 Pr ovider: [facility] Diagnosis: Last Documented On 5 9:24AM By ROLO AQUINO MD ; [facility] Medications Administered Includes: Administered Medications in patient's chart No Administered Medications Recorded Vital Signs Includes: Vital Signs from 08/15/2023 through 08/14/2024 Vital Name 10/10/2023 09:26A Height (in) 71.5 Weight (lb) 373 Body Mass Index 51.3 Body Surface Area 2.8 Oxygen Saturation (%) 96 Blood Pressure Sitting R 116/76 BP Cuff Size Regular Pulse Rate-Sitting (bpm) 76 Respiration Rate (breaths/min) 19 Last Documented: On 10/10/2023 9:31AM ; [facility] Results Includes: Results from 08/15/2023 through 08/14/2024 A1C HGB (GLYCO HEMOGLOBIN) [facility] Ordered by ROLO Ricketts MD on 10/03/2023 [address] [facility], [place], [address] Collected: 10/03/2023 Report ed: 10/03/2023 11:27 tel: Last Documented On 4 9:50AM ; [facility] Reviewed by ROLO VASQUEZ MD on 10/07/2023; All test results are final unless otherwise noted. Review Note Provider Name Date Will Discuss results with Patient next visit. ERNESTO AQUINO MD 10/07/2023 A1C HGB (GLYCO HEMOGLOBIN) See Note None Last Documented On 4 11:41AM ; [facility] Note: Glycohemoglobin (HEMOGLOBIN A1C)Re sponsible Observer: (HRG) Hgb A1c 5.8 %_A1c (4.0 - 6.0) None Last Documented On 4 11:41AM ; [facility] Note: Responsible Observer: (HRG) MBG 120 mg/dL (65 - 99) H (High) Last Documented On 4 11:41AM ; [facility] Note: *MBG (mean blood glucose) is a leti culated estimate of the mean blood glucose itis also refered to as estimated Average Glucose (eAG).*Responsible Observer: (HRG) LIPID PANEL [facility] Ordered by ROLO Ricketts MD on 10/03/2023 [address] [facility], [place], [address] Collected: 10/03/2023 Report ed: 10/03/2023 11:27 tel: Last Documented On 4 9:50AM ; [facility] Reviewed by ROLO VASQUEZ MD on 10/07/2023; All test results are final unless otherwise noted. Review Note Provider Name Date Will Discuss results with Patient next visit. ERNESTO AQUINO MD 10/07/2023 CHOL/HDLC 3.6 (0.0 - 4.8) None Last Documented On 4 11:41AM ; [facility] Note: Responsible Observer: (HRG) CHOLESTEROL 144 mg/dL (0 - 200) None Last Documented On 4 11:41AM ; [facility] Note: Responsible Observer: (HRG) HDL 40 mg/dL (29 - 67) None Last Documented On 4 11:41AM ; [facility] Note: Responsible Observer: (HRG) LDL 69 mg/dL (0 - 130) None Last Documented On 4 11:41AM ; [facility] Note: Coronary Artery Risk Panel Referen ce Values Based on the recommendations of the Heart, Lung and Blood [place] (in mg/dL) Risk Levels = High Borderline Desirable Cholesterol >240 200 - 240 <200 LDL >160 130 - 159 <130 Cholesterol/HDL Ratio Male <= 4.88 Female <= 4.23Responsible Observer: (HRG) LIPID PANEL See Note None Last Documented On 4 11:41AM ; [facility] Note: LIPID PANELResponsible Observer: ( HRG) TRIGLYCERIDE 175 mg/dL (1 - 150) H (High) Last Documented On 4 11:41AM ; [facility] Note: Responsible Observer: (HRG) CMP [facility] Ordered by ROLO Ricketts MD on 10/03/2023 [address] [place], [address] Collected: 10/03/2023 Report ed: 10/03/2023 11:27 tel: Last Documented On 4 9:50AM ; [facility] Reviewed by ROLO VASQUEZ MD on 10/07/2023; All test results are final unless otherwise noted. Review Note Provider Name Date Will Discuss results with Patient next visit. CR DAVID AQUINO MD 10/07/2023 A/G RATIO 1.1 (1.1 - 2.2) None Last Documented On 4 11:41AM ; [facility] Note: eGFR INTERPRETATION AGE AVG GFR [...] None Last Documented On 4 11:41AM ; [facility] Note: Responsible Observer: (HRG) ALBUMIN 3.7 g/dL (3.4 - 4.8) None Last Documented On 4 11:41AM ; [facility] Note: Responsible Observer: (HRG) ALK PHOS 44 IU/L (40 - 150) None Last Documented On 4 11:41AM ; [facility] Note: Responsible Observer: (HRG) ALT (SGPT) 27 IU/L (0 - 55) None Last Documented On 4 11:41AM ; [facility] Note: Responsible Observer: (HRG) ANION GAP 17.2 mmol/L (8.0 - 16.0) H (High) Last Documented On 4 11:41AM ; [facility] Note: Responsible Observer: (HRG) AST (SGOT) 24 IU/L (5 - 34) None Last Documented On 4 11:41AM ; [facility] Note: Responsible Observer: (HRG) BILIRUBIN TOT 0.5 mg/dL (0.2 - 1.0) None Last Documented On 4 11:41AM ; [facility] Note: Responsible Observer: (HRG) BUN 16 mg/dL (9 - 20) None Last Documented On 4 11:41AM ; [facility] Note: Responsible Observer: (HRG) CALCIUM 9.3 mg/dL (8.9 - 10.0) None Last Documented On 4 11:41AM ; [facility] Note: Responsible Observer: (HRG) CHLORIDE 104 mmol/L (98 - 107) None Last Documented On 4 11:41AM ; [facility] Note: Responsible Observer: (HRG) CMP See Note None Last Documented On 4 11:41AM ; [facility] Note: COMPREHENSIVE METABOLIC PANELRespo nsible Observer: (HRG) CREATININE 0.8 mg/dL (0.8 - 1.5) None Last Documented On 4 11:41AM ; [facility] Note: Responsible Observer: (HRG) eGFR 98 mL/min None Last Documented On 4 11:41AM ; [facility] Note: Responsible Observer: (HRG) GLOBULIN 3.3 g/dl (2.0 - 4.2) None Last Documented On 4 11:41AM ; [facility] Note: Responsible Observer: (HRG) GLUCOSE 156 mg/dL (70 - 105) H (High) Last Documented On 4 11:41AM ; [facility] Note: Responsible Observer: (HRG) POTASSIUM 4.2 mmol/L (3.6 - 5.0) None Last Documented On 4 11:41AM ; [facility] Note: Responsible Observer: (HRG) SODIUM 139 mmol/L (137 - 145) None Last Documented On 4 11:41AM ; [facility] Note: Responsible Observer: (HRG) TCO2 22.0 mmol/L (22.0 - 30.0) None Last Documented On 4 11:41AM ; [facility] Note: Responsible Observer: (HRG) TOTAL PROTEIN 7.0 g/dL (6.4 - 8.3) None Last Documented On 4 11:41AM ; [facility] Note: Responsible Observer: (HRG) PSA SCREEN [facility] Ordered by ROLO Ricketts MD on 10/03/2023 [address] [place], [address] Collected: 10/03/2023 Report ed: 10/03/2023 11:34 tel:[phone] Last Documented On 4 9:50AM ; [facility] Reviewed by ROLO VASQUEZ MD on 10/07/2023; All test results are final unless otherwise noted. Review Note Provider Name Date Will Discuss results with Patient next visit. ERNESTO AQUINO MD 10/07/2023 PSA 3.9 ng/ml (0.0 - 4.0) None Last Documented On 10/03/2023 11:41AM ; [facility] Note: PSA NORMAL RANGE: < / = 4.0 ng/mLResponsible Observer: (MLB) Reported Physicians [facility] Ordered by ROLO Ricketts MD on 10/03/2023 [address] [place], [address] Collected: 10/03/2023 Report ed: 10/03/2023 11:34 tel:[phone] Last Documented On 4 9:50AM ; [facility] Reviewed by ROLO VASQUEZ MD on 10/07/2023; All test results are final unless otherwise noted. Review Note Provider Name Date Will Discuss results with Patient next visit. ERNESTO AQUINO MD 10/07/2023 Reported Physicians See Note None Last Documented On 10/03/2023 11:41AM ; [facility] Note: Reported Physicians:Ordering: Napoleon Frankttending: REGI FRANKYConsulting: ROLO FRANK CBC WITH DIFF [facility] Ordered by ROLO Ricketts MD on 08/31/2023 [address] [facility], [place], [address] Collected: 09/01/2023 Report ed: 09/01/2023 06:01 tel: Last Documented On 4 11:16PM ; [facility] Reviewed by ROLO VASQUEZ MD on 10/07/2023; All test results are final unless otherwise noted. ALC 0.8 None Last Documented On 4 8:41PM ; [facility] Note: Responsible Observer: (NELI) ANC 10.2 None Last Documented On 4 8:41PM ; [facility] Note: Responsible Observer: (NELI) BASO# 0.07 th/uL (0.00 - 0.20) None Last Documented On 4 8:41PM ; [facility] Note: Responsible Observer: (NELI) BASO% 0.6 % (0.0 - 2.0) None Last Documented On 4 8:41PM ; [facility] Note: Responsible Observer: (NELI) CBC WITH DIFF See Note None Last Documented On 4 8:41PM ; [facility] Note: CBC (COMPLETE BLOOD COUNT)Responsi ble Observer: (NELI) DIFF (Y/N) NO None Last Documented On 4 8:41PM ; [facility] Note: Responsible Observer: (NELI) EOS# 0.07 th/uL (0.00 - 0.45) None Last Documented On 4 8:41PM ; [facility] Note: Responsible Observer: (NELI) EOS% 0.6 % (0.0 - 9.0) None Last Documented On 4 8:41PM ; [facility] Note: Responsible Observer: (NELI) HCT 34.6 % (40.0 - 54.0) L (Low) Last Documented On 4 8:41PM ; [facility] Note: Responsible Observer: (NELI) HGB 11.7 g/dL (13.5 - 17.5) L (Low) Last Documented On 4 8:41PM ; [facility] Note: Responsible Observer: (NELI) IG# 0.05 th/ul (0.00 - 0.10) None Last Documented On 4 8:41PM ; [facility] Note: Responsible Observer: (NELI) IG% 0.4 % (0.0 - 0.5) None Last Documented On 4 8:41PM ; [facility] Note: Responsible Observer: (NELI) LYMPH# 0.78 th/uL (1.00 - 4.80) L (Low) Last Documented On 4 8:41PM ; [facility] Note: Responsible Observer: (NELI) LYMPH% 6.4 % (14.0 - 45.0) L (Low) Last Documented On 4 8:41PM ; [facility] Note: Responsible Observer: (NELI) MCH 32.7 pg (25.0 - 35.0) None Last Documented On 4 8:41PM ; [facility] Note: Responsible Observer: (NELI) MCHC 33.8 g/dL (31.0 - 36.0) None Last Documented On 4 8:41PM ; [facility] Note: Responsible Observer: (NELI) MCV 96.6 fl (80.0 - 100) None Last Documented On 4 8:41PM ; [facility] Note: Responsible Observer: (NELI) MONO# 0.96 th/uL (0.00 - 0.80) H (High) Last Documented On 4 8:41PM ; [facility] Note: Responsible Observer: (NELI) MONO% 7.9 % (1.0 - 10.0) None Last Documented On 4 8:41PM ; [facility] Note: Responsible Observer: (NELI) MPV 10.6 fl (6.0 - 11.0) None Last Documented On 4 8:41PM ; [facility] Note: Responsible Observer: (NELI) NEUT# 10.21 th/uL None Last Documented On 4 8:41PM ; [facility] Note: Responsible Observer: (NELI) NEUT% 84.1 % (45.0 - 76.0) H (High) Last Documented On 4 8:41PM ; [facility] Note: Responsible Observer: (NELI) NRBC% 0.0 % (0.0 - 0.0) None Last Documented On 4 8:41PM ; [facility] Note: Responsible Observer: (NELI) PLT 145 th/uL (150 - 400) L (Low) Last Documented On 4 8:41PM ; [facility] Note: Responsible Observer: (NELI) RBC 3.58 mil/uL (4.50 - 5.90) L (Low) Last Documented On 4 8:41PM ; [facility] Note: Responsible Observer: (NELI) RDW 13.2 % (11.0 - 16.0) None Last Documented On 4 8:41PM ; [facility] Note: Responsible Observer: (NELI) WBC 12.1 th/uL (4.5 - 11.0) H (High) Last Documented On 4 8:41PM ; [facility] [facility] Responsible Observer: (NELI) [facility] [place] [facility] Ordered by ROLO Ricketts MD on 08/31/[address] [place] [address], [phone] Collected: 09/01/2023 Report ed: 09/01/2023 06:08 tel: Last Documented On 4 11:16PM ; [facility] Reviewed by ROLO VASQUEZ MD on 10/07/2023; All test results are final unless otherwise noted. AGE 63 YEARS None Last Documented On 4 8:41PM ; [facility] Note: Responsible Observer: (NELI) ANION GAP 15.1 mmol/L (8.0 - 16.0) None Last Documented On 4 8:41PM ; [facility] Note: eGFR INTERPRETATION AGE AVG GFR [...] None Last Documented On 4 8:41PM ; [facility] Note: BASIC METABOLIC PANELResponsible O bserver: (NELI) BUN 29 mg/dL (9 - 20) H (High) Last Documented On 4 8:41PM ; [facility] Note: Responsible Observer: (NELI) CALCIUM 8.2 mg/dL (8.9 - 10.0) L (Low) Last Documented On 4 8:41PM ; [facility] Note: Responsible Observer: (NELI) CHLORIDE 101 mmol/L (98 - 107) None Last Documented On 4 8:41PM ; [facility] Note: Responsible Observer: (NELI) CREATININE 2.0 mg/dL (0.8 - 1.5) H (High) Last Documented On 4 8:41PM ; [facility] Note: Responsible Observer: (NELI) eGFR. 36 mL/min None Last Documented On 4 8:41PM ; [facility] Note: Responsible Observer: (NELI) GLUCOSE 169 mg/dL (70 - 105) H (High) Last Documented On 4 8:41PM ; [facility] Note: Responsible Observer: (NELI) POTASSIUM 4.1 mmol/L (3.6 - 5.0) None Last Documented On 4 8:41PM ; [facility] Note: Responsible Observer: (NELI) SODIUM 135 mmol/L (137 - 145) L (Low) Last Documented On 4 8:41PM ; [facility] Note: Responsible Observer: (NELI) TCO2 23.0 mmol/L (22.0 - 30.0) None Last Documented On 4 8:41PM ; [facility] Note: Responsible Observer: (NELI) URIC ACID [facility] [place] Ordered by ROLO Ricketts MD on 08/31/[address] [place] [address], [phone] Collected: 09/01/2023 Report ed: 09/01/2023 06:35 tel:[phone] Last Documented On 4 11:16PM ; [facility] Reviewed by ROLO VASQUEZ MD on 10/07/2023; All test results are final unless otherwise noted. URIC ACID 5.2 mg/dL (3.5 - 7.2) None Last Documented On 10/02/2023 8:41PM ; [facility] Note: Responsible Observer: (NELI) LACTIC ACID [facility] [place] Ordered by ROLO Ricketts MD on 08/31/2023 [address] [facility], [place], [address] Collected: 08/31/2023 Report ed: 08/31/2023 14:16 tel:[phone] Last Documented On 4 11:16PM ; [facility] Reviewed by ROLO VASQUEZ MD on 10/07/2023; All test results are final unless otherwise noted. LACTIC ACID 2.2 mmol/L (0.5 - 2.2) None Last Documented On 10/02/2023 8:41PM ; [facility] Note: Responsible Observer: (TER) URINALYSIS/REFLEX C&S [facility] Laboratory Ordered by ROLO AQUINO MD on 08/06 [address] [facility], [place], [address] Collected: 08/31/2023 Report ed: 08/31/2023 02:51 tel:[phone] Last Documented On 4 11:16PM ; [facility] Reviewed by ROLO VASQUEZ MD on 10/07/2023; All test results are final unless otherwise noted. BACTERIA Few (NORMAL: NONE) None Last Documented On 4 8:41PM ; [facility] Note: Responsible Observer: (SED) BILIRUBIN NEGATIVE (Normal: Negative) None Last Documented On 4 8:41PM ; [facility] Note: Responsible Observer: (SED) BLOOD TRACE-IN (Normal: Negative) A (Abnormal) Last Documented On 4 8:41PM ; [facility] Note: Responsible Observer: (SED) CASTS None seen (NORMAL: NONE) None Last Documented On 4 8:41PM ; [facility] Note: Responsible Observer: (SED) CLARITY CLEAR (Normal: Clear) None Last Documented On 4 8:41PM ; [facility] Note: Responsible Observer: (SED) COLOR ORANGE (Normal: Straw - carmen) None Last Documented On 4 8:41PM ; [facility] Note: Responsible Observer: (SED) CRYSTALS None seen (NORMAL: 0 - 3 /hpf) None Last Documented On 4 8:41PM ; [facility] Note: Responsible Observer: (SED) CULTURE TO FOLLOW None Last Documented On 4 8:41PM ; [facility] Note: MICROSCOPIC EXAMINATION IF NOT IND ICATED WILL NOT BE PERFORMEDResponsible Observer: (SED) EPI CELLS 0-5 (NORMAL: NONE) None Last Documented On 4 8:41PM ; [facility] Note: Responsible Observer: (SED) GLUCOSE NEGATIVE (Normal: Negative) None Last Documented On 4 8:41PM ; [facility] Note: Responsible Observer: (SED) KETONE TRACE (Normal: Negative) None Last Documented On 4 8:41PM ; [facility] Note: Responsible Observer: (SED) LEUKOCYTE. NEGATIVE (Normal: Negative) None Last Documented On 4 8:41PM ; [facility] Note: Responsible Observer: (SED) MICROSCOPIC? SEE BELOW None Last Documented On 4 8:41PM ; [facility] Note: MICROSCOPICResponsible Observer: ( SED) MUCOUS 1+ None Last Documented On 4 8:41PM ; [facility] Note: Responsible Observer: (SED) NITRITE. POSITIVE (Normal: Negative) A (Abnormal) Last Documented On 4 8:41PM ; [facility] Note: Responsible Observer: (SED) pH 5.5 (Normal: 5.0 - 9.0) None Last Documented On 4 8:41PM ; [facility] Note: Responsible Observer: (SED) PROTEIN NEGATIVE (Normal: Negative) None Last Documented On 4 8:41PM ; [facility] Note: Responsible Observer: (SED) RBC 3-5 (NORMAL: 0 - 3 /hpf) None Last Documented On 4 8:41PM ; [facility] Note: Responsible Observer: (SED) SP GRAVITY >=1.030 (Normal: 1.005-1.030) None Last Documented On 4 8:41PM ; [facility] Note: Responsible Observer: (SED) TRICHOMONAS None Seen None Last Documented On 4 8:41PM ; [facility] Note: Responsible Observer: (SED) UA SPECIMEN CVS (CLEAN VOI None Last Documented On 4 8:41PM ; [facility] Note: { Comment: Results may be compromi sed due to urine colorResponsible Observer: (SED) UROBILINOGEN 0.2 (Normal: Negative) None Last Documented On 4 8:41PM ; [facility] Note: Responsible Observer: (SED) WBC 3-5 (NORMAL: 0 - 5 /hpf) None Last Documented On 4 8:41PM ; [facility] Note: Responsible Observer: (SED) YEAST None Seen None Last Documented On 4 8:41PM ; [facility] Note: Responsible Observer: (SED) URINALYSIS/REFLEX C See Note None Last Documented On 4 8:41PM ; [facility] Note: URINALYSIS/REFLEX C&SResponsible O bserver: (SED) .CULTURE URINE CLEAN VOID SPECIMEN [facility] Ordered by ROLO Ricketts MD on 08/31/[address] [place] [address], [phone] Collected: 08/31/2023 Report ed: 09/02/2023 07:49 tel: Last Documented On 4 11:16PM ; [facility] Reviewed by ROLO VASQUEZ MD on 10/07/2023; All test results are final unless otherwise noted. .CULTURE URINE CLEAN VOID SPECIMEN See Note None Last Documented On 10/02/2023 8:41PM ; [facility] Note: _URINE CULTURE_ _CVS_ INFECT. CONT REPORT NO None Last Documented On 10/02/2023 8:41PM ; [facility] Note: _COLONY_COUNT_>100,000_MIXED_GRAM_POSITIVE_F LORA 09/01/23.JW . _REPEAT_SPECIMEN_SUGGESTED 09/01/23.JW . 09/02/23.49.JW .COMPLETENOResponsible Observer: (JW) CULTURE BLOOD [facility] [place] Ordered by ROLO Ricketts MD on 08/31/[address] [place] [address], [phone] Collected: 08/31/2023 Report ed: 09/05/2023 06:35 tel: Last Documented On 11:16PM ; [facility] Reviewed by ROLO VASQUEZ MD on 10/07/2023; All test results are final unless otherwise noted. CULTURE BLOOD See Note None Last Documented On 10/02/2023 8:41PM ; [facility] Note: _BLOOD CULTURE_ INFECT. CONT REPORT NO None Last Documented On 10/02/2023 8:41PM ; [facility] Note: _NO_GrOWTH_AT_5_DAYS. 09/05/23.35.MLB. ------ 09/05/23.0635.MLB. 09/05/23.0636.MLB.COMPLETENOResponsible Observer: (MLB) CMP [facility] [place] Ordered by ROLO Ricketts MD on 08/31/2023 [address] [facility], [place], [phone] Collected: 08/31/2023 Report ed: 08/31/2023 01:44 tel: Last Documented On 4 11:16PM ; [facility] Reviewed by ROLO VASQUEZ MD on 10/07/2023; All test results are final unless otherwise noted. A/G RATIO 1.2 (1.1 - 2.2) None Last Documented On 4 8:41PM ; [facility] Note: eGFR INTERPRETATION AGE AVG GFR [...] None Last Documented On 4 8:41PM ; [facility] Note: Responsible Observer: (SED) ALBUMIN 4.1 g/dL (3.4 - 4.8) None Last Documented On 4 8:41PM ; [facility] Note: Responsible Observer: (SED) ALK PHOS 42 IU/L (40 - 150) None Last Documented On 4 8:41PM ; [facility] Note: Responsible Observer: (SED) ALT (SGPT) 33 IU/L (0 - 55) None Last Documented On 4 8:41PM ; [facility] Note: Responsible Observer: (SED) ANION GAP 17.9 mmol/L (8.0 - 16.0) H (High) Last Documented On 4 8:41PM ; [facility] Note: Responsible Observer: (SED) AST (SGOT) 30 IU/L (5 - 34) None Last Documented On 4 8:41PM ; [facility] Note: Responsible Observer: (SED) BILIRUBIN TOT 1.0 mg/dL (0.2 - 1.0) None Last Documented On 4 8:41PM ; [facility] Note: Responsible Observer: (SED) BUN 19 mg/dL (9 - 20) None Last Documented On 4 8:41PM ; [facility] Note: Responsible Observer: (SED) CALCIUM 9.6 mg/dL (8.9 - 10.0) None Last Documented On 4 8:41PM ; [facility] Note: Responsible Observer: (SED) CHLORIDE 100 mmol/L (98 - 107) None Last Documented On 4 8:41PM ; [facility] Note: Responsible Observer: (SED) CMP See Note None Last Documented On 4 8:41PM ; [facility] Note: COMPREHENSIVE METABOLIC PANELRespo nsible Observer: (SED) CREATININE 1.3 mg/dL (0.8 - 1.5) None Last Documented On 4 8:41PM ; [facility] Note: Responsible Observer: (SED) eGFR. 61 mL/min None Last Documented On 4 8:41PM ; [facility] Note: Responsible Observer: (SED) GLOBULIN 3.3 g/dl (2.0 - 4.2) None Last Documented On 4 8:41PM ; [facility] Note: Responsible Observer: (SED) GLUCOSE 175 mg/dL (70 - 105) H (High) Last Documented On 4 8:41PM ; [facility] Note: Responsible Observer: (SED) POTASSIUM 3.9 mmol/L (3.6 - 5.0) None Last Documented On 4 8:41PM ; [facility] Note: Responsible Observer: (SED) SODIUM 136 mmol/L (137 - 145) L (Low) Last Documented On 4 8:41PM ; [facility] Note: Responsible Observer: (SED) TCO2 22.0 mmol/L (22.0 - 30.0) None Last Documented On 4 8:41PM ; [facility] Note: Responsible Observer: (SED) TOTAL PROTEIN 7.4 g/dL (6.4 - 8.3) None Last Documented On 4 8:41PM ; [facility] Note: Responsible Observer: (SED) LIPASE [facility] [place] Ordered by ROLO Ricketts MD on 08/31/2023 [address] [place], [address] Collected: 08/31/2023 Report ed: 08/31/2023 01:44 tel:[phone] Last Documented On 4 11:16PM ; [facility] Reviewed by ROLO VASQUEZ MD on 10/07/2023; All test results are final unless otherwise noted. LIPASE 41 IU/L (8 - 78) None Last Documented On 10/02/2023 8:41PM ; [facility] Note: Responsible Observer: (SED) PT & PTT [facility] [place] Ordered by ROLO Ricketts MD on 08/31/2023 [address] [place], [phone] Collected: 08/31/2023 Report ed: 08/31/2023 05:12 tel:[phone] Last Documented On 4 11:16PM ; [facility] Reviewed by ROLO VASQUEZ MD on 10/07/2023; All test results are final unless otherwise noted. APTT 25.9 sec (21.5 - 35.5) None Last Documented On 10/02/2023 8:41PM ; [facility] Note: THERAPEUTIC RANGE FOR INR IS 2.0 - 3.0MECHANICAL HEART VALVE RANGE FOR INR IS 2.5 TO 3.5Responsible Observer: (SED) INR 1.03 (0.80 - 1.20) None Last Documented On 10/02/2023 8:41PM ; [facility] Note: Responsible Observer: (SED) PROTIME 12.9 sec (12.5 - 14.4) None Last Documented On 10/02/2023 8:41PM ; [facility] Note: Responsible Observer: (SED) Reported Physicians [facility] Yoselin jonas Ordered by ROLO Ricketts MD on 08/31/[address] [place] [address], [place],

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
--- OUTSIDE RECORDS SUMMARY | 2024-08-14 01:37 | XMS_ITS | Clinical Summary ---
Author Organization [facility] Address [address] [place] [address] Phone Care Team Providers Care Coil Binder Name Role Phone ROLO AQUINO MD Primary Care Provider [phone] Reason for Visit and Chief Complaint CHART UPDATE Problems Includes: Problems addressed during this encounter and other active Problems All Visits Onset Date Resolved Date Provider Condition S tatus Nephrolithiasis 10/18/2023 ROLO Greenwood Active Last Documented On 4 11:01PM ; [facility] Joint Pain in the Left Knee 09/02/2021 SAL Omer Active Last Documented On 2 8:40AM ; [facility] Osteoarthritis Localized Primary Knee Left 09/02/2021 SAL Omer Active Last Documented On 2 8:40AM ; [facility] Diabetes Mellitus Type 2 - U ncomplicated, Controlled 08/14/2017 ROLO AQUINO MD Active Last Documented On 1 10:11PM ; [facility] Hyperlipidemia 01/07/2016 ROLO AQUINO MD Active Last Documented On 6 9:41AM ; [facility] Anxiety Disorder Nos 06/17/2015 ROLO MCGRAW MD Active Last Documented On 6 10:07AM ; [facility] Hyperglycemia 12/07/2014 ROLO AQUINO MD Active Last Documented On 5 9:44AM ; [facility] 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 ROLO CROWE MD Active Last Documented On 0 2:28PM ; [facility] Note: 11-14 Arthritis 12/01/2013 ROLO AQUINO MD Act gianni Last Documented On 2 10:15AM ; [facility] Gerd 12/01/2013 ROLO AQUINO MD Act gianni Last Documented On 0 2:28PM ; [facility] Essential Hypertension Benign 12/01/2013 ROLO AQUINO MD Active Last Documented On 12/01/2013 2:04PM ; [facility] Note: -------GOES BY FERNANDA Plan of Treatment Pending Tests Order Diagnosis Results Due Ordering P rovider Lab A1C HGB (GLYCO HEMOGLOBIN) 04/15/24 ROLO AQUINO MD Last Documented On 4 11:06PM ; [facility] Lab LIPID PANEL 04/15/24 ROLO CROWE MD Last Documented On 4 11:06PM ; [facility] Lab CMP 04/15/24 ROLO PARISH MD Last Documented On 4 11:06PM ; [facility] Assessments Includes: Assessments from [...] 4 10:21AM By ROLO AQUINO MD ; [facility] Rosuvastatin Calcium 10 MG Oral Tablet 10/10/2023 Provider: ROLO Greenwood Diagnosis: Hyperlipidemia, unspecified TAKE 1 TABLET BY MOUTH EVERY DAY Last Documented On 4 10:21AM By ROLO AQUINO MD ; [facility] Ozempic (1 MG/DOSE) 4 MG/3ML Subcutaneous Solution Pen-injector 10/10/2023 Provider: ROLO AQUINO MD Diagnosis: Type 2 diabetes mellitus without complications 1mg once a week SC Last Documented On 4 10:21AM By ROLO AQUINO MD ; [facility] Lisinopril-hydroCHLOROthiazi de 20-25 MG Oral Tablet 10/10/2023 Provider: ROLO Greenwood Diagnosis: TAKE 1 TABLET BY MOUTH EVERY DAY Last Documented On 4 10:21AM By ROLO AQUINO MD ; [facility] Diclofenac Sodium 1% External Gel 10/10/2023 Provide r: ROLO AQUINO MD Diagnosis: Pain in left kne e apply 4 grams to left knee qid prn pain Last Documented On 4 10:21AM By ROLO AQUINO MD ; [facility] Omeprazole 20 MG Oral Capsul e Delayed Release 02/26/2023 Provider: ROLO Greenwood Diagnosis: TAKE 1 CAPSULE BY MOUTH EVERY DAY Last Documented On 3 8:55AM By ROLO AQUINO MD ; [facility] guaiFENesin-Codeine 100-10 M G/5ML Oral Solution 02/23/2023 Provider: ROLO Greenwood Diagnosis: Cough, unspecifi ed Take 1 to 2 teaspoons every 4 hours prn cough Last Documented On 3 11:02AM By ROLO AQUINO MD ; [facility] metFORMIN HCl 1000 MG Oral Tablet 10/25/2022 Provider: ROLO Greenwood Diagnosis: Type 2 diabetes mellitus without complications TAKE 1 TABLET BY MOUTH TWICE A DAY Last Documented On 10/25/2022 5:32PM By Diane BRANTLEY ; [facility] Celecoxib 200 MG Oral Capsule 08/25/2022 Provider: ROLO Greenwood Diagnosis: Bilateral primar y osteoarthritis of knee TAKE 1 CAPSULE BY MOUTH EUNICE Y MAY TAKE SECOND CAPSULE DAILY NEEDED Last Documented On 3 8:59AM By ROLO AQUINO MD ; [facility] Eye Vitamins Oral Capsule 08/14/2017 Provider: Diagnosis: Last Documented On 08/14/2017 8:17AM By IVONE BRANTLEY ; [facility] Magnesium Oxide 500 MG Tablet 05/11/2015 Provide r: Diagnosis: Last Documented On 05/11/2015 11:21AM By MIL BRANTLEY ; [facility] Multivitamins OR CAPS 12/01/2013 Provider: Diagnosis: Last Documented On 4 1:46PM By MAICO BRANTLEY ; [facility] Medications Administered Includes: Administered [...] Patient Last Documented On 4 2:48PM ; [facility] PCV 20 1 2023 Right Deltoid Complete (Repor lakia) Patient Last Documented On 4 2:48PM ; [facility] Allergies Includes: Active Allergies Substance Type Reaction Onset Date Resolved Date Statu s Keflex Allergy Skin Rashes / Er uption of skin, Hives / Urticaria 12/01/2013 Active Last Documented On 4 9:46AM ; [facility] Encounters Encounter Provider Location Date Check-In Time Check-Out Time Diagnosis CHART UPDATE ROLO AQUINO MD 01/01/2024 2:47PM 11:59PM Insurance Includes: Active Insurance Policies Plan Name Member ID Group # Subscriber Relationship Effect gianni Dates 1 - [employer] [id number] KHLOE COREA Self Clinical Notes Includes: Clinical Notes from this encounter No Clinical Notes Recorded
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
--- OUTSIDE RECORDS SUMMARY | 2024-08-14 01:37 | XMS_ITS | Clinical Summary ---
Author Organization [facility] Address [address] [facility], [place] [address] Phone Care Team Providers Care Plate Driller Name Role Phone Wood Griffith MD Unavailable Alecia Cornell MD Primary Care Provider [phone] Natali Leyva APRN, DIRECTOR [facility] Unavailable Allergies Active Allergy Reactions Criticality Noted [...] Written: 12/01/13 Patient Instructions: 4 Active Multiple Vitamins-[place] als (Eye Vitamins) Capsule Eye Vitamins Oral [...] Lnp-s, Pf, 3 0 Mcg/0.3 Ml Dose (PagosOnLine) 06/29/2020,06/08/2020 Influenza Vaccine greater than 3 yrs [...] Visit [facility] [place] [address] [facility] [address] [place] [address] Natali Leyva, RECYCLING ATTENDANT, DIRECTOR [facility] [address] [facility] [address] [place] [address] Health Maintenance Due Date Last Done Comments [...] CDT) Prostatic Specific Antigen, Free 2.10 ng/mL [address] 09/06/2020 10:56 PM CDT [facility] PSA, TOTAL (PROSTATIC SPECIFIC ANTIGEN) 3.36 <4.00 ng/mL [address] 09/06/2020 10:56 PM CDT [facility] PSA, % FREE 62.5 % [address] 09/06/2020 10:56 PM CDT [facility] Comment: PSA NG/ML FREE PSA % [...] Roscoe Gudino MD CHEMISTRY ORDERABLES Final Result [facility] [address] [place] [address], [place] from Last 3 Months or Most Recently Relevant to Health Maintenance Insurance [facility] OAP MEDICARE Member Subscriber Plan / Payer (Ef fective 2023-Present) Name:Eduar Pardo Member ID:[id number] Relation to Subscriber:Self Name:Eduar Pardo Subscriber ID:[id number] Payer ID:[id number] Group ID:Not on file Type:Not on file Address: [facility] [address] [facility] [employer] [facility] [employer] [facility] [place] [address] Care Teams Plate Driller Relationship Specialty Start Date End Date Alecia Cornell MD [address] [place] [address] PCP - General 07/06/16 Wood Griffith MD [address] [facility] [address] [place] [id number] Consulting Physician Pulmonary Disease 07/06/16 Natali Leyva APRN, DIRECTOR [facility] [address] [facility] [address] [place] [address] Nurse Practitioner Advanced Practice Nurse 03/29/22
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
--- OUTSIDE RECORDS SUMMARY | 2024-08-14 01:37 | XMS_ITS | Referral Summary ---
Author Organization [facility] Address [address] [place] [address] Care Team Providers Care Dairy Machine Operator Farmworker Name Role Phone Elving-Alecia White MD Primary [...] on file Legal Sex Male 9:32 AM HEADEND TECHNICIAN Gender Identity Not on file Sexual Orientation Not on file Last Filed Vital Signs Vital Sign Reading Time Taken Comments Blood Pressure 108/80 07/19/2012 11:58 AM CDT Pulse 92 07/19/2012 11:58 AM CDT Temperature - - Respiratory Rate - - Oxygen Saturation - - Inhaled Oxygen Concentration - - Weight 167.8 kg (370 lb) 06/17/2012 3:30 PM HEADEND TECHNICIAN Height 182.9 cm (6') 07/19/2012 11:58 AM CDT Body Mass Index 50.18 06/17/2012 3:30 PM HEADEND TECHNICIAN Plan of Treatment Not on file Insurance AETNA MEDICARE [facility] [id number] Care Teams Dairy Machine Operator Farmworker Relationship Specialty Start Date End Date Alecia Leslie MD [address] [place] [id number] PCP - General Family Medicine 02/23/21
--- OUTSIDE RECORDS SUMMARY | 2024-08-14 01:37 | XMS_ITS | Clinical Summary ---
Author Organization [facility] Address [address] [place] [address] Care Team Providers Care Grader Operator Name Role Phone Elving-Alecia White MD Primary [...] on file Legal Sex Male 9:32 AM BROACHER Gender Identity Not on file Sexual Orientation Not on file Obstetrics History Last Filed Vital Signs Vital Sign Reading Time Taken Comments Blood Pressure 108/80 07/19/2012 11:58 AM CDT Pulse 92 07/19/2012 11:58 AM CDT Temperature - - Respiratory Rate - - Oxygen Saturation - - Inhaled Oxygen Concentration - - Weight 167.8 kg (370 lb) 06/17/2012 3:30 PM BROACHER Height 182.9 cm (6') 07/19/2012 11:58 AM CDT Body Mass Index 50.18 06/17/2012 3:30 PM BROACHER Plan of Treatment Health Maintenance Due Date [...] Vaccine Completed 11/05/2018, 08/06/2018 Insurance AENA MEDICARE [facility] [id number] Care Teams Grader Operator Relationship Specialty Start Date End Date Alecia Leslie MD [address] [place] [phone] PCP - General Family Medicine 02/23/21
--- OUTSIDE RECORDS SUMMARY | 2024-08-14 01:37 | XMS_ITS | Continuity of Care Document ---
Author Organization [facility] Address [address] [place] [address] [address] [place] [address] Phone Care Team Providers Care Glass Vial Filler Name Role Phone Mario Khan MD, MD [...] - Active Procedures Procedure Date Office/outpatient Visit, [facility] Remove Foreign Body From Eye Advance [...] Providers Copied on Encounter Office/outpa tient Visit, [facility], [address], [place], [place], [id number], [place] tel:[phone] SEC Khadijah Irizarry irritation (chief complaint) [employer] [employer] ERS [facility] EYELID NEC [address], [address], [place], [address], [place]. tel:[phone] Family History Family Member Type Diagnosis Age At Onset Problem (finding) Family history of degenerative disorder of macula Mother Problem (finding) glaucoma Payers Payer name Insurance type Covered democrat ID Jeffery espinoza(s) [employer] CI [id number] Social History Type Description Quantity Date Captured [...]
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
--- NOTE | 2024-08-14 06:18 | WPDHPUPDATE1 ---
History and Physical Update Update Date/Time: 08/14/24 06:18 History and Physical has been reviewed, including an updated exam of the patient. There are NO changes in the patient's condition. Risks, benefits, and alternatives have been discussed and questions answered. Patient agrees to proceed with procedure.
[2024-08-14 07:07] VITALS: BP 160/70; PULSE 88; RESP 16; TEMP 36.2; O2SAT 97
[2024-08-14] MEDS: LACTATED RINGERS 1,000 ML 30 ML IV CONT ×2 (08:00→10:34)
[2024-08-14 08:06] LABS: Glucose Point of Care 149 mg/dl (65-105)
--- NOTE | 2024-08-14 08:33 | P.PNAN_ITS ---
Anes - Initial Pre Proc Eval Procedure: Operation Date: 08/14/24 09:15 Proposed Procedures p Cystoscopy, Right Ureteroscopy with Holmium Laser Lithotripsy, Possible Right Retrograde, Possible Right Stent Re-Placement - Riky Costa MD Date/Time: 08/14/24 08:33 Surgeon: Riky Costa MD Pre Op Diagnosis: Right Renal Stone Patient Data Age: 64 Gender: M Height: 1.83 m Weight: 167.4 kg Last Vital Signs Temp 97.1 F L 08/14/24 07:07 Pulse 88 08/14/24 07:07 Resp 16 08/14/24 07:07 BP 160/70 H 08/14/24 07:07 Pulse Ox 97 08/14/24 07:07 O2 Del Method Room Air 08/14/24 07:07 Allergies Allergy/AdvReac Type Severity Reaction Status Date / Time cephalexin (From Keflex) Allergy Hives Verified 08/14/24 08:33 Home Medications ?Medication ?Instructions ?Recorded ?Confirmed ?Type lisinopril 20 1 tablet PO QAM 09/01/23 08/14/24 History mg-hydrochlorothiazide 25 mg tablet metformin 1,000 mg tablet 500 mg PO DAILY 09/01/23 08/14/24 History omeprazole 20 mg capsule,delayed 20 mg PO DAILY 09/01/23 08/14/24 History release rosuvastatin 10 mg tablet 10 mg PO DAILY 09/01/23 08/14/24 History semaglutide 1 mg/dose (4 mg/3 mL) 1 mg subcut WEEKLY 09/01/23 08/14/24 History subcutaneous pen injector (Ozempic) celecoxib 200 mg capsule (Celebrex) 200 mg PO DAILY 09/06/23 08/14/24 History citalopram 20 mg tablet 10 mg PO QAM 09/06/23 08/14/24 History magnesium oxide 400 mg PO DAILY 09/06/23 08/14/24 History multivitamin 1 tablet PO DAILY 09/06/23 08/14/24 History tirzepatide 2.5 mg/0.5 mL 2.5 mg subcut WEEKLY 08/12/24 08/14/24 History subcutaneous pen injector (Mounjaro) vit A 1000 unit-C 300 mg-E 100 1 tablet PO DAILY 08/12/24 08/12/24 History aqsr-S1-Q7-lutn 2 pa-yiuz-dmznha tablet Laboratory Tests 08/14/24 08:03 POC Capillary Glucose 149 H mg/dl (65-105) Patient hx anesthesia problems: none Family hx anesthesia problems: none Results Review: All pre-operative results and documents have been reviewed as part of the pre- operative evaluation. [facility] Past Medical History Medical History Obstructive sleep apnea Gastroesophageal reflux disease Hyperlipidemia Type 2 diabetes mellitus Hypertension Surgical History Surgical History History of right knee joint replacement History of cholecystectomy History of appendectomy Family History Family History Other Cancer Heart disease Hypertension Social History Social History Social History: Surrogate medical decision maker: Mahnaz Pardo, spouse. Code status: Full code. Smoking status: Never smoker Second hand tobacco smoke exposure: No Alcohol intake: never Substance use: never Do You Feel Safe in your Home?: Yes Lack of Transportation: No Lack of Food: Never True Current Housing: Decline to Answer Concerned About Future Housing: Decline to Answer Difficulty Paying Gas/Electric Bills: Decline to Answer Difficulty Paying for Meds: Decline to Answer Currently Unemployed: Decline to Answer Education: Decline to Answer Difficulty w/ Childcare or Family Care: Decline to Answer Living arrangements: with family Additional living arrangements comments: Occupation/Education: occupation Additional occupation/education comments: [employer]. Spiritual care concerns: No Anes - Eval Final PreProcedure Day of Procedure 08/14/24 08:33 Patient weight: morbidly obese Lungs: normal air movement Airway: Mallampati scale class II Neurological: alert and oriented Last oral intake: >/= 8 hours ASA classification: III Emergent: no Anesthetic plan: proceed Anesthesia type and monitoring: general ETT and standard monitoring Results Review: All pre-operative results and documents have been reviewed as part of the pre- operative evaluation. HTN, hyperlipidemia, WARREN on CPAP, DM fsbs 149, pt had been on GLP1 and is taking for DM, no GI symptoms. Informed Consent: The patient's anesthetic plan and its attendant risks and benefits were discussed with the patient/family/POA. Questions were solicited and answers provided to the satisfaction of the patient/family/POA.
--- NOTE | 2024-08-14 09:07 | P.HP_ITS ---
History of Present Illness History of Present Illness Consent: Risks, benefits, and alternatives have been discussed and questions answered. Patient agrees to proceed with procedure. Chief complaint: Right Renal Stone Narrative: Eduar Pardo is a 64 year old male known history of recurrent urolithiasis. He recently had a painful obstructing 5 mm right ureteral stone which appears to have now passed spontaneously. He is left with an indwelling stent and a 14 mm renal pelvic stone. After discussion of options he has elected for endoscopic treatment of this stone. His body habitus precludes affective ESWL. Review of Systems Cardiovascular: Cardiovascular: Denies chest pain, Denies lightheadedness, Denies palpitations and Denies dyspnea Respiratory: Respiratory: Denies dyspnea Gastrointestinal: Gastrointestinal: Denies diarrhea, Denies nausea and Denies vomiting Genitourinary: Genitourinary: Denies hematuria and Denies dysuria Endocrine: Endocrine: Denies palpitations PMFSH Past Medical History Medical History Obstructive sleep apnea Gastroesophageal reflux disease Hyperlipidemia Type 2 diabetes mellitus Hypertension Surgical History Surgical History History of right knee joint replacement History of cholecystectomy History of appendectomy Family History Family History Other Cancer Heart disease Hypertension Social History Social History Social History: Surrogate medical decision maker: Mahnaz Pardo, spouse. Code status: Full code. Smoking status: Never smoker Second hand tobacco smoke exposure: No Alcohol intake: never Substance use: never Do You Feel Safe in your Home?: Yes Lack of Transportation: No Lack of Food: Never True Current Housing: Decline to Answer Concerned About Future Housing: Decline to Answer Difficulty Paying Gas/Electric Bills: Decline to Answer Difficulty Paying for Meds: Decline to Answer Currently Unemployed: Decline to Answer Education: Decline to Answer Difficulty w/ Childcare or Family Care: Decline to Answer Living arrangements: with family Additional living arrangements comments: Occupation/Education: occupation Additional occupation/education comments: [employer]. Spiritual care concerns: No Meds Home Medications and Allergies Home Medications ?Medication ?Instructions ?Recorded ?Confirmed ?Type lisinopril 20 1 tablet PO QAM 09/01/23 08/14/24 History mg-hydrochlorothiazide 25 mg tablet metformin 1,000 mg tablet 500 mg PO DAILY 09/01/23 08/14/24 History omeprazole 20 mg capsule,delayed 20 mg PO DAILY 09/01/23 08/14/24 History release rosuvastatin 10 mg tablet 10 mg PO DAILY 09/01/23 08/14/24 History semaglutide 1 mg/dose (4 mg/3 mL) 1 mg subcut WEEKLY 09/01/23 08/14/24 History subcutaneous pen injector (Ozempic) celecoxib 200 mg capsule (Celebrex) 200 mg PO DAILY 09/06/23 08/14/24 History citalopram 20 mg tablet 10 mg PO QAM 09/06/23 08/14/24 History magnesium oxide 400 mg PO DAILY 09/06/23 08/14/24 History multivitamin 1 tablet PO DAILY 09/06/23 08/14/24 History tirzepatide 2.5 mg/0.5 mL 2.5 mg subcut WEEKLY 08/12/24 08/14/24 History subcutaneous pen injector (Mounjaro) vit A 1000 unit-C 300 mg-E 100 1 tablet PO DAILY 08/12/24 08/12/24 History yhtt-D0-K1-lutn 2 me-azsm-uhtmmt tablet Allergies Allergy/AdvReac Type Severity Reaction Status Date / Time cephalexin (From Keflex) Allergy Hives Verified 08/14/24 08:33 Vital Signs Vital Signs - 24 hr 08/14/24 07:07 Temperature 97.1 F L Pulse Rate 88 Respiratory Rate 16 Blood Pressure 160/70 H Pulse Oximetry 97 Oxygen Delivery Room Air Exam Const: General: no acute distress Resp: Effort & Inspection: normal respiratory effort GI: Inspection: non-distended GI Palp: No abdominal tenderness and No Guarding due to palpation present (GI) Auscultation: normal bowel sounds Assessment and Plan Assessment and plan (1) Right renal stone: Code(s): N20.0 - Calculus of kidney Status: Acute Assessment and Plan: * Cystoscopy, right ureteroscopy with laser lithotripsy, stone extraction, possible retrograde pyelogram and stent replacement
[2024-08-14] MEDS: levoFLOXacin 500 MG/D5W 100 ML 500 MG/100 ML BAG 100 MG IVPB (09:12)
[2024-08-14] MEDS: LIDOCAINE 2% GEL UROJET 10 ML PKG MUCOUS MEM (09:22)
--- NOTE | 2024-08-14 10:01 | P.OP_ITS ---
Procedure Note - Detailed Date of Procedure 08/14/24 Pre-op Diagnosis Right Renal Stone Post-op Diagnosis Same Procedure Performed Cystoscopy, right we stent removal, right ureteroscopy with laser lithotripsy and extraction of renal calculi and a ureteral calculus, retrograde pyelography and ureteral stent replacement Surgeon Riky Costa MD Anesthesia General Description of Procedure Patient brought the operative suite was prepped draped in routine sterile fashion while in dorsal lithotomy position after the uneventful induction of a general LMA anesthetic. Cystoscopy was undertaken with a 21 F rigid cystoscope. Tip of the indwelling stent is grasped and brought to the external urethral meatus. A 0.035 in glidewire was advanced into the right renal pelvis and the distal ureter was dilated with an 8 F 10 F dilator. With safety wires placed followed by a 11 F/13 F ureteral access sheath. Ureteroscopy was undertaken with a 7.5 F digital ureteral scope. He is placed in slight Trendelenburg position which allows for both of his larger renal pelvic stones to fall into an upper pole calyx. The stones measure, in aggregate, proximally 15 mm. Using a 200 micron Yunior laser fiber on a dusting mode the stones were fractured into tiny little pieces all of which were estimated to be 2 mm or less. A couple larger pieces were extracted with a 1.9 F disposable stone basket with ease. Retrograde pyelography is a obtained to ensure appropriate placement of ureteral stent. Upon withdrawing the scope I saw 2 residual stone fragments in his ureter, as identified previously CT scan. These are extracted with a cyst semi- rigid ureteral scope using the same 1.9 F disposable stone basket. I replaced a 4.8 F variable length stent with appropriate positioning.
[2024-08-14 10:08] VITALS: BP 141/83; PULSE 105; RESP 14; TEMP 36.3; O2SAT 100
[2024-08-14 10:15] LABS: Glucose Point of Care 111 mg/dl (65-105)
[2024-08-14 10:24] VITALS: BP 134/76; PULSE 89; RESP 12; O2SAT 94
[2024-08-14 10:39] VITALS: BP 132/75; PULSE 92; RESP 16; O2SAT 97
[2024-08-14 10:42] VITALS: BP 147/87; PULSE 89; RESP 16
[2024-08-14 11:12] VITALS: BP 150/85; PULSE 92; RESP 16
--- NOTE | 2024-08-14 11:32 | SUR.PHASEII ---
1115: ready for dc but changing clothes.
== END 2024-08-14 11:32 | disposition home or self-care (01) ==
PROVIDERS: PCP Family Medicine; Visit Provider Urology
PROC: (CPT 52352; principal; 2024-08-14 09:15)
DX: N20.1 Calculus of ureter (principal); E11.9 Type 2 diabetes mellitus without complications; I10 Essential (primary) hypertension; E78.5 Hyperlipidemia, unspecified; G47.33 Obstructive sleep apnea (adult) (pediatric); E66.01 Morbid (severe) obesity due to excess calories; Z68.43 Body mass index [BMI] 50.0-59.9, adult
CPT/HCPCS: 52356; 74420; 82365; 82948; 88300; C1769; C1894; C2617; J1100; J1885; J1956; J2003; J2405; J2704; J3010; J7120; Q9966

== ENCOUNTER 2024-08-26 14:17 | Outpatient (CLI) | payer MEDICARE, SELFPAY ==
--- NOTE | ~2024-08-26 | XR_ITS ---
XR abdomen/kub 1V Ordering provider: Riky Costa MD History: . L ureteral stone . Comparison: August 07, 2024 FINDINGS: BOWEL: Nonobstructive bowel gas pattern. ORGANOMEGALY: None. SIGNIFICANT PATHOLOGIC CALCIFICATIONS: None. Right double-J stent. Possible stone in the area of the bladder is not excluded. OTHER: No free air is seen under the diaphragm. IMPRESSION: NO ACUTE ABDOMINAL FINDINGS. Right double-J stent. Possible stone in the area of the urinary bladder. Reviewed, dictated and finalized at location A.
--- OUTSIDE RECORDS SUMMARY | 2024-08-26 16:35 | XMS_ITS | Encounter Summary ---
Author Organization [facility] Address [address] [place] [address] Phone Care Team Providers Care Clean Up Supervisor Name Role Phone Kraig-Alecia White MD Primary Care Provider Reason for Visit * Reason Comments Iris Nevus OD Encounter Details Date Type Department Care Team (Late st Contact Info) Description 08/25/2024 10:30 AM CDT Office Visit [facility] Ophthalmology [address] [facility] [address]th [place] [id number] Royal Toledo MD PhD [address] [facility] [address] [place] [address] Iris nevus, right (Primary Dx) Social History Tobacco Use Types Packs/Day Years Used Date Smoking Tobacco: Never Smokeless Tobacco: Never Sex and Gender Information Value Date Recorded Sex Assigned at Not on file Legal Sex Male 9:32 AM [employer] Gender Identity Not on file Sexual Orientation Not on file documented as of this encounter Progress Notes * Royal Toledo MD PhD - 08/25/2024 10:30 AM CDT Iris nevus OD. No change since last visit 12 mos ago. In periphery, appears flat with mild adjacentpigment in angle, no PAS or distortion of architecture. Has baseline slit lamp photos and UBM from 2020 F/u 12 mos I was present with the resident or fellow during the history and exam. I discussed this patient with the resident or fellow and agree with the findings and plan as documented in the their note. I have made corrections and additions as appropriate. Royal Toledo MD PhD documented in this encounter Plan of Treatment Not on file documented as of this encounter Visit Diagnoses Diagnosis Iris nevus, right- Primary documented in this encounter Historical Medications * This list may reflect changes made after this encounter. Mounjaro 5 mg/0.5 mL pen injector injection Inject 0.5 mL (5 mg total) under the skin once a week meclizine (ANTIVERT) 12.5 mg tablet Take 1 tablet (12.5 mg total) by mouth every 8 (eight) hours as needed 03/28/2023 added in this encounter Eye Exam Visual Acuity (Snellen - Linear) Right eye Left eye Dist sc 20/30 -1 20/20 -1 Dist ph sc 20/20 -2 Tonometry (I-Care, 10:37 AM) Right eye Left eye Pressure 17 17 Gonioscopy Flat iris nevus OD with adjacent focal pigmentation of angle, no elevation, NV, or scarring Pupils Dark Light Shape React APD Right eye 4.5 3.5 Round Brisk None Left eye 4.5 3.5 Round Brisk None Visual Cunha Right eye Left eye Full Full Extraocular Movement Right eye Left eye Full Full Neuro/Psych Oriented x3: Yes Mood/Affect: Normal External Exam Right eye Left eye External Normal Normal Slit Lamp Exam Right eye Left eye Lids/Lashes Meibomian gland dysfunction Meib omian gland dysfunction Conjunctiva/Sclera White and quiet White and precious et Cornea Clear Clear Anterior Chamber Deep and quiet Deep and quiet Iris Round and reactive, flat pigmented lesion 1.7mm x 0.3mm at 10 oclock, no sentinal vessels Round and reactive, inferior light, patchy depigmentation Lens 1+ NSC 1+ NSC Anterior Vitreous nd nd Care Teams Clean Up Supervisor Relationship Specialty Start Date End Date Alecia Leslie MD [address] [place] [id number] PCP - General Family Medicine 02/23/21 documented as of this encounter
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
--- OUTSIDE RECORDS SUMMARY | 2024-08-26 16:36 | XMS_ITS | Continuity of Care Document ---
Author Organization [facility] Address [address] [place] [address] [address] [place] [address] Phone Care Team Providers Care Synthetic Filament Spinner Name Role Phone Mario Khan MD, MD [...] - Active Procedures Procedure Date Office/outpatient Visit, [facility] Remove Foreign Body From Eye Advance [...] Providers Copied on Encounter Office/outpa tient Visit, [facility], [address] [place], [place], [id number], [place] tel:[phone] SEC Khadijah Irizarry CONJUNCTIVAL CONCRETIONSDISORDE RS OF EYELID NEC [address], [address], [place], [address], [place]. tel: [phone] Family History Family Member Type Diagnosis Age At Onset Problem (finding) Family history of degenerative disorder of macula Mother Problem (finding) glaucoma Payers Payer name Insurance type Covered republican ID Jeffery espinoza(s) [employer] CI [id number] Social History Type Description Quantity Date Captured [...]
--- OUTSIDE RECORDS SUMMARY | 2024-08-26 16:36 | XMS_ITS | Clinical Summary ---
Author Organization [facility] Address [address] [facility] [place] [address] Phone Care Team Providers Care Geological Manager Name Role Phone Wood Griffith MD Unavailable Alecia Cornell MD Primary Care Provider [phone] Natali Leyva APRN, [facility] Unavailable Allergies Active Allergy Reactions Criticality Noted [...] Written: 12/01/13 Patient Instructions: 4 Active Multiple Vitamins-[employer] als (Eye Vitamins) Capsule Eye Vitamins Oral [...] Lnp-s, Pf, 3 0 Mcg/0.3 Ml Dose (Dodreams) 06/29/2020,06/08/2020 Influenza Vaccine greater than 3 yrs [...] Visit [facility] [place] [address] [facility] [address] [place] [address] Natali Leyva, METER READER CHIEF, [facility] [address] [facility] [address] [place] [address] Health Maintenance Due Date Last Done Comments [...] CDT) Prostatic Specific Antigen, Free 2.10 ng/mL [address] 09/06/2020 10:56 PM CDT [facility] PSA, TOTAL (PROSTATIC SPECIFIC ANTIGEN) 3.36 <4.00 ng/mL [address] 09/06/2020 10:56 PM CDT [facility] PSA, % FREE 62.5 % [address] 09/06/2020 10:56 PM CDT [facility] Comment: PSA NG/ML FREE PSA % [...] Roscoe Gudino MD CHEMISTRY ORDERABLES Final Result [facility] [address] [place] [address], [place] from Last 3 Months or Most Recently Relevant to Health Maintenance Insurance [facility] OAP MEDICARE Care Teams Geological Manager Relationship Specialty Start Date End Date Alecia Cornell MD [address] [place] [address] PCP - General 07/06/16 Wood Griffith MD [address] [facility] [address] [place] [address] Consulting Physician Pulmonary Disease 07/06/16 Natali Leyva APRN, [facility] [address] [facility] [address] [place] [address] Nurse Practitioner Advanced Practice Nurse 03/29/22
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
--- OUTSIDE RECORDS SUMMARY | 2024-08-26 16:36 | XMS_ITS | Clinical Summary ---
Author Organization [facility] Address [address] [place] [address] Phone Care Team Providers Care Auto Dismantler Name Role Phone ROLO AQUINO MD Primary Care Provider [phone] Reason for Visit and Chief Complaint CHART UPDATE Problems Includes: Problems addressed during this encounter and other active Problems All Visits Onset Date Resolved Date Provider Condition S tatus Nephrolithiasis 10/18/2023 RLOO Greenwood Active Last Documented On 4 11:01PM ; [facility] Joint Pain in the Left Knee 09/02/2021 SAL Omer Active Last Documented On 2 8:40AM ; [facility] Osteoarthritis Localized Primary Knee Left 09/02/2021 SAL Omer Active Last Documented On 2 8:40AM ; [facility] Diabetes Mellitus Type 2 - U ncomplicated, Controlled 08/14/2017 ROLO AQUINO MD Active Last Documented On 1 10:11PM ; [facility] Hyperlipidemia 01/07/2016 ROLO AQUINO MD Active Last Documented On 6 9:41AM ; [facility] Anxiety Disorder Nos 06/17/2015 ROLO MCGRAW MD Active Last Documented On 6 10:07AM ; [facility] Hyperglycemia 12/07/2014 ROLO AQUINO MD Active Last Documented On 5 9:44AM ; [facility] 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 ROLO CROWE MD Active Last Documented On 0 2:28PM ; [facility] Note: 11-14 Arthritis 12/01/2013 ROLO AQUINO MD Act gianni Last Documented On 2 10:15AM ; [facility] Gerd 12/01/2013 ROLO AQUINO MD Act gianni Last Documented On 0 2:28PM ; [facility] Essential Hypertension Benign 12/01/2013 ROLO AQUINO MD Active Last Documented On 12/01/2013 2:04PM ; [facility] Note: -------GOES BY FERNANDA Plan of Treatment Pending Tests Order Diagnosis Results Due Ordering P rovider Lab A1C HGB (GLYCO HEMOGLOBIN) 04/15/24 ROLO AQUINO MD Last Documented On 4 11:06PM ; [facility] Lab LIPID PANEL 04/15/24 ROLO CROWE MD Last Documented On 4 11:06PM ; [facility] Lab CMP 04/15/24 ROLO PARISH MD Last Documented On 4 11:06PM ; [facility] Assessments Includes: Assessments from this encounter No [...] 4 10:21AM By ROLO AQUINO MD ; [facility] Rosuvastatin Calcium 10 MG Oral Tablet 10/10/2023 Provider: ROLO Greenwood Diagnosis: Hyperlipidemia, unspecified TAKE 1 TABLET BY MOUTH EVERY DAY Last Documented On 4 10:21AM By ROLO AQUINO MD ; [facility] Ozempic (1 MG/DOSE) 4 MG/3ML Subcutaneous Solution Pen-injector 10/10/2023 Provider: ROLO AQUINO MD Diagnosis: Type 2 diabetes mellitus without complications 1mg once a week SC Last Documented On 4 10:21AM By ROLO AQUINO MD ; [facility] Lisinopril-hydroCHLOROthiazi de 20-25 MG Oral Tablet 10/10/2023 Provider: ROLO Greenwood Diagnosis: TAKE 1 TABLET BY MOUTH EVERY DAY Last Documented On 4 10:21AM By ROLO AQUINO MD ; [facility] Diclofenac Sodium 1% External Gel 10/10/2023 Provide r: ROLO AQUINO MD Diagnosis: Pain in left kne e apply 4 grams to left knee qid prn pain Last Documented On 4 10:21AM By ROLO AQUINO MD ; [facility] Omeprazole 20 MG Oral Capsul e Delayed Release 02/26/2023 Provider: ROLO Greenwood Diagnosis: TAKE 1 CAPSULE BY MOUTH EVERY DAY Last Documented On 3 8:55AM By ROLO AQUINO MD ; [facility] guaiFENesin-Codeine 100-10 M G/5ML Oral Solution 02/23/2023 Provider: ROLO Greenwood Diagnosis: Cough, unspecifi ed Take 1 to 2 teaspoons every 4 hours prn cough Last Documented On 3 11:02AM By ROLO AQUINO MD ; [facility] metFORMIN HCl 1000 MG Oral Tablet 10/25/2022 Provider: ROLO Greenwood Diagnosis: Type 2 diabetes mellitus without complications TAKE 1 TABLET BY MOUTH TWICE A DAY Last Documented On 10/25/2022 5:32PM By Diane BRANTLEY ; [facility] Celecoxib 200 MG Oral Capsule 08/25/2022 Provider: ROLO Greenwood Diagnosis: Bilateral primar y osteoarthritis of knee TAKE 1 CAPSULE BY MOUTH EUNICE Y MAY TAKE SECOND CAPSULE DAILY NEEDED Last Documented On 3 8:59AM By ROLO AQUINO MD ; [facility] Eye Vitamins Oral Capsule 08/14/2017 Provider: Diagnosis: Last Documented On 08/14/2017 8:17AM By IVONE BRANTLEY ; [facility] Magnesium Oxide 500 MG Tablet 05/11/2015 Provide r: Diagnosis: Last Documented On 05/11/2015 11:21AM By MIL BRANTLEY ; [facility] Multivitamins OR CAPS 12/01/2013 Provider: Diagnosis: Last Documented On 4 1:46PM By MAICO BRANTLEY ; [facility] Medications Administered Includes: Administered Medications from this [...] Patient Last Documented On 4 2:48PM ; [facility] PCV 20 1 2023 Right Deltoid Complete (Repor lakia) Patient Last Documented On 4 2:48PM ; [facility] Allergies Includes: Active Allergies Substance Type Reaction Onset Date Resolved Date Statu s Keflex Allergy Skin Rashes / Er uption of skin, Hives / Urticaria 12/01/2013 Active Last Documented On 4 9:46AM ; [facility] Encounters Encounter Provider Location Date Check-In Time Check-Out Time Diagnosis CHART UPDATE ROLO AQUINO MD 01/01/2024 2:47PM 11:59PM Insurance Includes: Active Insurance Policies Plan Name Member ID Group # Subscriber Relationship Effect gianni Dates 1 - [employer] [id number] KHLOE COREA Self Clinical Notes Includes: Clinical Notes from this encounter No Clinical Notes Recorded
--- OUTSIDE RECORDS SUMMARY | 2024-08-26 16:36 | XMS_ITS | Referral Summary ---
Author Organization [facility] Address [address] [place] [address] Care Team Providers Care Operator Supply Name Role Phone Kraig-Alecia White MD Primary Care Provider Encounters Date Type Department Care Team Description 08/25/2024 10:30 AM CDT Office Visit [facility] Ophthalmology [address] [facility] [address] [place] [address] Royal Toledo MD PhD Iris nevus, right (Primary Dx) from Last 3 Months Allergies Active Allergy Reactions Criticality Noted Date [...] 1MG ONCE A WEEK UNDER SKIN Active meclizine (ANTIVERT) 12.5 mg tablet Take 1 tablet (12.5 mg total) by mouth every 8 (eight) hours as needed 03/28/2023 Active Mounjaro 5 mg/0.5 mL pen injector injection Inject 0.5 mL (5 mg total) under the skin once a week Active Active Problems Problem Noted Date Diagnosed Date Hydronephrosis of right kidney 07/17/2024 Lower urinary tract calculus 07/17/2024 Lower urinary tract infection 07/17/2024 Arthralgia of knee 09/02/2021 Primary localized osteoarthrosis, lower leg 08/06 Nevus of iris of right eye 02/23/2021 Type 2 diabetes mellitus without complication Gastroesophageal reflux disease without esophagi tis 07/12/2016 Morbid obesity due to excess calories 07/12/2016 WARREN (obstructive sleep apnea) 07/12/2016 SOB (shortness of breath) 07/12/2016 Hyperlipidemia 01/07/2016 Anxiety disorder 06/17/2015 Hyperglycemia 12/07/2014 Sleep apnea 06/29/2014 Overview (08/25/2024): Note: 11- Arthritis 12/01/2013 Essential (primary) hypertension 12/01/2013 Overview (08/25/2024): Note: -------GOES BY FERNANDA Social History Tobacco Use Types Packs/Day Years Used Date Smoking Tobacco: Never Smokeless Tobacco: Never Sex and Gender Information Value Date Recorded Sex Assigned at Not on file Legal 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 Gender Identity Not on file Sexual Orientation Not on file Last Filed Vital Signs Vital Sign Reading Time Taken Comments Blood Pressure 108/80 07/19/2012 11:58 AM CDT Pulse 92 07/19/2012 11:58 AM CDT Temperature - - Respiratory Rate - - Oxygen Saturation - - Inhaled Oxygen Concentration - - Weight 167.8 kg (370 lb) 06/17/2012 3:30 PM DIRECTOR OF COLLECTIONS Height 182.9 cm (6') 07/19/2012 11:58 AM CDT Body Mass Index 50.18 06/17/2012 3:30 PM DIRECTOR OF COLLECTIONS Plan of Treatment Not on file Insurance [employer] MEDICARE [facility] [id number] Care Teams Operator Supply Relationship Specialty Start Date End Date Alecia Leslie MD [address] [place] [id number] PCP - General Family Medicine 02/23/21
--- OUTSIDE RECORDS SUMMARY | 2024-08-26 16:36 | XMS_ITS | Clinical Summary ---
Author Organization [facility] Address [address] [place] [address] Care Team Providers Care Membership Sales Manager Name Role Phone Elving-Alecia White MD Primary [...] 12/01/2013 Overview (08/25/2024): Note: -------GOES BY FERNANDA Encounters Date Type Department Care Team Description 08/25/2024 10:30 AM CDT Office Visit 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 Gender Identity Not on file Sexual Orientation Not on file Obstetrics History Last Filed Vital Signs Vital Sign Reading Time Taken Comments Blood Pressure 108/80 07/19/2012 11:58 AM CDT Pulse 92 07/19/2012 11:58 AM CDT Temperature - - Respiratory Rate - - Oxygen Saturation - - Inhaled Oxygen Concentration - - Weight 167.8 kg (370 lb) 06/17/2012 3:30 PM 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 Height 182.9 cm (6') 07/19/2012 11:58 AM CDT Body Mass Index 50.18 06/17/2012 3:30 PM PULVERIZER MILL OPERATOR Plan of Treatment Health Maintenance Due Date Last Done Comments Albumin Creatinine Ratio, Urine 1958 Colon Cancer Screening-Colonoscopy 1958 Depression Screening 1958 Fall Risk Assessment 1958 Hemoglobin A1C 1958 Hepatitis C Screening 1958 Prostate Cancer Screening-PSA 1958 eGFR 1958 Dilated Eye Exam 1958 Foot Exam 1958 Lipid Panel 1958 Hepatitis B Screening 1976 Pneumococcal vaccine 65+ (1 of 2 - PCV) 1977 Well Visit 65+ 2023 DTaP/Tdap/Td Vaccine (2 - Td or Tdap) 12/02/2023 12/01/2013 Covid-19 Vaccine (5 - 2023-2 5 season) 2024 01/24/2022, 02/11/2021, 06/29/2020, Additional history exists Influenza Vaccine (Season Ended) 2025 01/24/2022, 01/24/2022, 02/11/2021, Additional history exists Zoster Vaccine Completed 11/05/2018, 08/06/2018 Insurance [employer] MEDICARE [facility] [id number] Care Teams Membership Sales Manager Relationship Specialty Start Date End Date Alecia Leslie MD [address] [place] [id number] PCP - General Family Medicine 02/23/21
--- OUTSIDE RECORDS SUMMARY | 2024-08-26 16:36 | XMS_ITS ---
Care Plan - [facility] Created on: August 26, 2024 HARJEET COREAGEORGIE Ricketts : 1960 Sex: Male Author Organization [facility] Address [address] [place] [address] Phone Care Team Providers Care Tutoring Assistant Name Role Phone ROLO AQUINO MD Primary Care Provider [phone]
--- OUTSIDE RECORDS SUMMARY | 2024-08-26 16:36 | XMS_ITS ---
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 Name Role Phone ROLO AQUINO MD Primary Care Provider [phone] Reason for Referral Date Encounter Description Provider [...] Active Last Documented On 4 11:01PM ; [facility] Joint Pain in the Left Knee 09/02/2021 SAL Omer Active Last Documented On 2 8:40AM ; [facility] Osteoarthritis Localized Primary Knee Left 09/02/2021 SAL Omer Active Last Documented On 2 8:40AM ; [facility] Diabetes Mellitus Type 2 - U ncomplicated, Controlled 08/14/2017 ROLO AQUINO MD Active Last Documented On 1 10:11PM ; [facility] Hyperlipidemia 01/07/2016 ROLO AQUINO MD Active Last Documented On 6 9:41AM ; [facility] Anxiety Disorder Nos 06/17/2015 ROLO MCGRAW MD Active Last Documented On 6 10:07AM ; [facility] Hyperglycemia 12/07/2014 ROLO AQUINO MD Active Last Documented On 5 9:44AM ; [facility] 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 ROLO CROWE MD Active Last Documented On 0 2:28PM ; [facility] Note: 11-14 Arthritis 12/01/2013 ROLO AQUINO MD Act gianni Last Documented On 2 10:15AM ; [facility] Gerd 12/01/2013 ROLO AQUINO MD Act gianni Last Documented On 0 2:28PM ; [facility] Essential Hypertension Benign 12/01/2013 ROLO AQUINO MD Active Last Documented On 12/01/2013 2:04PM ; [facility] Note: -------GOES BY FERNANDA Plan of Treatment Findings Encounter Date He was provided with a left knee steroid injection today. He tolerated the injection without difficulty. He would need to wait three months before repeat steroid injection in the left knee. Follow-up with me as needed FOLLOW UP with SAL Omer 08/13/2023 Last Documented On 4 10:04AM ; [facility] He was provided with the lef t knee steroid injection to date. He tolerated the injection without difficulty. He would be required to wait at least three months before repeat steroid injection. Follow-up with me as needed FOLLOW UP with SAL Omer 05/11/2023 Last Documented On 4 9:10AM ; [facility] I did provide him today with a left knee steroid injection. He tolerated that without difficulty. He would need to wait at least three months before repeat injection. Follow-up with me on as a basis FOLLOW UP with SAL Omer 02/08/2023 Last Documented On 3 9:13AM ; [facility] I provided him with a left k [...] 11/08/2022 Last Documented On 3 2:10PM ; [facility] He was encouraged to continu e his weight loss to move toward the BMI of 40. He was given a left knee steroid injection today which he tolerated well. Follow up in 3 months for repeat steroid injection as needed FOLLOW UP with SAL Omer 08/07/2022 Last Documented On 3 9:24AM ; [facility] I once again discussed [...] 03/27/2022 Last Documented On 2 9:40AM ; [facility] Ordered home exercises FOLLOW UP with MICHELLE DONATO DO 03/27/2022 Last Documented On 2 9:40AM ; [facility] I discussed once again with Khloe that [...] 12/19/2021 Last Documented On 2 12:35PM ; [facility] Ordered home exercises FOLLOW UP with MICHELLE DONATO DO 12/19/2021 Last Documented On 2 12:35PM ; [facility] Ordered follow-up for re-exa mination three months ORTHO ESTABLISHED PATIENT with MICHELLE SCHNEIDER DO 09/12/2021 Last Documented On 2 10:20AM ; [facility] Ordered home exercises ORTHO ESTABLISHED PATIENT with MICHELLE SCHNEIDER DO 09/12/2021 Last Documented On 2 10:20AM ; [facility] He is a diabetic [...] 09/02/2021 Last Documented On 2 8:49AM ; [facility] Ordered Transition in care, clinical summary provided 6 MONTH CHECK with ROLO AQUINO MD 08/14/2018 Last Documented On 9 9:00AM ; [facility] pt agrees with the [...] 03/05/2018 Last Documented On 8 12:41AM ; [facility] Ordered Clinical summary pro vided to patient . Plan discussed and patient/parent/caregiver states understanding PROBLEM VISIT with ALLI LASSITER PA-C 01/29/2018 Last Documented On 8 2:10PM ; [facility] Ordered follow-up visit as [...] 01/29/2018 Last Documented On 8 2:10PM ; [facility] Pt agrees with the [...] 11/06/2017 Last Documented On 8 10:17PM ; [facility] Ordered Clinical summary pro vided to patient . Plan discussed and patient/parent/caregiver states understanding PROBLEM VISIT with ALLI LASSITER PA-C 10/30/2017 Last Documented On 8 3:44PM ; [facility] pt agrees with the following plan of [...] 10/03/2017 Last Documented On 8 2:16PM ; [facility] Ordered Transition in care, clinical summary provided 6 MONTH CHECK with ROLO AQUINO MD 08/14/2017 Last Documented On 8 9:11AM ; [facility] Ordered follow-up visit in 1 month --can keep appointment with Dr. Frank for 6 month check PROBLEM VISIT with BONITA JONES [facility]- DIRECTOR DERMATOLOGY- 05/25/2015 Last Documented On 6 12:24PM ; [facility] Ordered return to the clinic if condition worsens or new symptoms arise PROBLEM VISIT with BONITA JONES PMHNP-BC DIRECTOR DERMATOLOGY-BC 05/25/2015 Last Documented On 6 12:24PM ; [facility] Ordered patient will call fo r appointment as needed PROBLEM VISIT with BONITA JONES PMHNP-BC DIRECTOR DERMATOLOGY-BC 05/11/2015 Last Documented On 6 12:19PM ; [facility] Ordered return to the clinic if condition worsens or new symptoms arise PROBLEM VISIT with BONITA JONES HNP-BC DIRECTOR DERMATOLOGY-BC 05/11/2015 Last Documented On 6 12:19PM ; [facility] Ordered Transition in care, clinical summary provided 6 MONTH CHECK with ROLO AQUINO MD 06/29/2014 Last Documented On 5 9:34AM ; [facility] Ordered Clinical summary pro vided to patient . Plan discussed and patient/parent/caregiver states understanding PROBLEM VISIT with ALLI LASSITER PA-C 05/27/2014 Last Documented On 5 2:34PM ; [facility] Ordered follow-up visit as [...] 05/27/2014 Last Documented On 5 2:34PM ; [facility] Ordered patient will call fo r appointment as needed PROBLEM VISIT with BONITA JONES HNP-BC DIRECTOR DERMATOLOGY-BC 05/21/2014 Last Documented On 5 1:43PM ; [facility] Ordered return to the clinic if condition worsens or new symptoms arise PROBLEM VISIT with BONITA JONES PMHNP-BC DIRECTOR DERMATOLOGY-BC 05/21/2014 Last Documented On 5 1:43PM ; [facility] We discussed skin cancers [...] 03/24/2013 Last Documented On 3 9:19AM ; [facility] Pending Tests Order Diagnosis Results Due Ordering P rovider Lab A1C HGB (GLYCO HEMOGLOBIN) 04/15/24 ROLO AQUINO MD Last Documented On 4 11:06PM ; [facility] Lab LIPID PANEL 04/15/24 ROLO CROWE MD Last Documented On 4 11:06PM ; [facility] Lab CMP 04/15/24 ROLO PARISH MD Last Documented On 4 11:06PM ; [facility] Referrals To Diagnosis 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 [facility] [address] [address] - CARDIAC DYSRHYTHMIA NOS Note: see sleep study Last Documented On 4 4:20PM ; [facility] Dermatology ROUTINE MEDICAL EXAM Note: FARA CLEMENT ROUTIN E SKIN CHECKS Last Documented On 6 4:07PM ; [facility] Dermatology LUCY SCHILLING MD Dermatitis, uns pecified Last Documented On 8 12:39PM ; [facility] Orthopedic MARTINA HOWELL DO Pain in right knee Last Documented On 9 2:59PM ; [facility] Auto Body Mechanic CAROLINE MENDIETA MD [facility] for screening for malignant neoplasm of colon Note: Positive Cologuard Yaron t Last Documented On 0 10:52PM ; [facility] Urologist AGGIE RUSS MD Elevated pr ostate specific antigen [PSA] Note: Referral to Dr. Wilian Russ, Urologist in [place]. Last Documented On 2 5:20PM ; [facility] Orthopedic Pain in left kne e Note: Referral to Dr. Schneider - Orthopedic for left knee issues. Last Documented On 2 11:25AM ; [facility] Instructions to patient Intervention and counseling on cessation of tobacco use Last Documented On 4 9:46AM ; [facility] Intervention and counseling on cessation of tobacco use Last Documented On 4 8:59AM ; [facility] Intervention and counseling on cessation of tobacco use Last Documented On 3 9:03AM ; [facility] No reduced physical activity -release to full activities Last Documented On 2 9:14AM ; [facility] Intervention and counseling on cessation of tobacco use Last Documented On 2 8:49AM ; [facility] No reduced physical activity -release to full activities Last Documented On 2 12:26PM ; [facility] Intervention and counseling on cessation of tobacco use Last Documented On 2 9:54AM ; [facility] No reduced physical activity -release to full activities Last Documented On 2 10:18AM ; [facility] Lose weight Last Documented On 0 8:50PM ; [facility] Lose weight Last Documented On 9 8:36PM ; [facility] Maintain a healthy diet Last Documented On 8 8:21AM ; [facility] Maintain a healthy diet Last Documented On 8 8:24AM ; [facility] Maintain a healthy diet Last Documented On 8 8:37AM ; [facility] Lose weight Last Documented On 7 10:09AM ; [facility] Instructions for patient Last Documented On 6 10:59AM ; [facility] Instructions for patient Last Documented On 6 11:41AM ; [facility] Instructions for patient Last Documented On 5 1:28PM ; [facility] Education and Decision Aids were provided during visit for: Patient education about orth opedic activities Last Documented On 2 9:14AM ; [facility] Patient education about orth opedic activities Last Documented On 2 12:26PM ; [facility] Patient education about orth opedic activities Last Documented On 2 10:18AM ; [facility] Patient education about a pr oper diet Last Documented On 8 8:21AM ; [facility] Patient education about regu lar dental care Last Documented On 8 8:21AM ; [facility] Patient education about diab etes and discussed ABCs of diabetic therapy and goals Last Documented On 8 8:21AM ; [facility] Patient education about a ho me blood glucose monitor with instructions to bring monitor to each visit Last Documented On 8 8:21AM ; [facility] Dietary counseling pertainin g to diabetes mellitus Last Documented On 8 8:21AM ; [facility] Patient education about diab etic foot care Last Documented On 8 8:21AM ; [facility] The patient's goal is to yaron t the blood sugars and bring in the results to each visit Last Documented On 8 8:21AM ; [facility] Review of care plan, pt xochitl hicks very well, no change in plan Last Documented On 8 8:21AM ; [facility] Patient education about a pr oper diet Last Documented On 8 8:24AM ; [facility] Patient education about regu lar dental care Last Documented On 8 8:24AM ; [facility] Patient education about diab etes and discussed ABCs of diabetic therapy and goals Last Documented On 8 8:24AM ; [facility] Patient education about a ho me blood glucose monitor with instructions to bring monitor to each visit Last Documented On 8 8:24AM ; [facility] Dietary counseling pertainin g to diabetes mellitus Last Documented On 8 8:24AM ; [facility] Patient education about diab etic foot care Last Documented On 8 8:24AM ; [facility] The patient's goal is to yaron t the blood sugars and bring in the results to each visit Last Documented On 8 8:24AM ; [facility] Counseling/education [Use fo r free text] Last Documented On 8 8:24AM ; [facility] Patient education about a pr oper diet Last Documented On 8 8:37AM ; [facility] Patient education about regu lar dental care Last Documented On 8 8:37AM ; [facility] Patient education about diab etes and discussed ABCs of diabetic therapy and goals Last Documented On 8 8:37AM ; [facility] Patient education about a ho me blood glucose monitor with instructions to bring monitor to each visit Last Documented On 8 8:37AM ; [facility] Dietary counseling pertainin g to diabetes mellitus Last Documented On 8 8:37AM ; [facility] Patient education about diab etic foot care Last Documented On 8 8:37AM ; [facility] The patient's goal is to yaron t the blood sugars and bring in the results to each visit Last Documented On 8 8:37AM ; [facility] Overview of T2DM disease pro cess and the outline of overall care. Pt states he is the heaviest he has ever been. He was advised to have knees replace a few years ago, but opted out, now he states he is too heavy to have this done Last Documented On 8 9:13AM ; [facility] Assessments Includes: Assessments for all patient encounters Findings Encounter Date Anxiety disorder NOS CHECK UP with ROLO CROWE MD 10/10/2023 Last Documented On 4 11:06PM ; [facility] Benign essential hypertension CHECK UP with NEFTALI AQUINO MD 10/10/2023 Last Documented On 4 11:06PM ; [facility] Hyperglycemia CHECK UP with ROLO AQUINO MD 10/10/2023 Last Documented On 4 11:06PM ; [facility] Hyperlipidemia CHECK UP with ROLO AQUINO MD 10/10/2023 Last Documented On 4 11:06PM ; [facility] Localized primary osteoarthr itis of left knee CHECK UP with ROLO AQUINO MD 10/10/2023 Last Documented On 4 11:06PM ; [facility] Nephrolithiasis CHECK UP with ROLO AQUINO MD 10/10/2023 Last Documented On 4 11:06PM ; [facility] Nonorganic sleep apnea CHECK UP with ROLO ARCE MD 10/10/2023 Last Documented On 4 11:06PM ; [facility] Type 2 diabetes mellitus - uncomplicated, controlled CHECK UP with ROLO AQUINO MD 10/10/2023 Last Documented On 4 11:06PM ; [facility] Localized primary osteoarthr itis of left knee FOLLOW UP with SAL Omer 08/13/2023 Last Documented On 4 10:04AM ; [facility] Localized primary osteoarthr itis of left knee FOLLOW UP with SAL Omer 05/11/2023 Last Documented On 4 9:10AM ; [facility] Anxiety disorder NOS CHECK UP with ROLO CROWE MD 02/26/2023 Last Documented On 3 8:48AM ; [facility] Benign essential hypertension CHECK UP with NEFTALI AQUINO MD 02/26/2023 Last Documented On 3 8:48AM ; [facility] Hyperlipidemia CHECK UP with ROLO AQUINO MD 02/26/2023 Last Documented On 3 8:48AM ; [facility] Nonorganic sleep apnea CHECK UP with ROLO ARCE MD 02/26/2023 Last Documented On 3 8:48AM ; [facility] Type 2 diabetes mellitus - uncomplicated, controlled CHECK UP with ROLO AQUINO MD 02/26/2023 Last Documented On 3 8:48AM ; [facility] Allergic rhinitis SICK VISIT with ROLO PARISH MD 02/23/2023 Last Documented On 3 12:04PM ; [facility] Bronchitis SICK VISIT with ROLO VASQUEZ MD 02/23/2023 Last Documented On 3 12:04PM ; [facility] Localized primary osteoarthr itis of left knee FOLLOW UP with SAL Omer 02/08/2023 Last Documented On 3 9:13AM ; [facility] Localized primary osteoarthr itis of left knee FOLLOW UP with SAL Omer 11/08/2022 Last Documented On 3 2:10PM ; [facility] Benign essential hypertension CHECK UP with NEFTALI AQUINO MD 08/25/2022 Last Documented On 3 9:22AM ; [facility] GERD CHECK UP with ROLO AQUINO MD 08/25/2022 Last Documented On 3 9:22AM ; [facility] Hyperglycemia CHECK UP with ROLO AQUINO MD 08/25/2022 Last Documented On 3 9:22AM ; [facility] Hyperlipidemia CHECK UP with ROLO AQUINO MD 08/25/2022 Last Documented On 3 9:22AM ; [facility] Localized primary osteoarthr itis of left knee CHECK UP with ROLO AQUINO MD 08/25/2022 Last Documented On 3 9:22AM ; [facility] Type 2 diabetes mellitus - uncomplicated, controlled CHECK UP with ROLO AQUINO MD 08/25/2022 Last Documented On 3 9:22AM ; [facility] Localized primary osteoarthr itis of left knee FOLLOW UP with SAL Omer 08/07/2022 Last Documented On 3 9:24AM ; [facility] Benign essential hypertension CHECK UP with NEFTALI AQUINO MD 05/03/2022 Last Documented On 2 11:28PM ; [facility] GERD CHECK UP with RLOO AQUINO MD 05/03/2022 Last Documented On 2 11:28PM ; [facility] Hyperlipidemia CHECK UP with ROLO AQUINO MD 05/03/2022 Last Documented On 2 11:28PM ; [facility] Type 2 diabetes mellitus - uncomplicated, controlled CHECK UP with ROLO AQUINO MD 05/03/2022 Last Documented On 2 11:28PM ; [facility] Osteoarthritis of knee -left FOLLOW UP with MITCH SCHNEIDER DO 03/27/2022 Last Documented On 2 9:40AM ; [facility] Osteoarthritis of left knee FOLLOW UP with MICHELLE SCHNEIDER DO 03/27/2022 Last Documented On 2 9:40AM ; [facility] Benign essential hypertension CHECK UP with NEFTALI AQUINO MD 02/27/2022 Last Documented On 2 10:15PM ; [facility] Hyperlipidemia CHECK UP with ROLO AQUINO MD 02/27/2022 Last Documented On 2 10:15PM ; [facility] Localized primary osteoarthr itis of left knee CHECK UP with ROLO AQUINO MD 02/27/2022 Last Documented On 2 10:15PM ; [facility] Obesity CHECK UP with ROLO AQUINO MD 02/27/2022 Last Documented On 2 10:15PM ; [facility] Osteoarthritis of knee -left FOLLOW UP with MITCH SCHNEIDER DO 12/19/2021 Last Documented On 2 12:35PM ; [facility] Osteoarthritis of left knee FOLLOW UP with MICHELLE SCHNEIDER DO 12/19/2021 Last Documented On 2 12:35PM ; [facility] Osteoarthritis of knee -left ORTHO ESTAB LISHED PATIENT with MICHELLE SCHNEIDER DO 09/12/2021 Last Documented On 2 10:20AM ; [facility] Assessment of left knee joint pain ORTHO ESTABLISHED PATIENT with SAL Omer 09/02/2021 Last Documented On 2 8:49AM ; [facility] Localized primary osteoarthr itis of left knee ORTHO ESTABLISHED PATIENT with SAL Omer 09/02/2021 Last Documented On 2 8:49AM ; [facility] Osteoarthritis of knee -left ORTHO ESTAB LISHED PATIENT with SAL Omer 09/02/2021 Last Documented On 2 8:49AM ; [facility] Anxiety disorder NOS CHECK UP with ROLO CROWE MD 08/26/2021 Last Documented On 2 2:55PM ; [facility] Arthritis CHECK UP with ROLO AQUINO MD 08/26/2021 Last Documented On 2 2:55PM ; [facility] Benign essential hypertension CHECK UP with NEFTALI AQUINO MD 08/26/2021 Last Documented On 2 2:55PM ; [facility] Hyperlipidemia CHECK UP with ROLO AQUINO MD 08/26/2021 Last Documented On 2 2:55PM ; [facility] LEFT KNEE PAIN CHECK UP with ROLO AQUINO MD 08/26/2021 Last Documented On 2 2:55PM ; [facility] Morbid obesity CHECK UP with ROLO AQUINO MD 08/26/2021 Last Documented On 2 2:55PM ; [facility] Obesity CHECK UP with ROLO AQUINO MD 08/26/2021 Last Documented On 2 2:55PM ; [facility] Type 2 diabetes mellitus - uncomplicated, controlled CHECK UP with ROLO AQUINO MD 08/26/2021 Last Documented On 2 2:55PM ; [facility] Backache PROBLEM VISIT with ROLO CROWE MD 08/03/2021 Last Documented On 2 12:16PM ; [facility] LEFT KNEE PAIN PROBLEM VISIT with ROLO CROWE MD 08/03/2021 Last Documented On 2 12:16PM ; [facility] Right buttock pain PROBLEM VISIT with ROLO TREJO MD 08/03/2021 Last Documented On 2 12:16PM ; [facility] Strain of the right buttock PROBLEM VISIT with Negra AQUINO MD 08/03/2021 Last Documented On 2 12:16PM ; [facility] Anxiety disorder NOS CHECK UP with ROLO CROWE MD 02/25/2021 Last Documented On 1 11:36PM ; [facility] Arthritis CHECK UP with ROLO AQUINO MD 02/25/2021 Last Documented On 1 11:36PM ; [facility] Benign essential hypertension CHECK UP with NEFTALI AQUINO MD 02/25/2021 Last Documented On 1 11:36PM ; [facility] Hyperlipidemia CHECK UP with ROLO AQUINO MD 02/25/2021 Last Documented On 1 11:36PM ; [facility] Nonorganic sleep apnea CHECK UP with ROLO ARCE MD 02/25/2021 Last Documented On 1 11:36PM ; [facility] Type 2 diabetes mellitus - uncomplicated, controlled CHECK UP with ROLO AQUINO MD 02/25/2021 Last Documented On 1 11:36PM ; [facility] Calcaneal spur PROBLEM VISIT with ROLO CROWE MD 12/14/2020 Last Documented On 1 11:52AM ; [facility] Pain in foot PROBLEM VISIT with ROLO CROWE MD 12/14/2020 Last Documented On 1 11:52AM ; [facility] Pain in foot and toes PROBLEM VISIT with ROLO AQUINO MD 12/14/2020 Last Documented On 11:52AM ; [facility] Pain in right foot PROBLEM VISIT with ROLO TREJO MD 12/14/2020 Last Documented On 1 11:52AM ; [facility] Anxiety disorder NOS CHECK UP with ROLO CROWE MD 11/09/2020 Last Documented On 1 10:15PM ; [facility] Benign essential hypertension CHECK UP with NEFTALI AQUINO MD 11/09/2020 Last Documented On 1 10:15PM ; [facility] Hyperlipidemia CHECK UP with ROLO AQUINO MD 11/09/2020 Last Documented On 1 10:15PM ; [facility] Type 2 diabetes mellitus - uncomplicated, controlled CHECK UP with ROLO AQUINO MD 11/09/2020 Last Documented On 1 10:15PM ; [facility] [R97.20 - Elevated prostate specific antigen [PSA]] prostate-specific antigen in serum was elevated CHECK UP with ROLO AQUINO MD 08/10/2020 Last Documented On 1 8:18PM ; [facility] Benign essential hypertension CHECK UP with NEFTALI AQUINO MD 08/10/2020 Last Documented On 1 8:18PM ; [facility] GERD CHECK UP with ROLO AQUINO MD 08/10/2020 Last Documented On 1 8:18PM ; [facility] Hyperlipidemia CHECK UP with ROLO AQUINO MD 08/10/2020 Last Documented On 1 8:18PM ; [facility] Type 2 diabetes mellitus - uncomplicated, controlled CHECK UP with ROLO AQUINO MD 08/10/2020 Last Documented On 1 8:18PM ; [facility] Anxiety disorder NOS 6 MONTH CHECK with ROLO VILLALTA MD 10/27/2019 Last Documented On 0 8:52PM ; [facility] Benign essential hypertension 6 MONTH CHECK with ROLO AQUINO MD 10/27/2019 Last Documented On 0 8:52PM ; [facility] GERD 6 MONTH CHECK with ROLO CROWE MD 10/27/2019 Last Documented On 0 8:52PM ; [facility] Hyperlipidemia 6 MONTH CHECK with ROLO CROWE MD 10/27/2019 Last Documented On 0 8:52PM ; [facility] Nonorganic sleep apnea 6 MONTH CHECK with ROLO AQUINO MD 10/27/2019 Last Documented On 0 8:52PM ; [facility] Seborrheic keratosis 6 MONTH CHECK with ROLO VILLALTA MD 10/27/2019 Last Documented On 0 8:52PM ; [facility] Type 2 diabetes mellitus - uncomplicated, controlled 6 MONTH CHECK with ROLO AQUINO MD 10/27/2019 Last Documented On 0 8:52PM ; [facility] Benign essential hypertension 6 MONTH CHECK with ROLO AQUINO MD 02/13/2019 Last Documented On 9 9:23AM ; [facility] Hyperglycemia 6 MONTH CHECK with ROLO CROWE MD 02/13/2019 Last Documented On 9 9:23AM ; [facility] Hyperlipidemia 6 MONTH CHECK with ROLO CROWE MD 02/13/2019 Last Documented On 9 9:23AM ; [facility] Benign essential hypertension PREOP EXAM with ERNESTO AQUINO MD 11/18/2018 Last Documented On 9 8:39PM ; [facility] Osteoarthritis of both knees PREOP EXAM with MARCELLUS AQUINO MD 11/18/2018 Last Documented On 9 8:39PM ; [facility] Type 2 diabetes mellitus - uncomplicated, controlled PREOP EXAM with ROLO AQUINO MD 11/18/2018 Last Documented On 9 8:39PM ; [facility] Arthralgia of the right knee/patella/tibia/fibula 6 MONTH CHECK with ROLO AQUINO MD 08/14/2018 Last Documented On 9 9:00AM ; [facility] Benign essential hypertension 6 MONTH CHECK with ROLO AQUINO MD 08/14/2018 Last Documented On 9 9:00AM ; [facility] Hyperlipidemia 6 MONTH CHECK with ROLO CROWE MD 08/14/2018 Last Documented On 9 9:00AM ; [facility] Type 2 diabetes mellitus - uncomplicated, controlled 6 MONTH CHECK with ROLO AQUINO MD 08/14/2018 Last Documented On 9 9:00AM ; [facility] Hyperlipidemia DIABETIC FOLLOW UP APPOINTMENT w lily AQUINO MD 03/05/2018 Last Documented On 8 12:41AM ; [facility] Type 2 diabetes mellitus DIABETIC FOLLOW UP APPOINTMENT with ROLO AQUINO MD 03/05/2018 Last Documented On 8 12:41AM ; [facility] Type 2 diabetes mellitus - uncomplicated, controlled DIABETIC FOLLOW UP APPOINTMENT with ROLO AQUINO MD 03/05/2018 Last Documented On 8 12:41AM ; [facility] Benign essential hypertension 6 MONTH CHECK with ROLO AQUINO MD 02/12/2018 Last Documented On 8 9:06AM ; [facility] Hyperlipidemia 6 MONTH CHECK with ROLO CROWE MD 02/12/2018 Last Documented On 8 9:06AM ; [facility] Type 2 diabetes mellitus - uncomplicated, controlled 6 MONTH CHECK with ROLO AQUINO MD 02/12/2018 Last Documented On 8 9:06AM ; [facility] Closed fracture of the left patella PROB MYLES VISIT with ALLI LASSITER PA-C 01/29/2018 Last Documented On 8 2:10PM ; [facility] Muscle spasm PROBLEM VISIT with ALLI YORK PA-C 01/29/2018 Last Documented On 8 2:10PM ; [facility] Sprained left knee PROBLEM VISIT with ALLI KOEHLER PA-C 01/29/2018 Last Documented On 8 2:10PM ; [facility] Benign essential hypertension DIABETIC F OLLOW UP APPOINTMENT with ROLO AQUINO MD 11/06/2017 Last Documented On 8 10:17PM ; [facility] Hyperlipidemia DIABETIC FOLLOW UP APPOINTMENT w lily AQUINO MD 11/06/2017 Last Documented On 8 10:17PM ; [facility] Type 2 diabetes mellitus - uncomplicated, controlled DIABETIC FOLLOW UP APPOINTMENT with ROLO AQUINO MD 11/06/2017 Last Documented On 8 10:17PM ; [facility] Arthralgia of the left knee/patella/tibia/fibula PROBLEM VISIT with ALLI LASSITER PA-C 10/30/2017 Last Documented On 8 3:44PM ; [facility] Bursitis of knee PROBLEM VISIT with ALLI VASQUEZ PA-C 10/30/2017 Last Documented On 8 3:44PM ; [facility] Type 2 diabetes mellitus INITIAL APPOINT MENT FOR DIABETIC PATIENT with ROLO AQUINO MD 10/03/2017 Last Documented On 8 2:16PM ; [facility] Type 2 diabetes mellitus - uncomplicated, controlled INITIAL APPOINTMENT FOR DIABETIC PATIENT with ROLO AQUINO MD 10/03/2017 Last Documented On 8 2:16PM ; [facility] Benign essential hypertension 6 MONTH CHECK with ROLO AQUINO MD 08/14/2017 Last Documented On 8 9:11AM ; [facility] Hyperglycemia 6 MONTH CHECK with ROLO CROWE MD 08/14/2017 Last Documented On 8 9:11AM ; [facility] Hyperlipidemia 6 MONTH CHECK with ROLO CROWE MD 08/14/2017 Last Documented On 8 9:11AM ; [facility] Type 2 diabetes mellitus - uncomplicated, controlled 6 MONTH CHECK with ROLO AQUINO MD 08/14/2017 Last Documented On 8 9:11AM ; [facility] Anxiety disorder NOS 6 MONTH CHECK with ROLO VILLALTA MD 02/14/2017 Last Documented On 7 9:00AM ; [facility] Benign essential hypertension 6 MONTH CHECK with ROLO AQUINO MD 02/14/2017 Last Documented On 7 9:00AM ; [facility] Hyperglycemia 6 MONTH CHECK with ROLO CROWE MD 02/14/2017 Last Documented On 7 9:00AM ; [facility] Hyperlipidemia 6 MONTH CHECK with ROLO CROWE MD 02/14/2017 Last Documented On 7 9:00AM ; [facility] Benign essential hypertension 3 MONTH CHECK with ROLO AQUINO MD 10/10/2016 Last Documented On 7 9:40AM ; [facility] Hyperglycemia 3 MONTH CHECK with ROLO CROWE MD 10/10/2016 Last Documented On 7 9:40AM ; [facility] Hyperlipidemia 3 MONTH CHECK with ROLO CROWE MD 10/10/2016 Last Documented On 7 9:40AM ; [facility] Strain of the right buttock gluteus yomaira PROBLEM VISIT with ROLO AQUINO MD 08/22/2016 Last Documented On 7 5:59PM ; [facility] Benign essential hypertension 6 MONTH CHECK with ROLO AQUINO MD 07/12/2016 Last Documented On 7 11:55PM ; [facility] Hyperglycemia 6 MONTH CHECK with ROLO CROWE MD 07/12/2016 Last Documented On 7 11:55PM ; [facility] Hyperlipidemia 6 MONTH CHECK with ROLO CROWE MD 07/12/2016 Last Documented On 7 11:55PM ; [facility] Anxiety disorder NOS 4 MONTH CHECK UP with REGI AQUINO MD 01/07/2016 Last Documented On 6 9:52AM ; [facility] Benign essential hypertension 4 MONTH CHECK UP w lily AQUINO MD 01/07/2016 Last Documented On 6 9:52AM ; [facility] Hyperlipidemia 4 MONTH CHECK UP with ROLO TREJO MD 01/07/2016 Last Documented On 6 9:52AM ; [facility] Anxiety disorder NOS 1 MONTH CHECK with ROLO VILLALTA MD 08/20/2015 Last Documented On 6 10:17AM ; [facility] Benign essential hypertension 1 MONTH CHECK with ROLO AQUINO MD 08/20/2015 Last Documented On 6 10:17AM ; [facility] Anxiety disorder NOS 4 MONTH CHECK UP with REGI AQUINO MD 07/13/2015 Last Documented On 6 5:52PM ; [facility] Anxiety disorder NOS 6 MONTH CHECK with ROLO VILLALTA MD 06/17/2015 Last Documented On 6 1:13PM ; [facility] Generalized anxiety disorder PROBLEM VISIT with MANUELITO [facility]ONEY [facility] 05/29/2015 Last Documented On 6 1:51PM ; [facility] Depression with anxiety PROBLEM VISIT wi BONITA JONES [facility] 05/25/2015 Last Documented On 6 12:24PM ; [facility] Acute sinusitis PROBLEM VISIT with BONITA LAWRENCE [facility] 05/11/2015 Last Documented On 6 12:19PM ; [facility] Benign essential hypertension 1 MONTH CHECK with ROLO AQUINO MD 03/16/2015 Last Documented On 5 2:39PM ; [facility] Benign essential hypertension PROBLEM VISIT with ROLO AQUINO MD 02/16/2015 Last Documented On 5 2:01PM ; [facility] Arthritis 6 MONTH CHECK with ROLO CROWE MD 12/07/2014 Last Documented On 5 10:03AM ; [facility] Benign essential hypertension 6 MONTH CHECK with ROLO AQUINO MD 12/07/2014 Last Documented On 5 10:03AM ; [facility] Hyperglycemia 6 MONTH CHECK with ROLO CROWE MD 12/07/2014 Last Documented On 5 10:03AM ; [facility] Nonorganic sleep apnea 6 MONTH CHECK with ROLO AQUINO MD 12/07/2014 Last Documented On 5 10:03AM ; [facility] Arthritis 6 MONTH CHECK with ROLO CROWE MD 06/29/2014 Last Documented On 5 9:34AM ; [facility] Benign essential hypertension 6 MONTH CHECK with ROLO AQUINO MD 06/29/2014 Last Documented On 5 9:34AM ; [facility] Normal routine history and physical 6 MO NTH CHECK with ROLO AQUINO MD 06/29/2014 Last Documented On 5 9:34AM ; [facility] Sleep apnea 6 MONTH CHECK with ROLO CROWE MD 06/29/2014 Last Documented On 5 9:34AM ; [facility] URINARY FREQUENCY PROBLEM VISIT with ALLI BENZ PA-C 05/27/2014 Last Documented On 5 2:34PM ; [facility] Lumbago PROBLEM VISIT with BONITA LAWRENCE PMHNP-BC DIRECTOR DERMATOLOGY-BC 05/21/2014 Last Documented On 5 1:43PM ; [facility] Benign essential hypertension NEW PATIENT VISIT with ROLO AQUINO MD 12/01/2013 Last Documented On 9 5:20PM ; [facility] Colon screening NEW PATIENT VISIT with ROLO IRIZARRY MD 12/01/2013 Last Documented On 9 5:20PM ; [facility] Fatigue NEW PATIENT VISIT with ROLO IRIZARRY MD 12/01/2013 Last Documented On 9 5:20PM ; [facility] Open wound NEW PATIENT VISIT with ROLO IRIZARRY MD 12/01/2013 Last Documented On 9 5:20PM ; [facility] Basal cell cancer of the hel ix of the ear lobe CONSULTATION with JENN ADAM DO 03/24/2013 Last Documented On 3 9:19AM ; [facility] Instructions Includes: Instructions for all patient encounters Instructions to patient Intervention and counseling on cessation of tobacco use Last Documented On 4 9:46AM ; [facility] Intervention and counseling on cessation of tobacco use Last Documented On 4 8:59AM ; [facility] Intervention and counseling on cessation of tobacco use Last Documented On 3 9:03AM ; [facility] No reduced physical activity -release to full activities Last Documented On 2 9:14AM ; [facility] Intervention and counseling on cessation of tobacco use Last Documented On 2 8:49AM ; [facility] No reduced physical activity -release to full activities Last Documented On 2 12:26PM ; [facility] Intervention and counseling on cessation of tobacco use Last Documented On 2 9:54AM ; [facility] No reduced physical activity -release to full activities Last Documented On 2 10:18AM ; [facility] Lose weight Last Documented On 0 8:50PM ; [facility] Lose weight Last Documented On 9 8:36PM ; [facility] Maintain a healthy diet Last Documented On 8 8:21AM ; [facility] Maintain a healthy diet Last Documented On 8 8:24AM ; [facility] Maintain a healthy diet Last Documented On 8 8:37AM ; [facility] Lose weight Last Documented On 7 10:09AM ; [facility] Instructions for patient Last Documented On 6 10:59AM ; [facility] Instructions for patient Last Documented On 6 11:41AM ; [facility] Instructions for patient Last Documented On 5 1:28PM ; [facility] Education and Decision Aids were provided during visit for: Patient education about orth opedic activities Last Documented On 2 9:14AM ; [facility] Patient education about orth opedic activities Last Documented On 2 12:26PM ; [facility] Patient education about orth opedic activities Last Documented On 2 10:18AM ; [facility] Patient education about a pr oper diet Last Documented On 8 8:21AM ; [facility] Patient education about regu lar dental care Last Documented On 8 8:21AM ; [facility] Patient education about diab etes and discussed ABCs of diabetic therapy and goals Last Documented On 8 8:21AM ; [facility] Patient education about a ho me blood glucose monitor with instructions to bring monitor to each visit Last Documented On 8 8:21AM ; [facility] Dietary counseling pertainin g to diabetes mellitus Last Documented On 8 8:21AM ; [facility] Patient education about diab etic foot care Last Documented On 8 8:21AM ; [facility] The patient's goal is to yaron t the blood sugars and bring in the results to each visit Last Documented On 8 8:21AM ; [facility] Review of care plan, pt xochitl hicks very well, no change in plan Last Documented On 8 8:21AM ; [facility] Patient education about a pr oper diet Last Documented On 8 8:24AM ; [facility] Patient education about regu lar dental care Last Documented On 8 8:24AM ; [facility] Patient education about diab etes and discussed ABCs of diabetic therapy and goals Last Documented On 8 8:24AM ; [facility] Patient education about a ho me blood glucose monitor with instructions to bring monitor to each visit Last Documented On 8 8:24AM ; [facility] Dietary counseling pertainin g to diabetes mellitus Last Documented On 8 8:24AM ; [facility] Patient education about diab etic foot care Last Documented On 8 8:24AM ; [facility] The patient's goal is to yaron t the blood sugars and bring in the results to each visit Last Documented On 8 8:24AM ; [facility] Counseling/education [Use fo r free text] Last Documented On 8 8:24AM ; [facility] Patient education about a pr oper diet Last Documented On 8 8:37AM ; [facility] Patient education about regu lar dental care Last Documented On 8 8:37AM ; [facility] Patient education about diab etes and discussed ABCs of diabetic therapy and goals Last Documented On 8 8:37AM ; [facility] Patient education about a ho ms blood glucose monitor with instructions to bring monitor to each visit Last Documented On 8 8:37AM ; [facility] Dietary counseling pertainin g to diabetes mellitus Last Documented On 8 8:37AM ; [facility] Patient education about diab etic foot care Last Documented On 8 8:37AM ; [facility] The patient's goal is to yaron t the blood sugars and bring in the results to each visit Last Documented On 8 8:37AM ; [facility] Overview of T2DM disease pro cess and the outline of overall care. Pt states he is the heaviest he has ever been. He was advised to have knees replace a few years ago, but opted out, now he states he is too heavy to have this done Last Documented On 8 9:13AM ; [facility] Medical Equipment - Implanted Devices Includes: Current and historical Devices No Medical Equipment Recorded Medications Includes: Current and historical Medications Current Medications (continue as prescribed) Citalopram Hydrobromide 20 M G Oral Tablet 10/10/2023 Provider: ROLO Greenwood Diagnosis: Dysthymic disord er TAKE 1 TABLET BY MOUTH EVERY DAY Last Documented On 4 10:21AM By ROLO AQUINO MD ; [facility] Rosuvastatin Calcium 10 MG Oral Tablet 10/10/2023 Provider: ROLO Greenwood Diagnosis: Hyperlipidemia, unspecified TAKE 1 TABLET BY MOUTH EVERY DAY Last Documented On 4 10:21AM By ROLO AQUINO MD ; [facility] Ozempic (1 MG/DOSE) 4 MG/3ML Subcutaneous Solution Pen-injector 10/10/2023 Provider: ROLO AQUINO MD Diagnosis: Type 2 diabetes mellitus without complications 1mg once a week SC Last Documented On 4 10:21AM By ROLO AQUINO MD ; [facility] Lisinopril-hydroCHLOROthiazi de 20-25 MG Oral Tablet 10/10/2023 Provider: ROLO Greenwood Diagnosis: TAKE 1 TABLET BY MOUTH EVERY DAY Last Documented On 4 10:21AM By ROLO AQUINO MD ; [facility] Diclofenac Sodium 1% External Gel 10/10/2023 Provide r: ROLO AQUINO MD Diagnosis: Pain in left kne e apply 4 grams to left knee qid prn pain Last Documented On 4 10:21AM By ROLO AQUINO MD ; [facility] Omeprazole 20 MG Oral Capsul e Delayed Release 02/26/2023 Provider: ROLO Greenwood Diagnosis: TAKE 1 CAPSULE BY MOUTH EVERY DAY Last Documented On 3 8:55AM By ROLO AQUINO MD ; [facility] guaiFENesin-Codeine 100-10 M G/5ML Oral Solution 02/23/2023 Provider: ROLO Greenwood Diagnosis: Cough, unspecifi ed Take 1 to 2 teaspoons every 4 hours prn cough Last Documented On 3 11:02AM By ROLO AQUINO MD ; [facility] metFORMIN HCl 1000 MG Oral Tablet 10/25/2022 Provider: ROLO Greenwood Diagnosis: Type 2 diabetes mellitus without complications TAKE 1 TABLET BY MOUTH TWICE A DAY Last Documented On 10/25/2022 5:32PM By Diane BRANTLEY ; [facility] Celecoxib 200 MG Oral Capsule 08/25/2022 Provider: ROLO Greenwood Diagnosis: Bilateral primar y osteoarthritis of knee TAKE 1 CAPSULE BY MOUTH EUNICE Y MAY TAKE SECOND CAPSULE DAILY NEEDED Last Documented On 3 8:59AM By ROLO AQUINO MD ; [facility] Eye Vitamins Oral Capsule 08/14/2017 Provider: Diagnosis: Last Documented On 08/14/2017 8:17AM By IVONE BRANTLEY ; [facility] Magnesium Oxide 500 MG Tablet 05/11/2015 Provide r: Diagnosis: Last Documented On 05/11/2015 11:21AM By MIL BRANTLEY ; [facility] Multivitamins OR CAPS 12/01/2013 Provider: Diagnosis: Last Documented On 4 1:46PM By MAICO BRANTLEY ; [facility] Past Medications on file Ozempic (1 MG/DOSE) 4 MG/3ML Subcutaneous Solution Pen-injector 02/26/2023 - 10/10/2023 Provider: ROLO AQUINO MD Diagnosis: Type 2 diabetes mellitus without complications 1mg once a week SC Last Documented On 4 10:08AM By ROLO AQUINO MD ; [facility] Zithromax Z-Norman 250 MG Oral Tablet 02/23/2023 - 09/09/2023 Provider: ROLO AQUINO MD Diagnosis: Cough, unspecifi ed DIRECTED Last Documented On 10/10/2023 9:30AM By Diane BRANTLEY ; [facility] Ozempic (1 MG/DOSE) 4 MG/3ML Subcutaneous Solution Pen-injector 08/25/2022 - 02/26/2023 Provider: ROLO AQUINO MD Diagnosis: Type 2 diabetes mellitus without complications 1mg once a week SC Last Documented On 3 8:41AM By ROLO AQUINO MD ; [facility] Lisinopril-hydroCHLOROthiazi de 20-25 MG Oral Tablet 08/25/2022 - 10/10/2023 Provider: ROLO AQUINO MD Diagnosis: TAKE 1 TABLET BY MOUTH EVERY DAY Last Documented On 4 10:08AM By ROLO AQUINO MD ; [facility] Rosuvastatin Calcium 10 MG Oral Tablet 08/25/2022 - 10/10/2023 Provider: ROLO AQUINO MD Diagnosis: Hyperlipidemia, unspecified TAKE 1 TABLET BY MOUTH EVERY DAY Last Documented On 4 10:08AM By ROLO AQUINO MD ; [facility] metFORMIN HCl 1000 MG Oral Tablet 08/07/2022 - 023 Provider: Diagnosis: Last Documented On 11/08/2022 12:57PM By CORRIE RINCON LPN ; [facility] Omeprazole 20 MG Oral Capsul e Delayed Release 05/03/2022 - 02/26/2023 Provider: ROLO VASQUEZ MD Diagnosis: TAKE 1 CAPSULE BY MOUTH EVERY DAY Last Documented On 3 8:41AM By ROLO AQUINO MD ; [facility] Ozempic (1 MG/DOSE) 4 MG/3ML Subcutaneous Solution Pen-injector 05/03/2022 - 08/25/2022 Provider: ROLO AQUINO MD Diagnosis: Type 2 diabetes mellitus without complications 1mg once a week SC dose increase Last Documented On 3 8:52AM By ROLO AQUINO MD ; [facility] metFORMIN HCl 1000 MG Oral Tablet 2022 - 08/07/2022 Provider: ROLO AQUINO MD Diagnosis: Type 2 diabetes mellitus without complications TAKE 1 TABLET BY MOUTH TWICE A DAY Last Documented On 08/07/2022 9:05AM By CORRIE RINCON LPN ; [facility] Ozempic (0.25 or 0.5 MG/DOSE) 2 MG/1.5ML Subcutaneous Solution Pen-injector 02/27/2022 - 07/07/2022 Provider: ROLO AQUINO MD Diagnosis: Type 2 diabetes mellitus without complications as directed inject 0.5mg once a week SQ Last Documented On 08/25/2022 8:15AM By Diane BRANTLEY ; [facility] Lisinopril-hydroCHLOROthiazi de 20-25 MG Oral Tablet 02/20/2022 - 08/25/2022 Provider: ROLO AQUINO MD Diagnosis: TAKE 1 TABLET BY MOUTH EVERY DAY Last Documented On 3 8:52AM By ROLO AQUINO MD ; [facility] metFORMIN HCl 1000 MG Oral Tablet 10/25/2021 - 2022 Provider: ROLO AQUINO MD Diagnosis: Type 2 diabetes mellitus without complications TAKE 1 TABLET BY MOUTH TWICE A DAY Last Documented On 2022 5:51PM By Diane BRANTLEY ; [facility] Rosuvastatin Calcium 10 MG Oral Tablet 08/26/2021 - 08/25/2022 Provider: ROLO AQUINO MD Diagnosis: Sleep apnea, unspecified TAKE 1 TABLET BY MOUTH EVERY DAY Last Documented On 3 8:52AM By ROLO AQUINO MD ; [facility] Lisinopril-hydroCHLOROthiazi de 20-25 MG Oral Tablet 08/26/2021 - 02/20/2022 Provider: ROLO AQUINO MD Diagnosis: TAKE 1 TABLET BY MOUTH EVERY DAY Last Documented On 02/20/2022 3:53PM By Diane BRANTLEY ; [facility] Omeprazole 20 MG Oral Capsul e Delayed Release 08/01/2021 - 05/03/2022 Provider: ROLO VASQUEZ MD Diagnosis: TAKE 1 CAPSULE BY MOUTH EVERY DAY Last Documented On 2 9:35AM By ROLO AQUINO MD ; [facility] metFORMIN HCl 1000 MG Oral Tablet 05/03/2021 - 10/25/2021 Provider: ROLO AQUINO MD Diagnosis: Type 2 diabetes mellitus without complications 1 twice a day Last Documented On 10/25/2021 9:03AM By Diane Hand RMA ; [facility] Lisinopril-hydroCHLOROthiazi de 20-25 MG Oral Tablet 02/10/2021 - 08/26/2021 Provider: ROLO AQUINO MD Diagnosis: TAKE 1 TABLET BY MOUTH EVERY DAY Last Documented On 08/26/2021 9:39AM By Diane Hand RMA ; [facility] metFORMIN HCl 1000 MG Oral Tablet 11/09/2020 - 05/03/2021 Provider: ROLO AQUINO MD Diagnosis: Type 2 diabetes mellitus without complications 1 twice a day Last Documented On 05/03/2021 8:45AM By Diane ShareSDK RMA ; [facility] Rosuvastatin Calcium 10 MG Oral Tablet 09/02/2020 - 08/26/2021 Provider: ROLO AQUINO MD Diagnosis: Sleep apnea, unspecified TAKE 1 TABLET BY MOUTH EVERY DAY Last Documented On 08/26/2021 9:39AM By Diane Hand RMA ; [facility] Citalopram Hydrobromide 20 MG Oral Tablet 09/02/2020 - 10/10/2023 Provider: ROLO AQUINO MD Diagnosis: Dysthymic disord er TAKE 1 TABLET BY MOUTH EVERY DAY Last Documented On 4 10:08AM By ROLO AQUINO MD ; [facility] Celecoxib 200 MG Oral Capsule 09/02/2020 - 08/25/2022 Provider: ROLO AQUINO MD Diagnosis: Sleep apnea, unspecified TAKE 1 CAPSULE BY MOUTH EUNICE Y MAY TAKE SECOND CAPSULE DAILY NEEDED Last Documented On 3 8:52AM By ROLO AQUINO MD ; [facility] Lisinopril-hydroCHLOROthiazi de 20-25 MG Oral Tablet 09/02/2020 - 02/10/2021 Provider: ROLO AQUINO MD Diagnosis: TAKE 1 TABLET BY MOUTH EVERY DAY Last Documented On 02/10/2021 9:32AM By Diane Hand A ; [facility] metFORMIN HCl 1000 MG Oral Tablet 08/10/2020 - 11/09/2020 Provider: ROLO AQUINO MD Diagnosis: Type 2 diabetes mellitus without complications 1 twice a day Last Documented On 2:41PM By ROLO AQUINO MD ; [facility] Omeprazole 20 MG Oral Tablet Delayed Release 06/10/2020 - 08/01/2021 Provider: ROLO VASQUEZ MD Diagnosis: One tablet daily Last Documented On 08/01/2021 7:56AM By Diane [place] ; [facility] Lisinopril-hydroCHLOROthiazi de 20-25 MG Oral Tablet 03/18/2020 - 09/02/2020 Provider: ROLO AQUINO MD Diagnosis: TAKE 1 TABLET BY MOUTH EVERY DAY Last Documented On 09/02/2020 9:43AM By Diane Hand Angelo ; [facility] Omeprazole 20 MG Oral Tablet Delayed Release 01/20/2020 - 06/10/2020 Provider: ROLO VASQUEZ MD Diagnosis: One tablet daily Last Documented On 06/10/2020 8:54AM By Diane BRANTLEY ; [facility] Omeprazole 20 MG Oral Tablet Delayed Release 12/31/2019 - 10/27/2019 Provider: ROLO VASQUEZ MD Diagnosis: One tablet daily Last Documented On 01/20/2020 11:55AM By IVONE BRANTLEY ; [facility] Citalopram Hydrobromide 20 MG Oral Tablet 10/28/2019 - 09/02/2020 Provider: ROLO AQUINO MD Diagnosis: Dysthymic disord er ONE TABLET DAILY Last Documented On 09/02/2020 10:02AM By IVONE BRANTLEY ; [facility] Lisinopril-hydroCHLOROthiazi de 20-25 MG Oral Tablet 10/27/2019 - 03/18/2020 Provider: ROLO AQUINO MD Diagnosis: ONE TABLET DAILY Last Documented On 03/18/2020 4:32PM By Estrellita Jackson LPN ; [facility] CeleBREX 200 MG Oral Capsule 10/27/2019 - 09/02/2020 Provider: ROLO AQUINO MD Diagnosis: Sleep apnea, unspecified ONE TAB DAILY AND THEN A SEC OND TABLET A DAY NEEDED Last Documented On 09/02/2020 9:46AM By Diane BRANTLEY ; [facility] Crestor 10 MG Oral Tablet 10/27/2019 - 09/02/2020 Provider: ROLO AQUINO MD Diagnosis: Sleep apnea, unspecified TAKE ONE TABLET BY MOUTH EVERY DAY Last Documented On 09/02/2020 9:42AM By Diane BRANTLEY ; [facility] Lisinopril-hydroCHLOROthiazi de 20-25 MG Oral Tablet 02/13/2019 - 10/27/2019 Provider: ROLO AQUINO MD Diagnosis: ONE TABLET DAILY TO REPLACE QUINIPRIL Last Documented On 10/27/2019 2:12PM By IVONE BRANTLEY ; [facility] Citalopram Hydrobromide 20 MG Oral Tablet 02/13/2019 - 10/27/2019 Provider: ROLO AQUINO MD Diagnosis: Dysthymic disord er ONE TABLET DAILY Last Documented On 10/28/2019 4:38PM By IVONE BRANTLEY ; [facility] Omeprazole 20 MG Oral Tablet Delayed Release 02/13/2019 - 12/31/2019 Provider: ROLO VASQUEZ MD Diagnosis: One tablet daily Last Documented On 12/31/2019 4:24PM By Gladys BRANTLEY ; [facility] Lisinopril-hydroCHLOROthiazi de 20-25MG Oral Tablet 10/07/2018 - 02/13/2019 Provider: ROLO AQUINO MD Diagnosis: ONE TABLET DAILY TO REPLACE QUINIPRIL Last Documented On 02/13/2019 9:15AM By ROBIN BRANTLEY ; [facility] CeleBREX 200MG Oral Capsule, conventional 08/14/2018 - 10/27/2019 Provider: ROLO VASQUEZ MD Diagnosis: ONE TAB DAILY AND THEN A SEC OND TABLET A DAY NEEDED Last Documented On 2:59PM By ROLO AQUINO MD ; [facility] Crestor 10MG Oral Tablet 08/14/2018 - 10/27/2019 Provi tiffanie: ROLO AQUINO MD Diagnosis: TAKE ONE TABLET BY MOUTH EVERY DAY Last Documented On 0 2:59PM By ROLO AQUINO MD ; [facility] Lisinopril-Hydrochlorothiazi de 20-25MG Oral Tablet 02/12/2018 - 10/07/2018 Provider: ROLO AQUINO MD Diagnosis: ONE TABLET DAILY Last Documented On 9 11:44AM By ROLO AQUINO MD ; [facility] Citalopram Hydrobromide 20MG Oral Tablet 02/12/2018 - 02/13/2019 Provider: ROLO AQUINO MD Diagnosis: Dysthymic disord er ONE TABLET DAILY Last Documented On 02/13/2019 9:15AM By ROBIN BRANTLEY ; [facility] Omeprazole 20MG Oral Tablet Delayed Release 02/12/2018 - 02/13/2019 Provider: ROLO VASQUEZ MD Diagnosis: One tablet daily Last Documented On 02/13/2019 9:15AM By ROBIN BRANTLEY ; [facility] Duexis 800-26.6MG Oral Tablet 02/06/2018 - 08/14/2018 Provider: ALLI LASSITER PA-C Diagnosis: Sprain of other specified parts of left knee, init encntr One tablet twice a day Last Documented On 08/14/2018 8:18AM By IVONE BRANTLEY ; [facility] Duexis 800-26.6MG Oral Tablet 01/29/2018 - 02/06/2018 Provider: ALLI LASSITER PA-C Diagnosis: Sprain of other specified parts of left knee, init encntr One tablet twice a day Last Documented On 02/06/2018 9:05AM By ROBIN BRANTLEY ; [facility] Lisinopril-Hydrochlorothiazi de 20-25MG Oral Tablet 01/18/2018 - 02/12/2018 Provider: ROLO AQUINO MD Diagnosis: ONE TABLET DAILY TO REPLACE QUINIPRIL Last Documented On 02/12/2018 8:41AM By RADHA STILL CMA ; [facility] OneTouch Ultra Blue In Vitro Strip 11/06/2017 - 10/27/2019 Provider: NASH MELGAR APN Diagnosis: Type 2 diabetes mellitus without complications test blood glucose one time per day, vary times. Last Documented On 10/27/2019 2:13PM By IVONE BRANTLEY ; [facility] Medrol 4MG Oral Tablet Therapy Pack 10/30/2017 - 08/10/2020 Provider: ALLI LASSITER PA-C Diagnosis: Pain in left kne e as directed. Last Documented On 08/10/2020 2:43PM By Diane BRANTLEY ; [facility] Omeprazole 20MG Oral Tablet Delayed Release 10/30/2017 - 02/12/2018 Provider: ROLO VASQUEZ MD Diagnosis: One tablet daily Last Documented On 02/12/2018 8:41AM By RADHA STILL CMA ; [facility] OneTouch Ultra Blue In Vitro Strip 10/03/2017 - 10/27/2019 Provider: NASH MELGAR APN Diagnosis: Type 2 diabetes mellitus with hyperglycemia Test BG one time per day, al ternate morning and bedtime. Last Documented On 10/27/2019 2:14PM By IVONE BRANTLEY ; [facility] OneTouch Ultra 2 w/Device Kit (multiple component) 10/03/2017 - 10/27/2019 Provider: NASH MELGAR APN Diagnosis: Type 2 diabetes mellitus with hyperglycemia as directed Last Documented On 10/27/2019 2:13PM By IVONE BRANTLEY ; [facility] Omeprazole 20MG Oral Tablet Delayed Release 08/14/2017 - 10/30/2017 Provider: ROLO VASQUEZ MD Diagnosis: ONE TABLET DAILY Last Documented On 10/30/2017 2:09PM By ROBIN BRANTLEY ; [facility] Omeprazole 20MG Oral Tablet Delayed Release 08/14/2017 - 08/14/2017 Provider: ROLO VASQUEZ MD Diagnosis: One tablet daily Last Documented On 08/14/2017 3:20PM By RADHA STILL CMA ; [facility] CeleBREX 200MG Oral Capsule 08/14/2017 - [...] 08/14/2018 8:44AM By RADHA STILL CMA ; [facility] Citalopram Hydrobromide 20MG Oral Tablet 02/14/2017 - 02/12/2018 Provider: ROLO AQUINO MD Diagnosis: Dysthymic disord er ONE TABLET DAILY Last Documented On 02/12/2018 8:41AM By RADHA STILL CMA ; [facility] Lisinopril-Hydrochlorothiazi de 20-25MG Oral Tablet 02/14/2017 - 01/18/2018 Provider: ROLO AQUINO MD Diagnosis: ONE TABLET DAILY TO REPLACE QUINIPRIL Last Documented On 01/18/2018 4:00PM By IVONE BRANTLEY ; [facility] Crestor 10MG Oral Tablet 10/10/2016 - 06/04/2017 Provider: ROLO AQUINO MD Diagnosis: Hyperlipidemia, unspecified 1 daily Last Documented On 06/04/2017 2:42PM By RADHA STILL CMA ; [facility] Omeprazole 20MG Oral Tablet Delayed Release 10/10/2016 - 08/14/2017 Provider: ROLO VASQUEZ MD Diagnosis: One tablet daily Last Documented On 08/14/2017 8:42AM By RADHA STILL CMA ; [facility] CeleBREX 200MG Oral Capsule 10/10/2016 - 08/14/2017 Pr ovider: ROLO AQUINO MD Diagnosis: ONE TAB DAILY AND THEN A SEC OND TABLET A DAY NEEDED Last Documented On 08/14/2017 8:42AM By RADHA STILL CMA ; [facility] Lisinopril-Hydrochlorothiazi de 20-25MG Oral Tablet 10/04/2016 - 02/14/2017 Provider: ROLO AQUINO MD Diagnosis: ONE TABLET DAILY TO REPLACE QUINIPRIL Last Documented On 02/14/2017 8:40AM By RADHA STILL CMA ; [facility] Citalopram Hydrobromide 20MG Oral Tablet 10/04/2016 - 02/14/2017 Provider: ROLO AQUINO MD Diagnosis: Dysthymic disord er ONE TABLET DAILY Last Documented On 02/14/2017 8:40AM By RADHA STILL CMA ; [facility] Crestor 10MG Oral Tablet 07/12/2016 - 10/10/2016 Provider: ROLO AQUINO MD Diagnosis: Hyperlipidemia, unspecified 1 daily Last Documented On 7 9:36AM By ROLO AQUINO MD ; [facility] Citalopram Hydrobromide 20 MG Tablet 01/07/2016 - 10/04/2016 Provider: ROLO AQUINO MD Diagnosis: Dysthymic disord er One tablet daily Last Documented On 10/04/2016 2:41PM By RADHA STILL CMA ; [facility] Citalopram Hydrobromide 20 MG Tablet 08/20/2015 - 01/07/2016 Provider: ROLO AQUINO MD Diagnosis: Dysthymic disord er One tablet daily Last Documented On 6 9:42AM By ROLO AQUINO MD ; [facility] Lisinopril-Hydrochlorothiazi de 20-25 MG Tablet 07/13/2015 - 10/04/2016 Provider: ROLO AQUINO MD Diagnosis: One tablet daily Last Documented On 10/04/2016 2:42PM By RADHA STILL CMA ; [facility] CeleBREX 200 MG Capsule, conventional 07/13/2015 - 10/10/2016 Provider: ROLO VASQUEZ MD Diagnosis: ONE TAB DAILY AND THEN A SEC OND TABLET A DAY NEEDED Last Documented On 7 9:35AM By ROLO AQUINO MD ; [facility] Omeprazole 20 MG Tablet, enteric coated 07/13/2015 - 10/10/2016 Provider: ROLO VASQUEZ MD Diagnosis: One tablet daily Last Documented On 7 9:35AM By ROLO AQUINO MD ; [facility] Citalopram Hydrobromide 20 MG Tablet 07/13/2015 - 08/20/2015 Provider: ROLO AQUINO MD Diagnosis: Dysthymic disord er One tablet daily Last Documented On 6 10:15AM By ROLO AQUINO MD ; [facility] Citalopram Hydrobromide 20 MG Tablet 06/17/2015 - 07/13/2015 Provider: ROLO AQUINO MD Diagnosis: Dysthymic disord er One tablet daily Last Documented On 6 1:48PM By ROLO AQUINO MD ; [facility] KlonoPIN 1 MG Tablet 05/29/2015 - 08/20/2015 Provider: MANUELITO Angelo [facility]- Diagnosis: Generalized anxi ety disorder twice daily as needed for anxiety Last Documented On 08/20/2015 10:06AM By Jenise BRANTLEY ; [facility] Citalopram Hydrobromide 20 MG Tablet 05/25/2015 - 06/17/2015 Provider: BONITA JONES [facility]- DIRECTOR DERMATOLOGY- Diagnosis: Dysthymic disord er One tablet daily Last Documented On 6 10:08AM By ROLO AQUINO MD ; [facility] ZyrTEC Allergy 10 MG Tablet 05/25/2015 - 06/17/2015 Pr ovider: Diagnosis: Last Documented On 06/17/2015 9:27AM By IVONE BRANTLEY ; [facility] Lisinopril-Hydrochlorothiazi de 20-25 MG Tablet 05/11/2015 - 07/13/2015 Provider: BONITA JONES [facility]- Diagnosis: One tablet daily Last Documented On 6 1:50PM By ROLO AQUINO MD ; [facility] Doxycycline Monohydrate 100 MG Capsule, conventional 05/11/2015 - 05/25/2015 Provider: BONITA JONES [facility]- Diagnosis: Acute sinusitis, unspecified 1 CAPSULE TWO TIMES A DAY Last Documented On 05/25/2015 10:54AM By MIL RAZA Angelo ; [facility] Nasonex 50 MCG/ACT Suspension 05/11/2015 - 02/14/2017 Provider: BONITA JONES [facility]- Diagnosis: Acute sinusitis, unspecified 2 sprays each nostril once daily Last Documented On 02/14/2017 8:10AM By Ninfa BRANTLEY ; [facility] Lisinopril-Hydrochlorothiazi de 20-25 MG Tablet 04/14/2015 - 05/11/2015 Provider: ROLO AQUINO MD Diagnosis: One tablet daily to replace quinipril Last Documented On 6 11:43AM By BONITA JONES [facility] ; [facility] Quinapril-Hydrochlorothiazid e 20-25 MG Tablet 04/13/2015 - 05/11/2015 Provider: ROLO AQUINO MD Diagnosis: Essential (primary) hypertension One tablet daily addition of hctz Last Documented On 05/11/2015 11:21AM By MIL BRANTLEY ; [facility] Quinapril-Hydrochlorothiazid e 20-25 MG Tablet 03/16/2015 - 04/13/2015 Provider: ROLO AQIUNO MD Diagnosis: Essential (primary) hypertension One tablet daily addition of hctz Last Documented On 04/13/2015 11:27AM By Jenise BRANTLEY ; [facility] AmLODIPine Besylate 5 MG Tablet 03/09/2015 - 03/16/2015 Provider: ROLO AQUINO MD Diagnosis: Essential (prima ry) hypertension One tablet daily Last Documented On 03/16/2015 2:17PM By IVONE BRANTLEY ; [facility] AmLODIPine Besylate 10 MG Tablet 03/09/2015 - 05/11/2015 Provider: ROLO VASQUEZ MD Diagnosis: One tablet daily DOSE INCREASE Last Documented On 05/11/2015 11:19AM By MIL BRANTLEY ; [facility] AmLODIPine Besylate 5 MG Tablet 02/16/2015 - 03/09/2015 Provider: ROLO AQUINO MD Diagnosis: Essential (prima ry) hypertension One tablet daily Last Documented On 5 11:10AM By ALLI LASSITER PA-C ; [facility] Quinapril HCl 20 MG Tablet 01/13/2015 - 05/11/2015 Pro vider: ROLO AQUINO MD Diagnosis: One tablet twice a day Last Documented On 05/11/2015 11:22AM By MIL BRANTLEY ; [facility] Quinapril HCl 20 MG Tablet 07/27/2014 - 01/13/2015 Pro vider: ROLO AQUINO MD Diagnosis: One tablet daily Last Documented On 5 9:46PM By ROLO AQUINO MD ; [facility] Omeprazole 20 MG OR TBEC 06/29/2014 - 07/13/2015 Provi tiffanie: ROLO AQUINO MD Diagnosis: Last Documented On 6 1:49PM By ROLO AQUINO MD ; [facility] Quinapril HCl 20 MG OR TABS 06/29/2014 - 07/27/2014 Pr ovider: ROLO AQUINO MD Diagnosis: Last Documented On 07/27/2014 3:33PM By Jenise BRANTLEY ; [facility] CeleBREX 200 MG OR CAPS 06/29/2014 - 07/13/2015 Provid er: ROLO AQUINO MD Diagnosis: ONE TAB DAILY AND THEN A SEC OND TABLET A DAY NEEDED Last Documented On 07/13/2015 1:49PM By Jenise BRANTLEY ; [facility] VESIcare 5 MG OR TABS 05/27/2014 - 05/11/2015 Provider : ALLI LASSITER PA-C Diagnosis: URINARY FREQUENC Y Last Documented On 05/11/2015 11:21AM By MIL BRANTLEY ; [facility] Parafon Forte DSC 500 MG OR TABS 05/21/2014 - 05/11/2015 Provider: [facility]-BC Diagnosis: Lumbago 1/2 to 1 tab every 8 hours a s needed for muscle spasms Last Documented On 05/11/2015 11:20AM By MIL BRANTLEY ; [facility] Medrol 4 MG OR TABS 05/21/2014 - 05/11/2015 Provider: BONITA JONES [facility]-BC DIRECTOR DERMATOLOGY-BC Diagnosis: Lumbago Take 6 tabs day 1, 5 tabs da y 2, 4 tabs day 3, 3 tabs day 4, 2 tabs day 5, 1 tab day 6 Last Documented On 05/11/2015 11:21AM By MIL BRANTLEY ; [facility] Omeprazole 20 MG OR TBEC 03/24/2013 - 06/29/2014 Provi tiffanie: LINCOL[facility] CAPUTO Diagnosis: Last Documented On 5 9:24AM By ROLO AQUINO MD ; [facility] CeleBREX 200 MG OR CAPS 03/24/2013 - 06/29/2014 Provid er: LINCOLN CAPUTO Diagnosis: Last Documented On 5 9:20AM By ROLO AQUINO MD ; [facility] Quinapril HCl 20 MG OR TABS 03/24/2013 - 06/29/2014 Pr ovider: LIN[facility] CAPUTO Diagnosis: Last Documented On 5 9:24AM By ROLO AQUINO MD ; [facility] Medications Administered Includes: Administered Medications in patient's chart No Administered Medications Recorded Vital Signs Includes: Vital Signs from 08/27/2023 through 08/26/2024 Vital Name 10/10/2023 09:26A Blood Pressure Sitting R 116/76 BP Cuff Size Regular Pulse Rate-Sitting (bpm) 76 Respiration Rate (breaths/min) 19 Height (in) 71.5 Weight (lb) 373 Body Mass Index 51.3 Body Surface Area 2.8 Oxygen Saturation (%) 96 Last Documented: On 10/10/2023 9:31AM ; [facility] Results Includes: Results from 08/27/2023 through 08/26/2024 A1C HGB (GLYCO HEMOGLOBIN) [facility] Laboratory Ordered by ROLO Ricketts MD on 10/03/2023 [address] [place], [address] Collected: 10/03/2023 Report ed: 10/03/2023 11:27 tel: Last Documented On 4 9:50AM ; [facility] Reviewed by ROLO VASQUEZ MD on 10/07/2023; All test results are final unless otherwise noted. Review Note Provider Name Date Will Discuss results with Patient next visit. ERNESTO AQUINO MD 10/07/2023 A1C HGB (GLYCO HEMOGLOBIN) See Note None Last Documented On 4 11:41AM ; [facility] Note: Glycohemoglobin (HEMOGLOBIN A1C)Re sponsible Observer: (HRG) Hgb A1c 5.8 %_A1c (4.0 - 6.0) None Last Documented On 4 11:41AM ; [facility] Note: Responsible Observer: (HRG) MBG 120 mg/dL (65 - 99) H (High) Last Documented On 4 11:41AM ; [facility] Note: *MBG (mean blood glucose) is a leti culated estimate of the mean blood glucose itis also refered to as estimated Average Glucose (eAG).*Responsible Observer: (HRG) LIPID PANEL [facility] Ordered by ROLO Ricketts MD on 10/03/2023 [address] [facility] [place], [address] Collected: 10/03/2023 Report ed: 10/03/2023 11:27 tel: Last Documented On 4 9:50AM ; [facility] Reviewed by ROLO VASQUEZ MD on 10/07/2023; All test results are final unless otherwise noted. Review Note Provider Name Date Will Discuss results with Patient next visit. ERNESTO AQUINO MD 10/07/2023 CHOL/HDLC 3.6 (0.0 - 4.8) None Last Documented On 4 11:41AM ; [facility] Note: Responsible Observer: (HRG) CHOLESTEROL 144 mg/dL (0 - 200) None Last Documented On 4 11:41AM ; [facility] Note: Responsible Observer: (HRG) HDL 40 mg/dL (29 - 67) None Last Documented On 4 11:41AM ; [facility] Note: Responsible Observer: (HRG) LDL 69 mg/dL (0 - 130) None Last Documented On 4 11:41AM ; [facility] Note: Coronary Artery Risk Panel Referen ce Values Based on the recommendations of the Heart, Lung and Blood [place] (in mg/dL) Risk Levels = High Borderline Desirable Cholesterol >240 200 - 240 <200 LDL >160 130 - 159 <130 Cholesterol/HDL Ratio Male <= 4.88 Female <= 4.23Responsible Observer: (HRG) LIPID PANEL See Note None Last Documented On 4 11:41AM ; [facility] Note: LIPID PANELResponsible Observer: ( HRG) TRIGLYCERIDE 175 mg/dL (1 - 150) H (High) Last Documented On 4 11:41AM ; [facility] Note: Responsible Observer: (HRG) CMP [facility] Ordered by ROLO Ricketts MD on 10/03/2023 [address] [facility] [place], [address] Collected: 10/03/2023 Report ed: 10/03/2023 11:27 tel: Last Documented On 4 9:50AM ; [facility] Reviewed by ROLO VASQUEZ MD on 10/07/2023; All test results are final unless otherwise noted. Review Note Provider Name Date Will Discuss results with Patient next visit. CR DAVID AQUINO MD 10/07/2023 A/G RATIO 1.1 (1.1 - 2.2) None Last Documented On 4 11:41AM ; [facility] Note: eGFR INTERPRETATION AGE AVG GFR 2 [...] None Last Documented On 4 11:41AM ; [facility] Note: Responsible Observer: (HRG) ALBUMIN 3.7 g/dL (3.4 - 4.8) None Last Documented On 4 11:41AM ; [facility] Note: Responsible Observer: (HRG) ALK PHOS 44 IU/L (40 - 150) None Last Documented On 4 11:41AM ; [facility] Note: Responsible Observer: (HRG) ALT (SGPT) 27 IU/L (0 - 55) None Last Documented On 4 11:41AM ; [facility] Note: Responsible Observer: (HRG) ANION GAP 17.2 mmol/L (8.0 - 16.0) H (High) Last Documented On 4 11:41AM ; [facility] Note: Responsible Observer: (HRG) AST (SGOT) 24 IU/L (5 - 34) None Last Documented On 4 11:41AM ; [facility] Note: Responsible Observer: (HRG) BILIRUBIN TOT 0.5 mg/dL (0.2 - 1.0) None Last Documented On 4 11:41AM ; [facility] Note: Responsible Observer: (HRG) BUN 16 mg/dL (9 - 20) None Last Documented On 4 11:41AM ; [facility] Note: Responsible Observer: (HRG) CALCIUM 9.3 mg/dL (8.9 - 10.0) None Last Documented On 4 11:41AM ; [facility] Note: Responsible Observer: (HRG) CHLORIDE 104 mmol/L (98 - 107) None Last Documented On 4 11:41AM ; [facility] Note: Responsible Observer: (HRG) CMP See Note None Last Documented On 4 11:41AM ; [facility] Note: COMPREHENSIVE METABOLIC PANELRespo nsible Observer: (HRG) CREATININE 0.8 mg/dL (0.8 - 1.5) None Last Documented On 4 11:41AM ; [facility] Note: Responsible Observer: (HRG) eGFR 98 mL/min None Last Documented On 4 11:41AM ; [facility] Note: Responsible Observer: (HRG) GLOBULIN 3.3 g/dl (2.0 - 4.2) None Last Documented On 4 11:41AM ; [facility] Note: Responsible Observer: (HRG) GLUCOSE 156 mg/dL (70 - 105) H (High) Last Documented On 4 11:41AM ; [facility] Note: Responsible Observer: (HRG) POTASSIUM 4.2 mmol/L (3.6 - 5.0) None Last Documented On 4 11:41AM ; [facility] Note: Responsible Observer: (HRG) SODIUM 139 mmol/L (137 - 145) None Last Documented On 4 11:41AM ; [facility] Note: Responsible Observer: (HRG) TCO2 22.0 mmol/L (22.0 - 30.0) None Last Documented On 4 11:41AM ; [facility] Note: Responsible Observer: (HRG) TOTAL PROTEIN 7.0 g/dL (6.4 - 8.3) None Last Documented On 4 11:41AM ; [facility] Note: Responsible Observer: (HRG) PSA SCREEN [facility] Ordered by ROLO Ricketts MD on 10/03/2023 [address] [place], [address] Collected: 10/03/2023 Report ed: 10/03/2023 11:34 tel:[phone] Last Documented On 4 9:50AM ; [facility] Reviewed by ROLO VASQUEZ MD on 10/07/2023; All test results are final unless otherwise noted. Review Note Provider Name Date Will Discuss results with Patient next visit. ERNESTO AQUINO MD 10/07/2023 PSA 3.9 ng/ml (0.0 - 4.0) None Last Documented On 10/03/2023 11:41AM ; [facility] Note: PSA NORMAL RANGE: < / = 4.0 ng/mLResponsible Observer: (MLB) Reported Physicians [facility] Ordered by ROLO Ricketts MD on 10/03/2023 [address] [place], [address] Collected: 10/03/2023 Report ed: 10/03/2023 11:34 tel:[phone] Last Documented On 4 9:50AM ; [facility] Reviewed by ROLO VASQUEZ MD on 10/07/2023; All test results are final unless otherwise noted. Review Note Provider Name Date Will Discuss results with Patient next visit. ERNESTO AQUINO MD 10/07/2023 Reported Physicians See Note None Last Documented On 10/03/2023 11:41AM ; [facility] Note: Reported Physicians:Ordering: Napoleon Frankttending: REGI FRANKYConsulting: ROLO FRANK CBC WITH DIFF [facility] Ordered by ROLO Ricketts MD on 08/31/[address] [facility], [place], [address] Collected: 09/01/2023 Report ed: 09/01/2023 06:01 tel: Last Documented On 4 11:16PM ; [facility] Reviewed by ROLO VASQUEZ MD on 10/07/2023; All test results are final unless otherwise noted. ALC 0.8 None Last Documented On 4 8:41PM ; [facility] Note: Responsible Observer: (NELI) ANC 10.2 None Last Documented On 4 8:41PM ; [facility] Note: Responsible Observer: (NELI) BASO# 0.07 th/uL (0.00 - 0.20) None Last Documented On 4 8:41PM ; [facility] Note: Responsible Observer: (NELI) BASO% 0.6 % (0.0 - 2.0) None Last Documented On 4 8:41PM ; [facility] Note: Responsible Observer: (NELI) CBC WITH DIFF See Note None Last Documented On 4 8:41PM ; [facility] Note: CBC (COMPLETE BLOOD COUNT)Responsi ble Observer: (NELI) DIFF (Y/N) NO None Last Documented On 4 8:41PM ; [facility] Note: Responsible Observer: (NELI) EOS# 0.07 th/uL (0.00 - 0.45) None Last Documented On 4 8:41PM ; [facility] Note: Responsible Observer: (NELI) EOS% 0.6 % (0.0 - 9.0) None Last Documented On 4 8:41PM ; [facility] Note: Responsible Observer: (NELI) HCT 34.6 % (40.0 - 54.0) L (Low) Last Documented On 4 8:41PM ; [facility] Note: Responsible Observer: (NELI) HGB 11.7 g/dL (13.5 - 17.5) L (Low) Last Documented On 4 8:41PM ; [facility] Note: Responsible Observer: (NELI) IG# 0.05 th/ul (0.00 - 0.10) None Last Documented On 4 8:41PM ; [facility] Note: Responsible Observer: (NELI) IG% 0.4 % (0.0 - 0.5) None Last Documented On 4 8:41PM ; [facility] Note: Responsible Observer: (NELI) LYMPH# 0.78 th/uL (1.00 - 4.80) L (Low) Last Documented On 4 8:41PM ; [facility] Note: Responsible Observer: (NELI) LYMPH% 6.4 % (14.0 - 45.0) L (Low) Last Documented On 4 8:41PM ; [facility] Note: Responsible Observer: (NELI) MCH 32.7 pg (25.0 - 35.0) None Last Documented On 4 8:41PM ; [facility] Note: Responsible Observer: (NELI) MCHC 33.8 g/dL (31.0 - 36.0) None Last Documented On 4 8:41PM ; [facility] Note: Responsible Observer: (NELI) MCV 96.6 fl (80.0 - 100) None Last Documented On 4 8:41PM ; [facility] Note: Responsible Observer: (NELI) MONO# 0.96 th/uL (0.00 - 0.80) H (High) Last Documented On 4 8:41PM ; [facility] Note: Responsible Observer: (NELI) MONO% 7.9 % (1.0 - 10.0) None Last Documented On 4 8:41PM ; [facility] Note: Responsible Observer: (NELI) MPV 10.6 fl (6.0 - 11.0) None Last Documented On 4 8:41PM ; [facility] Note: Responsible Observer: (NELI) NEUT# 10.21 th/uL None Last Documented On 4 8:41PM ; [facility] Note: Responsible Observer: (NELI) NEUT% 84.1 % (45.0 - 76.0) H (High) Last Documented On 4 8:41PM ; [facility] Note: Responsible Observer: (NELI) NRBC% 0.0 % (0.0 - 0.0) None Last Documented On 4 8:41PM ; [facility] Note: Responsible Observer: (NELI) PLT 145 th/uL (150 - 400) L (Low) Last Documented On 4 8:41PM ; [facility] Note: Responsible Observer: (NELI) RBC 3.58 mil/uL (4.50 - 5.90) L (Low) Last Documented On 4 8:41PM ; [facility] Note: Responsible Observer: (NELI) RDW 13.2 % (11.0 - 16.0) None Last Documented On 4 8:41PM ; [facility] Note: Responsible Observer: (NELI) WBC 12.1 th/uL (4.5 - 11.0) H (High) Last Documented On 4 8:41PM ; [facility] Note: Responsible Observer: (NELI) [employer] [place] Ordered by ROLO Ricketts MD on 08/31/[address] [place] [address], [phone] Collected: 09/01/2023 Report ed: 09/01/2023 06:08 tel: Last Documented On 4 11:16PM ; [facility] Reviewed by ROLO VASQUEZ MD on 10/07/2023; All test results are final unless otherwise noted. AGE 63 YEARS None Last Documented On 4 8:41PM ; [facility] Note: Responsible Observer: (NELI) ANION GAP 15.1 mmol/L (8.0 - 16.0) None Last Documented On 4 8:41PM ; [facility] Note: eGFR INTERPRETATION AGE AVG GFR 20 [...] None Last Documented On 4 8:41PM ; [facility] Note: BASIC METABOLIC PANELResponsible O bserver: (NELI) BUN 29 mg/dL (9 - 20) H (High) Last Documented On 4 8:41PM ; [facility] Note: Responsible Observer: (NELI) CALCIUM 8.2 mg/dL (8.9 - 10.0) L (Low) Last Documented On 4 8:41PM ; [facility] Note: Responsible Observer: (NELI) CHLORIDE 101 mmol/L (98 - 107) None Last Documented On 4 8:41PM ; [facility] Note: Responsible Observer: (NELI) CREATININE 2.0 mg/dL (0.8 - 1.5) H (High) Last Documented On 4 8:41PM ; [facility] Note: Responsible Observer: (NELI) eGFR. 36 mL/min None Last Documented On 4 8:41PM ; [facility] Note: Responsible Observer: (NELI) GLUCOSE 169 mg/dL (70 - 105) H (High) Last Documented On 4 8:41PM ; [facility] Note: Responsible Observer: (NELI) POTASSIUM 4.1 mmol/L (3.6 - 5.0) None Last Documented On 4 8:41PM ; [facility] Note: Responsible Observer: (NELI) SODIUM 135 mmol/L (137 - 145) L (Low) Last Documented On 4 8:41PM ; [facility] Note: Responsible Observer: (NELI) TCO2 23.0 mmol/L (22.0 - 30.0) None Last Documented On 4 8:41PM ; [facility] Note: Responsible Observer: (NELI) URIC ACID [facility] [place] Ordered by ROLO Ricketts MD on 08/31/[address] [place] [address], [phone] Collected: 09/01/2023 Report ed: 09/01/2023 06:35 tel:[phone] Last Documented On 4 11:16PM ; [facility] Reviewed by ROLO VASQUEZ MD on 10/07/2023; All test results are final unless otherwise noted. URIC ACID 5.2 mg/dL (3.5 - 7.2) None Last Documented On 10/02/2023 8:41PM ; [facility] Note: Responsible Observer: (NELI) LACTIC ACID [facility] [place] Ordered by ROLO Ricketts MD on 08/31/[address] [facility], [place], [address] Collected: 08/31/2023 Report ed: 08/31/2023 14:16 tel:[phone] Last Documented On 4 11:16PM ; [facility] Reviewed by ROLO VASQUEZ MD on 10/07/2023; All test results are final unless otherwise noted. LACTIC ACID 2.2 mmol/L (0.5 - 2.2) None Last Documented On 10/02/2023 8:41PM ; [facility] Note: Responsible Observer: (TER) URINALYSIS/REFLEX C&S [facility] Laboratory Ordered by ROLO AQUINO MD on 08/[address] [facility], [place], [address] Collected: 08/31/2023 Report ed: 08/31/2023 02:51 tel:[phone] Last Documented On 4 11:16PM ; [facility] Reviewed by ROLO VASQUEZ MD on 10/07/2023; All test results are final unless otherwise noted. BACTERIA Few (NORMAL: NONE) None Last Documented On 4 8:41PM ; [facility] Note: Responsible Observer: (SED) BILIRUBIN NEGATIVE (Normal: Negative) None Last Documented On 4 8:41PM ; [facility] Note: Responsible Observer: (SED) BLOOD TRACE-IN (Normal: Negative) A (Abnormal) Last Documented On 4 8:41PM ; [facility] Note: Responsible Observer: (SED) CASTS None seen (NORMAL: NONE) None Last Documented On 4 8:41PM ; [facility] Note: Responsible Observer: (SED) CLARITY CLEAR (Normal: Clear) None Last Documented On 4 8:41PM ; [facility] Note: Responsible Observer: (SED) COLOR ORANGE (Normal: Straw - carmen) None Last Documented On 4 8:41PM ; [facility] Note: Responsible Observer: (SED) CRYSTALS None seen (NORMAL: 0 - 3 /hpf) None Last Documented On 4 8:41PM ; [facility] Note: Responsible Observer: (SED) CULTURE TO FOLLOW None Last Documented On 4 8:41PM ; [facility] Note: MICROSCOPIC EXAMINATION IF NOT IND ICATED WILL NOT BE PERFORMEDResponsible Observer: (SED) EPI CELLS 0-5 (NORMAL: NONE) None Last Documented On 4 8:41PM ; [facility] Note: Responsible Observer: (SED) GLUCOSE NEGATIVE (Normal: Negative) None Last Documented On 4 8:41PM ; [facility] Note: Responsible Observer: (SED) KETONE TRACE (Normal: Negative) None Last Documented On 4 8:41PM ; [facility] Note: Responsible Observer: (SED) LEUKOCYTE. NEGATIVE (Normal: Negative) None Last Documented On 4 8:41PM ; [facility] Note: Responsible Observer: (SED) MICROSCOPIC? SEE BELOW None Last Documented On 4 8:41PM ; [facility] Note: MICROSCOPICResponsible Observer: ( SED) MUCOUS 1+ None Last Documented On 4 8:41PM ; [facility] Note: Responsible Observer: (SED) NITRITE. POSITIVE (Normal: Negative) A (Abnormal) Last Documented On 4 8:41PM ; [facility] Note: Responsible Observer: (SED) pH 5.5 (Normal: 5.0 - 9.0) None Last Documented On 4 8:41PM ; [facility] Note: Responsible Observer: (SED) PROTEIN NEGATIVE (Normal: Negative) None Last Documented On 4 8:41PM ; [facility] Note: Responsible Observer: (SED) RBC 3-5 (NORMAL: 0 - 3 /hpf) None Last Documented On 4 8:41PM ; [facility] Note: Responsible Observer: (SED) SP GRAVITY >=1.030 (Normal: 1.005-1.030) None Last Documented On 4 8:41PM ; [facility] Note: Responsible Observer: (SED) TRICHOMONAS None Seen None Last Documented On 4 8:41PM ; [facility] Note: Responsible Observer: (SED) UA SPECIMEN CVS (CLEAN VOI None Last Documented On 4 8:41PM ; [facility] Note: { Comment: Results may be compromi sed due to urine colorResponsible Observer: (SED) UROBILINOGEN 0.2 (Normal: Negative) None Last Documented On 4 8:41PM ; [facility] Note: Responsible Observer: (SED) WBC 3-5 (NORMAL: 0 - 5 /hpf) None Last Documented On 4 8:41PM ; [facility] Note: Responsible Observer: (SED) YEAST None Seen None Last Documented On 4 8:41PM ; [facility] Note: Responsible Observer: (SED) URINALYSIS/REFLEX C See Note None Last Documented On 4 8:41PM ; [facility] Note: URINALYSIS/REFLEX C&SResponsible O bserver: (SED) .CULTURE URINE CLEAN VOID SPECIMEN [facility] Ordered by ROLO Ricketts MD on 08/31/[address] [place] [address], [phone] Collected: 08/31/2023 Report ed: 09/02/2023 07:49 tel: Last Documented On 4 11:16PM ; [facility] Reviewed by ROLO VASQUEZ MD on 10/07/2023; All test results are final unless otherwise noted. .CULTURE URINE CLEAN VOID SPECIMEN See Note None Last Documented On 10/02/2023 8:41PM ; [facility] Note: _URINE CULTURE_ _CVS_ INFECT. CONT REPORT NO None Last Documented On 10/02/2023 8:41PM ; [facility] Note: _COLONY_COUNT_>100,000_MIXED_GRAM_POSITIVE_F LORA 09/01/23.JW . _REPEAT_SPECIMEN_SUGGESTED 09/01/23.JW . 09/02/23.49.JW .COMPLETENOResponsible Observer: (JW) CULTURE BLOOD [facility] [place] Ordered by ROLO Ricketts MD on 08/31/[address] [place] [address], [phone] Collected: 08/31/2023 Report ed: 09/05/2023 06:35 tel: Last Documented On 11:16PM ; [facility] Reviewed by ROLO VASQUEZ MD on 10/07/2023; All test results are final unless otherwise noted. CULTURE BLOOD See Note None Last Documented On 10/02/2023 8:41PM ; [facility] Note: _BLOOD CULTURE_ INFECT. CONT REPORT NO None Last Documented On 10/02/2023 8:41PM ; [facility] Note: _NO_GrOWTH_AT_5_DAYS. 09/05/23.35.MLB. ------ 09/05/23.0635.MLB. 09/05/23.0636.MLB.COMPLETENOResponsible Observer: (MLB) CMP [facility] [place] Ordered by ROLO Ricketts MD on 08/31/2023 [address], [place], [address] Collected: 08/31/2023 Report ed: 08/31/2023 01:44 tel: Last Documented On 4 11:16PM ; [facility] Reviewed by ROLO VASQUEZ MD on 10/07/2023; All test results are final unless otherwise noted. A/G RATIO 1.2 (1.1 - 2.2) None Last Documented On 4 8:41PM ; [facility] Note: eGFR INTERPRETATION AGE AVG GFR 20 [...] None Last Documented On 4 8:41PM ; [facility] Note: Responsible Observer: (SED) ALBUMIN 4.1 g/dL (3.4 - 4.8) None Last Documented On 4 8:41PM ; [facility] Note: Responsible Observer: (SED) ALK PHOS 42 IU/L (40 - 150) None Last Documented On 4 8:41PM ; [facility] Note: Responsible Observer: (SED) ALT (SGPT) 33 IU/L (0 - 55) None Last Documented On 4 8:41PM ; [facility] Note: Responsible Observer: (SED) ANION GAP 17.9 mmol/L (8.0 - 16.0) H (High) Last Documented On 4 8:41PM ; [facility] Note: Responsible Observer: (SED) AST (SGOT) 30 IU/L (5 - 34) None Last Documented On 4 8:41PM ; [facility] Note: Responsible Observer: (SED) BILIRUBIN TOT 1.0 mg/dL (0.2 - 1.0) None Last Documented On 4 8:41PM ; [facility] Note: Responsible Observer: (SED) BUN 19 mg/dL (9 - 20) None Last Documented On 4 8:41PM ; [facility]

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
== END 2024-08-26 14:18 | disposition home or self-care (01) ==
LOC: ANHIMG 14:22
PROVIDERS: PCP Family Medicine; Visit Provider Urology
DX: N20.1 Calculus of ureter (principal)
CPT/HCPCS: 74018

== ENCOUNTER 2024-11-20 10:38 | Outpatient (CLI) | payer MEDICARE, SELFPAY ==
--- NOTE | ~2024-11-20 | XR_ITS ---
XR abdomen/kub 1V 11/20/2024 11:09 Indication: Left ureteral stone Procedure: KUB Comparison: 08/26/2024 Findings: Bowel gas pattern nonobstructive. There are cholecystectomy clips. There are pelvic phlebol iths. No acute osseous abnormality. There are calcified granulomas of the liver and spleen. No renal stones identified. Impression: 1: No acute abdominal abnormality. Reviewed, dictated and finalized at location B. Impression: 1: No acute abdominal abnormality.
--- OUTSIDE RECORDS SUMMARY | 2024-11-20 10:57 | XMS_ITS | Referral Summary ---
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 Gender Identity Not on file Sexual Orientation Not on file Last Filed Vital Signs Vital Sign Reading Time Taken Comments Blood Pressure 108/80 07/19/2012 11:58 AM CDT Pulse 92 07/19/2012 11:58 AM CDT Temperature - - Respiratory Rate - - Oxygen Saturation - - Inhaled Oxygen Concentration - - Weight 167.8 kg (370 lb) 06/17/2012 3:30 PM EDUCATION PROGRAM ASSOCIATE Height 182.9 cm (6') 07/19/2012 11:58 AM CDT Body Mass Index 50.18 06/17/2012 3:30 PM EDUCATION PROGRAM ASSOCIATE Plan of Treatment Not on file Insurance AETNA MEDICARE [facility] [id number] Care Teams Supervisor Force Adjustment Relationship Specialty Start Date End Date Alecia Leslie MD [address] [place] [address] PCP - General Family Medicine 02/23/21
--- OUTSIDE RECORDS SUMMARY | 2024-11-20 10:57 | XMS_ITS | Continuity of Care Document ---
Author Organization [facility] Address [address] [place] [address] [address] [place] [address] Phone Care Team Providers Care Tick Inspector Name Role Phone Mario Khan MD, MD [...] - Active Procedures Procedure Date Office/outpatient Visit, [facility] Remove Foreign Body From Eye Advance Directives [...] Providers Copied on Encounter Office/outpa tient Visit, [facility], [address], [place], [place], [id number], [place] tel:[phone] SEC Khadijah Irizarry CONJUNCTIVAL CONCRETIONSDISORDE RS OF EYELID NEC [address], [address], [place], [address], [place]. [phone] Family History Family Member Type Diagnosis Age At Onset Problem (finding) Family history of degenerative disorder of macula Mother Problem (finding) glaucoma Payers Payer name Insurance type Covered democrat ID Jeffery espinoza(s) [employer] CI [id number] Social History Type Description Quantity Date Captured [...]
--- OUTSIDE RECORDS SUMMARY | 2024-11-20 10:57 | XMS_ITS | Clinical Summary ---
Author Organization [facility] Address [address] [place] [address] Care Team Providers Care It Admin Name Role Phone Elving-Alecia White MD Primary [...] Description 08/25/2024 10:30 AM CDT Office Visit [facility] Ophthalmology 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 Gender Identity Not on file Sexual Orientation Not on file Obstetrics History Last Filed Vital Signs Vital Sign Reading Time Taken Comments Blood Pressure 108/80 07/19/2012 11:58 AM CDT Pulse 92 07/19/2012 11:58 AM CDT Temperature - - Respiratory Rate - - Oxygen Saturation - - Inhaled Oxygen Concentration - - Weight 167.8 kg (370 lb) 06/17/2012 3:30 PM EXECUTIVE ASST Height 182.9 cm (6') 07/19/2012 11:58 AM CDT Body Mass Index 50.18 06/17/2012 3:30 PM EXECUTIVE ASST Plan of Treatment Health Maintenance Due Date [...] 02/11/2021, 06/29/2020, Additional history exists Influenza Vaccine (#1) 2025 2, 01/24/2022, 02/11/2021, Additional history exists Zoster Vaccine Completed 11/05/2018, 08/06/2018 Insurance AETNA MEDICARE [facility] [id number] Care Teams It Admin Relationship Specialty Start Date End Date Alecia Leslie MD [address] [place] [id number] PCP - General Family Medicine 02/23/21
--- OUTSIDE RECORDS SUMMARY | 2024-11-20 10:57 | XMS_ITS | Clinical Summary ---
Author Organization [facility] Address [address] [facility] [place] [address] Phone Care Team Providers Care Complex Care Nurse Name Role Phone Wood Griffith MD Unavailable Alecia Cornell MD Primary Care Provider [phone] Natali Leyva APRN, PUBLICATIONS INSPECTOR Unavailable [phone] Allergies Active Allergy Reactions Criticality Noted Date Comments Cephalexin Hives 07/12/2016 Medications metFORMIN (GLUCOPHAGE) 1000 MG Tablet 500 mg. bid 1 Active Magnesium Oxide 500 MG Tablet [facility] Magnesium Oxide 500 MG Oral Tablet QTY: 0 tablet Days: 0 Refills: 0 Written: 05/11/15 Patient Instructions: 6 Active Multiple Vitamin (Multivitamins ) Capsule Multivitamins Oral Capsule QTY: 0 capsule Days: 0 Refills: 0 Written: 12/01/13 Patient Instructions: 4 Active Multiple Vitamins-[place] als (Eye Vitamins) Capsule Eye Vitamins Oral Capsule QTY: 0 capsule Days: 0 Refills: 0 Written: 08/14/17 Patient Instructions: 8 Active lisinopril-hyd roCHLOROthiazi de (PRINZIDE, ZESTORETIC) 20-25 MG Tablet 1 Active celecoxib (CeleBREX) 200 MG Capsule CeleBREX 200 MG Oral Capsule QTY: 180 Days: 90 Refills: 3 Written: 10/27/19 Patient Instructions: ONE TAB DAILY AND THEN A SECOND TABLET A DAY NEEDED 0 Active omeprazole (PriLOSEC) 20 MG CAPSULE DELAYED RELEASE TAKE 1 CAPSULE BY MOUTH EVERY DAY 1 Active meclizine (ANTIVERT) 12.5 MG Tablet Take 1 Tablet by mouth every 8 hours as needed for Dizziness. 15 Tablet 1 3 Active Empagliflozin (Jardiance) 10 MG Tablet Take 10 mg by mouth daily. Active Active Problems Problem Noted Date Diagnosed Date WARREN (obstructive sleep apnea) 07/12/2016 SOB (shortness of breath) 07/12/2016 Morbid obesity due to excess calories 07/12/2016 Essential (primary) hypertension 07/12/2016 Gastroesophageal reflux disease without esophagi tis 07/12/2016 Encounters Date Type Department Care Team Description 09/24/2024 9:00 AM CDT Office Visit [facility] [address] [place] [address] Natali Leyva APRN, PUBLICATIONS INSPECTOR WARREN (obstructive sleep apnea) (Primary Dx); Morbid obesity due to excess calories (HCC) Discharge Disposition: Discharged to home or Selfcare 09/24/2024 Travel from Last 3 Months Immunizations Immunization Administration Dates Next Due Covid-19, Mrna, Lnp-s, Pf, 3 0 Mcg/0.3 Ml Dose (S[place]board) 06/29/2020,06/08/2020 Influenza Vaccine greater than 3 yrs [...] Sign Reading Time Taken Comments Blood Pressure 142/68 09/24/2024 9:02 AM CDT Pulse 84 09/24/2024 9:02 AM CDT Temperature 36.5 C (97.7 F) 09/24/2024 9:02 AM CDT Respiratory Rate 16 09/24/2024 9:02 AM CDT Oxygen Saturation 94% 09/24/2024 9:02 AM CDT Inhaled Oxygen Concentration - - Weight 167.8 kg (370 lb) 09/24/2024 9:02 AM CDT Height 182.9 cm (6') 09/24/2024 9:02 AM CDT Body Mass Index 50.18 09/24/2024 9:02 AM CDT Plan of Treatment Upcoming Encounters Date Type Department Care Team (Late st Contact Info) Description 09/30/2025 9:00 AM CDT Office Visit [facility] [place] [address] [facility] [address] [place] [address] Natali Leyva, DRY CANS OPERATOR, PUBLICATIONS INSPECTOR [address] [facility] [address] [place] [address] Health Maintenance Due Date Last Done Comments Hepatitis C Virus (HCV) Screening 1958 Cologuard 2003 Colonoscopy 2003 Colorectal Cancer Screening 2003 Immunochemical Fecal Occult Blood 2003 SARS-COV-2 Immunization ( season) 2024 02/29/2024, 03/02/2023, 01/24/2022, Additional history exists Influenza Immunization (#1) 2025 1009/2023, 03/02/2023, 01/24/2022, Additional history exists Zoster Immunization Completed 11/05/2018, 9 PSA Discussion Completed 09/06/2020 Pneumococcal Immunization (50+ years) Completed 2023 Pneumococcal Immunization Combined Discontinued 2023 Respiratory Syncytial Virus (RSV) Immunization (Adult) Completed 2023 DTaP/Tdap/Td Immunization Discontinued 08/27/2024 TdaP Immunization Completed 08/27/2024 Hepatitis B Immunization Aged Out No longer eligible based on patient's age to complete this topic Human Papillomavirus (HPV) Immunization Aged Out No longer eligible based [...] CDT) Prostatic Specific Antigen, Free 2.10 ng/mL [address] 09/06/2020 10:56 PM CDT [facility] PSA, TOTAL (PROSTATIC SPECIFIC ANTIGEN) 3.36 <4.00 ng/mL [address] 09/06/2020 10:56 PM CDT [facility] PSA, % FREE 62.5 % [address] 09/06/2020 10:56 PM CDT [facility] Comment: PSA NG/ML FREE PSA % [...] Roscoe Gudino MD CHEMISTRY ORDERABLES Final Result [facility] [address] [place] [address], [place] from Last 3 Months or Most Recently Relevant to Health Maintenance Insurance [facility] OAP MEDICARE C AETNA Care Teams Complex Care Nurse Relationship Specialty Start Date End Date Alecia Cornell MD [address] [place] [address] PCP - General 07/06/16 Wood Griffith MD [address] [facility] [address] [place] [address] Consulting Physician Pulmonary Disease 07/06/16 Natali Leyva APRN, PUBLICATIONS INSPECTOR #[address] [address] Nurse Practitioner Advanced Practice Nurse 03/29/22
== END 2024-11-20 10:39 | disposition home or self-care (01) ==
PROVIDERS: PCP Family Medicine; Visit Provider Urology
DX: N20.1 Calculus of ureter (principal)
CPT/HCPCS: 74018

== ENCOUNTER 2025-03-04 13:22 | Outpatient (CLI) | payer MEDICARE, SELFPAY ==
--- OUTSIDE RECORDS SUMMARY | 2013-09-18 04:15 | XMS_ITS | Continuity of Care Document ---
Author Organization [facility] Address [address] [place] [address] [address] [place] [address] Phone Care Team Providers Care Media/Instructional Designer Name Role Phone Mario Khan MD, MD Unavailable Unavailab le Allergies, Adverse Reactions, Alerts Substance Reaction Status Criticality No Known allergies Medications Medication Instructions Dosage Effective Dates (start - stop) Status Comments GENTAMICIN SULFATE (unknown strength) instill 1 drop by ophthalmic route every 4 hours into affected eye(s) Not Available - Active quinapril 20 mg tablet take 1 tablet by oral route every day 20 MG - Active omeprazole 20 mg capsule,delayed release take 1 capsule by oral route every day before a meal 20 MG - Active Celebrex 200 mg capsule take 1 capsule by oral route 2 times every day as needed 200 MG - Active Procedures Procedure Date Office/outpatient Visit, [facility] Remove Foreign Body From Eye Advance Directives Directive Yes / No Effective Date File Name Resuscitation Not Answered N/A N/A Life Support Not Answered N/A N/A Intubation Not Answered N/A N/A Antibiotics Not Answered N/A N/A IV Fluid Support Not Answered N/A N/A Tube Feed Not Answered N/A N/A Other Directive N/A N/A WARNING:The information contained in this section is historical and is provided for information only and does not constitute a legal document or any assurance that the information is still accurate. Please verify the information with the arellano of the legal document before using it for clinical purposes. Encounters Encounter Description Practice Location Reason(s) For Visit Diagnoses Date Provider Providers Copied on Encounter Office/outpa tient Visit, [facility], [address], [place], [place], [id number], [place] tel:[phone] SEC Khadijah Irizarry [facility] [address], [address], [place], [address], [place]. [phone] Family History Family Member Type Diagnosis Age At Onset Problem (finding) Family history of degenerative disorder of macula Mother Problem (finding) glaucoma Payers Payer name Insurance type Covered republican ID Jeffery espinoza(s) [employer] CI [id number] Social History Type Description Quantity Date Captured Comments Alcohol Use Details No Caffeine Use Details Tobacco Use Status No Information Smoking Status Never smoker Non-Smoking Tobacco Use Details : No Details Available : No Details Available Sex Male Chief Complaint And Reason For Visit No Information Reason For Referral Reason For Referral No Information History Of Present Illness Encounter Date Complaint History Of Prese nt Illness No Information Functional Status Date Functional Assessmen t No Information Instructions Date Instruction Additional Infor mation - RTC as needed Related to See i mpression: general plan General plan -Conjun ctiva concretions -Disorder of the eyelid - Discussed conjunctiva concretions LLL in detail with pt. Discussed floppy eyelid syndrome. RTC as needed. Educational materials provided:about today's exam.PROCEDURE NOTE: 1 gtt of Tobramycin and 1 gtt Akten gel instilled. #23 needle used to remove calcium deposits. Related to See impression: general plan Assessments Type Assessment Date No Information Patient Care Teams Name Effective Dates (start - stop) Status Members No Information
--- NOTE | ~2025-03-04 | XR_ITS ---
Abdominal radiograph(s) INDICATION: Left ureteral stone COMPARISON: 11/20/2024 TECHNIQUE: 2 view supine AP abdomen FINDINGS: Scattered colonic stool. Small bowel loops not well seen. No evidence of organomegaly. Probable small left renal stone. Overlying rib 11. Pelvic phleboliths. No acute bony abnormality. IMPRESSION: 1. Probable small left renal stone. Reviewed, dictated and finalized at location R.
--- OUTSIDE RECORDS SUMMARY | 2025-03-04 14:43 | XMS_ITS | Clinical Summary ---
Author Organization [facility] Address [address] [place] [address] Care Team Providers Care Early Childhood Name Role Phone Elving-Alecia White MD Primary [...] 12/07/2014 Sleep apnea 06/29/2014 Overview (08/25/2024): Note: 03-20 Arthritis 12/01/2013 Essential (primary) hypertension 12/01/2013 Overview (08/25/2024): Note: -------GOES BY FERNANDA Surgical History Surgery Date Site/Laterality Comments OTHER SURGICAL HISTORY 05/07/1994 - 05/06/1995 hemorrhoidectomy & fissure surgery OTHER SURGICAL HISTORY Eye surgery 1977 OTHER SURGICAL HISTORY Hemorrhoid surgery 1991 OTHER SURGICAL HISTORY Gallbladder surgery 2010 EYE SURGERY 05/07/1977 - 05/06/1978 Right right orbit fracture Medical History Medical History Date Comments Arthritis Arthritis Gastroesophageal reflux disease GERD Hypertension Hypertension Diabetes mellitus Family History Medical History Relation Name Comments Arthritis Mother Arthritis; Cancer Mother Cancer; Cancer Other 1 Grandfather Cancer; Diabetes Other 1 Grandfather Diabetes mellit ; Hypertension Other 2 Family H/O Hypertension; Macular [...] on file Legal Sex Male 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 Gender Identity Not on file Sexual Orientation Not on file Obstetrics History Last Filed Vital Signs Vital Sign Reading Time Taken Comments Blood Pressure 108/80 07/19/2012 11:58 AM CDT Pulse 92 07/19/2012 11:58 AM CDT Temperature - - Respiratory Rate - - Oxygen Saturation - - Inhaled Oxygen Concentration - - Weight 167.8 kg (370 lb) 06/17/2012 3:30 PM ANALYSIS ANALYST Height 182.9 cm (6') 07/19/2012 11:58 AM CDT Body Mass Index 50.18 06/17/2012 3:30 PM ANALYSIS ANALYST Plan of Treatment Health Maintenance Due Date [...] Tdap) 12/02/2023 12/01/2013 Covid-19 Vaccine (5 - 2024-2 6 season) 2025 01/24/2022, 02/11/2021, 06/29/2020, Additional history exists Influenza Vaccine (#1) 2025 , 01/24/2022, 02/11/2021, Additional history exists Zoster Vaccine Completed 11/05/2018, 08/06/2018 Insurance AETNA MEDICARE [facility] MEDIC[facility] Address: [facility] [id number] [place] [id number] [facility] [id number] [employer] HMO/PPO Address: [employer] CLAIMS [facility] [address] [place] [address] Care Teams Early Childhood Relationship Specialty Start Date End Date Alecia Leslie MD [address] [place] [id number] PCP - General Family Medicine 02/23/21
--- OUTSIDE RECORDS SUMMARY | 2025-03-04 14:43 | XMS_ITS | Clinical Summary ---
Author Organization [facility] Address [address] [facility] [place] [address] Phone Care Team Providers Care Warning Coordination Meteorologist Name Role Phone Wood Griffith MD Unavailable Alecia Cornell MD Primary Care Provider [phone] Natali Leyva APRN, PIZZA BAKER Unavailable Allergies Active Allergy Reactions Criticality Noted [...] Written: 12/01/13 Patient Instructions: 4 Active Multiple Vitamins-Manager Banquet als (Eye Vitamins) Capsule Eye Vitamins Oral [...] Lnp-s, Pf, 3 0 Mcg/0.3 Ml Dose (threadsy) 06/29/2020,06/08/2020 Influenza Vaccine greater than 3 yrs [...] 09/30/2025 9:00 AM CDT Office Visit [facility] [place] [address] [place] [address] Natali Leyva, BEATER BOSS, [facility]ZZ[facility]AKER [address] [facility] [address] [place] [address] Health Maintenance Due Date Last Done Comments Hepatitis C Virus (HCV) Screening 1958 Cologuard 2003 Colonoscopy 2003 Colorectal Cancer Screening 2003 Immunochemical Fecal Occult Blood 2003 Medicare Initial AWV [id number] 03/07/2024 Influenza Immunization (#1) 01/05/202502/05, 03/02/2023, 01/24/2022, Additional history exists SARS-COV-2 Immunization ( season) 2025 02/29/2024, 03/02/2023, 01/24/2022, Additional history exists Zoster Immunization [...] CDT) Prostatic Specific Antigen, Free 2.10 ng/mL [facility] [id number] F 09/06/2020 10:56 PM CDT [facility] PSA, TOTAL (PROSTATIC SPECIFIC ANTIGEN) 3.36 <4.00 ng/mL [facility] ARCH [id number] F 09/06/2020 10:56 PM CDT [facility] PSA, % FREE 62.5 % [place] [id number] 09/06/2020 10:56 PM CDT [facility] Comment: PSA NG/ML FREE PSA % [...] Roscoe Gudino MD CHEMISTRY ORDERABLES Final Result [facility] [address] [place] [address], from Last 3 Months or Most Recently Relevant to Health Maintenance Insurance [facility] OAP MEDICARE C [employer] Care Teams Warning Coordination Meteorologist Relationship Specialty Start Date End Date Alecia Cornell MD [address] [place] [address] PCP - General 07/06/16 Wood Griffith MD [address] [facility] [address] [place] [id number] Consulting Physician Pulmonary Disease 07/06/16 Natali Leyva APRN, PIZZA BAKER [address] [facility] [address] [place] [address] Nurse Practitioner Advanced Practice Nurse 03/29/22
== END 2025-03-04 13:23 | disposition home or self-care (01) ==
PROVIDERS: PCP Family Medicine; Visit Provider Urology
DX: N20.1 Calculus of ureter (principal)
CPT/HCPCS: 74018